=== PATIENT | female | born 1945 | race Caucasian/White ===

== ENCOUNTER 2022-09-03 14:59 | Outpatient (CLI) | payer MEDICARE, SELFPAY ==
--- OUTSIDE RECORDS SUMMARY | 2022-09-03 15:01 | XMS_ITS | Clinical Summary ---
:1945 Author Organization [facility] Address [address] [place] [address] Care Team Providers Name Role Phone Pcp, Pt Declines Primary Care Provider Source Comments You are receiving this document as you are listed as the primary care provider,follow-up provider, or the patient has been referred to you for consultation.This is in compliance with the Medicare and Medicaid EHR Incentive Program,which states Providers who transition their patient to another setting of careor provider of care or refers their patient to another provider of care shouldprovide summarycare record for each transition of care or referral. [facility] Allergies No known active allergies Medications Medication Sig Dispensed Refills Start Date End Date Status metFORMIN XR (GLUCOPHAGE 1,000 mg daily. 0 7 Active XR) 500 MG 24 hour release tablet pantoprazole (PROTONIX) Take 40 mg by 0 03/06/2017 Active 40 MG tablet mouth daily. Active Problems No known active problems Social History Tobacco Use Types Packs/Day Years Used Date Smoking Tobacco: Unknown Alcohol Use Standard Drinks/Week Comments Yes 0 (1 standard drink = 0.6 oz pure alcoho l) Sex Assigned at Date Recorded Not on file Last Filed Vital Signs Vital Sign Reading Time Taken Comments Blood Pressure - - Pulse - - Temperature - - Respiratory Rate - - Oxygen Saturation - - Inhaled Oxygen Concentration - - Weight 72.6 kg (160 lb) 06/08/2017 2:05 PM CDT Height 160 cm (5' 3) 06/08/2017 2:05 PM CDT Body Mass Index 28.34 06/08/2017 2:05 PM CDT Plan of Treatment Health Maintenance Due Date Last Done Comments Colon Cancer Screening Plan Due 1945 Hep C Screening (Preventive 1945 Services) Mammogram 1945 COVID-19 Vaccine (#1) 1945 Adult Preventive Visit 1965 DTaP/Tdap/Td (1 - Tdap) 1966 Zoster/Shingles (1 of 2) 1997 Dexa 2012 Pneumococcal 65+ Yrs (1 - PCV) 2012 Influenza (#1) 2022 HepA Aged Out No longer eligib le based on patient's age to complete this topic HepB Aged Out No longer eligib le based on patient's age to complete this topic Hib Aged Out No longer eligib le based on patient's age to complete this topic IPV (Polio) Aged Out No longer eligib le based on patient's age to complete this topic MCV4 Aged Out No longer eligib le based on patient's age to complete this topic Care Teams Manugrapher Relationship Specialty Start Date End Date Pcp, Pt MD Kassidy PCP - General 05/20/17 [place] [address]
--- OUTSIDE RECORDS SUMMARY | 2022-09-03 15:01 | XMS_ITS | Encounter Summary ---
:1945 Author Organization [facility] Address [address] [facility] [place] [address] Care Team Providers Name Role Phone Pcp, Pt Declines Primary Care Provider Reason for Referral Therapies (Routine) - Closed Specialty Diagnoses / Procedures Referred By Contact Refer red To Contact Diagnoses Primary osteoarthritis of first carpometacarpal joint of left hand José Luis Tubbs MD [address] [facility] [place] [address] Referral ID Status Reason Start Date Expiration Date Visits Requ ested Visits Authorized [id number] Closed 06/08/2017 08/07/2017 1 1 Scheduling Instructions Your provider has recommended an appoint ment with [facility]. You may call [phone] to schedule your appoi ntment. If you do not schedule an appointment within the next 1 to 3 business days, we will call you to help arrange your appointment. We suggest you call your [employer] insurance company about your coverage and benefits for this appointment. Procedure/Equipment (Routine) - Incomplete Specialty Diagnoses / Procedures Referred By Contact Refer red To Contact Diagnoses Primary osteoarthritis of first carpometacarpal joint of left hand José Luis Tubbs MD Procedures XR Finger Lt Thumb 3 Views [address] [facility] [address] [place] [address] Referral ID Status Reason Start Date Expiration Date Visits V isits Requested Authorized [id number] Incomplete 06/08/2017 09/07/2018 1 1 Reason for Visit Reason Comments PAIN, THUMB Left thumb pain deformity Encounter Details Date Type Department Care Team Description 06/08/2017 Surgical Consult [facility] Jsoé Luis Tubbs [facility] osteoarthritis CENTER MD [facility] [address] [facility] [address] [facility] D R carpometacarpal joint [address] [place], [place] of left hand ([place] [address] Dx) [address] [phone] Social History Tobacco Use Types Packs/Day Years Used Date Smoking Tobacco: Unknown Alcohol Use Standard Drinks/Week Comments Yes 0 (1 standard drink = 0.6 oz pure alcoho l) Sex Assigned at Date Recorded Not on file documented as of this encounter Last Filed Vital Signs Vital Sign Reading Time Taken Comments Blood Pressure - - Pulse - - Temperature - - Respiratory Rate - - Oxygen Saturation - - Inhaled Oxygen Concentration - - Weight 72.6 kg (160 lb) 06/08/2017 2:05 PM CDT Height 160 cm (5' 3) 06/08/2017 2:05 PM CDT Body Mass Index 28.34 06/08/2017 2:05 PM CDT documented in this encounter Patient Instructions Patient InstructionsChe Han MA - 06/08/2017 1:[address] José Luis Tubbs MD Hand & Upper Extremity Surgeon Picture Enlarger: Reema Ma Please contact Reema for all surgery scheduling and administrative questions at [phone] Hand Nurse: Joseph Roa Please contact Joseph for all medical related questions at [phone] Medication Requests: Prescriptions are not filled on Weekends or on Weekdays after 3:00PM For all medication refills: Request a refill using MyChart or contact your Pharmacy Please call [phone] to make future appointments. You are going to hand therapy today for splinting documented in this encounter Progress Notes José Luis Tubbs MD - 06/08/2017 1:20 PM CDT [facility] Consultation 06/08/2017 Chief Complaint: Left Thumb Pain History of Present Illness: Erica Tavarez is a type-2 diabetic right hand dominant 72 y.o. female who presents for evaluation of achy left thumb pain that has been going on for the past 20 years. There is no prior history of injury, trauma, or surgery to the left thumb. Her pain is localized to the CMC joint. Her pain becomes worse with doing crafts, sewing, knitting, and holding books. Over time she has noticed that her left thumb has been getting worse and gives her difficult with most activities. Of note at this point she only rates her pain at a 3-4/10 on a pain scale. She was being seen at the [facility] [place] hand clinic for a long period of time and tried hand therapy, bracing, and injection in the past which hasall only provided minor symptomatic relief. She mentions that she does not want to have surgery on the thumb at this point in time. Allergies: Sulfa antibiotics and penicillin. Current Medications: The patient has a current medication list which includes the following prescription(s): metformin xrand pantoprazole. Past Medical History: The patient has past medical history on file including type-2 diabetes, asthma, and spinal stenosis. Past Surgical History: The patient has past surgical history on file including deviated septum, bunion, shoulder repair, and cystocele. Family History: The patient's family history includes cancer (mother and father), heart disease (father), and arthritis (mother and brother). She is a non-smoker and drinks alcohol frequently. Social History: She is retired and lives with her .She The General Medical History Form dated 06/08/2017 was updated and reviewed with the patient; this is located in [email or web address] in [facility]. Review of Systems: A 15-point review was completed by the patient on the intake questionnaire. Review of systems was negative except for wearing glasses, ringing in the ears, asthma, arthritis, chronic back pain, numbness/tingling, allergies, hay fever, and diabetes. Physical Exam: Height: 1.6 m (5' 3) Weight: 72.6 kg (160 lb) General: Healthy appearing female. Affect appropriate. Normal gait. Alert and oriented x 3. Cardiovascular/Neuro: Sensation intact to light touch in all digits. Fingertips pink and well-perfused. Capillary refill less than two seconds. Left Hand/Wrist: Prominent thumb CMC joint with intercalated collapse of the thumb. Instable in pinch Tender over the thumb CMC joint. Positive thumb CMC grind. Mild tenderness over the STT joint. Non-tender over the radioscaphoid articulation, scapholunate interval, or first extensor compartment. Imaging: Radiographs of the left thumb - 3 views (06/08/17): 3 views of the left thumb show there are end stage degenerative changes at the thumb CMC joint with hyperextension deformity. There are also mild arthritic changes at the metacarpal phalangeal joint. I ordered and independently reviewed and interpreted the imaging studies above; the results were discussed with the patient. Assessment: Diagnosis and Associated Orders ICD-10-CM 1. Primary osteoarthritis of first carpometacarpal joint of left hand M18.12 XR Finger Lt Thumb 3 Views Plan: I discussed with the patient her x-rays results and then I discussed the different treatment optionsavailable to her including starting hand therapy, bracing, and corticosteroid injections. She is also a surgical candidate and I would recommend a thumb CMC suture suspension arthroplasty and simultaneously MP joint arthrodesis. The patient voiced understanding of the information discussed, and at this time, elects to proceed with getting a molded brace in hand therapy today. I instructed the patientto follow-up as needed. Scribe Disclosure: Mark Frank, am serving as a scribe to document services personally performed by José Luis Tubbs MD at this visit, based upon the provider's statements to me. All documentation has been reviewed by the aforementioned provider prior to being entered into the official medical record. Entered on 06/08/17 at 2:05 PM. José Luis Frank MD, attest that the above named individual is acting in scribe capacity, has observed my performance of the services performed at this visit and has documented them in accordance with my direction. Entered on 06/08/17 at 2:05 PM. José Luis Tubbs MD documented in this encounter Plan of Treatment Scheduled Referrals Name Type Priority Associated Diagnoses Order S chedule Hand Occupational Referral Routine Primary osteoarthritis of Ordered: Therapy first carpometacarpal 2016 joint of left hand documented as of this encounter Results XR Finger Lt Thumb 3 Views (06/08/2017 1:33 PM CDT) Anatomical Region Laterality Modality Upper Extremity, Hand Digital Radiograph y Specimen (Source) Anatomical Location Collection Method / Collectio n Time Received Time / Laterality Volume Narrative 06/09/2017 6:52 AM CDT 3 views of the left thumb show there are end stage degenerative changes at the thumb CMC joint with hyperextension deformity. There are also mild arthritic changes at the metacarpal phal angeal joint. José Luis Tubbs MD RAD GD documented in this encounter Visit Diagnoses Diagnosis Primary osteoarthritis of first carpomet acarpal joint of left hand - Primary Primary localized osteoarthrosis, hand Thumb pain, left documented in this encounter Care Teams Display Decorator Relationship Specialty Start Date End Date Pcp, Pt MD Kassidy PCP - General 05/20/17 [place] [address] documented as of this encounter
--- OUTSIDE RECORDS SUMMARY | 2022-09-03 15:01 | XMS_ITS | Encounter Summary ---
:1945 Author Organization [facility] Address [address] [place] [address] Care Team Providers Name Role Phone Pcp, Pt Kassidy MCCLURE Primary Care Provider Reason for Visit Reason Comments Hand Therapy Therapies (Routine) - Closed Specialty Diagnoses / Procedures Referred By Contact Refer red To Contact Diagnoses Primary osteoarthritis of first carpometacarpal joint of left hand José Luis Tubbs MD [address] [place] [address] [place], [place] [address] Referral ID Status Reason Start Date Expiration Date Visits Requ ested Visits Authorized [id number] Closed 06/08/2017 08/07/2017 1 1 Encounter Details Date Type Department Care Team Description 06/08/2017 Office Visit [facility] Errol Lee, [facility] [place] [address] [facility] OTR/L DJD(carpometacarpal [place], [place] [address] [facility] D R degenerative joint [address] [place], [place] disease), localized [phone] primary, left (Primary Dx) Social History Tobacco Use Types Packs/Day Years Used Date Smoking Tobacco: Unknown Alcohol Use Standard Drinks/Week Comments Yes 0 (1 standard drink = 0.6 oz pure alcoho l) Sex Assigned at Date Recorded Not on file documented as of this encounter Progress Notes Errol Lee, OTR/L - 06/08/2017 3:00 PM CDT Hand Occupational Therapy Evaluation/Plan of Care Initial Certification Period: 06/08/2017 - 09/06/17 Date of : 1945 Referring Provider: José Luis Tubbs Diagnosis: Left CMC osteoarthritis. Orders: Evaluation and treatment. Date of Onset: ~21 years Cause: Insidious Hand Dominance: Right PMH/Precautions: Refer to EMR for past medical history, medications, and drug allergies. has no pastmedical history on file. Occupation/Job Duties: Retired Leisure/Sports: Hand crafts, knitting, sewing, gardening, grand children, folk dance. Functional Limitations: gripping, pinching, carrying, lifting, crafts, holding a book, leisure activities, dancing, cooking and ADLs. Functional Goals: ?? The patient will implement techniques for self-management of pain as instructed at today's treatment session. The patient will be able to manage self cares within the restrictions of the splint with minimal to no difficulty or pain in 0-2 weeks. Functional Limitation Reporting: Based on objective findings and clinical judgment on 06/08/2017 Current Status: Carrying, moving, handling objects (G8984) - Impairment level 1- 19% impaired (CI modifier) Discharge Status: Carrying, moving, handling objects (G8986) - Impairment level 1-19% impaired (CI modifier) Goal Status: Carrying, moving, handling objects (G8985) - Impairment level 1-19% impaired (CI modifier) SUBJECTIVE: Patient arrives on acute following MD visit. She has pain in her thumb and notes collapse of her MCP. OBJECTIVE: Pain: Patient rates resting pain as achey. Patient rates pain with activity 3/10. AROM: Thumb motion observed within normal limits. Strength: Not tested secondary to pain levels. Special Tests: Left Grind Test NT Shoulder Sign + MCP joint hyperextension + Adduction contracture + Trapezium [place] NT Retropulsion NT TREATMENT INTERVENTION: OT Evaluation CPT 11533 (10 minutes untimed) A Moderate Complexity Occupational Therapy Evaluation was completed. Occupational profile/history: expanded review of records and medical history. Assessment: 3-5 performance deficits. Clinical decision making: consideration of several treatment options and patient may have co-morbidities. The patient was educated on the condition, planned therapy [id number], and expectations from treatment. Goals were a collaborative effort between the patient and therapist. Risks, benefits, and alternatives to treatment were explained. Patient or guardian in agreement with care plan. Therapeutic Exercise CPT 95957 (5 minutes) Patient was instructed in, performed, and provided with written handout for CMC osteoarthritis rangeof motion, including adductor stretches. Self-Care / Home Management Training CPT 42625 (15 minutes) Issued handout and instructed in pain management techniques including the use of heat and/or cold, joint protection strategies, and activity modification. Application of Hand Splint/Orthosis, Static CPT 90080 (15 minutes untimed) A custom thermoplastic hand based thumb spica splint/orthosis with IP free was fabricated for the patient. The patient was provided with written instructions on splint/orthosis care. Patient was instructed to wear the splint/orthosis as needed for comfort and symptom relief. Patient can don and doff splint/orthosis independently. Timed Code Treatment Minutes: 20 Total Treatment Minutes: 45 ASSESSMENT: Symptoms are consistent with referring diagnosis of CMC osteoarthritis. Functional limitations are due to: Pain. Rehab prognosis is good to achieve stated goals. Mood, orientation, and behavior were appropriate. Patient was alert and oriented. No apparent barriers to learning observed. PLAN: Today???s treatment goals were achieved and the patient is able to progress independently towards their remaining short and long-term goals. The patient will follow up with the referring provider as directed. If no new orders in the next 30 days, discharge hand therapy. The patient was provided with the clinic number and instructed to call with any questions or concerns. Therapist Signature: Errol Lee MS, OTR/L #[id number] Visit #1 Payor: [facility] / Plan: [facility] MEDICARE / Product Type: Medicare / Physician electronic signature indicates review and certification of therapy plan of care. documented in this encounter Plan of Treatment Scheduled Referrals Name Type Priority Associated Diagnoses Order S chedule Hand Occupational Referral Routine Primary osteoarthritis of Ordered: Therapy first carpometacarpal 2016 joint of left hand documented as of this encounter Visit Diagnoses Diagnosis CMC DJD(carpometacarpal degenerative vince nt disease), localized primary, left - Primary documented in this encounter Care Teams Medical Claims Manager Relationship Specialty Start Date End Date Pcp, Remi Yi MD PCP - General 05/20/17 [place] [address] documented as of this encounter
--- OUTSIDE RECORDS SUMMARY | 2022-09-03 15:01 | XMS_ITS | Encounter Summary ---
:1945 Author Organization [facility] Address [address], [place] [address] Care Team Providers Name Role Phone PcpRemi MD Primary Care Provider Encounter Details Date Type Department Care Team Description 10/28/2017 Notes/Orders [facility] [address], Rheumatology MD Erik [address] [place] [address] [place] [address] [phone] (Wo rk) Social History Tobacco Use Types Packs/Day Years Used Date Smoking Tobacco: Unknown Alcohol Use Standard Drinks/Week Comments Yes 0 (1 standard drink = 0.6 oz pure alcoho l) Sex Assigned at Date Recorded Not on file documented as of this encounter Plan of Treatment Not on filedocumented as of this encounter Visit Diagnoses Not on filedocumented in this encounter Care Teams Rn Bariatric Relationship Specialty Start Date End Date Remi Lyles MD PCP - General 05/20/17 [place] [address] documented as of this encounter
--- OUTSIDE RECORDS SUMMARY | 2022-09-03 15:01 | XMS_ITS | Encounter Summary ---
:1945 Author Organization [facility] Address [address] [place] [address] Care Team Providers Name Role Phone Pcp, Pt Declines Primary Care Provider Reason for Visit Procedure/Equipment (Routine) - Incomplete Specialty Diagnoses / Procedures Referred By Contact Refer red To Contact Diagnoses Primary osteoarthritis of first carpometacarpal joint of left hand José Luis Tubbs MD Procedures XR Finger Lt Thumb 3 Views [address] [address] [place] [address] Referral ID Status Reason Start Date Expiration Date Visits V isits Requested Authorized [id number] Incomplete 06/08/2017 09/07/2018 1 1 Encounter Details Date Type Department Care Team Description 06/08/2017 Imaging [facility] José Luis Tubbs MD Thumb pain, left [address] [facility] [address] [place] [address] [place] [address] [phone] (Wo rk) Social History Tobacco Use Types Packs/Day Years Used Date Smoking Tobacco: Unknown Alcohol Use Standard Drinks/Week Comments Yes 0 (1 standard drink = 0.6 oz pure alcoho l) Sex Assigned at Date Recorded Not on file documented as of this encounter Plan of Treatment Not on filedocumented as of this encounter Procedures Procedure Name Priority Date/Time Associated Diagnosis Comme nts XR FINGER LT THUMB Routine 06/08/2017 1:33 PM Thumb pain, left Results for this 2+ VIEWS CDT procedure are i n the results section. documented in this encounter Results XR Finger Lt Thumb [...] documented in this encounter Visit Diagnoses Diagnosis Thumb pain, left documented in this encounter Care Teams Apple Checker Relationship Specialty Start Date End Date Pcp, Remi Yi MD PCP - General 05/20/17 [place] [address] documented as of this encounter
--- OUTSIDE RECORDS SUMMARY | 2022-09-03 15:02 | XMS_ITS | Encounter Summary ---
:1945 Author Organization [facility] Address [address] [place] [address] Care Team Providers Name Role Phone Unavailable Primary Care Provider Unavailable Reason for Visit Reason Comments Derm Issue Encounter Details Date Type Department Care Team Description 12/16/2021 Clinical Communication Department of Zenaida Montgomery, Derm Issue Dermatology in [place], [place] [address] [phone] Social History Tobacco Use Types Packs/Day Years Used Date Smoking Tobacco: Never Smokeless Tobacco: Never Alcohol Habits Answer Date Recorded How often do you have a drink containing alcohol? 2-4 times a month 02/27/2021 How many drinks containing alcohol do you have on a 1 or 2 02/27/2021 typical day when you are drinking? How often do you have six or more drinks on one Never 02/27/2021 occasion? Social Isolation Answer Date Recorded In a typical week, how many times do you More than three domi es a week 02/27/2021 talk on the phone with family, friends, or neighbors? How often do you get together with friends Once a week 02/27/2021 or relatives? How often do you attend yarsani or Never 2020 jewish services? Do you belong to any clubs or Yes 02/27/2021 organizations such as yarsani groups, unions, fraternal or athletic groups, or school groups? How often do you attend meetings of the More than 4 times pe r year 02/27/2021 clubs or organizations you belong to? Are you now , , , 02/27/2021 , never or living with a partner? Physical Activity Answer Date Recorded On average, how many days per week do you engage in moderate to 2 days 02/27/2021 strenuous exercise (like walking fast, running, jogging, dancing, swimming, biking, or other activities that cause a light or heavy sweat)? On average, how many minutes do you engage in exercise at th is 30 min 02/27/2021 level? Stress Answer Date Recorded Do you feel stress - tense, restless, nervous, or To some ex tent 02/27/2021 anxious, or unable to sleep at night because your mind is troubled all the time - these days? Financial Resource Strain Answer Date Recorded How hard is it for you to pay for the very basics like Not h kwame at all 02/27/2021 food, housing, medical care, and heating? Food Insecurity Answer Date Recorded Within the past 12 months, you worried that your food would Never true 02/27/2021 run out before you got money to buy more. Within the past 12 months, the food you bought just didn't N ever true 02/27/2021 last and you didn't have money to get more. Transportation Needs Answer Date Recorded In the past 12 months, has lack of transportation kept you f rom No 02/27/2021 medical appointments or from getting medications? In the past 12 months, has lack of transportation kept you f rom No 02/27/2021 meetings, work, or getting things needed for daily living? Housing Stability Answer Date Recorded In the last 12 months, was there a time when you were not ab le No 02/27/2021 to pay the mortgage or rent on time? In the last 12 months, how many places have you lived? 1 02/27/2021 In the last 12 months, was there a time when you did not hav e a No 02/27/[address] or slept in a fpc (including now)? Education Answer Date Recorded What is the highest level of school Bachelor's degree (e.g., BA, AB, 02/26/2021 you have completed or the highest BS) degree you have received? Sex Assigned at Date Recorded Not on file documented as of this encounter Miscellaneous Notes Telephone Encounter - Margot Vergara 12/16/2021 3:07 PM CST Reason for call: Patient is wanting an appointment with Derm, but there is nothing available. Patient has a spot on her chest by her collar bone that is not getting better, the texture has change a lotand patient is concerned. It is itchy and it is raised and has a thickness to it that it did not have before. Patient would like a call back and an appointment. Please call patient back at [phone], you can leave a detailed message if she does not answer. 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
--- OUTSIDE RECORDS SUMMARY | 2022-09-03 15:02 | XMS_ITS | Encounter Summary ---
:1945 Author Organization [facility] Address [address] [place] [address] Care Team Providers Name Role Phone Unavailable Primary Care Provider Unavailable Reason for Visit Reason Comments Suspicious Skin Lesion Recheck right calf nevus Appointment Request (Routine) - Closed Specialty Diagnoses / Procedures Referred By Contact Refer red To Contact Dermatology Referral ID Status Reason Start Date Expiration Date Visits Requ ested Visits Authorized [id number] Closed 06/06/2018 06/06/2019 1 Encounter Details Date Type Department Care Team Description 09/20/2018 Office Visit Department of Zenaida Montgomery, Tumor Skin Uncertain Behavior (Primary Dx); [place] [address] [phone] Social History Tobacco Use Types Packs/Day Years Used Date Smoking Tobacco: Never Assessed Alcohol Habits Answer Date Recorded How often [...] or relatives? How often do you attend mandaen or Never 2020 voodoo services? Do you belong to any clubs or Yes 02/27/2021 organizations such as mandaen groups, unions, fraternal or athletic groups, or [...] place to sleep or slept in a care home (including now)? Sex Assigned at Date Recorded Not on file documented as of this encounter Progress Notes Zenaida Montgomery M.D. - 09/20/2018 8:30 AM CST CHIEF COMPLAINT/REASON FOR VISIT Recheck of nevus involving the right calf Lesion involving the right lower back HISTORY OF PRESENT ILLNESS Ms. Erica Tavarez is a 73 y.o. female who presents today for recheck of nevus involving the rightcalf. The patient denies a history of skin cancer. During her last visit on 06/06/18, one nevus on her right calf was noted to be slightly asymmetrical but looked benign on clinical exam and dermoscopy. The patient also has concern today for a lesion involving her right lower back that has been presentfor many years. She reports it is itchy, and the lesion bleeds when she scratches the it. Allergies Allergen Reactions ??? Sulfa (Sulfonamide Antibiotics) Anaphylaxis and Rash ??? Cats [Cat Dander] Other (see comments) Eyes swell and itch ??? Dog Dander Other (see comments) Nasal congestion ??? House Dust Other (see comments) ??? Mold Extracts Other (see comments) ??? Penicillins Rash PAST MEDICAL HISTORY No history of skin cancer Type 2 Diabetes Mellitus FAMILY HISTORY Father has a history for melanoma in situ involving the scalp as well as basal cell carcinoma. Mother has a history of basal cell carcinoma and squamous cell carcinoma. Son has a history of atypical nevi in his late 50's. PHYSICAL EXAM General: Awake, alert, in no acute distress, and with appropriate affect. Skin: I have examined the scalp, face, neck, chest, abdomen, back, bilateral upper extremities, and bilateral lower extremities. Examination of the right calf reveals a 2.5 mm x 2.5 mm brown, slightly asymmetrically pigmented nevus. Examination of the right lower back reveals one small nonspecific healing excoriation and dry skin. No lesion present on clinical examination and dermoscopy. IMPRESSION/REPORT/PLAN #1 Right calf: Rule out atypical nevus On clinical examination and dermoscopy today, the nevus involving the right calf is slightly asymmetrical but appears benign. We discussed the possibility of removal or continued observation of the nevus through regular rechecks every 4-6 months. The patient and we prefer to remove the nevus today instead of continued close observation. We recommend a 5-mm punch biopsy of the right calf. Photograph taken today with patient's verbal consent. We will correspond as to the results and if any further treatment is needed. I advised the patient to avoid any stretching, bending, twisting or heavy lifting for the next two weeks and the patient understands. We also emphasized the importance preventing infection and observing the area for infection given her history of type 2 diabetes and getting prompt evaluation if she suspects infection atthe biopsy site. PROCEDURAL PAUSE Procedural pause conducted to verify: correct patient identity, procedure to be performed, and as applicable, correct side and site, correct patient position, and availability of implants, special equipment, or special requirements. PROCEDURE DETAILS Punch biopsy. We explained the potential diagnosis and recommended that we obtain a biopsy. The risks and benefitsof the procedure were discussed, and the patient consented to these procedures. The patient denies any allergies to local anesthetics. Using 1% lidocaine with epinephrine for local anesthesia, a 5-mm punch biopsy was obtained from the right calf. Biopsy submitted to Dermatopathology. Biopsy site closed with a top layer of three 4-0 nylon skin sutures. The skin sutures need to be removed in 10-14 days. Dressing was applied, and wound care instructions were explained. Biopsy results and any further recommendations will be communicated to the patient by letter. Patient given pamphlet [id number]. Discussed the risks, benefits, alternatives, and the necessity of other members of the healthcare team participating in the procedure. All questions answered and consent given. #2 Right lower back: Healing excoriation The patient was concerned for a lesion involving the right lower back. However, there is no lesion present on clinical examination and dermoscopy today. PATIENT EDUCATION Ready to learn. No apparent learning barriers were identified. Learning preferences include listening. Explained diagnosis and treatment plan; patient/guardian of patient expressed understanding of thecontent. By signing my name below, Rebeca Frank, attest that this documentation has been prepared under the direction and in the presence of Zenaida Montgomery M.D.. Electronically Signed: catalina Riley. 09/20/2018. 7:52 AM . Zenadia Frank M.D., personally performed the services described in this documentation. All medical record entries made by the scribe were at my direction and in my presence. I have reviewed the chart and discharge instructions (if applicable) and agree that the record reflects my personal performance and is accurate and complete. Zenaida Montgomery M.D. . 09/20/2018. 9:01 AM. [employer]AT ASSEMBLY Zenaida Montgomery M.D. - 09/20/2018 8:30 AM CST b9 lesion letter. [employer] documented in this encounter Plan of Treatment Not on filedocumented as of this encounter Procedures Procedure Name Priority Date/Time Associated Comments Diagnosis DERMATOPATHOLOGY CONSULT Routine 09/20/2018 8:55 Tumor Skin Results for this AM SUPERVISOR [employer]SEMBLY Uncertain Behavior procedure are in the results section. documented in this encounter Results Dermatopathology Consult (09/20/2018 8:55 AM SUPERVISOR [employer]) Component Value Ref Test Analysis Performed At [facility] Method Time Signature Gross Received in formalin labeled with the patient's name, 09/26/2018 [facility] Description: medical record number, and right calf is a 0.5 cm in 4:26 PM [employer] LABORATORIES - diameter pale dillon-stephenson ovoid skin punch biopsy, excised to [facility] depth of 0.4 cm. ??There is a 0.2 x 0.2 cm [facility] pigmented lesion with irregular borders centrally located on the skin surface. ??The specimen is bisected and submitted entirely in cassette A1. ??Grossed by AJG. Report Urmila Silveira 09/26/2018 [facility] electronically Yifan Jamison 4:26 PM [employer] ES - signed by [facility] 09/26/2018 [facility] 4:26 PM [employer] LABORATORIES - [facility] Interpetation FINAL DIAGNOSIS 09/26/2018 [facility]. ??DermPath Consult Wet Tissue; Right calf, Skin punch 4:26 PM [employer] [facility]IES - biopsy: ??Lentiginous junctional nevus [facility] Clinical photo reviewed. Specimen Anatomical Collection Method Collection Time Receive d Time (Source) Location / / Volume Laterality Tissue 09/20/2018 8:55 AM 8 9:19 [employer] AM [employer] Narrative This result has an attachment that is no t available. Zenaida Montgomery M.D. LAB PATH DERM ORDERABLES Performing Organization Address City/State/ZIP Code Phon e Number [facility] - [address] [place], [place] [address] [facility] documented in this encounter Visit Diagnoses Diagnosis Tumor Skin Uncertain Behavior - Primary Nevus Atypical documented in this encounter Administered Medications Inactive Administered Medications - up to 3 most recent administrations Medication Order MAR Action Action Date Dose Rate Site lidocaine-EPINEPHrine 1 %-1:100,000 Given 09/20/2018 9:00 AM [employer] 1 mL injection 1 mL (XYLOCAINE W/EPI) 1 mL, infiltration, Once, On Wed09/20/18 at 0900, For 1 dose documented in this encounter
--- OUTSIDE RECORDS SUMMARY | 2022-09-03 15:02 | XMS_ITS | Encounter Summary ---
:1945 Author Organization [facility] Address [address] [place] [address] Care Team Providers Name Role Phone Unavailable Primary Care Provider Unavailable Reason for Visit Reason Comments Lesion Appointment Request (Routine) - Closed Specialty Diagnoses / Procedures Referred By Contact Refer red To Contact Dermatology Zenaida Montgomery M.D . [address] [place] [phone] Referral ID Status Reason Start Date Expiration Date Visits Requ ested Visits Authorized [id number] Closed 05/06/2021 05/06/2022 1 1 Encounter Details Date Type Department Care Team Description 12/23/2021 Office Visit Department of Zenaida Montgomery, Tumor Skin Uncertain Dermatology in [place] [facility] (Primary Dx) [place], [place] [address] [place] [phone] Social History Tobacco Use Types Packs/Day Years [...] or relatives? How often do you attend restorationist or Never 2020 jehovah's witness services? Do you belong to any clubs or Yes 02/27/2021 organizations such as restorationist groups, unions, fraternal or athletic groups, or [...] place to sleep or slept in a assisted (including now)? Education Answer Date Recorded What is the highest level of school Bachelor's degree (e.g., BA, AB, 02/26/2021 you have completed or the highest BS) degree you have received? Sex Assigned at Date Recorded Not on file documented as of this encounter Progress Notes Zenaida Montgomery M.D. - 12/23/2021 9:15 AM CST SUBJECTIVE CHIEF COMPLAINT / REASON FOR VISIT Lesion x 1 HISTORY OF PRESENT ILLNESS Erica Tavarez is a pleasant 76 y.o. female who presents for an evaluation of a lesion x 1 involving the chest. The patient was last seen by me in Dermatology clinic on 05/06/21. She denies a personalhistory of skin cancer. Her father has a history of melanoma. She uses sunscreen. Today the patient states the lesion involving the chest has been present for two years and she feels that it has increased in thickness over the last three months. She reports that the lesion has been itchy for as long as it has been present. MEDICAL HISTORY Negative for skin cancer FAMILY HISTORY Father??has a??history for melanoma??in situ involving the scalp as well as??basal cell carcinoma Son has a history of severely dysplastic nevus OBJECTIVE PHYSICAL EXAMINATION General: Awake, alert, in no acute distress, and with appropriate affect. Skin: Limited skin exam done today. Examination of the right mid central chest reveals a slightly erythematous, scaly macule, lichenoid keratosis, rule out superficial basal cell carcinoma. ASSESSMENT / PLAN #1 Right mid central chest: Lichenoid keratosis, rule out superficial basal cell carcinoma We recommend a shave biopsy of the right mid central chest. Photograph taken today with patient's verbal consent. We will correspond as to the results and if any further treatment is needed. PROCEDURAL PAUSE: Procedural pause conducted to verify: correct patient identity, procedure to be performed, and as applicable, correct side and site, correct patient position, and availability of implants, special equipment or special requirements. PROCEDURE DETAILS: Shave biopsy. We explained the potential diagnosis and recommended that we obtain a biopsy. The risks and benefitsof the procedure were discussed, and the patient consented to these procedures. The patient denies any allergies to local anesthetics. Using 1% lidocaine with epinephrine for local anesthesia, a shave biopsy was obtained from the right mid central chest. Biopsy submitted to Dermatopathology for H&E. Special stains will be performed as indicated. The bleeding was well controlled with application of aluminum chloride. Dressing was applied, and wound care instructions were explained. Biopsy resultsand any further recommendations will be communicated to the patient by letter. Patient given pamphlet [id number]. Discussed the risks, benefits, alternatives, and the necessity of other members of the healthcare team participating in the procedure. All questions answered and consent given. PATIENT EDUCATION: Ready to learn. No apparent learning barriers were identified. Learning preferences include listening. Explained diagnosis and treatment plan; patient/guardian of patient expressed understanding of thecontent. By signing my name below, I, Rossana Glez, attest that this documentation has been prepared under the direction and in the presence of Zenaida Montgomery M.D. Electronically Signed: catalina Martinez. 12/23/2021. 8:36 AM NURSE PRACTICAL. IZenaida M.D., personally performed the services described in this documentation. All medical record entries made by the scribe were at my direction and in my presence. I have reviewed the chart and discharge instructions (if applicable) and agree that the record reflects my personal performance and is accurate and complete. Zenaida Montgomery M.D. E PRACTICAL documented in this encounter Miscellaneous Notes Result Encounter Note - Zenaida Montgomery M.D. - 12/30/2021 8:58 AM CST Right mid central chest: Benign lesion letter [place] patient. Please send letter E PRACTICAL documented in this encounter Plan of Treatment Not on filedocumented as of this encounter Procedures Procedure Name Priority Date/Time Associated Comments Diagnosis DERMATOPATHOLOGY CONSULT Routine 12/23/2021 9:41 Tumor Skin Results for this AM NURSE PRACTICAL Uncertain Behavior procedure are in the results section. documented in this encounter Results Dermatopathology Consult (12/23/2021 9:41 AM NURSE PRACTICAL) Component Value Ref Test Analysis Performed At [facility] gist Range Method Time Signature 12/29/2021 PDR 1:21 PM NURSE PRACTICAL Report Clarisse Medrano 12/29/2021 [facility] electronically Yifan Bee 1:21 PM NURSE PRACTICAL signed by Gross Description: Received in formalin labeled with the patient's name, 12/29/2021 [facility] medical record number, and right mid central chest is a 1:21 PM NURSE PRACTICAL 0.8 x 0.6 x 0.1 cm pale-dillon skin shave biopsy. ??Centrally located on the skin surface is a 0.5 x 0.4 cm pale dillon-brown, slightly raised lesion with ill-defined borders. The specimen is trisected and submitted entirely in cassette A1. ??Grossed by AIDAN. Interpetation FINAL DIAGNOSIS 12/29/2021 PDR A. ??DermPath Consult Wet Tissue; Right mid central chest, 1:21 PM NURSE PRACTICAL Skin shave biopsy: ??Lichenoid keratosis Specimen Anatomical Collection Method Collection Time Receive d Time (Source) Location / / Volume Laterality Tissue 12/23/2021 9:41 AM 9:56 NURSE PRACTICAL AM NURSE PRACTICAL Narrative This result has an attachment that is no t available. Zenaida Montgomery M.D. LAB PATH DERM ORDERABLES Performing Organization Address City/State/ZIP Code Phon e Number [facility] - [address] [place], [place] [address] [place] [address] [facility] [address] documented in this encounter Visit Diagnoses Diagnosis Tumor Skin Uncertain Behavior - Primary documented in this encounter
--- OUTSIDE RECORDS SUMMARY | 2022-09-03 15:02 | XMS_ITS | Encounter Summary ---
:1945 Author Organization [facility] Address [address] [place] [address] Care Team Providers Name Role Phone Unavailable Primary Care Provider Unavailable Encounter Details Date Type Department Care Team Description 10/03/2018 Nurse Only Department of Dermatology in [place] Loraine sebastian R.N. [facility] christine [address] [place] [phone] Social History Tobacco Use Types Packs/Day Years [...] or relatives? How often do you attend bahai or Never 2020 restorationism services? Do you belong to any clubs or Yes 02/27/2021 organizations such as bahai groups, unions, fraternal or athletic groups, or [...] place to sleep or slept in a skilled nursing (including now)? Sex Assigned at Date Recorded Not on file documented as of this encounter Procedure Notes Loraine Chavira R.N. - 10/03/2018 3:00 PM CST Procedures #1 Suture removal Supervising consultant electronics was immediately available, but consultation was not required. Supervising consultant electronics: Dr. Aly Montgomery ([id number]). Ordering physician: Dr. Aly Montgomery ([phone]). Patient seen on 09/20/2018 and punch biopsy was performed. Patient returns for suture removal. Area cleansed with alcohol wipe. Wound is well approximated, without swelling, without odor, without drainage, without bruising. Three suture(s) removed from the Right calf with difficulty. Vaseline and bandage applied. Wound care reviewed with patient per [id number]. Biopsy results were discussed. Teaching provided to patient. Evaluation of learning: able to teach back. Final Pause: A final pause occurred just before the procedure start, during which the entire procedure team actively confirmed the correct patient, procedure, site, special equipment and special requirements. HER FEEDER documented in this encounter Plan of Treatment Not on filedocumented as of this encounter Visit Diagnoses Diagnosis Aftercare Suture Removal Non-Injury - Pr imary documented in this encounter
--- OUTSIDE RECORDS SUMMARY | 2022-09-03 15:02 | XMS_ITS | Encounter Summary ---
:1945 Author Organization [facility] [place] [address] Care Team Providers Name Role Phone Mahamed Kate MD Primary Care Provider [phone] Reason for Visit Auth/Cert Specialty Diagnoses / Procedures Referred By Contact Refer red To Contact Surgery Diagnoses BILATERAL UPPER LID PTOSISI, DERMATOCHALASIS, BROW PTOSIS Sh Periop Services Procedures COMBINED REPAIR PTOSIS WITH BLEPHAROPLASTY BILATERAL REPAIR PTOSIS BROW [address], [address] [place] [address] Phone: Referral ID Status Reason Start Date Expiration Date Visits Requ ested Visits Authorized [id number] 1 1 Encounter Details Date Type Department Care Team Description 08/23/2018 Surgery [facility] Sarika Mcdaniel [place] UPPER LID [place] PeriOP MD [place] PTOSIS, Services [place] OPHTHALMIC PLASTIC BLEPHAROPLASTY, RIGHT [address], SURGERY BROW PTOSIS [address] [place] [address] [address] [place] [id number] (Wo rk) Surgery Details Date/Time Status Location OR Service Patient Case Case Traum a Class Class Type Case? 08/23/18 Posted Z SH SD SD 23 Ophthalmology Same Day 11:10 AM Surgery Panel 1 Procedure LRB Anes Op Region Wound Class Commen ts BILATERAL UPPER LID Bilateral MAC Eye I-Clean BILAT ERAL UPPER LID PTOSIS, BLEPHAROPLASTY, P TOSIS, BLEPHAROPLASTY, RIGHT BROW PTOSIS RIGHT B ROW PTOSIS REPAIR, PTOSIS, BROW Right MAC Eye I-Clean Surgeon Surgeon Role Service Panel Sarika Mcdaniel MD Primary Ophthalmology 1 documented in this encounter Social History Tobacco Use Types Packs/Day Years Used Date Smoking Tobacco: Never Smokeless Tobacco: Never Alcohol Use Standard Drinks/Week Comments Yes 0 (1 standard drink = 0.6 oz pure alcoho l) Sex Assigned at Date Recorded Not on file documented as of this encounter Last Filed Vital Signs Vital Sign Reading Time Taken Comments Blood Pressure 120/72 08/23/2018 1:15 PM CDT Pulse - - Temperature 36.6 ??C (97.9 ??F) 08/23/2018 1:15 PM CDT Respiratory Rate 16 08/23/2018 1:15 PM CDT Oxygen Saturation 92% 08/23/2018 1:15 PM CDT Inhaled Oxygen Concentration - - Weight 71.4 kg (157 lb 8 oz) 08/23/2018 10:30 AM CDT Height 157.5 cm (5' 2) 08/23/2018 10:30 AM CDT Body Mass Index 28.81 08/23/2018 10:30 AM CDT documented in this encounter Discharge Instructions Discharge InstructionsNicki Flowers RN - 08/23/2018 12:35 PM CDT Same Day Surgery Discharge Instructions for Sedation and General Anesthesia ?? It's not unusual to feel dizzy, light-headed or faint for up to 24 hours after surgery or while taking pain medication. If you have these symptoms: sit for a few minutes before standing and have someone assist you when you get up to walk or use the bathroom. ?? You should rest and relax for the next 24 hours. We recommend you make arrangements to have an adult stay with you for at least 24 hours after your discharge. Avoid hazardous and strenuous activity. ?? DO NOT DRIVE any vehicle or operate mechanical equipment for 24 hours following the end of your surgery. Even though you may feel normal, your reactions may be affected by the medication you have received. ?? Do not drink alcoholic beverages for 24 hours following surgery. ?? Slowly progress to your regular diet as you feel able. It's not unusual to feel nauseated and/or vomit after receiving anesthesia. If you develop these symptoms, drink clear liquids (apple juice, chioma aranza, broth, 7-up, etc. ) until you feel better. If your nausea and vomiting persists for 24 hours, please notify your surgeon. ?? All narcotic pain medications, along with inactivity and anesthesia, can cause constipation. Drinking plenty of liquids and increasing fiber intake will help. ?? For any questions of a medical nature, call your surgeon. ?? Do not make important decisions for 24 hours. ?? If you had general anesthesia, you may have a sore throat for a couple of days related to the breathing tube used during surgery. You may use Cepacol lozenges to help with this discomfort. If it worsens or if you develop a fever, contact your surgeon. ?? If you feel your pain is not well managed with the pain medications prescribed by your surgeon, please contact your surgeon's office to let them know so they can address your concerns. [facility] Eyelid/Orbital Surgery Discharge Instructions Dr. Sarika Mcdaniel ICE COMPRESSES Immediately following surgery, you should begin to apply ice compresses. Apply a cold gel pack or wrap a clean washcloth around a cup of crushed ice in a plastic bag (a bag of frozen peas also works well) and hold the cold compresses directly against the closed eyelid (s).Apply cold pack for a minimumof six times daily for no longer than 15 minutes at a time. Continue cold compresses every day untilthe bruising and swelling begin to subside. This can vary for each patient, but three days may be common. HOT COMPRESSES After your swelling and bruising have begun to subside, hot compresses should be applied. Take a clean washcloth and wring it out in hot water (as warm as you can tolerate comfortably). Hold this warm compress against the closed eyelid(s) at least six times per day for 15 minutes. This should be continued for about two weeks. OINTMENT You may be given some ointment when you leave the hospital. Apply this ointment as directed per pharmacy label for 7 days. Expect some blurring of vision from the ointment. ACTIVITY Avoid heavy lifting or vigorous exercise for one week after surgery. You may resume regular activities as tolerated. You may shower and wash your hair on the day after surgery; be careful to avoid soaking the wounds or getting shampoo in your eyes. While your eyes are still swollen, it is recommended you sleep on your back and elevate your head with 2-3 pillows. MEDICATION If the doctor has given you some medications to take after surgery, please take these according to the instructions on the bottle. Pain medications may make you drowsy so do not drive, operate heavy machinery, or use alcohol while taking it. When you feel that you do not need the prescription pain medication, you may substitute Extra Strength Tylenol for mild pain by also following the directions on the bottle. If you were taking Aspirin prior to your surgery, you may resume this medication tomorrow. If you were on an anticoagulant, you may resume taking it with the next scheduled dose. WHAT TO EXPECT You should expect some slight oozing of blood from the incision site over the first two to three days after surgery. Swelling and bruising will occur for one to two weeks or longer. You may also experience itching and tearing during the first several weeks after surgery. This is part of the normal healing process QUESTIONS Please feel free to contact the office, should you have any questions that are not answered above. The phone number is . Please call immediately if you are unable to establish vision in the operative eye, you are experiencing heavy bleeding that will not stop with gentle pressure or you have any signs of an infection (greenish/yellow discharge or progressive redness). [facility] [address] [place], [place] [address] If you have questions or concerns about your procedure, call Dr. Mcdaniel at [phone] documented in this encounter Medications at Time of Discharge Medication Sig Dispensed Refills Start Date End Date Acetaminophen (TYLENOL Take 325-650 mg by 0 PO) mouth At Bedtime (Takes 2 x 325mg tablet = 650mg dose) albuterol (2.5 MG/3ML) Take 2.5 mg by 0 0.083% neb solution nebulization every 4 hours as needed for shortness of breath / dyspnea or wheezing albuterol (PROAIR Inhale 2 puffs into 0 HFA/PROVENTIL the lungs every 4 HFA/VENTOLIN HFA) 108 (90 hours as needed for Base) MCG/ACT inhaler shortness of breath / dyspnea or wheezing Cyanocobalamin (B-12 PO) Take 500 mcg by mouth 0 daily DiphenhydrAMINE HCl Take 25-50 mg by mouth 0 (BENADRYL PO) At Bedtime erythromycin (ROMYCIN) Apply topically 3 2 Tube 1 2017 ophthalmic times daily ointmentIndications: Ptosis of both eyelids fluticasone (FLONASE) 50 [place] 2 sprays into 0 MCG/ACT spray both nostrils daily GABAPENTIN PO Take 100-200 mg by 0 mouth daily GLIMEPIRIDE PO Take 1 mg by mouth 2 0 times daily (Takes 2 x 1mg tablet = 2mg dose) HYDROcodone-acetaminophen Take 1 tablet by mouth 10 tablet 0 08/23/2018 (NORCO) 5-325 MG per every 6 hours as tabletIndications: Ptosis needed for severe pain of both eyelids MAGNESIUM GLYCINATE PLUS Take 400 mg by mouth 0 PO daily METFORMIN HCL ER PO Take 500 mg by mouth 2 0 times daily (Takes 2 x 500mg tablet = 1000mg dose) mometasone (ASMANEX) 220 Inhale 1-2 puffs into 0 MCG/INH Inhaler the lungs daily Montelukast Sodium Take 10 mg by mouth At 0 (SINGULAIR PO) Bedtime multivitamin, therapeutic Take 1 tablet by mouth 0 (THERA-VIT) TABS tablet daily Pseudoephedrine HCl Take 30 mg by mouth At 0 (SUDAFED PO) Bedtime documented as of this encounter Nursing Notes Kerri Llamas RN - 08/23/2018 1:35 PM CDT PNDS met. Pt tolerating PO. Pt discharge to Phase II, awaiting RX medication. Pt stating her Left eye is more grainy feeling than left. documented in this encounter Miscellaneous Notes Op Note - Sarika Mcdaniel MD - 08/23/2018 1:00 PM CDT Pre-operative Diagnosis: ?? 1. 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 2.??Bilateral upper eyelid involutional ptosis causing visual signs/symptoms 3. Right upper eyelid brow ptosis Post-operative Diagnosis:??Same as above ? Procedure(s): ?? 1. Bilateral upper eyelid blepharoplasty 2. Bilateral internal ptosis repair (MMCR 8.5??OU) 3. Right brow ptosis repair via browpexy Surgeon:??Sarika Mcdaniel MD ? Anesthesia:??Monitored anesthesia care with local anesthetic ? Blood loss:??<5 cc ? Complications:??None ? Specimens: None ? Operative Procedure: The risks, benefits and alternatives to the procedure were discussed with the patient. The patient agreed to the planned procedure and the patient was brought to the operating room.?A time out wasperformed to ensure the correct surgical site was being operated on.??Topical anesthesia was placed in both eyes.?The eyelid skin was cleaned with isopropyl alcohol. The upper eyelid creases were marked.?Upper eyelid blepharoplasty incisions were marked with care taken to leave adequate anteriorlamella to avoid post operative lagophthalmos. The peak of the right brow had also been marked in pre op. Local anesthetic was injected into the operative site(s). The patient was prepped and draped inthe usual sterile fashion. ? Attention was turned to the upper eyelids.?The upper eyelid skin was incised along the eyelid crease and the superior margin as outlined with a #15 blade.?A skin-muscle flap was created with the dissection plane between the orbicularis muscle??and orbital septum.??Hemostasis was achieved with cautery. ??Hemostasis was confirmed. The same procedure was performed on the other upper eyelid. ??Medially, the orbital septum was opened, and the medial fat pad was conservatively excised. ??Hemostasis was achieved with cautery and confirmed. ?? Attention was turned to the brow repair. The monopolar cautery was used to dissect toward the superior orbital rim laterally in a preseptal plane. The Hilario Marres retractor and freer were used to continue the dissection in a preperiosteal plane. Hemostasis was achieved with cautery. A caliper was used to measure 12 mm from the superior orbital rim. The 4-0 vicryl suture was used to engage the periosteum here and then the calipers were used to again measure 12 mm from the superior incision. The subbrow fat pad was engaged at this point and the suture was tied elevating the brow into ideal position. This was performed on the right side only. ? Attention was then directed to the internal ptosis repair. ??A 4-0 silk suture was placed through the stephenson line of the right upper eyelid.?The eyelid was everted over a Hilario Petty retractor.?Two markings were placed at the medial and lateral 1/3 of the tarsal plate.?A caliper was placed (and confirmed with a ruler) to 4.25 mm and two additional saxena were placed 4.25 mm superior to the tarsalplate.?The conjunctiva was lifted with two toothed forceps, and the Putterman clamp was placed and clamped incorporating 8.5??mm of conjunctiva/Shultz's complex.?A 6-0 chromic suture was passed from lateral to medial and back lateral under the Putterman clamp.?Next, a #15 blade was used to cut the conjunctiva from the clamp in a metal on metal fashion.?The sutures were confirmed to be intact and then were tied. The same procedure, for a total resection of 8.5??mm, was performed on the other eyelid. Hemostasis was confirmed and the upper eyelid skin edges were closed with interrupted and running and interrupted 6-0 fast absorbing gut sutures.?? The traction sutures were removed. The eyelids were washed with wet 4x4 gauze. Antibiotic ointment was placed on each eyelid. The patient was transferred to recovery in stable position.?Ice packs were placed on each eyelid.?The patient will return for a post- operative follow up appointment, sooner with any decrease in vision, increase in pain, redness, or bleeding. ? Sarika Mcdaniel MD documented in this encounter Plan of Treatment Not on filedocumented as of this encounter Procedures Procedure Name Priority Date/Time Associated Comments Diagnosis REPAIR, PTOSIS, BROW 08/23/2018 11:41 BILATERAL UPPER AM CDT LID PTOSISI, DERMATOCHALASIS, BROW PTOSIS REPAIR, PTOSIS, 08/23/2018 11:41 BILATERAL UPPER BILATERAL, WITH AM CDT LID PTOSISI, BILATERAL DERMATOCHALASIS, BLEPHAROPLASTY BROW PTOSIS GLUCOSE BY METER Routine 08/23/2018 10:22 Results for this AM CDT procedure are i n the results section. LAB RESULT - HIM SCAN 06/13/2018 12:00 AM CDT documented in this encounter Results (ABNORMAL) Glucose by meter (08/23/2018 10:22 AM CDT) P athologist Signature Glucose 163 (H) 70 - 99 08/23/2018 POINT OF CARE mg/dL 10:34 AM CDT TEST, GLUCOSE Specimen Anatomical Collection Method Collection Time Receive d Time (Source) Location / / Volume Laterality 08/23/2018 10:22 08/23/2018 AM CDT 10:34 AM CDT Sarika Mcdaniel MD LAB - BEAKER POCT Performing Organization Address City/State/ZIP Code Phon e Number [facility] POINT OF CARE TEST, GLUCOSE POINT OF CARE TEST, GLUCOSE LAB RESULT - HIM SCAN (06/13/2018 12:00 AM CDT) Specimen (Source) Anatomical Location Collection Method / Collectio n Time Received Time / Laterality Volume 06/13/2018 Narrative This result has an attachment that is no t available. Provider Outside NON-BEAKER LAB TESTING documented in this encounter Visit Diagnoses Not on filedocumented in this encounter Administered Medications Inactive Administered Medications - up to 3 most recent administrations Medication Order MAR Action Action Date Dose Rate Site albuterol neb solution 2.5 mg 2.5 mg, Nebulization, EVERY 1 HOUR PRN, wheezing, shortness of breath / dyspnea, As needed in PACU, Starting on Wed08/23/18 at 1248, PACU bupivacaine 0.5% w/EPI 20mL Given 08/23/2018 12:31 PM 1 mL Operative Site/Surgical + lidocaine 2% w/EPI CDT Site 1:100,000 20mL PRN, Starting on Wed08/23/18 at 1149, Intra-procedure Given 08/23/2018 11:49 AM CDT 6 mLs Oper ative Site/Surgical Site dexamethasone (DECADRON) injection 4 mg 4 mg, Intravenous, EVERY 10 MIN PRN, tamar sea, Administer over 1 Minutes, Starting on Wed08/23/18 at 1248, For 2 doses, For IV doses 1-20 m g, give IV Push undiluted over 1 minute., PACU/Phase II dimenhyDRINATE (DRAMAMINE) injection 12. 5 mg 12.5 mg, Intravenous, ONCE PRN, other, n ausea, Starting on Wed08/23/18 at 1248, For 1 dose, Administer only if ondansetr on and prochlorperazine have not provided relief. Dilute in 10 ml 0.9% Sodium chloride., PACU/Ph ase II erythromycin (ROMYCIN) Given 08/23/2018 11:58 AM 2 g Operative Site/Surgical ophthalmic ointment CDT Site PRN, Starting on Wed08/23/18 at 1158, Intra-procedure fentaNYL (PF) (SUBLIMAZE) injection 25-5 0 mcg 25-50 mcg, Intravenous, EVERY 5 MIN PRN, other, acute pain while in PACU., Starting on Wed08/23/18 at 1248, MAX cumulative dose = 250 mcg. Use fentaNYL (SUBLIMAZE) initially, as a short acting agent for a cute pain control. If insufficient, or a longer acting agent is needed, begin morphine or HYDRO morphone (DILAUDID) if ordered. Hold for respiratory rate <8. F or ordered IV doses 1-100 mcg give IV Push undiluted over a minimum of 3-5 minutes., PACU HYDROmorphone (PF) (DILAUDID) injection 0.3-0.5 mg 0.3-0.5 mg, Intravenous, EVERY 10 MIN PRN, other, acut e pain. May administer if Respiratory Rate is greater than 10, Starting on Wed at 1248, Max cumulative dose = 3 mg If fentaNYL (SUBL IMAZE) is also ordered, use HYDROmorphone (DILAUDID) if pain control insufficient with fentaNYL (SUMBLIMAZE) or a longer acting agent is needed. For ordered IV doses 0.1-4 mg give IV Push undiluted. Administer each 2mg over 2-5 minutes., PACU/Phase II lactated ringers infusion at 100 mL/hr, Intravenous, CONTINUOUS, Continue until IV catheter is weaned, PACU/Phase II, Starting on Wed08/23/18 at 1300, Until Wed08/23/18 at 1612 LORazepam (ATIVAN) injection 0.5-1 mg 0.5-1 mg, Intravenous, ONCE PRN, anxiety , muscle spasms, Starting on Wed08/23/18 at 1248, For 1 dose, Give push at max of 2 mg/min For IV PUSH: Dilute with equal volume of NS. For ordered IV doses 0.1-4 mg give IV Push. Administer each 2mg over 1-5 minutes., PACU meperidine (DEMEROL) injection 12.5 mg 12.5 mg, Intravenous, EVERY 15 MIN PRN, post anesthesi a shivering, breakthrough pain, Starting on Wed08/23/18 at 1248, For 4 doses, Indications: May give up to 50 mg for breakthrough pain if previous analgesics ineffe ctive, Give IV Push undiluted. 10-40 mg over 2-3 minutes, up to 125 mg over 3-15 minutes, PACU/Phase II naloxone (NARCAN) injection 0.1-0.4 mg 0.1-0.4 mg, Intravenous, EVERY 2 MIN PRN , opioid reversal, Starting on Wed08/23/18 at 1248, For 24 hours, For apnea or imminent respirato ry arrest: give 0.4 mg IV undiluted Q 2 minutes PRN until desired degree of reversal is obtained, stop opioid and notify provider. Continue monitoring until dischar ge are criteria met for a minimum of 2 hours. For severe sedation, decrease in respiratory depth, quality or Respiratory Rate greater than 8: give 0. 1 mg IV Q 2 minutes x 3 doses, stop opioid and notify provider. Try to minimize reversal of analg esia especially in end-of-life patients. Continue monitorin g until discharge criteria are met for a minimum of 2 hours. For ordered IV doses 0.1-2mg give IVP. Give each 0.4mg over 15 seconds in emergency situations. For non -emergent situations further dilute in 9mL of NS to facilitate titration of response., PACU/Phase II ondansetron (ZOFRAN) injection 4 mg 4 mg, Intravenous, EVERY 30 MIN PRN, tamar sea, vomiting, Administer over 2-5 Minutes, Starting on Wed08/23/18 at 1248, For 2 doses, MAX total dose = 8 mg, including OR dosing. This is step 1 of nausea and vomiting manageme nt. If not resolved in 15 minutes, then go to step 2 [prochlorpera zine (COMPAZINE) if ordered]. Irritant. For ordered IV doses 0.1-4 mg, give IV Push undiluted over 2-5 minutes., PACU/Phase II ondansetron (ZOFRAN-ODT) ODT tab 4 mg 4 mg, Oral, EVERY 30 MIN PRN, nausea, vo miting, Starting on Wed08/23/18 at 1248, For 2 doses, MAX total dose = 8 mg, incl uding OR dosing. This is step 1 of nausea and vomiting management. If not resolved in 15 minutes , then go to step 2 [prochlorperazine (COMPAZINE) if ordered ]. With dry hands, peel back foil backing and gently remove tablet; do not push oral disintegrat ing tablet through foil backing; administer immediately on tongu e and oral disintegrating tablet dissolves in seconds; then swallow with saliva; liquid not requi red., PACU/Phase II ORAL Pain Medications - may administer a s ordered by surgeon for take home use CONTINUOUS PRN, Starting on Wed08/23/18 at 1248, Until Wed08/23/18 at 1612, May administer oral pain medications as ordered by surgeon for take home use. Discontinue IV pain medication prior to administration of oral pain medication., PACU/Phase II prochlorperazine (COMPAZINE) injection 5 mg 5 mg, Intravenous, EVERY 6 HOURS PRN, nausea, vomiting , Administer over 1-2 Minutes, Starting on Wed08/23/18 at 124 8, This is Step 2 of nausea and vomiting management. If nausea not resolved in 15 minutes, give metoclopramide (REGLAN) if ordered [step 3 of nausea and vomiting m anagement]. For ordered IV doses 0.1-10 mg, give IV Push undiluted. Each 5mg over 1 minute., PACU/ Phase II sodium chloride 0.9% Given 08/23/2018 11:45 AM 1,000 mLs Operative (bottle) irrigation CDT Site/Surgical S ite PRN, Starting on Wed08/23/18 at 1145, Intra-procedure tetracaine (PONTOCAINE) 0.5 Given 08/23/2018 11:44 AM 1 drop Other (see comments) % ophthalmic solution CDT PRN, Starting on Wed08/23/18 at 1144, Intra-procedure documented in this encounter Active and Recently Administered Medications Times are shown in CDT. Continuous Medication Order 08/21/2018 08/22/2018 08/23/2018 lactated ringers infusion 1300 ( Canceled Entry - Provider: Orders Generic Provider - Comment: Automatically canceled at discontinue of medication order) at 100 mL/hr, Intravenous, CONTINUOUS, C ontinue until IV catheter is weaned, PACU/Phase II, Starting Wed08/23/18 at 1300, Until Wed08/23/18 at 1612 PRN Medication Order 08/21/2018 08/22/2018 08/23/2018 albuterol neb solution 2.5 mg 2.5 mg, Nebulization, EVERY 1 HOUR PRN, wheezing, shortness of breath / dyspnea, As needed in PACU, Starting Wed08/23/18 at 1248, PACU bupivacaine 0.5% w/EPI 20mL + lidocaine 2% w/EPI 1:100,000 20mL (CANCELED) 1149 (Given - Provider: Sarika Mcdaniel MD)1231 (Given - Provider: Sarika Mcdaniel MD) PRN, Starting Wed08/23/18 at 1149, Intra-procedure dexamethasone (DECADRON) injection 4 mg 4 mg, Intravenous, EVERY 10 MIN PRN, tamar sea, Administer over 1 Minutes, Starting Wed08/23/18 at 1248, For 2 doses, For IV doses 1-20 mg, give IV Push undiluted over 1 minute., PACU/Phase II dimenhyDRINATE (DRAMAMINE) injection 12.5 mg 12.5 mg, Intravenous, ONCE PRN, other, n ausea, Starting Wed08/23/18 at 1248, For 1 dose, Administer only if ondansetron and prochlorperazine have not provided relief. Dilute in 10 ml 0.9% Sodium chloride., PACU/Phase II erythromycin (ROMYCIN) ophthalmic ointment (CANCELED) 1158 (Given - Provider: Sarika Mcdaniel MD - Comment: 1 gram was used topically throughout case and the other 1 gram was sent home with pt.) PRN, Starting e 08/23/18 at 1158, Intra-procedure fentaNYL (PF) (SUBLIMAZE) injection 25-50 mcg 25-50 mcg, Intravenous, EVERY 5 MIN PRN, Starting 08/23/18 at 1248, other, acute pain while in PACU., MAX cumulative dose = 250 mcg. Use fentaNYL (SUBLIMAZE) initially, as a short acting agent for a cute pain control. If insufficient, or a longer acting agent is needed, begin morphine or HYDROmorphone (DILAUDID) if ordered. Hold for respiratory rate <8. For ordered IV doses 1-100 mcg give IV Push undiluted over a minimum of 3-5 minutes., PACU HYDROmorphone (PF) (DILAUDID) injection 0.3-0.5 mg 0.3-0.5 mg, Intravenous, EVERY 10 MIN WA N, Starting e 08/23/18 at 1248, Until Tu08/23/18 at 1612, other, acute pain. May administer if Respiratory Rate is greater than 10, PACU/Phase II, Max cumulat hui dose = 3 mg If fentaNYL (SUBLIMAZE) is also ordered, use HYDROmorphone (DILAUDID) if pain control insufficient with fentaNYL (SUMBLIMAZE) or a longer acting agent is needed. For ordered IV doses 0.1 -4 mg give IV Push undiluted. Administer each 2mg over 2-5 minut es. LORazepam (ATIVAN) injection 0.5-1 mg 0.5-1 mg, Intravenous, ONCE PRN, anxiety , muscle spasms, Starting 08/23/18 at 1248, For 1 dose, Give push at max of 2 mg/min For IV PUSH: Dilute with equal volume of NS. For ordered IV doses 0.1-4 m g give IV Push. Administer each 2mg over 1-5 minutes., PACU meperidine (DEMEROL) injection 12.5 mg 12.5 mg, Intravenous, EVERY 15 MIN PRN, 4 doses, Starting 08/23/18 at 1248, Until Tu08/23/18 at 1612, post anesthesia shivering, breakthrough pain, PACU/Phase II, Give IV Push undiluted. 10-40 mg over 2-3 minutes, up to 125 mg over 3-15 minutes naloxone (NARCAN) injection 0.1-0.4 mg 0.1-0.4 mg, Intravenous, EVERY 2 MIN PRN , opioid reversal, Starting Wed08/23/18 at 1248, For 24 hours, For apnea or imminent respiratory arrest: give 0.4 mg IV undiluted Q 2 minutes PRN until desired d egree of reversal is obtained, stop opio id and notify provider. Continue monitoring until discharge are criteria met for a minimum of 2 hours. For severe sedation, decrease in respiratory depth, quality or Respiratory Rate greater than 8: giv e 0.1 mg IV Q 2 minutes x 3 doses, stop opioid and notify provider. Try to minimize reversal of analgesia especially in end-of-life patients. Continue monitoring until discharge criteria are met for a m inimum of 2 hours. For ordered IV doses 0.1-2mg give IVP. Give each 0.4mg over 15 seconds in emergency situations. For non-emergent situations further dilute in 9 mL of NS to facilitate titration of response., PACU/Phase II ondansetron (ZOFRAN) injection 4 mg(Linked Group 1) 4 mg, Intravenous, EVERY 30 MIN PRN, tamar sea, vomiting, Administer over 2-5 Minutes, Starting Wed08/23/18 at 1248, For 2 doses, MAX total dose = 8 mg, including OR dosing. This is step 1 of nausea and v omiting management. If not resolved in 1 5 minutes, then go to step 2 [prochlorperazine (COMPAZINE) if ordered]. Irritant. For ordered IV doses 0.1-4 mg, give IV Push undiluted over 2-5 minutes., PACU/Phase II ondansetron (ZOFRAN-ODT) ODT tab 4 mg(Linked Group 1) 4 mg, Oral, EVERY 30 MIN PRN, nausea, vo miting, Starting Wed08/23/18 at 1248, For 2 doses, MAX total dose = 8 mg, including OR dosing. This is step 1 of nausea and vomiting management. If not resolved in 15 minutes, then go to step 2 [prochl orperazine (COMPAZINE) if ordered]. With dry hands, peel back foil backing and gently remove tablet; do not push oral disintegrating tablet through foil backing; administer immediately on tongue and ora l disintegrating tablet dissolves in seconds; then swallow with saliva; liquid not required., PACU/Phase II ORAL Pain Medications - may administer as ordered by surgeon for take home use CONTINUOUS PRN, Starting e 08/23/18 at 1248, Until 08/23/18 at 1612, May administer oral pain medications as ordered by surgeon for take home use. Discontinue IV pain medication prior to administration of oral pain medication., PACU/Phase II prochlorperazine (COMPAZINE) injection 5 mg 5 mg, Intravenous, EVERY 6 HOURS PRN, na usea, vomiting, Administer over 1-2 Minutes, Starting e 08/23/18 at 1248, This is Step 2 of nausea and vomiting management. If nausea not resolved in 15 minutes , give metoclopramide (REGLAN) if ordere d [step 3 of nausea and vomiting management]. For ordered IV doses 0.1-10 mg, give IV Push undiluted. Each 5mg over 1 minute., PACU/Phase II sodium chloride 0.9% (bottle) irrigation (CANCELED) 1145 (Given - Provider: Sarika Mcdaniel MD) PRN, Starting e 08/23/18 at 1145, Intra-procedure tetracaine (PONTOCAINE) 0.5 % ophthalmic solution (CANCELED) 1144 (Given - Provider: Rissa Alarcon RN) PRN, Starting Wed08/23/18 at 1144, Intra-procedure Linked Groups Order Group 1: ondansetron (ZOFRAN-ODT) ODT tab 4 mgJump to med 4 mg, Oral, EVERY 30 MIN PRN, nausea, vo miting, Starting e 08/23/18 at 1248, For 2 doses
MAX total dose = 8 mg, including OR dosing. This is step 1 of nausea and vomiting management.&nbsp ; If not resolved in 15 minutes, th en go to step 2 [prochlorperazine (COMPAZINE) if ordered]. With dry hands, peel back foil backing and gently remove tablet; do not push oral disinteg rating tablet through foil backing; admi nister immediately on tongue and oral disintegrating tablet dissolves in seconds; then swallow with saliva; liquid not required.
PACU/Phase II Or ondansetron (ZOFRAN) injection 4 mgJump to med 4 mg, Intravenous, EVERY 30 MIN PRN, tamar sea, vomiting, Administer over 2-5 Minutes, Starting Wed08/23/18 at 1248, For 2 doses
MAX total dose = 8 mg, including OR dosing. This is step 1 of naus ea and vomiting management. I f not resolved in 15 minutes, then go to step 2 [prochlorperazine (COMPAZINE) if ordered]. Irritant. For ordered IV doses 0.1-4 mg, give IV Push undiluted over 2-5 minutes.
PACU/Phase II documented in this encounter Care Teams Material Chaser Relationship Specialty Start Date End Date Mahamed Kate MD PCP - General Emergency Medicine 08/16/18 [facility] [address] [place] [address] documented as of this encounter
--- OUTSIDE RECORDS SUMMARY | 2022-09-03 15:02 | XMS_ITS | Clinical Summary ---
:1945 Author Organization [facility] Address [address] [place] [id number] Care Team Providers Name Role Phone Mahamed Kate MD Primary Care Provider [phone] Allergies Active Allergy Reactions Severity Noted Date Comments Penicillins Rash Low 08/23/2018 Sulfa Drugs Swelling, Rash High 08/23/2018 Medications Medication Sig Dispensed Refills Start Date End Date Status albuterol (PROAIR Inhale 2 puffs 0 Active HFA/PROVENTIL into the lungs HFA/VENTOLIN HFA) 108 every 4 hours as (90 Base) MCG/ACT needed for inhaler shortness of breath / dyspnea or wheezing albuterol (2.5 MG/3ML) Take 2.5 mg by 0 Active 0.083% neb solution nebulization every 4 hours as needed for shortness of breath / dyspnea or wheezing mometasone (ASMANEX) Inhale 1-2 puffs 0 Active 220 MCG/INH Inhaler into the lungs daily DiphenhydrAMINE HCl Take 25-50 mg by 0 Active (BENADRYL PO) mouth At Bedtime fluticasone (FLONASE) [place] 2 sprays 0 Active 50 MCG/ACT spray into both nostrils daily GABAPENTIN PO Take 100-200 mg by 0 Active mouth daily GLIMEPIRIDE PO Take 1 mg by mouth 0 Active 2 times daily (Takes 2 x 1mg tablet = 2mg dose) METFORMIN HCL ER PO Take 500 mg by 0 Active mouth 2 times daily (Takes 2 x 500mg tablet = 1000mg dose) Montelukast Sodium Take 10 mg by 0 Active (SINGULAIR PO) mouth At Bedtime Pseudoephedrine HCl Take 30 mg by 0 Active (SUDAFED PO) mouth At Bedtime Acetaminophen (TYLENOL Take 325-650 mg by 0 Active PO) mouth At Bedtime (Takes 2 x 325mg tablet = 650mg dose) Cyanocobalamin (B-12 Take 500 mcg by 0 Active PO) mouth daily MAGNESIUM GLYCINATE Take 400 mg by 0 Active PLUS PO mouth daily multivitamin, Take 1 tablet by 0 Active therapeutic mouth daily (THERA-VIT) TABS tablet HYDROcodone-acetaminop Take 1 tablet by 10 tablet 0 08/23/2018 Active hen (NORCO) 5-325 MG mouth every 6 per tabletIndications: hours as needed Ptosis of both eyelids for severe pain erythromycin (ROMYCIN) Apply topically 3 2 Tube 1 8 Active ophthalmic times daily ointmentIndications: Ptosis of both eyelids Social History Tobacco Use Types Packs/Day Years [...] Mass Index 28.81 08/23/2018 10:30 AM CDT Plan of Treatment Health Maintenance Due Date Last Done Comments ADVANCE CARE PLANNING 1945 ANNUAL REVIEW OF HM ORDERS 1947 CT COLONOGRAPHY 1945 DEXA 1945 FIT-DNA (Cologuard) 1945 FIT 1945 FLEX SIG 1945 HEPATITIS B IMMUNIZATION (1 of 3 - 1945 3-dose series) MAMMO SCREENING 1945 COVID-19 Vaccine (#1) 1945 COLONOSCOPY 1957 COLORECTAL CANCER SCREENING 1957 HEPATITIS C SCREENING 1965 DTAP/TDAP/TD IMMUNIZATION (1 - 1972 Tdap) LIPID 1992 ZOSTER IMMUNIZATION (1 of 2) 1997 FALL RISK ASSESSMENT 2012 MEDICARE ANNUAL WELLNESS VISIT 2012 Pneumococcal Vaccine: 65+ Years (1 2012 - PCV) PHQ-2 (once per calendar year) 2021 INFLUENZA VACCINE (#1) 2022 IPV IMMUNIZATION Aged Out No longer eligi ble based on patient's age to complete this topic MENINGITIS IMMUNIZATION Aged Out No longe r eligible based on patient's age to complete this topic Care Teams Seed Laboratory Assistant Relationship Specialty Start Date End Date Mahamed Kate MD PCP - General Emergency Medicine 08/16/18 [facility] [address] [place] [address]
--- OUTSIDE RECORDS SUMMARY | 2022-09-03 15:02 | XMS_ITS | Encounter Summary ---
:1945 Author Organization [facility] Address [address] [place] [address] Care Team Providers Name Role Phone Unavailable Primary Care Provider Unavailable Reason for Referral Outpatient (Routine) - Closed Specialty Diagnoses / Procedures Referred By Contact Refer red To Contact Dermatology Zenaida Montgomery M.D . [facility] [address] [place] [phone] Referral ID Status Reason Start Date Expiration Date Visits Requ ested Visits Authorized [id number] Closed 03/03/2021 03/03/2022 1 1 Scheduling Instructions Recheck skin lesion involving chest and skin cancer screening exam in 2 months Reason for Visit Reason Comments Skin Problem chest Appointment Request (Routine) - Closed Specialty Diagnoses / Procedures Referred By Contact Refer red To Contact Dermatology Referral ID Status Reason Start Date Expiration Date Visits Requ ested Visits Authorized [id number] Closed 12/09/2020 12/09/2021 1 1 Encounter Details Date Type Department Care Team Description 03/03/2021 Comprehensive Visit Department of Zenaida Montgomery Kerato sis Lichenoid (Primary Dx); [place]atology in [place] M.D. [place], [place] [address] [phone] Social History Tobacco Use Types Packs/Day Years [...] or relatives? How often do you attend quaker or Never 2020 orthodox services? Do you belong to any clubs or Yes 02/27/2021 organizations such as quaker groups, unions, fraternal or athletic groups, or school groups? How often do you attend meetings of the More than 4 times pe r 02/27/2021 clubs or organizations you belong to? [...] place to sleep or slept in a chcf (including now)? Education Answer Date Recorded What is the highest level of school Bachelor's degree (e.g., BA, AB, 02/26/2021 you have completed or the highest BS) degree you have received? Sex Assigned at Date Recorded Not on file documented as of this encounter Progress Notes Zenaida Montgomery M.D. - 03/03/2021 9:15 AM CDT SUBJECTIVE CHIEF COMPLAINT / REASON FOR VISIT Skin lesion HISTORY OF PRESENT ILLNESS Ms. Erica Tavarez is a 75 y.o. female who presents today for evaluation of skin lesions involvingthe right mid central chest . The patient was last seen by me in Dermatology clinic on 09/20/2018. The patient denies a history of skin cancer. Right upper central chest has been present since November 2019 and was initially very itchy red spot.She treated with topical neosporin, Vaseline, and hydrocortisone without any improvement. She denies any other involvement of the skin. Additionally, she would like an evaluation of a lesion involving the right middle third finger palmar aspect which has been present for about a year. She denies any pain to the area. Allergies Allergen Reactions ??? Sulfa (Sulfonamide Antibiotics) Anaphylaxis and Rash ??? Cats [Cat Dander] Other (see comments) Eyes swell and itch ??? Dog Dander Other (see comments) Nasal congestion ??? House Dust Other (see comments) ??? Mold Extracts Other (see comments) ??? Penicillins Rash MEDICAL HISTORY No history of skin cancer Type 2 Diabetes Mellitus FAMILY HISTORY Father??has a history for melanoma in situ involving the scalp as well as basal cell carcinoma. Mother has a history of basal cell carcinoma and squamous cell carcinoma. Son has a history of atypical nevi in his late 50's. OBJECTIVE PHYSICAL EXAMINATION General: Awake, alert, in no acute distress, and with appropriate affect. Skin: Limited skin exam done today. My scribe Marylin was present for the full exam today. Examination of the right mid central chest reveals a 8 x 6 mm slightly erythematous macule with minimal scale that likely represent a LK, do not feel it represents a bcc. Examination of the right third finger near the base involving the palm reveals a nonspecific whitish to skin colored papule measuring 2 x 1 mm compatible with a small callous/corn. No thrombosed capillaries. 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 My index for suspicion for atypia is very low on clinical exam and dermoscopy today. We discussed treatment options including biopsy, observation, or cryotherapy. At this time we will continue to monitor clinically. Should this lesion change in size, color, texture, or shape or develop symptoms such as itching or bleeding, I recommend an immediate return visit for reassessment. Otherwise, return in 2 months for a recheck of the stated lesion(s) and a full skin check. #2 Right third finger, palmar aspect: Probable callous/corn We discussed different treatment options including cryotherapy, observation, or treating with a corn/callous treatment. I have recommended she apply over the counter corn/callous removal like Mediplastand only leave occluded for 12-24 hours and wait another 24 hours before applying again. PATIENT EDUCATION: Ready to learn. No apparent learning barriers were identified. Learning preferences include listening. Explained diagnosis and treatment plan; patient/guardian of patient expressed understanding of thecontent. By signing my name below, I, Leslie Calvo, attest that this documentation has been prepared underthe direction and in the presence of Zenaida Montgomery M.D. Electronically Signed: catalina Millan. Zenaida Frank M.D., personally performed the services described in this documentation. All medical record entries made by the scribe were at my direction and in my presence. I have reviewed the chart and discharge instructions (if applicable) and agree that the record reflects my personal performance and is accurate and complete. Zenaida Montgomery M.D. documented in this encounter Plan of Treatment Scheduled Referrals Name Type Priority Associated Order Schedule Diagnoses Dermatology office Outpatient Referral Routine Ex pected: visit (clinic) 04/02/2021 (Approximate), Expires: 03/03/2024 documented as of this encounter Visit Diagnoses Diagnosis Keratosis Lichenoid - Primary Callus [place] documented in this encounter
--- OUTSIDE RECORDS SUMMARY | 2022-09-03 15:02 | XMS_ITS | Encounter Summary ---
:1945 Author Organization [facility] Address [address] [place] [address] Care Team Providers Name Role Phone Unavailable Primary Care Provider Unavailable Reason for Visit Reason Comments Skin Check Appointment Request (Routine) - Closed Specialty Diagnoses / Procedures Referred By Contact Refer red To Contact Dermatology Referral ID Status Reason Start Date Expiration Date Visits Requ ested Visits Authorized [id number] Closed 04/01/2018 04/01/2019 1 Encounter Details Date Type Department Care Team Description 06/06/2018 Office Visit Department of Zenaida Montgomery Nevi Multiple (Primary Dx); [place]. [place] [address] [place] [phone] Social History Tobacco Use Types Packs/Day Years [...] or relatives? How often do you attend taoism or Never 2020 holiness services? Do you belong to any clubs or Yes 02/27/2021 organizations such as taoism groups, unions, fraternal or athletic groups, or [...] place to sleep or slept in a fci (including now)? Sex Assigned at Date Recorded Not on file documented as of this encounter Progress Notes Zenaida Montgomery M.D. - 06/06/2018 2:00 PM CDT CHIEF COMPLAINT/REASON FOR VISIT Skin cancer screening exam HISTORY OF PRESENT ILLNESS Ms. Erica Tavarez is a 73 y.o. female who presents today for a full skin cancer screening examination. The patient denies a history of skin cancer. Her father had a history of melanoma. The patient denies any lesions of concern. During her last visit, she had a mild folliculitis which has completely resolved with Cleocin T-gel. Allergies Allergen Reactions ??? Sulfa (Sulfonamide Antibiotics) Anaphylaxis and Rash ??? Cats [Cat Dander] Other (see comments) Eyes swell and itch ??? Dog Dander Other (see comments) Nasal congestion ??? House Dust Other (see comments) ??? Mold Extracts Other (see comments) ??? Penicillins Rash PAST MEDICAL HISTORY No history of skin cancer FAMILY HISTORY Father history for melanoma and basal cell carcinoma. Mother history of basal cell carcinoma and squamous cell carcinoma. Son history of atypical nevi in his late 50's. PHYSICAL EXAM General: Awake, alert, in no acute distress, and with appropriate affect. Eyes: No scleral injection or icterus. No eyelid abnormalities. Lymph: No lower extremity edema. Skin: I have examined the scalp, face, neck, chest, abdomen, back, bilateral upper extremities, and bilateral lower extremities. Examination of the right periorbital area and right upper cheek birthmark with telangectasia. Examination of the arms reveals multiple benign nevi. Examination of the right knee reveals a dermatofibroma. Examination of the area underneath left breast area reveals a pedunculated skin tag versus skin colored nevus. Exam otherwise reveals scattered benign nevi. Examination ofthe right calf reveals a 2.5 mm x 2.5 mm brown nevus with slight asymmetry. IMPRESSION/REPORT/PLAN #1 Multiple nevi The ABCDE criteria for melanoma was reviewed with the patient. None of the patient's nevi reach the clinical threshold for biopsy. One nevus on her right calf is slightly asymmetrical but looks benign on clinical exam and dermoscopy. Given her travel this coming month in my low index of suspicion for this being atypical, I recommend continued sun protection, self-skin examinations, and observation. Should any of the patient's nevi change in size, color, texture, or shape or develop symptoms such as itching or bleeding, I recommend an immediate return visit for reassessment. Otherwise return in 3 months for a recheck of right calf nevus. #2 Right knee: Dermatofibroma The benign nature of the skin lesion(s) was discussed with the patient. No treatment is required. I recommend continued observation. Should symptoms or changes develop related to this condition, I would recommend a return visit for reassessment. PATIENT EDUCATION Ready to learn. No apparent learning barriers were identified. Learning preferences include listening. Explained diagnosis and treatment plan; patient/guardian of patient expressed understanding of thecontent. By signing my name below, I, Albaro Luis, attest that this documentation has been prepared underthe direction and in the presence of Zenaida Montgomery M.D.. Electronically Signed: catalina Charles. 06/06/2018. 2:34 PM . I, Zenaida Montgomery M.D., personally performed the services described in this documentation. All medical record entries made by the scribe were at my direction and in my presence. I have reviewed the chart and discharge instructions (if applicable) and agree that the record reflects my personal performance and is accurate and complete. Zenaida Montgomery M.D. . 06/06/2018. 4:45 PM. documented in this encounter Plan of Treatment Not on filedocumented as of this encounter Visit Diagnoses Diagnosis Nevi Multiple - Primary Dermatofibroma documented in this encounter
--- OUTSIDE RECORDS SUMMARY | 2022-09-03 15:02 | XMS_ITS | Encounter Summary ---
:1945 Author Organization [facility] Address [address] [place] [address] Care Team Providers Name Role Phone Unavailable Primary Care Provider Unavailable Reason for Visit Reason Comments Follow-up chest skin lesion Skin Check Outpatient (Routine) - Closed Specialty Diagnoses / Procedures Referred By Contact Refer red To Contact Dermatology Zenaida Montgomery M.D . [facility] [address] [place] [phone] Referral ID Status Reason Start Date Expiration Date Visits Requ ested Visits Authorized [id number] Closed 03/03/2021 03/03/2022 1 1 Encounter Details Date Type Department Care Team Description 05/06/2021 Office Visit Department of Zenaida Montgomery Nevi Multi ple (Primary Dx); [place]atology [place] Keratosis Seborrheic [place], [place] [address] [place] [phone] Social History Tobacco Use Types Packs/Day [...] or relatives? How often do you attend voodoo or Never 2020 alevism services? Do you belong to any clubs or Yes 02/27/2021 organizations such as voodoo groups, unions, fraternal or athletic groups, or [...] place to sleep or slept in a fdc (including now)? Education Answer Date Recorded What is the highest level of school Bachelor's degree (e.g., BA, AB, 02/26/2021 you have completed or the highest BS) degree you have received? Sex Assigned at Date Recorded Not on file documented as of this encounter Progress Notes Zenaida Montgomery M.D. - 05/06/2021 11:15 AM CDT SUBJECTIVE CHIEF COMPLAINT / REASON FOR VISIT Skin cancer screening exam HISTORY OF PRESENT ILLNESS Ms. Erica Tavarez is a 75 y.o. female who presents today for a full skin cancer screening examination. The patient was last seen by me in Dermatology clinic on 03/03/21. The patient denies a personal history of skin cancer or melanoma. Her father has a history of melanoma.The patient denies any lesions of concern. Allergies Allergen Reactions ??? Sulfa (Sulfonamide Antibiotics) Anaphylaxis and Rash ??? Cats [Cat Dander] Other (see comments) Eyes swell and itch ??? Dog Dander Other (see comments) Nasal congestion ??? House Dust Other (see comments) ??? Mold Extracts Other (see comments) ??? Penicillins Rash MEDICAL HISTORY No history of skin cancer FAMILY HISTORY Father??has a??history for melanoma??in situ involving the scalp as well as??basal cell carcinoma. Son has a history of severely dysplastic nevus OBJECTIVE PHYSICAL EXAMINATION General: Awake, alert, in no acute distress, and with appropriate affect. Eyes: No scleral injection or icterus. No eyelid abnormalities. Lymph: No lower extremity edema. Skin: I have examined the scalp, face, neck, chest, abdomen, back, bilateral upper extremities, and bilateral lower extremities. My scribe Marylin was present for the exam today. Examination of the right mid central chest reveals no evidence of previous erythematous macule has completely resolved. Examination of the right third finger near the base involving the palm reveals a nonspecific whitish to skin colored papule compatible with a small callous/corn. No thrombosed capillaries. Examination of the right periorbital area reveals some telangiectasias that have been present since . Examination of face, trunk, and extremities reveals a few benign appearing nevi and lentigines, andmultiple SKs. Examination of the right clavicle reveals an excoriation. Examination of the legs reveals some dry skin. Examination today reveals no suspicious lesions for skin cancer. ASSESSMENT / PLAN #1 Face, trunk, and extremities: Multiple benign appearing nevi and lentigines The ABCDE criteria for melanoma was reviewed with the patient. None of the patient's nevi reach the clinical threshold for biopsy. I recommend continued sun protection, self-skin examinations, and observation. Should any of the patient's nevi change in size, color, texture, or shape or develop symptoms such as itching or bleeding, I recommend an immediate return visit for reassessment. Follow up in 6-12 months for a full skin check. #2 Face, trunk, and extremities: Seborrheic keratosis The benign nature of the skin lesion(s) was discussed with the patient. No treatment is required. I recommend continued observation. Should symptoms or changes develop related to this condition, I would recommend a return visit for reassessment. #3 Right mid central chest: History of previously erythematous macule, resolved There is no evidence for previous erythematous macule and it has completely resolved. No further treatment required at this time. Follow up with any new or changing lesions of concern. PATIENT EDUCATION: Ready to learn. No apparent [...] Visit Diagnoses Diagnosis Nevi Multiple - Primary Keratosis Seborrheic documented in this encounter
--- OUTSIDE RECORDS SUMMARY | 2022-09-03 15:02 | XMS_ITS | Clinical Summary ---
:1945 Author Organization [facility] Address [address] [place] [address] Care Team Providers Name Role Phone Unavailable Primary Care Provider Unavailable Source Comments Patient records contain information from all sites at [facility]. For routine questions regarding patient records, call [phone] during business hours, M-F 8:00 AM - 5:00 PM Central Time. Record requests for emergency care only can be directed to [phone] at any time.[facility] Allergies Active Allergy Reactions Severity Noted Date Comments Cat Dander Other (see comments) 12/13/2017 Eyes sw ell and itch Dog Dander Other (see comments) 12/13/2017 Nasal c ongestion House Dust Other (see comments) 04/14/2016 Mold Extracts Other (see comments) 04/14/2016 Penicillins Rash 03/17/2016 Sulfa (Sulfonamide Anaphylaxis, Rash High 03/17/2016 Antibiotics) Medications Medication Sig Dispensed Refills Start Date End Date Status albuterol (PROVENTIL Inhale 2 puffs. 0 Active HFA,VENTOLIN HFA) 90 mcg/actuation inhaler QVAR 80 mcg/actuation 0 05/02/2018 Active inhaler cyanocobalamin (VITAMIN Take 1 tablet by 0 Active B12) 500 mcg tablet mouth. cyanocobalamin-methylco Place 1 tablet 0 11/29/2017 Active balamin 600-600 mcg under the tongue. tablet, sublingual fluticasone (FLONASE) Administer 1-2 0 11/29/2017 Active 50 mcg/actuation nasal sprays into spray affected nostril(s). gabapentin (NEURONTIN) 0 03/31/2018 Active 100 mg capsule glimepiride (AMARYL) 1 0 05/10/2018 Active mg tablet metFORMIN XR Take 1,000 mg by 0 11/29/2017 Active (GLUCOPHAGE-XR) 500 mg mouth. 24 hr tablet montelukast (SINGULAIR) 0 05/02/2018 Active 10 mg tablet multivitamin tablet Take 1 tablet by 0 Active mouth. pseudoephedrine Take 1 tablet by 0 11/29/2017 Active (SUDAFED) 30 mg tablet mouth at bedtime. UNABLE TO FIND Take 1 each by mouth daily. Med Name: asthmanec 0 Active Take one puff daily Advair HFA 230-21 Inhale 1 puff 2 0 11/28/2021 Active mcg/actuation inhaler (two) times a day. Family History Medical History Relation Name Comments Basal cell carcinoma Father Melanoma Father Squamous cell carcinoma Father Basal cell carcinoma Mother Squamous cell carcinoma Mother Relation Name Status Comments Father Mother Social History Tobacco Use Types Packs/Day Years [...] or relatives? How often do you attend yazdanism or Never 2020 shinto services? Do you belong to any clubs or Yes 02/27/2021 organizations such as yazdanism groups, unions, fraternal or athletic groups, or [...] minutes do you engage in exercise at is 30 min 02/27/2021 level? Stress Answer [...] place to sleep or slept in a usp (including now)? Education Answer Date Recorded What is the highest level of school Bachelor's degree (e.g., BA, AB, 02/26/2021 you have completed or the highest BS) degree you have received? Sex Assigned at Date Recorded Not on file Plan of Treatment Health Maintenance Due Date Last Done Comments Bone Density Scan (Osteoporosis 1945 Screen) CT Colonography 1945 Cologuard 1945 Colonoscopy 1945 Colorectal Cancer Screening 1945 FIT 1945 Fasting Glucose for Diabetes 1945 Screening Hepatitis C Screening 1945 Mammogram 1945 Depression Screening (Annual 11/08/2021 PHQ-2) Fall Risk Screen (Annual) 11/08/2021 Influenza Vaccine (#1) 2022 08/07/2021, 08/13/2020, 08/16/2019, Additional history exists DTaP,Tdap,and Td Vaccines (3 - Td 08/07/2031 08/07/2021, or Tdap) Pneumococcal vaccine (65+ years) Completed 06/16/2018, , 12/05/2008, Additional history exists Zoster Vaccines Completed 07/25/2020, 09/20/2019, 05/25/2019, Additional history exists COVID-19 Vaccine Completed 08/05/2022, 03/30/2022, 08/21/2021, Additional history exists Insurance Payer Benefit Plan / Subscriber ID Effective Dates Phone Addre ss Type Group UCARE UCARE FOR [id number] 2019-Present [phone] [address] [place] [address] (Home) [place] [address]
--- OUTSIDE RECORDS SUMMARY | 2022-09-03 15:02 | XMS_ITS | Clinical Summary ---
:1945 Author Organization [facility] [place] [address] Care Team Providers Name Role Phone Mahamed Kate MD Primary Care Provider Allergies Active Allergy Reactions Severity Noted Date Comments Cats (Fur, Dander, Other - Describe In 12/13/2017 Ey es swell and itch Saliva) Comment Field Dog Dander Other - Describe In 12/13/2017 Nasal co ngestion Comment Field House Dust Runny Nose 04/14/2016 Mold Extracts Runny Nose 04/14/2016 Unlisted Allergen Runny Nose 04/14/2016 Seasonal a llergies (Include Detail In Comments) Penicillins Rash 03/17/2016 Sulfa (Sulfonamide Anaphylaxis, Rash High 03/17/2016 Antibiotics) Medications Medication Sig Dispensed Refills Start Date End Date Status ASCENSIA CONTOUR strip 0 04/03/2016 Active cetirizine (ZYRTEC) 10 Take 1 tablet 0 04/14/2016 Active mg tablet by mouth once daily. gabapentin (NEURONTIN) Take 2 capsules 180 capsule 1 6 Active 100 mg by mouth at capsuleIndications: Low bedtime. back pain radiating to left leg albuterol HFA 90 Inhale 2 Puffs 0 Active mcg/actuation inhaler by mouth every 4 hours if needed. beclomethasone, 80 mcg Inhale 1-2 0 06/07/2017 Active each actuation, (QVAR) Puffs by mouth 80 mcg/actuation 2 times daily. inhaler fluticasone (50 mcg per Inhale 1-2 1 Bottle 0 11/29/2017 Active actuation) nasal Sprays into solution (FLONASE) both nostrils once daily. ipratropium (ATROVENT Inhale 2 Sprays 0 01/18/2017 Active NASAL) 0.03 % nasal in the spray nostril(s) 3 times daily. montelukast (SINGULAIR) Take 1 tablet 0 11/29/2017 Active 10 mg tablet by mouth at bedtime. pseudoephedrine Take 1 tablet 0 11/29/2017 Active (SUDAFED) 30 mg tablet by mouth at bedtime. cyanocobalamin (VITAMIN Take 1 tablet 0 Active B12) 500 mcg tablet by mouth once daily. glimepiride (AMARYL) 1 Take 2 mg by 0 11/04/2017 Active mg tablet mouth once daily with a meal. metFORMIN (GLUCOPHAGE Take 1 tablet 0 11/29/2017 Active XR) 500 mg by mouth once Extended-Release tablet daily with evening meal. multivitamin (MVI) Take 1 tablet 0 Active tablet by mouth once daily. Cyanocobalamin-Methylco Place 1 tablet 0 11/29/2017 Active balamin 600-600 mcg under the subl tongue once daily. Active Problems Problem Noted Date Asthma Asthma Type 2 diabetes mellitus Type 2 diabetes mellitus Left-sided low back pain without sciatica Social History Tobacco Use Types Packs/Day Years Used Date Never Smoker Smokeless Tobacco: Never Used Tobacco Cessation: Counseling Given: Yes Alcohol Use Standard Drinks/Week Comments Yes 0 (1 standard drink = 0.6 oz pure alcoho l) occ. Alcohol Habits Answer Date Recorded How often do you have a drink containing alcohol? Not asked How many drinks containing alcohol do you have on a typical Not asked day when you are drinking? How often do you have six or more drinks on one occasion? No t asked Comment: occ. 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 Pulse 85 12/13/2017 10:16 AM SHIPPING CLERK PACKING Temperature 36.6 ??C (97.8 ??F) 12/13/2017 10:16 AM SHIPPING CLERK PACKING Respiratory Rate - - Oxygen Saturation 96% 12/13/2017 10:16 AM SHIPPING CLERK PACKING Inhaled Oxygen Concentration - - Weight 76.1 kg (167 lb 12.8 oz) 12/13/2017 10:16 AM wit h shoes SHIPPING CLERK PACKING Height 157.2 cm (5' 1.89) 11/29/2017 11:35 AM SHIPPING CLERK PACKING Body Mass Index 30.8 11/29/2017 11:35 AM SHIPPING CLERK PACKING Plan of Treatment Health Maintenance Due Date Last Done Comments COVID-19 vaccine series (#1) 1945 Pneumococcal series for age 65+ (1 - PCV) 1953 Tdap 1958 Depression screening for age 12+ 1959 Hepatitis C screening for age 18-79 1965 Tetanus booster 1967 Colonoscopy through age 75 1992 Lipids for age 45-75 1992 Mammogram for age 45-75 1992 Zoster (shingles) series for age 50+ (1 of 2) 1997 DEXA/DXA scan for age 65+ 2012 BMI (ht and wt on same day) for age 18+ 11/29/2018 11/29/19 18 Influenza for age 65+ 07/09/2022 Results Not on filefrom Last 3 Months Insurance Payer Benefit Plan / Subscriber ID Effective Dates Phone Addre ss Type Group UCARE MR ARE MEDICARE [id number] 2017-Present [address] [place] [address] Care Teams Office Assistant Receptionist Relationship Specialty Start Date End Date Mahamed Kate MD PCP - General 03/05/161999 [place] [address]
--- OUTSIDE RECORDS SUMMARY | 2022-09-03 15:02 | XMS_ITS | Encounter Summary ---
:1945 Author Organization [facility] Address [address] [place] [address] Care Team Providers Name Role Phone Unavailable Primary Care Provider Unavailable Encounter Details Date Type Department Care Team Description 03/04/2021 Orders Only [facility] PCP TH Sa mark anthony Webber M.D. [address] [place], [place] [phone] (Wo rk) Social History Tobacco Use Types [...] or relatives? How often do you attend taoist or Never 2020 christian services? Do you belong to any clubs or Yes 02/27/2021 organizations such as taoist groups, unions, fraternal or athletic groups, or [...] place to sleep or slept in a retirement (including now)? Education Answer Date Recorded What [...]
--- OUTSIDE RECORDS SUMMARY | 2022-09-03 15:02 | XMS_ITS | Encounter Summary ---
:1945 Author Organization [facility] Address [address] [place] [address] Care Team Providers Name Role Phone Mahamed Kate MD Primary Care Provider [phone] Reason for Visit Auth/Cert Specialty Diagnoses / Procedures Referred By Contact Refer red To Contact Surgery Diagnoses BILATERAL UPPER LID PTOSISI, DERMATOCHALASIS, BROW PTOSIS Sh Periop Services Procedures COMBINED REPAIR PTOSIS WITH BLEPHAROPLASTY BILATERAL REPAIR PTOSIS BROW [address] [place] [address] Phone: Referral ID Status Reason Start Date Expiration Date Visits Requ ested Visits Authorized [id number] 1 1 Encounter Details Date Type Department Care Team Description 08/23/[address] [facility] Carlos Amaya MD [facility] [address] [id number] [facility] Teresa Arango, LINUX KERNEL DEVELOPER [employer]LE [employer] BUSINESS DEVELOPER [address] [id number] [address] [place] [address] Anesthesia Record Procedure Summary Procedure Name Responsible Anesthesia Start Anesthesia Stop Time Anesthesiologist Time BILATERAL UPPER LID Nikolay Amaya MD 08/23/18 1141 1242 PTOSIS, BLEPHAROPLASTY, RIGHT BROW PTOSIS (Bilateral: Eye) Events Date Time Event Comment 08/23/2018 1023 1141 An Start 1141 An Start Data 1155 AN INCISION 1157 an ella now Induction for bl ock 1238 an stop data 1242 An Stop Electronically s igned by Teresa Flores on August 23, 2018 12:42 PM Name Total dexmedetomidine (PRECEDEX) 4 mcg/mL bolus 20 mcg dexamethasone 4mg/mL 4 mg ePHEDrine 5 mg/mL 20 mg lidocaine 2% 40 mg midazolam 1mg/mL 3 mg ondansetron 2mg/mL 4 mg phenylephrine (BRANDY-SYNEPHRINE) injection 1 mg 500 mcg propofol (DIPRIVAN) injection 10 mg/mL vial 50 mg LR PIV #1 850 mL Agents Name NO HELIOX O2 N2O Air Exp Sevoflurane Exp Isoflurane Exp Desflurane Exp N2O O2 Delivery Device Ins Sevoflurane Ins Isoflurane Ins Desflurane O2 Auxiliary Blood No blood administrations on file. Lines, Drains, and Airways Type Details Placement Removal Incision/Surgical Site 08/23/18; 1208; 08/23/18 1208 by Left; Upper Eyelid Rissa Alarcon RN Incision/Surgical Site 08/23/18; 1208; 08/23/18 1208 by Right; Upper Eyelid Rissa Alarcon RN Peripheral IV 08/23/18; 1056; 20 08/23/18 1056 by 08/23/18 132 1 by G; Left; Lower Shannon Zabala, RN [place], Fito gurrola, RN forearm documented in this encounter Social History Tobacco Use Types Packs/Day Years Used Date Smoking Tobacco: Never Smokeless Tobacco: Never Alcohol Use Standard Drinks/Week Comments Yes 0 (1 standard drink = 0.6 oz pure alcoho l) Sex Assigned at Date Recorded Not on file documented as of this encounter OR Notes Anesthesia Postprocedure Evaluation - Nikolay Amaya MD - 08/23/2018 4:11 PM CDT Patient: Erica Tavarez Procedure(s): BILATERAL UPPER LID PTOSIS, BLEPHAROPLASTY, RIGHT BROW PTOSIS - Wound Class: I-Clean - Wound Class: I-Clean Diagnosis:BILATERAL UPPER LID PTOSISI, DERMATOCHALASIS, BROW PTOSIS Diagnosis Additional Information: No value filed. Anesthesia Type: MAC Note: Anesthesia Post Evaluation Patient location during evaluation: Bedside Patient participation: Able to fully participate in evaluation Level of consciousness: awake and alert Pain management: adequate Airway patency: patent Cardiovascular status: acceptable Respiratory status: acceptable Hydration status: acceptable PONV: none Last vitals: Vitals: 08/23/18 1245 08/23/18 1300 08/23/18 1315 BP: 112/61 107/59 120/72 Resp: 10 21 16 Temp: 35.9 ??C (96.7 ??F) 36.6 ??C (97.9 ??F) SpO2: 92% 92% Electronically Signed By: Nikolay Amaya MD August 23, 2018 4:11 PM Anesthesia Preprocedure Evaluation - Nikolay Amaya MD - 08/23/2018 9:39 AM CDT Anesthesia Evaluation . Pt has had prior anesthetic. No history of anesthetic complications ROS/MED HX ENT/Pulmonary: (+)Mild Persistent asthma Treatment: Inhaler prn and Inhaled steroids, , . . (-) tobacco use Neurologic: (-) seizures, CVA and TIA Cardiovascular: (+) Dyslipidemia, ----. : . . . :. . (-) hypertension, CAD, CHF and arrhythmias METS/Exercise Tolerance: Hematologic: (-) history of blood clots Musculoskeletal: GI/Hepatic: (-) GERD and liver disease Renal/Genitourinary: (-) renal disease Endo: (+) type II DM Not using insulin . (-) Type I DM Psychiatric: Infectious Disease: Malignancy: Other: Physical Exam Normal systems: dental Airway Mallampati: II TM distance: >3 FB Neck ROM: full Comment: Small mouth opening Dental Cardiovascular Rhythm and rate: regular Pulmonary breath sounds clear to auscultation Anesthesia Plan History & Physical Review History and physical reviewed and following examination; no interval change. ASA Status: 2 . NPO Status: > 8 hours Plan for MAC Reason for MAC: Procedure to face, neck, head or breast PONV prophylaxis: Ondansetron (or other 5HT-3) Postoperative Care Postoperative pain management: Multi-modal analgesia. Consents Anesthetic plan, risks, benefits and alternatives discussed with: Patient.. . documented in this encounter Miscellaneous Notes Anesthesia Care Transfer Note - Teresa Flores - 08/23/2018 12:43 PM CDT Patient: Erica Tavarez Procedure(s): BILATERAL UPPER LID PTOSIS, BLEPHAROPLASTY, RIGHT BROW PTOSIS - Wound Class: I-Clean - Wound Class: I-Clean Diagnosis: BILATERAL UPPER LID PTOSISI, DERMATOCHALASIS, BROW PTOSIS Diagnosis Additional Information: No value filed. Anesthesia Type: MAC Note: Airway :Room Air Patient transferred to:PACU Comments: A&O x 3. Denies pain, N&V. Report to RN. Vitals: (Last set prior to Anesthesia Care Transfer) ORACLE E BUSINESS DEVELOPER VITALS 08/23/2018 1208 - 08/23/2018 1243 08/23/2018 Resp Rate (set): 10 Electronically Signed By: Teresa Flores August 23, 2018 12:43 PM documented in this encounter Plan of Treatment Not on filedocumented as of this encounter Visit Diagnoses Not on filedocumented in this encounter Administered Medications Inactive Administered Medications - up to 3 most recent administrations Medication Order MAR Action Action Date Dose Rate Site dexamethasone (DECADRON) injection Given 08/23/2018 12:00 PM CDT 4 mg PRN, Administer over 1 Minutes, Starting on Wed08/23/18 at 1200, Anesthesia Intra-op dexmedetomidine (PRECEDEX) 4 mcg/mL bolu s Bolus 08/23/2018 11:48 AM CDT 4 mcg 200 mcg, CONTINUOUS PRN, Starting on Wed08/23/18 at 1144, Anesthesia Intra-op Bolus 08/23/2018 11:46 AM CDT 8 mcg New Bag 08/23/2018 11:44 AM CDT 8 mcg ePHEDrine injection Given 08/23/2018 12:27 PM CDT 10 mg PRN, Starting on Wed08/23/18 at 1220, Anesthesia Intra-op Given 08/23/2018 12:20 PM CDT 10 mg lactated ringers infusion New Bag 08/23/2018 11:42 AM CDT CONTINUOUS PRN, Anesthesia Intra-op, Starting on Wed08/23/18 at 1142, Until Wed08/23/18 at 1242 lidocaine 2% injection (MDV) Given 08/23/2018 11:57 AM CDT 40 mg PRN, Starting on Wed08/23/18 at 1157, Anesthesia Intra-op midazolam (VERSED) injection Given 08/23/2018 12:22 PM CDT 1 mg Administer over 2 Minutes, PRN, anxiety, Starting on Wed08/23/18 at 1142, Anesthesia Intra-op Given 08/23/2018 11:42 AM CDT 2 mg ondansetron (ZOFRAN) injection Given 08/23/2018 11:50 AM CDT 4 mg PRN, nausea, vomiting, Administer over 2-5 Minutes, Starting on Wed08/23/18 at 1150, Anesthesia Intra-op phenylephrine (BRANDY-SYNEPHRINE) injection 1 Bolus 08/23 12:10 PM CDT 200 mcg mg 1 mg, CONTINUOUS PRN, Starting on Wed08/23/18 at 1200, Anesthesia Intra-op Bolus 08/23/2018 12:05 PM CDT 200 mcg New Bag 08/23/2018 12:00 PM CDT 100 mcg propofol (DIPRIVAN) injection 10 mg/mL v ial Given 08/23/2018 11:59 AM CDT 20 mg PRN, Starting on Wed08/23/18 at 1157, Anesthesia Intra-op Given 08/23/2018 11:57 AM CDT 30 mg documented in this encounter Care Teams Mobile Tester Relationship Specialty Start Date End Date Mahamed Kate MD PCP - General Emergency Medicine 08/16/18 [facility] [address] [place] [address] documented as of this encounter
--- OUTSIDE RECORDS SUMMARY | 2022-09-03 15:02 | XMS_ITS | Encounter Summary ---
:1945 Author Organization [facility] Address [address] [place] [address] Care Team Providers Name Role Phone Unavailable Primary Care Provider Unavailable Encounter Details Date Type Department Care Team Description 12/23/2021 Ancillary Procedure Department of Dermatology Social History Tobacco Use Types Packs/Day Years [...] or relatives? How often do you attend tenriism or Never 2020 christianity services? Do you belong to any clubs or Yes 02/27/2021 organizations such as tenriism groups, unions, fraternal or athletic groups, or [...] place to sleep or slept in a jail (including now)? Education Answer Date Recorded What is the highest level of school Bachelor's degree (e.g., BA, AB, 02/26/2021 you have completed or the highest BS) degree you have received? Sex Assigned at Date Recorded Not on file documented as of this encounter Plan of Treatment Not on filedocumented as of this encounter Procedures Procedure Name Priority Date/Time Associated Comments Diagnosis DERMATOLOGY IMAGE Routine 12/23/2021 9:40 AM Resu lts for this EXAM SAWDUST MACHINE OPERATOR procedure are i n the results section. documented in this encounter Results Chest, right 202 216-Dermatology Image Exam (12/23/2021 9:40 AM SAWDUST MACHINE OPERATOR) Specimen (Source) Anatomical Collection Method Collection Time Re ceived Time Location / / Volume Laterality 12/23/2021 9:38 AM SAWDUST MACHINE OPERATOR Narrative [facility] - 12/23/2021 9:42 AM SAWDUST MACHINE OPERATOR This order has been created and auto-finalized to support the import of images acquired without order. The clini linda documentation to support these images can be found on the encounter marco t produced images. Provider Not In System IMG NON RAD IMAGING PROCEDUR ES Performing Organization Address City/State/ZIP Code Phon e Number [facility] NA documented in this encounter Visit Diagnoses Not on filedocumented in this encounter
--- OUTSIDE RECORDS SUMMARY | 2022-09-03 15:02 | XMS_ITS | Encounter Summary ---
:1945 Author Organization [facility] Address [address] [place] [address] Care Team Providers Name Role Phone Mahamed Kate MD Primary Care Provider Reason for Visit Auth/Cert Specialty Diagnoses / Procedures Referred By Contact Refer red To Contact Surgery Diagnoses BILATERAL UPPER LID PTOSISI, DERMATOCHALASIS, BROW PTOSIS Sh Periop Services Procedures COMBINED REPAIR PTOSIS WITH BLEPHAROPLASTY BILATERAL REPAIR PTOSIS BROW [address] [place] [address] Phone: Referral ID Status Reason Start Date Expiration Date Visits Requ ested Visits Authorized [id number] 1 1 Encounter Details Date Type Department Care Team Description 08/23/2018 Hospital Encounter [facility] Sarika Mcdaniel of [facility] Phase II MD Benita eyelids (Primary [address] [place] OPHTHALMIC Dx) [facility] [place] [address] [phone] [address] [place] [address] Social History Tobacco Use Types Packs/Day Years [...] know so they can address your concerns. [facility] Eyelid/Orbital Surgery Discharge Instructions Dr. Sarika Mcdaniel [...] an infection (greenish/yellow discharge or progressive redness). [facility] [address] [place] [address] If you have questions or concerns about your procedure, call Dr. Mcdaniel at [phone] documented in this encounter Medications at Time [...] Ptosis of both eyelids fluticasone (FLONASE) 50 [place] 2 sprays into 0 MCG/ACT spray both [...] 3. Right brow ptosis repair via browpexy Surgeon:??Sairka Mcdaniel MD ? Anesthesia:??Monitored anesthesia care with [...] TESTING documented in this encounter Visit Diagnoses Diagnosis Ptosis of both eyelids - Primary Unspecified ptosis of eyelid documented in this encounter Administered Medications Inactive Administered Medications - up to 3 most recent administrations Medication Order MAR Action Action Date Dose Rate Site albuterol neb solution 2.5 mg 2.5 mg, Nebulization, EVERY 1 HOUR PRN, wheezing, shortness of breath / dyspnea, As needed in PACU, Starting on Wed08/23/18 at 1248, PACU dexamethasone (DECADRON) injection 4 mg 4 mg, [...] ml 0.9% Sodium chloride., PACU/Ph ase II fentaNYL (PF) (SUBLIMAZE) injection 25-5 0 mcg [...] 5mg over 1 minute., PACU/ Phase II documented in this encounter Active and Recently [...] was sent home with pt.) PRN, Starting Wed08/23/18 at 1158, Intra-procedure fentaNYL (PF) (SUBLIMAZE) injection 25-50 mcg 25-50 mcg, Intravenous, EVERY 5 MIN PRN, Starting e 08/23/18 at 1248, other, acute pain while [...] mg 0.3-0.5 mg, Intravenous, EVERY 10 MIN DC N, Starting Wed08/23/18 at 1248, Until 08/23/18 at 1612, other, acute pain. May administer [...] 4 doses, Starting 08/23/18 at 1248, Until 08/23/18 at 1612, post anesthesia shivering, breakthrough pain, PACU/Phase II, Give IV Push undiluted. 10-40 mg over 2-3 minutes, up to 125 mg over 3-15 minutes naloxone (NARCAN) injection 0.1-0.4 mg 0.1-0.4 mg, Intravenous, EVERY 2 MIN PRN , opioid reversal, Starting 08/23/18 at 1248, For 24 hours, For apnea [...] sea, vomiting, Administer over 2-5 Minutes, Starting 08/23/18 at 1248, For 2 doses, MAX total [...] 30 MIN PRN, nausea, vo miting, Starting 08/23/18 at 1248, For 2 doses, MAX total [...] for take home use CONTINUOUS PRN, Starting 08/23/18 at 1248, Until 08/23/18 at 1612, May administer oral pain medications as ordered by surgeon for take home use. Discontinue IV pain medication prior to administration of oral pain medication., PACU/Phase II prochlorperazine (COMPAZINE) injection 5 mg 5 mg, Intravenous, EVERY 6 HOURS PRN, na usea, vomiting, Administer over 1-2 Minutes, Starting 08/23/18 at 1248, This is Step 2 [...] - Provider: Rissa Alarcon RN) PRN, Starting e 08/23/18 at 1144, Intra-procedure Linked Groups Order Group 1: ondansetron (ZOFRAN-ODT) ODT tab 4 mgJump to med 4 mg, Oral, EVERY 30 MIN PRN, nausea, vo miting, Starting Wed08/23/18 at 1248, For 2 doses
[...] II documented in this encounter Care Teams Billing Administrator Relationship Specialty Start Date End Date Mahamed Kate MD PCP - General Emergency Medicine 08/16/18 [facility] [address] [place] [address] documented as of this encounter
--- OUTSIDE RECORDS SUMMARY | 2022-09-03 15:02 | XMS_ITS | Encounter Summary ---
:1945 Author Organization [facility] Address [address] [place] [address] Care Team Providers Name Role Phone Unavailable Primary Care Provider Unavailable Encounter Details Date Type Department Care Team Description 09/20/2018 Ancillary Procedure Department of Dermatology Social History [...] or relatives? How often do you attend christian or Never 2020 jainism services? Do you belong to any clubs or Yes 02/27/2021 organizations such as christian groups, unions, fraternal or athletic groups, or [...] or slept in a fpc (including now)? Sex Assigned at Date Recorded Not on file documented as of this encounter Plan of Treatment Not on filedocumented as of this encounter Procedures Procedure Name Priority Date/Time Associated Comments Diagnosis DERMATOLOGY IMAGE Routine 09/20/2018 8:54 AM Resu lts for this EXAM LONG TERM CARE PHLEBOTOMIST procedure are i n the results section. documented in this encounter Results DERMATOLOGY IMAGE EXAM (09/20/2018 8:54 AM LONG TERM CARE PHLEBOTOMIST) Specimen (Source) Anatomical Collection Method Collection Time Re ceived Time Location / / Volume Laterality 09/20/2018 8:51 AM LONG TERM CARE PHLEBOTOMIST Narrative [facility] - 09/20/2018 8:54 AM LONG TERM CARE PHLEBOTOMIST This order has been created and auto-finalized [...]
--- NOTE | 2022-09-03 15:20 | CRLHL7_ITS ---
For Patients: As a result of the Century Cures Act, medical imaging exams and procedure reports are released immediately into your electronic medical record. You may view this report before your referring provider. If you have questions, please contact your health care provider. BILATERAL SCREENING MAMMOGRAM WITH COMPUTER-AIDED DETECTION AND TOMOSYNTHESIS TECHNIQUE: CC and MLO views were obtained. These mammographic images have been obtained using full-field digital technique. These mammographic images were interpreted with the benefit of computer-aided detection. Breast Tomosynthesis was used in this interpretation. COMPARISON FILM: 08/19/21, 11/10/19, 05/10/18. FINDINGS: The breasts are heterogeneously dense, which may obscure small masses IMPRESSION: There is no radiographic evidence for malignancy. ASSESSMENT: BI-RADS Category 1: Negative RECOMMENDATION: Routine screening mammogram in 1 year. A lay language report of this examination will be provided to the patient. Basil Walker M.D. Diagnostic Radiologist [email or web address] CELSA/grace edwards/Dictated by: Basil Walker MD @ 09/04/2022 9:08:00 AM (Electronically Signed)
== END 2022-09-03 15:00 | disposition home or self-care (01) ==
LOC: MAMMO 15:00
PROVIDERS: PCP Internal Medicine; Visit Provider Internal Medicine
DX: Z12.31 Encounter for screening mammogram for malignant neoplasm of breast (principal); R92.2 Inconclusive mammogram
CPT/HCPCS: 77063; 77067

== ENCOUNTER 2022-09-22 08:49 | Outpatient (CLI) | payer MEDICARE, SELFPAY ==
--- OUTSIDE RECORDS SUMMARY | 2022-09-22 08:51 | XMS_ITS | Encounter Summary ---
:1945 Author Organization [facility] Address [address] [place] [address] Care Team Providers Name Role Phone Unavailable [...] or relatives? How often do you attend roman catholic or Never 2020 christianity services? Do you belong to any clubs or Yes 02/27/2021 organizations such as roman catholic groups, unions, fraternal or athletic groups, or [...] place to sleep or slept in a senior living (including now)? Education Answer Date Recorded What [...] 9:40 AM Resu lts for this EXAM COLLEGE HIRE procedure are i n the results section. documented in this encounter Results Chest, right 202 216-Dermatology Image Exam (12/23/2021 9:40 AM COLLEGE HIRE) Specimen (Source) Anatomical Collection Method Collection Time Re ceived Time Location / / Volume Laterality 12/23/2021 9:38 AM COLLEGE HIRE Narrative [facility] - 12/23/2021 9:42 AM COLLEGE HIRE This order has been created and auto-finalized [...]
--- OUTSIDE RECORDS SUMMARY | 2022-09-22 08:51 | XMS_ITS | Encounter Summary ---
:1945 Author Organization [facility] Address [address] [place] [address] Care Team Providers Name Role Phone Unavailable Primary Care Provider Unavailable Reason for Visit Reason Comments Follow-up chest skin lesion Skin Check Outpatient (Routine) - Closed Specialty Diagnoses / Procedures Referred By Contact Refer red To Contact Dermatology Zenaida Montgomery M.D . [facility] [address] [place] [phone] Referral ID Status Reason Start Date Expiration Date Visits Requ ested Visits Authorized [id number] Closed 03/03/2021 03/03/2022 1 1 Encounter Details Date Type Department Care Team Description 05/06/2021 Office Visit Department of Zenaida Montgomery Nevi Multi ple (Primary Dx); Dermatology in [place] Keratosis Seborrheic [place], [place] [address] [place] [phone] Social History Tobacco Use Types Packs/Day [...] or relatives? How often do you attend sikhism or Never 2020 sikh services? Do you belong to any clubs or Yes 02/27/2021 organizations such as sikhism groups, unions, fraternal or athletic groups, or [...] place to sleep or slept in a penitentiary (including now)? Education Answer Date Recorded What [...]
--- OUTSIDE RECORDS SUMMARY | 2022-09-22 08:51 | XMS_ITS | Encounter Summary ---
:1945 Author Organization [facility] Address [address] [place] [address] Care Team Providers Name Role Phone Unavailable Primary Care Provider Unavailable Encounter Details Date Type Department Care Team Description 03/04/2021 Orders Only [facility] PCP TH Sa mark anthony Webber M.D. [address] [place], [place] [phone] (Wo rk) Social History [...] or relatives? How often do you attend zoroastrianism or Never 2020 muslim services? Do you belong to any clubs or Yes 02/27/2021 organizations such as zoroastrianism groups, unions, fraternal or athletic groups, or [...] slept in a care home (including now)? Education Answer Date Recorded What [...]
--- OUTSIDE RECORDS SUMMARY | 2022-09-22 08:51 | XMS_ITS | Encounter Summary ---
:1945 Author Organization [facility] Address [address] [place] [address] Care Team Providers Name Role Phone Pcp, Pt Declines Primary Care Provider Reason for Visit Procedure/Equipment (Routine) - Incomplete Specialty Diagnoses / Procedures Referred By Contact Refer red To Contact Diagnoses Primary osteoarthritis of first carpometacarpal joint of left hand José Luis Tubbs MD Procedures XR Finger Lt Thumb 3 Views [address] [facility] ASHISH SANTANA [address] 1 Referral ID Status Reason Start Date Expiration Date Visits V isits Requested Authorized [id number] Incomplete 06/08/2017 09/07/2018 1 1 Encounter Details Date Type Department Care Team Description 06/08/2017 Imaging [facility] José Luis Tubbs MD Thumb pain, left [address] [facility] ASHISH Santana [address] [place] [address] [phone] (Wo rk) Social History Tobacco Use Types [...] left documented in this encounter Care Teams Design Printer Balloon Relationship Specialty Start Date End Date PcpRemi MD PCP - General 05/20/17 [place] [address] documented as of this encounter
--- OUTSIDE RECORDS SUMMARY | 2022-09-22 08:51 | XMS_ITS | Encounter Summary ---
:1945 Author Organization [facility] Address [address] [place] [address] Care Team Providers Name Role Phone Unavailable Primary Care Provider Unavailable Reason for Visit Reason Comments Lesion Appointment Request (Routine) - Closed Specialty Diagnoses / Procedures Referred By Contact Refer red To Contact Dermatology Zenaida Montgomery M.D . [address] [place] [phone] Referral ID Status Reason Start Date Expiration Date Visits Requ ested Visits Authorized [id number] Closed 05/06/2021 05/06/2022 1 1 Encounter Details Date Type Department Care Team Description 12/23/2021 Office Visit Department of Zenaida Montgomery, Tumor Skin Uncertain Dermatology in [place] [facility] (Primary Dx) [place], [place] [address] [place] [phone] Social History Tobacco Use Types Packs/Day Years [...] or relatives? How often do you attend uatsdin or Never 2020 baptism services? Do you belong to any clubs or Yes 02/27/2021 organizations such as uatsdin groups, unions, fraternal or athletic groups, or [...] place to sleep or slept in a mcc (including now)? Education Answer Date Recorded What [...] the patient by letter. Patient given pamphlet [id number]. Discussed the risks, benefits, alternatives, and the [...] Electronically Signed: catalina Martinez. 12/23/2021. 8:36 AM SUPERVISOR ENGRAVING. IZenaida M.D., personally performed the services described in this documentation. All medical record entries made by the scribe were at my direction and in my presence. I have reviewed the chart and discharge instructions (if applicable) and agree that the record reflects my personal performance and is accurate and complete. Zenaida Montgomery M.D. RVISOR ENGRAVING documented in this encounter Miscellaneous Notes Result Encounter Note - Zenaida Montgomery M.D. - 12/30/2021 8:58 AM CST Right mid central chest: Benign lesion letter [place] patient. Please send letter RVISOR ENGRAVING documented in this encounter Plan of Treatment Not on filedocumented as of this encounter Procedures Procedure Name Priority Date/Time Associated Comments Diagnosis DERMATOPATHOLOGY CONSULT Routine 12/23/2021 9:41 Tumor Skin Results for this AM SUPERVISOR ENGRAVING Uncertain Behavior procedure are in the results section. documented in this encounter Results Dermatopathology Consult (12/23/2021 9:41 AM SUPERVISOR ENGRAVING) Component Value Ref Test Analysis Performed At [facility] gist Range Method Time Signature 12/29/2021 PDR 1:21 PM SUPERVISOR ENGRAVING Report Clarisse Medrano 12/29/2021 [facility] electronically Yifan Bee 1:21 PM SUPERVISOR ENGRAVING signed by Gross Description: Received in formalin labeled with the patient's name, 12/29/2021 [facility] medical record number, and right mid central chest is a 1:21 PM SUPERVISOR ENGRAVING 0.8 x 0.6 x 0.1 cm pale-dillon skin shave biopsy. ??Centrally located on the skin surface is a 0.5 x 0.4 cm pale dillon-brown, slightly raised lesion with ill-defined borders. The specimen is trisected and submitted entirely in cassette A1. ??Grossed by AIDAN. Interpetation FINAL DIAGNOSIS 12/29/2021 PDR A. ??DermPath Consult Wet Tissue; Right mid central chest, 1:21 PM SUPERVISOR ENGRAVING Skin shave biopsy: ??Lichenoid keratosis Specimen Anatomical Collection Method Collection Time Receive d Time (Source) Location / / Volume Laterality Tissue 12/23/2021 9:41 AM 9:56 SUPERVISOR ENGRAVING AM SUPERVISOR ENGRAVING Narrative This result has an attachment that is no t available. Zenaida Montgomery M.D. LAB PATH DERM ORDERABLES Performing Organization Address City/State/ZIP Code Phon e Number [facility] - [address] [place], [place] [address] [place] [address] [facility] [address] documented in this encounter Visit Diagnoses Diagnosis Tumor Skin Uncertain Behavior - Primary documented in this encounter
--- OUTSIDE RECORDS SUMMARY | 2022-09-22 08:51 | XMS_ITS | Encounter Summary ---
:1945 Author Organization [facility] Address [address] [place] [address] Care Team Providers Name Role Phone Unavailable Primary Care Provider Unavailable Encounter Details Date Type Department Care Team Description 10/03/2018 Nurse Only Department of Dermatology in [place] Loraine sebastian R.N. [facility] christine [address] [place] [phone] Social History Tobacco Use Types Packs/Day Years [...] or relatives? How often do you attend sikh or Never 2020 rastafari services? Do you belong to any clubs or Yes 02/27/2021 organizations such as sikh groups, unions, fraternal or athletic groups, or [...] or slept in a retirement (including now)? Sex Assigned at Date Recorded Not on file documented as of this encounter Procedure Notes Loraine Chavira R.N. - 10/03/2018 3:00 PM CST Procedures #1 Suture removal Supervising financial planning consultant was immediately available, but consultation was not required. Supervising financial planning consultant: Dr. Aly Montgomery ([phone]). Ordering physician: Dr. Aly Montgomery ([phone]). Patient seen on 09/20/2018 and punch biopsy was performed. Patient returns for suture removal. Area cleansed with alcohol wipe. Wound is well approximated, without swelling, without odor, without drainage, without bruising. Three suture(s) removed from the Right calf with difficulty. Vaseline and bandage applied. Wound care reviewed with patient per [id number]. Biopsy results were discussed. Teaching provided to patient. Evaluation of learning: able to teach back. Final Pause: A final pause occurred just before the procedure start, during which the entire procedure team actively confirmed the correct patient, procedure, site, special equipment and special requirements. CRIMPER documented in this encounter Plan of Treatment Not on filedocumented as of this encounter Visit Diagnoses Diagnosis Aftercare Suture Removal Non-Injury - Pr imary documented in this encounter
--- OUTSIDE RECORDS SUMMARY | 2022-09-22 08:51 | XMS_ITS | Encounter Summary ---
:1945 Author Organization [facility] Address [address] [place] [address] Care Team Providers Name Role Phone Pcp, Pt Declines Primary Care Provider Reason for Referral Therapies (Routine) - Closed Specialty Diagnoses / Procedures Referred By Contact Refer red To Contact Diagnoses Primary osteoarthritis of first carpometacarpal joint of left hand José Luis Tubbs MD [address] [facility] [place] [address] [place] [address] Referral ID Status Reason Start Date Expiration Date Visits Requ ested Visits Authorized [id number] Closed 06/08/2017 08/07/2017 1 1 Scheduling Instructions Your provider has recommended an appoint ment with [facility]. You may call [phone] to schedule your appoi ntment. If you do not schedule an appointment within the next 1 to 3 business days, we will call you to help arrange your appointment. We suggest you call your [facility] insurance company about your coverage and benefits for this appointment. Procedure/Equipment (Routine) - Incomplete Specialty Diagnoses / Procedures Referred By Contact Refer red To Contact Diagnoses Primary osteoarthritis of first carpometacarpal joint of left hand José Luis Tubbs MD Procedures XR Finger Lt Thumb 3 Views [address] [facility] ASHISH SANTANA [address] 1 Referral ID Status Reason Start Date Expiration Date Visits V isits Requested Authorized [id number] Incomplete 06/08/2017 09/07/2018 1 1 Reason for Visit Reason Comments PAIN, THUMB Left thumb pain deformity Encounter Details Date Type Department Care Team Description 06/08/2017 Surgical Consult [facility] José Luis Tubbs [facility] osteoarthritis CENTER MD [facility] [address] [facility] [address] [facility] D R carpometacarpal joint [address] [place], [place] ([place] [address] Dx) [address] [phone] Social History Tobacco Use Types Packs/Day Years [...] Tubbs MD Hand & Upper Extremity Surgeon Stock Raiser: Reema Ma Please contact Reema for all surgery scheduling and administrative questions at [phone] Hand Nurse: Joseph Roa Please contact Joseph for all medical related questions at [phone] Medication Requests: Prescriptions are not filled on Weekends or on Weekdays after 3:00PM For all medication refills: Request a refill using MyChart or contact your Pharmacy Please call [phone] to make future appointments. You are going to hand therapy today for splinting documented in this encounter Progress Notes José Luis Tubbs MD - 06/08/2017 1:20 PM CDT [facility] Consultation 06/08/2017 Chief Complaint: Left Thumb Pain [...] scale. She was being seen at the [facility] for a long period of [...] with the patient; this is located in [employer] in [place]. Review of Systems: A 15-point review was [...] the patientto follow-up as needed. Scribe Disclosure: IMark, am serving as a scribe to document [...] left documented in this encounter Care Teams Assistant County Attorney Relationship Specialty Start Date End Date Pcp, Remi Yi MD PCP - General 05/20/17 [place] [address] documented as of this encounter
--- OUTSIDE RECORDS SUMMARY | 2022-09-22 08:51 | XMS_ITS | Encounter Summary ---
:1945 Author Organization [facility] Address [address] [place] [address] Care Team Providers Name Role Phone Unavailable Primary Care Provider Unavailable Reason for Visit Reason Comments Suspicious Skin Lesion Recheck right calf nevus Appointment Request (Routine) - Closed Specialty Diagnoses / Procedures Referred By Contact Refer red To Contact Dermatology Referral ID Status Reason Start Date Expiration Date Visits Requ ested Visits Authorized [id number] Closed 06/06/2018 06/06/2019 1 Encounter Details Date Type Department Care Team Description 09/20/2018 Office Visit Department of Zenaida Montgomery, Tumor Skin Uncertain Behavior (Primary Dx); [place] [address] [phone] Social History Tobacco Use Types Packs/Day Years [...] do you attend bahai or Never 2020 pentecostalism services? Do you belong to any clubs [...] place to sleep or slept in a custodial (including now)? Sex Assigned at Date Recorded [...] the patient by letter. Patient given pamphlet [id number]. Discussed the risks, benefits, alternatives, and the [...] Signed: catalina Riley. 09/20/2018. 7:52 AM . Zenaida Frank M.D., personally performed the services described in this documentation. All medical record entries made by the scribe were at my direction and in my presence. I have reviewed the chart and discharge instructions (if applicable) and agree that the record reflects my personal performance and is accurate and complete. Zenaida Montgomery M.D. . 09/20/2018. 9:01 AM. H MACHINE OPERATOR Zenaida Montgomery M.D. - 09/20/2018 8:30 AM CST b9 lesion letter. H MACHINE OPERATOR documented in this encounter Plan of Treatment Not on filedocumented as of this encounter Procedures Procedure Name Priority Date/Time Associated Comments Diagnosis DERMATOPATHOLOGY CONSULT Routine 09/20/2018 8:55 Tumor Skin Results for this AM BENCH MACHINE OPERATOR Uncertain Behavior procedure are in the results section. documented in this encounter Results Dermatopathology Consult (09/20/2018 8:55 AM BENCH MACHINE OPERATOR) Component Value Ref Test Analysis Performed At [facility] Method Time Signature Gross Received in formalin labeled with the patient's name, 09/26/2018 [facility] Description: medical record number, and right calf is a 0.5 cm in 4:26 PM BENCH MACHINE OPERATOR LABORATORIES - diameter pale dillon-stephenson ovoid skin punch biopsy, excised to [facility] depth of 0.4 cm. ??There is a 0.2 x 0.2 cm [facility] pigmented lesion with irregular borders centrally located on the skin surface. ??The specimen is bisected and submitted entirely in cassette A1. ??Grossed by AJG. Report Urmila Silveira 09/26/2018 [facility] electronically Yifan Jamison 4:26 PM BENCH MACHINE OPERATOR LABORATORI ES - signed by [facility] 09/26/2018 [facility] 4:26 PM BENCH MACHINE OPERATOR LABORATORIES - [facility] Interpetation FINAL DIAGNOSIS 09/26/2018 [facility]. ??DermPath Consult Wet Tissue; Right calf, Skin punch 4:26 PM BENCH MACHINE OPERATOR LABORATORIES - biopsy: ??Lentiginous junctional nevus [facility] Clinical photo reviewed. Specimen Anatomical Collection Method Collection Time Receive d Time (Source) Location / / Volume Laterality Tissue 09/20/2018 8:55 AM 8 9:19 BENCH MACHINE OPERATOR AM BENCH MACHINE OPERATOR Narrative This result has an attachment that is no t available. Zenaida Montgomery M.D. LAB PATH DERM ORDERABLES Performing Organization Address City/State/ZIP Code Phon e Number [facility] - [address] [place], [place] [address] [facility] documented in this encounter Visit Diagnoses Diagnosis Tumor Skin Uncertain Behavior - Primary Nevus Atypical documented in this encounter Administered Medications Inactive Administered Medications - up to 3 most recent administrations Medication Order MAR Action Action Date Dose Rate Site lidocaine-EPINEPHrine 1 %-1:100,000 Given 09/20/2018 9:00 AM BENCH MACHINE OPERATOR 1 mL injection 1 mL (XYLOCAINE W/EPI) 1 mL, infiltration, Once, On Wed09/20/18 at 0900, For 1 dose documented in this encounter
--- OUTSIDE RECORDS SUMMARY | 2022-09-22 08:51 | XMS_ITS | Clinical Summary ---
:1945 Author Organization [facility] Address [address] [place] [address] Care Team Providers Name Role Phone Pcp, [...] for each transition of care or referral. [facility] Allergies No known active allergies Medications Medication [...] age to complete this topic Care Teams Electronic Train Control Technician Relationship Specialty Start Date End Date Pcp, Pt MD Kassidy PCP - General 05/20/17 [place] [address]
--- OUTSIDE RECORDS SUMMARY | 2022-09-22 08:51 | XMS_ITS | Clinical Summary ---
:1945 Author Organization [facility] Address [address] [place] [address] Care Team Providers Name Role Phone Unavailable Primary Care Provider Unavailable Source Comments Patient records contain information from all sites at [facility]. For routine questions regarding patient records, call [phone] during business hours, M-F 8:00 AM - 5:00 PM Central Time. Record requests for emergency care only can be directed to [phone] at any time.[facility] Allergies Active Allergy Reactions Severity Noted Date [...] do you attend restorationist or Never 2020 christian services? Do you [...] Addre ss Type Group UCARE UCARE FOR [email or web address] 2019-Present [phone] [address] [place] [address] (Home) [place] [address]
--- OUTSIDE RECORDS SUMMARY | 2022-09-22 08:51 | XMS_ITS | Encounter Summary ---
:1945 Author Organization [facility] Address [address] [place] [address] Care Team Providers Name Role Phone Unavailable Primary Care Provider Unavailable Reason for Referral Outpatient (Routine) - Closed Specialty Diagnoses / Procedures Referred By Contact Refer red To Contact Dermatology Zenaida Montgomery M.D . [facility] [address] [place] [phone] Referral ID Status Reason Start Date Expiration Date Visits Requ ested Visits Authorized [id number] Closed 03/03/2021 03/03/2022 1 1 Scheduling Instructions Recheck skin lesion involving chest and skin cancer screening exam in 2 months Reason for Visit Reason Comments Skin Problem chest Appointment Request (Routine) - Closed Specialty Diagnoses / Procedures Referred By Contact Refer red To Contact Dermatology Referral ID Status Reason Start Date Expiration Date Visits Requ ested Visits Authorized [id number] Closed 12/09/2020 12/09/2021 1 1 Encounter Details Date Type Department Care Team Description 03/03/2021 Comprehensive Visit Department of Zenaida Montgomery Kerato sis Lichenoid (Primary Dx); Dermatology in [place]em[place] M.D. [place], [place] [address] [phone] Social History Tobacco Use Types Packs/Day Years [...] or relatives? How often do you attend mormonism or Never 2020 buddhism services? Do you belong to any clubs or Yes 02/27/2021 organizations such as mormonism groups, unions, fraternal or athletic groups, or [...] slept in a skilled nursing (including now)? Education Answer Date Recorded What [...] Diagnoses Diagnosis Keratosis Lichenoid - Primary Callus [employer] documented in this encounter
--- OUTSIDE RECORDS SUMMARY | 2022-09-22 08:51 | XMS_ITS | Encounter Summary ---
:1945 Author Organization [facility] Address [address] [place] [address] Care Team Providers Name Role Phone Unavailable Primary Care Provider Unavailable Reason for Visit Reason Comments Derm Issue Encounter Details Date Type Department Care Team Description 12/16/2021 Clinical Communication Department of Zenaida Montgomery, Derm Issue Dermatology in [place], [place] [address] [id number] Social History Tobacco Use Types Packs/Day [...] or relatives? How often do you attend alevism or Never 2020 jewish services? Do you belong to any clubs or Yes 02/27/2021 organizations such as alevism groups, unions, fraternal or athletic groups, or [...] an appointment. Please call patient back at [phone], you can leave a detailed message if she does not answer. FILLER documented in this encounter Plan of Treatment Not on filedocumented as of this encounter Visit Diagnoses Not on filedocumented in this encounter
--- OUTSIDE RECORDS SUMMARY | 2022-09-22 08:51 | XMS_ITS | Encounter Summary ---
:1945 Author Organization [facility] Address [address], [place] [address] Care Team Providers Name Role Phone PcpRemi MD Primary Care Provider Encounter Details Date Type Department Care Team Description 10/28/2017 Notes/Orders [facility] [address], Rheumatology MD Erik [address] [place] [address] [place], [place] [id number] (Wo rk) Social History Tobacco Use Types Packs/Day Years Used Date Smoking Tobacco: Unknown Alcohol Use Standard Drinks/Week Comments Yes 0 (1 standard drink = 0.6 oz pure alcoho l) Sex Assigned at Date Recorded Not on file documented as of this encounter Plan of Treatment Not on filedocumented as of this encounter Visit Diagnoses Not on filedocumented in this encounter Care Teams Line Erector Relationship Specialty Start Date End Date Remi Lyles MD PCP - General 05/20/17 [place], [place] [address] documented as of this encounter
--- OUTSIDE RECORDS SUMMARY | 2022-09-22 08:51 | XMS_ITS | Encounter Summary ---
:1945 Author Organization [facility] Address [address] [place] [address] Care Team Providers Name Role Phone Pcp, Pt Kassidy MCCLURE Primary Care Provider Reason for Visit Reason Comments Hand Therapy Therapies (Routine) - Closed Specialty Diagnoses / Procedures Referred By Contact Refer red To Contact Diagnoses Primary osteoarthritis of first carpometacarpal joint of left hand José Luis Tubbs MD [address] [place] [address] 1 Referral ID Status Reason Start Date Expiration Date Visits Requ ested Visits Authorized [id number] Closed 06/08/2017 08/07/2017 1 1 Encounter Details Date Type Department Care Team Description 06/08/2017 Office Visit [facility] Errol Lee, [facility] [address] [facility] OTR/L DJD(carpometacarpal [place], [place] [address]100 [facility] D R degenerative joint [address] [place], [place] disease), localized [phone] primary, left (Primary Dx) Social History Tobacco [...] joint hyperextension + Adduction contracture + Trapezium [place] NT Retropulsion NT TREATMENT INTERVENTION: OT Evaluation CPT 64169 (10 minutes untimed) A Moderate Complexity Occupational Therapy Evaluation was completed. Occupational profile/history: expanded review of records and medical history. Assessment: 3-5 performance deficits. Clinical decision making: consideration of several treatment options and patient may have co-morbidities. The patient was educated on the condition, planned therapy [id number], and expectations from treatment. Goals were a collaborative effort between the patient and therapist. Risks, benefits, and alternatives to treatment were explained. Patient or guardian in agreement with care plan. Therapeutic Exercise CPT 86552 (5 minutes) Patient was instructed in, performed, and provided with written handout for CMC osteoarthritis rangeof motion, including adductor stretches. Self-Care / Home Management Training CPT 07796 (15 minutes) Issued handout and instructed in pain management techniques including the use of heat and/or cold, joint protection strategies, and activity modification. Application of Hand Splint/Orthosis, Static CPT 23760 (15 minutes untimed) A custom thermoplastic hand [...] concerns. Therapist Signature: Errol Lee MS, OTR/L #[id number] Visit #1 Payor: [facility] / Plan: [facility] MEDICARE / Product Type: Medicare / Physician [...] Primary documented in this encounter Care Teams Gun Perforator Relationship Specialty Start Date End Date Pcp, Remi Yi MD PCP - General 05/20/17 [place] [address] documented as of this encounter
--- OUTSIDE RECORDS SUMMARY | 2022-09-22 08:51 | XMS_ITS | Encounter Summary ---
:1945 Author Organization [facility] Address [address] [place] [address] Care Team Providers Name Role Phone Unavailable [...] or relatives? How often do you attend presybeterian or Never 2020 temple services? Do you belong to any clubs or Yes 02/27/2021 organizations such as presybeterian groups, unions, fraternal or athletic groups, or [...] 8:54 AM Resu lts for this EXAM CLINICAL PRODUCT SPECIALIST procedure are i n the results section. documented in this encounter Results DERMATOLOGY IMAGE EXAM (09/20/2018 8:54 AM CLINICAL PRODUCT SPECIALIST) Specimen (Source) Anatomical Collection Method Collection Time Re ceived Time Location / / Volume Laterality 09/20/2018 8:51 AM CLINICAL PRODUCT SPECIALIST Narrative [facility] - 09/20/2018 8:54 AM CLINICAL PRODUCT SPECIALIST This order has been created and auto-finalized [...]
--- OUTSIDE RECORDS SUMMARY | 2022-09-22 08:51 | XMS_ITS | Encounter Summary ---
:1945 Author Organization [facility] Address [address] [place] [address] Care Team Providers Name Role Phone Unavailable Primary Care Provider Unavailable Reason for Visit Reason Comments Skin Check Appointment Request (Routine) - Closed Specialty Diagnoses / Procedures Referred By Contact Refer red To Contact Dermatology Referral ID Status Reason Start Date Expiration Date Visits Requ ested Visits Authorized [id number] Closed 04/01/2018 04/01/2019 1 Encounter Details Date Type Department Care Team Description 06/06/2018 Office Visit Department of Zenaida Montgomery Nevi Multiple (Primary Dx); Dermatology in [place]. [place] [address] [place] [phone] Social History Tobacco Use Types Packs/Day Years [...] or relatives? How often do you attend adventist or Never 2020 alevism services? Do you belong to any clubs or Yes 02/27/2021 organizations such as adventist groups, unions, fraternal or athletic groups, or [...]
--- OUTSIDE RECORDS SUMMARY | 2022-09-22 08:52 | XMS_ITS | Encounter Summary ---
:1945 Author Organization [place] Address [facility] [place] [address] Care Team Providers Name Role Phone Mahamed Kate MD Primary Care Provider [phone] Reason for Visit Auth/Cert Specialty Diagnoses / Procedures Referred By Contact Refer red To Contact Surgery Diagnoses BILATERAL UPPER LID PTOSISI, DERMATOCHALASIS, BROW PTOSIS Sh Periop Services Procedures COMBINED REPAIR PTOSIS WITH BLEPHAROPLASTY BILATERAL REPAIR PTOSIS BROW [address] [place] [address] Phone: Referral ID Status Reason Start Date Expiration Date Visits Requ ested Visits Authorized [id number] 1 1 Encounter Details Date Type Department Care Team Description 08/23/2018 Surgery [facility] Sarika Mcdaniel [place] UPPER LID [place] PeriOP MD Benita PTOSIS, Services [place] OPHTHALMIC PLASTIC BLEPHAROPLASTY, RIGHT [address], SURGERY BROW PTOSIS [address] [place] [address] [address] [place] [address] (Wo rk) Surgery Details Date/Time Status Location [...] know so they can address your concerns. [facility] Eyelid/Orbital Surgery Discharge Instructions Dr. Sarika [...] an infection (greenish/yellow discharge or progressive redness). [facility] [address] [place], [place] [address] If you have questions or concerns about your procedure, call Dr. Mcdaniel at [phone] documented in this encounter Medications at Time [...] Ptosis of both eyelids fluticasone (FLONASE) 50 [place] 2 sprays into 0 MCG/ACT spray both [...] ruler) to 4.25 mm and two additional sxaena were placed 4.25 mm superior to the [...] mg 0.3-0.5 mg, Intravenous, EVERY 10 MIN AK N, Starting e 08/23/18 at 1248, Until [...] II documented in this encounter Care Teams Sales Manager [place] Relationship Specialty Start Date End Date Mahamed Kate MD PCP - General Emergency Medicine 08/16/18 [facility] [address] [place] [address] documented as of this encounter
--- OUTSIDE RECORDS SUMMARY | 2022-09-22 08:52 | XMS_ITS | Encounter Summary ---
:1945 Author Organization [place] Address [address] [facility] [place] [address] Care Team Providers Name Role Phone Mahamed Kate MD Primary Care Provider [phone] Reason for Visit Auth/Cert Specialty Diagnoses / Procedures Referred By Contact Refer red To Contact Surgery Diagnoses BILATERAL UPPER LID PTOSISI, DERMATOCHALASIS, BROW PTOSIS Sh Periop Services Procedures COMBINED REPAIR PTOSIS WITH BLEPHAROPLASTY BILATERAL REPAIR PTOSIS BROW [address] [place] [address] Phone: Referral ID Status Reason Start Date Expiration Date Visits Requ ested Visits Authorized [id number] 1 1 Encounter Details Date Type Department Care Team Description 08/23/2018 Anesthesia Event [facility] Carlos Amaya MD [facility] [address] [address] [facility] Teresa Arango, HUMIDIFIER OPERATOR FACILITIES PLANNER [address] [address] [address] [place] [...] (Last set prior to Anesthesia Care Transfer) FACILITIES PLANNER VITALS 08/23/2018 1208 - 08/23/2018 1243 08/23/2018 [...] mg documented in this encounter Care Teams Otc Clerk Relationship Specialty Start Date End Date Mahamed Kate MD PCP - General Emergency Medicine 08/16/18 [facility] [address] [place] [address] documented as of this encounter
--- OUTSIDE RECORDS SUMMARY | 2022-09-22 08:52 | XMS_ITS | Encounter Summary ---
:1945 Author Organization [place] Address [address] [place] [address] Care Team Providers Name Role Phone Mahamed Kate MD Primary Care Provider [phone] Reason for Visit Auth/Cert Specialty Diagnoses / Procedures Referred By Contact Refer red To Contact Surgery Diagnoses BILATERAL UPPER LID PTOSISI, DERMATOCHALASIS, BROW PTOSIS Sh Periop Services Procedures COMBINED REPAIR PTOSIS WITH BLEPHAROPLASTY BILATERAL REPAIR PTOSIS BROW [address] [place] [address] Phone: Referral ID Status Reason Start Date Expiration Date Visits Requ ested Visits Authorized [id number] 1 1 Encounter Details Date Type Department Care Team Description 08/23/2018 Hospital Encounter [facility] Sarika Mcdaniel of both [facility] Phase II MD Benita eyelids (Primary [address] [place] OPHTHALMIC Dx) [place] [facility] [address] [phone] [place] [address] [place] [address] Social History Tobacco Use Types Packs/Day Years [...] know so they can address your concerns. [facility] Eyelid/Orbital Surgery Discharge Instructions Dr. [...] an infection (greenish/yellow discharge or progressive redness). [facility] [address] [place] [address] If you have questions or concerns about your procedure, call Dr. Mcdaniel at [phone] documented in this encounter Medications at Time [...] Ptosis of both eyelids fluticasone (FLONASE) 50 [place] 2 sprays into 0 MCG/ACT spray both [...] mg 0.3-0.5 mg, Intravenous, EVERY 10 MIN HI N, Starting Wed08/23/18 at 1248, Until 08/23/18 [...] II documented in this encounter Care Teams Document Control Associate Relationship Specialty Start Date End Date Mahamed Kate MD PCP - General Emergency Medicine 08/16/18 [facility] [address] [place] [address] documented as of this encounter
--- OUTSIDE RECORDS SUMMARY | 2022-09-22 08:52 | XMS_ITS | Clinical Summary ---
:1945 Author Organization [place] Address [address] [place] [address] Care Team Providers Name Role Phone Mahamed Kate MD Primary Care Provider [phone] Allergies Active Allergy Reactions Severity Noted Date [...] (BENADRYL PO) mouth At Bedtime fluticasone (FLONASE) [place] 2 sprays 0 Active 50 MCG/ACT spray [...] age to complete this topic Care Teams Software Engineering Supervisor Relationship Specialty Start Date End Date Mahamed Kate MD PCP - General Emergency Medicine 08/16/18 [facility] [address] [place] [address]
--- OUTSIDE RECORDS SUMMARY | 2022-09-22 08:52 | XMS_ITS | Clinical Summary ---
:1945 Author Organization [facility] [place] [address] Care Team Providers Name Role Phone Mahamed [...] Blood Pressure 128/78 12/13/2017 10:16 AM tower DIRECTOR PHARMACEUTICAL Pulse 85 12/13/2017 10:16 AM DIRECTOR PHARMACEUTICAL Temperature 36.6 ??C (97.8 ??F) 12/13/2017 10:16 AM DIRECTOR PHARMACEUTICAL Respiratory Rate - - Oxygen Saturation 96% 12/13/2017 10:16 AM DIRECTOR PHARMACEUTICAL Inhaled Oxygen Concentration - - Weight 76.1 kg (167 lb 12.8 oz) 12/13/2017 10:16 AM wit h shoes DIRECTOR PHARMACEUTICAL Height 157.2 cm (5' 1.89) 11/29/2017 11:35 AM DIRECTOR PHARMACEUTICAL Body Mass Index 30.8 11/29/2017 11:35 AM DIRECTOR PHARMACEUTICAL Plan of Treatment Health Maintenance Due Date [...] ss Type Group UCARE MR ARE MEDICARE [id number] 2017-Present [address] [place] [address] Care Teams Manager Treasury Relationship Specialty Start Date End Date Mahamed Kate MD PCP - General 03/05/161999 [place] [address]
[2022-09-22 11:30] LABS: Cholesterol* 207 mg/dL (90-199)
[2022-09-22 11:31] LABS: HDL Cholesterol* 64 mg/dL (>=50); LDL Cholesterol Calculated 114 mg/dL (<100); Triglycerides* 145 mg/dL (40-149)
== END 2022-09-22 08:50 | disposition home or self-care (01) ==
LOC: NFLDREF 08:49
PROVIDERS: PCP Internal Medicine; Visit Provider Internal Medicine
DX: Z13.6 Encounter for screening for cardiovascular disorders (principal)
CPT/HCPCS: 80061

== ENCOUNTER 2022-10-05 14:49 | Outpatient (CLI) | payer MEDICARE, SELFPAY ==
--- OUTSIDE RECORDS SUMMARY | 2022-10-05 14:52 | XMS_ITS | Encounter Summary ---
:1945 Author Organization [facility] Address [address] [place] [address] Care Team Providers Name Role Phone Pcp, Pt Declines Primary Care Provider Reason for Referral Therapies (Routine) - Closed Specialty Diagnoses / Procedures Referred By Contact Refer red To Contact Diagnoses Primary osteoarthritis of first carpometacarpal joint of left hand José Luis Tubbs MD [address] [facility] [place] [address] Referral ID Status Reason Start Date Expiration Date Visits Requ ested Visits Authorized [id number] Closed 06/08/2017 08/07/2017 1 1 Scheduling Instructions Your provider has recommended an appoint ment with [facility]. You may call [phone] to schedule your appoi ntment. If you do not schedule an appointment within the next 1 to 3 business days, we will call you to help arrange your appointment. We suggest you call your [facility] insurance company about your coverage and benefits for this appointment. Procedure/Equipment (Routine) - Incomplete Specialty Diagnoses / Procedures Referred By Contact Refer red To Contact Diagnoses Primary osteoarthritis of first carpometacarpal joint of left hand José Luis Tubbs MD Procedures XR Finger Lt Thumb 3 Views [address] [facility] ASH[address] SANTANA [address] Referral ID Status Reason Start Date Expiration Date Visits V isits Requested Authorized [id number] Incomplete 06/08/2017 09/07/2018 1 1 Reason for Visit Reason Comments PAIN, THUMB Left thumb pain deformity Encounter Details Date Type Department Care Team Description 06/08/2017 Surgical Consult [facility] José Luis Tubbs [facility] osteoarthritis CENTER MD Megan [facility] [address] [facility] [address] [facility] D R carpometacarpal joint [address] [place], [place] of left [place] ([place] [address] Dx) [address] [phone] Social History Tobacco Use Types Packs/Day Years [...] Tubbs MD Hand & Upper Extremity Surgeon Geek Squad Manager: Reema Ma Please contact Reema for all surgery scheduling and administrative questions at [phone] Hand Nurse: Joseph Roa Please contact Joseph for all medical related questions at [phone] Medication Requests: Prescriptions are not filled on Weekends or on Weekdays after 3:00PM For all medication refills: Request a refill using MyChart or contact your Pharmacy Please call [phone] to make future appointments. You are going to hand therapy today for splinting documented in this encounter Progress Notes José Luis Tubbs MD - 06/08/2017 1:20 PM CDT [facility] Consultation 06/08/2017 Chief Complaint: Left Thumb [...] scale. She was being seen at the [facility] hand clinic for a long period of [...] with the patient; this is located in [facility] in [place]. Review of Systems: A 15-point review was [...] left documented in this encounter Care Teams Cripple Chaser Relationship Specialty Start Date End Date Pcp, Remi Yi MD PCP - General 05/20/17 [place] [address] documented as of this encounter
--- OUTSIDE RECORDS SUMMARY | 2022-10-05 14:52 | XMS_ITS | Encounter Summary ---
:1945 Author Organization [facility] Address [address], [place] [address] Care Team Providers Name Role Phone PcpRemi MD Primary Care Provider Encounter Details Date Type Department Care Team Description 10/28/2017 Notes/Orders [facility] [address], Rheumatology MD Erik [address] [place] [address] [place] [address] [place], [place] [address] (Wo rk) Social History Tobacco Use Types Packs/Day Years Used Date Smoking Tobacco: Unknown Alcohol Use Standard Drinks/Week Comments Yes 0 (1 standard drink = 0.6 oz pure alcoho l) Sex Assigned at Date Recorded Not on file documented as of this encounter Plan of Treatment Not on filedocumented as of this encounter Visit Diagnoses Not on filedocumented in this encounter Care Teams Bicycle Service Technician Relationship Specialty Start Date End Date Remi Lyles MD PCP - General 05/20/17 [place], [place] [address] documented as of this encounter
--- OUTSIDE RECORDS SUMMARY | 2022-10-05 14:52 | XMS_ITS | Clinical Summary ---
:1945 Author Organization [facility] Address [address] [place] [address] Care Team Providers Name Role Phone Unavailable Primary Care Provider Unavailable Source Comments Patient records contain information from all sites at [facility]. For routine questions regarding patient records, call [phone] during business hours, M-F 8:00 AM - 5:00 PM Central Time. Record requests for emergency care only can be directed to [phone] at any time.[facility] Allergies Active Allergy Reactions Severity Noted [...] do you attend yazdanism or Never 2020 presybeterian services? Do you belong to any clubs [...] place to sleep or slept in a long-term (including now)? Education Answer Date Recorded What [...] Addre ss Type Group UCARE UCARE FOR [id number] 2019-Present [phone] [address] [place] [address] (Home) [place] [address]
--- OUTSIDE RECORDS SUMMARY | 2022-10-05 14:52 | XMS_ITS | Clinical Summary ---
:1945 Author Organization [facility] Address [address] [place] [address] Care Team Providers Name Role Phone Pcp, [...] for each transition of care or referral. [facility] Allergies No known active allergies Medications Medication [...] age to complete this topic Care Teams Mixed Crop Farmer Relationship Specialty Start Date End Date Pcp, Pt MD Kassidy PCP - General 05/20/17 [place] [address]
--- OUTSIDE RECORDS SUMMARY | 2022-10-05 14:52 | XMS_ITS | Encounter Summary ---
:1945 Author Organization [facility] Address [address] [place] [address] Care Team Providers Name Role Phone Pcp, Pt Declines Primary Care Provider Reason for Visit Procedure/Equipment (Routine) - Incomplete Specialty Diagnoses / Procedures Referred By Contact Refer red To Contact Diagnoses Primary osteoarthritis of first carpometacarpal joint of left hand José Luis Tubbs MD Procedures XR Finger Lt Thumb 3 Views [address] [facility] ASH[address]ANT[address] [address] 1 Referral ID Status Reason Start Date Expiration Date Visits V isits Requested Authorized [id number] Incomplete 06/08/2017 09/07/2018 1 1 Encounter Details Date Type Department Care Team Description 06/08/2017 Imaging [facility] José Luis Tubbs MD Thumb pain, left [address] [facility] [address] [facility] [address]SH[address] [place] [address] [phone] (Wo rk) Social History Tobacco Use Types [...] left documented in this encounter Care Teams Church History Teacher Relationship Specialty Start Date End Date PcpRemi MD PCP - General 05/20/17 [place] [address] documented as of this encounter
--- OUTSIDE RECORDS SUMMARY | 2022-10-05 14:52 | XMS_ITS | Encounter Summary ---
:1945 Author Organization [facility] Address [address] [place] [address] Care Team Providers Name Role Phone Pcp, Pt Kassidy MCCLURE Primary Care Provider Reason for Visit Reason Comments Hand Therapy Therapies (Routine) - Closed Specialty Diagnoses / Procedures Referred By Contact Refer red To Contact Diagnoses Primary osteoarthritis of first carpometacarpal joint of left hand José Luis Tubbs MD [address] [place] [address] 1 Referral ID Status Reason Start Date Expiration Date Visits Requ ested Visits Authorized [id number] Closed 06/08/2017 08/07/2017 1 1 Encounter Details Date Type Department Care Team Description 06/08/2017 Office Visit [facility] Errol Lee, [facility] [address] [facility] OTR/L DJD(carpometacarpal [place], [place] 8[address] [facility] D R degenerative joint [address] [place], [place] disease), localized [phone] primary, left (Primary Dx) Social History Tobacco [...] joint hyperextension + Adduction contracture + Trapezium [place] NT Retropulsion NT TREATMENT INTERVENTION: OT Evaluation CPT 85924 (10 minutes untimed) A Moderate Complexity Occupational Therapy Evaluation was completed. Occupational profile/history: expanded review of records and medical history. Assessment: 3-5 performance deficits. Clinical decision making: consideration of several treatment options and patient may have co-morbidities. The patient was educated on the condition, planned therapy [id number], and expectations from treatment. Goals were a collaborative effort between the patient and therapist. Risks, benefits, and alternatives to treatment were explained. Patient or guardian in agreement with care plan. Therapeutic Exercise CPT 41003 (5 minutes) Patient was instructed in, performed, and provided with written handout for CMC osteoarthritis rangeof motion, including adductor stretches. Self-Care / Home Management Training CPT 12103 (15 minutes) Issued handout and instructed in pain management techniques including the use of heat and/or cold, joint protection strategies, and activity modification. Application of Hand Splint/Orthosis, Static CPT 75749 (15 minutes untimed) A custom thermoplastic hand [...] concerns. Therapist Signature: Errol Lee MS, OTR/L #[id number] Visit #1 Payor: [facility] / Plan: [facility] MEDICARE / Product Type: Medicare / Physician [...] Primary documented in this encounter Care Teams Veneer Sheet Repairer Relationship Specialty Start Date End Date Pcp, Remi Yi MD PCP - General 05/20/17 [place] [address] documented as of this encounter
--- OUTSIDE RECORDS SUMMARY | 2022-10-05 14:52 | XMS_ITS | Encounter Summary ---
:1945 Author Organization [facility] Address [address] [place] [address] Care Team Providers Name Role Phone Unavailable [...] or relatives? How often do you attend restorationism or Never 2020 yazdanism services? Do you belong to any clubs or Yes 02/27/2021 organizations such as restorationism groups, unions, fraternal or athletic groups, or [...] 9:40 AM Resu lts for this EXAM PIE BOTTOMER procedure are i n the results section. documented in this encounter Results Chest, right 202 216-Dermatology Image Exam (12/23/2021 9:40 AM PIE BOTTOMER) Specimen (Source) Anatomical Collection Method Collection Time Re ceived Time Location / / Volume Laterality 12/23/2021 9:38 AM PIE BOTTOMER Narrative IIMS - 12/23/2021 9:42 AM PIE BOTTOMER This order has been created and auto-finalized [...]
--- OUTSIDE RECORDS SUMMARY | 2022-10-05 14:53 | XMS_ITS | Encounter Summary ---
:1945 Author Organization [facility] Address [address] [place] [address] Care Team Providers Name Role Phone Unavailable Primary Care Provider Unavailable Reason for Visit Reason Comments Lesion Appointment Request (Routine) - Closed Specialty Diagnoses / Procedures Referred By Contact Refer red To Contact Dermatology Zenaida Montgomery M.D . [address] [place] [phone] Referral ID Status Reason Start Date Expiration Date Visits Requ ested Visits Authorized [id number] Closed 05/06/2021 05/06/2022 1 1 Encounter Details Date Type Department Care Team Description 12/23/2021 Office Visit Department of Zenaida Montgomery, Tumor Skin Uncertain Dermatology in [place] Behavior (Primary Dx) [place], [place] [address] [place] [phone] Social History Tobacco Use Types Packs/Day Years [...] or relatives? How often do you attend rastafari or Never 2020 yarsani services? Do you belong to any clubs or Yes 02/27/2021 organizations such as rastafari groups, unions, fraternal or athletic groups, or [...] the patient by letter. Patient given pamphlet [id number]. Discussed the risks, benefits, alternatives, and the [...] Electronically Signed: catalina Martinez. 12/23/2021. 8:36 AM BUSINESS SOLUTIONS ARCHITECT. IZenaida M.D., personally performed the services described in this documentation. All medical record entries made by the scribe were at my direction and in my presence. I have reviewed the chart and discharge instructions (if applicable) and agree that the record reflects my personal performance and is accurate and complete. Zenaida Montgomery M.D. NESS SOLUTIONS ARCHITECT documented in this encounter Miscellaneous Notes Result Encounter Note - Zenaida Montgomery M.D. - 12/30/2021 8:58 AM CST Right mid central chest: Benign lesion letter [place] patient. Please send letter NESS SOLUTIONS ARCHITECT documented in this encounter Plan of Treatment Not on filedocumented as of this encounter Procedures Procedure Name Priority Date/Time Associated Comments Diagnosis DERMATOPATHOLOGY CONSULT Routine 12/23/2021 9:41 Tumor Skin Results for this AM BUSINESS SOLUTIONS ARCHITECT Uncertain Behavior procedure are in the results section. documented in this encounter Results Dermatopathology Consult (12/23/2021 9:41 AM BUSINESS SOLUTIONS ARCHITECT) Component Value Ref Test Analysis Performed At [facility] gist Range Method Time Signature 12/29/2021 [facility] 1:21 PM BUSINESS SOLUTIONS ARCHITECT Report Clarisse AlonsoJuan Diego 12/29/2021 [facility] electronically Yifan Bee 1:21 PM BUSINESS SOLUTIONS ARCHITECT signed by Gross Description: Received in formalin labeled with the patient's name, 12/29/2021 [facility] medical record number, and right mid central chest is a 1:21 PM BUSINESS SOLUTIONS ARCHITECT 0.8 x 0.6 x 0.1 cm pale-dillon skin shave biopsy. ??Centrally located on the skin surface is a 0.5 x 0.4 cm pale dillon-brown, slightly raised lesion with ill-defined borders. The specimen is trisected and submitted entirely in cassette A1. ??Grossed by AIDAN. Interpetation FINAL DIAGNOSIS 12/29/2021 PDR A. ??DermPath Consult Wet Tissue; Right mid central chest, 1:21 PM BUSINESS SOLUTIONS ARCHITECT Skin shave biopsy: ??Lichenoid keratosis Specimen Anatomical Collection Method Collection Time Receive d Time (Source) Location / / Volume Laterality Tissue 12/23/2021 9:41 AM 9:56 BUSINESS SOLUTIONS ARCHITECT AM BUSINESS SOLUTIONS ARCHITECT Narrative This result has an attachment that is no t available. Zenaida Montgomery M.D. LAB PATH DERM ORDERABLES Performing Organization Address City/State/ZIP Code Phon e Number [facility] - [address] [place], [place] [address] [place] [address] [facility] [address] documented in this encounter Visit Diagnoses Diagnosis Tumor Skin Uncertain Behavior - Primary documented in this encounter
--- OUTSIDE RECORDS SUMMARY | 2022-10-05 14:53 | XMS_ITS | Encounter Summary ---
:1945 Author Organization [facility] Address [address] [place] [address] Care Team Providers Name Role Phone Unavailable Primary Care Provider Unavailable Encounter Details Date Type Department Care Team Description 10/03/2018 Nurse Only Department of Dermatology in [place] Loya R.N. [facility] potato chip packaging machine operator [address] [place] [address] [phone] Social History Tobacco Use Types Packs/Day Years [...] or relatives? How often do you attend jewish or Never 2020 mandaeism services? Do you belong to any clubs or Yes 02/27/2021 organizations such as jewish groups, unions, fraternal or athletic groups, or [...] or slept in a usp (including now)? Sex Assigned at Date Recorded Not on file documented as of this encounter Procedure Notes Loraine Chavira R.N. - 10/03/2018 3:00 PM CST Procedures #1 Suture removal Supervising desktop support consultant was immediately available, but consultation was not required. Supervising desktop support consultant: Dr. Aly Montgomery ([phone]). Ordering physician: Dr. Aly Montgomery ([phone]). Patient seen on 09/20/2018 and punch biopsy was performed. Patient returns for suture removal. Area cleansed with alcohol wipe. Wound is well approximated, without swelling, without odor, without drainage, without bruising. Three suture(s) removed from the Right calf with difficulty. Vaseline and bandage applied. Wound care reviewed with patient per [id number]. Biopsy results were discussed. Teaching provided to patient. Evaluation of learning: able to teach back. Final Pause: A final pause occurred just before the procedure start, during which the entire procedure team actively confirmed the correct patient, procedure, site, special equipment and special requirements. R SANDING MACHINE OPERATOR documented in this encounter Plan of Treatment Not on filedocumented as of this encounter Visit Diagnoses Diagnosis Aftercare Suture Removal Non-Injury - Pr imary documented in this encounter
--- OUTSIDE RECORDS SUMMARY | 2022-10-05 14:53 | XMS_ITS | Encounter Summary ---
:1945 Author Organization [facility] Address [address] [place] [address] Care Team Providers Name Role Phone Unavailable Primary Care Provider Unavailable Reason for Visit Reason Comments Suspicious Skin Lesion Recheck right calf nevus Appointment Request (Routine) - Closed Specialty Diagnoses / Procedures Referred By Contact Refer red To Contact Dermatology Referral ID Status Reason Start Date Expiration Date Visits Requ ested Visits Authorized [id number] Closed 06/06/2018 06/06/2019 1 Encounter Details Date Type Department Care Team Description 09/20/2018 Office Visit Department of Zenaida Montgomery, Tumor Skin Uncertain Behavior (Primary Dx); [facility] [place] [place] [address] [phone] Social History Tobacco Use Types Packs/Day Years [...] do you attend voodoo or Never 2020 congregational services? Do you belong to any clubs [...] place to sleep or slept in a nursing home (including now)? Sex Assigned at Date [...] the patient by letter. Patient given pamphlet [id number]. Discussed the risks, benefits, alternatives, and the [...] Zenaida Montgomery M.D. . 09/20/2018. 9:01 AM. ES 1 THRU 6 HOME TEACHER Zenaida Montgomery M.D. - 09/20/2018 8:30 AM CST b9 lesion letter. ES 1 THRU 6 HOME TEACHER documented in this encounter Plan of Treatment Not on filedocumented as of this encounter Procedures Procedure Name Priority Date/Time Associated Comments Diagnosis DERMATOPATHOLOGY CONSULT Routine 09/20/2018 8:55 Tumor Skin Results for this GRADES 1 THRU 6 HOME TEACHER Uncertain Behavior procedure are in the results section. documented in this encounter Results Dermatopathology Consult (09/20/2018 8:55 AM GRADES 1 THRU 6 HOME TEACHER) Component Value Ref Test Analysis Performed At [facility] Range Method Time Signature Gross Received in formalin labeled with the patient's name, 09/26/2018 [facility] Description: medical record number, and right calf is a 0.5 cm in 4:26 PM GRADES 1 THRU 6 HOME TEACHER LABORATORIES - diameter pale dillon-stephenson ovoid skin punch biopsy, excised to [facility] depth of 0.4 cm. ??There is a 0.2 x 0.2 cm [facility] pigmented lesion with irregular borders centrally located on the skin surface. ??The specimen is bisected and submitted entirely in cassette A1. ??Grossed by AJG. Report Urmila Silveira 09/26/2018 [facility] electronically Yifan Jamison 4:26 PM GRADES 1 THRU 6 HOME TEACHER LABORATORI ES - signed by [facility] 09/26/2018 [facility] 4:26 PM GRADES 1 THRU 6 HOME TEACHER LABORATORIES - [facility] Interpetation FINAL DIAGNOSIS 09/26/2018 [facility]. ??DermPath Consult Wet Tissue; Right calf, Skin punch 4:26 PM GRADES 1 THRU 6 HOME TEACHER LABORATORIES - biopsy: ??Lentiginous junctional nevus [facility] Clinical photo reviewed. Specimen Anatomical Collection Method Collection Time Receive d Time (Source) Location / / Volume Laterality Tissue 09/20/2018 8:55 AM 8 9:19 GRADES 1 THRU 6 HOME TEACHER AM GRADES 1 THRU 6 HOME TEACHER Narrative This result has an attachment that is no t available. Zenaida Montgomery M.D. LAB PATH DERM ORDERABLES Performing Organization Address City/State/ZIP Code Phon e Number [facility] - [address] [place], [place] [address] [facility] documented in this encounter Visit Diagnoses Diagnosis Tumor Skin Uncertain Behavior - Primary Nevus Atypical documented in this encounter Administered Medications Inactive Administered Medications - up to 3 most recent administrations Medication Order MAR Action Action Date Dose Rate Site lidocaine-EPINEPHrine 1 %-1:100,000 Given 09/20/2018 9:00 AM GRADES 1 THRU 6 HOME TEACHER 1 mL injection 1 mL (XYLOCAINE W/EPI) 1 mL, infiltration, Once, On Wed09/20/18 at 0900, For 1 dose documented in this encounter
--- OUTSIDE RECORDS SUMMARY | 2022-10-05 14:53 | XMS_ITS | Clinical Summary ---
:1945 Author Organization [facility] Address [address] [place] [address] Care Team Providers Name Role Phone Mahamed Kate MD Primary Care Provider [phone] Allergies Active Allergy Reactions Severity Noted Date [...] (BENADRYL PO) mouth At Bedtime fluticasone (FLONASE) [place] 2 sprays 0 Active 50 MCG/ACT spray [...] (Cologuard) 1945 FIT 1945 FLEX SIG 1945 MAMMO SCREENING 1945 COVID-19 Vaccine (#1) 1945 [...] age to complete this topic Care Teams Buffet Waiter/Waitress Relationship Specialty Start Date End Date Mahamed Kate MD PCP - General Emergency Medicine 08/16/18 [facility] [address] [place] [address]
--- OUTSIDE RECORDS SUMMARY | 2022-10-05 14:53 | XMS_ITS | Encounter Summary ---
:[address] [facility] Address [address] [place] [address] Care Team Providers Name Role Phone Unavailable Primary Care Provider Unavailable Reason for Visit Reason Comments Skin Check Appointment Request (Routine) - Closed Specialty Diagnoses / Procedures Referred By Contact Refer red To Contact Dermatology Referral ID Status Reason Start Date Expiration Date Visits Requ ested Visits Authorized [id number] Closed 04/01/2018 04/01/2019 1 Encounter Details Date Type Department Care Team Description 06/06/2018 Office Visit Department of Zenaida Montgomery (Primary Dx); Dermatology in [place] M.D. [place], [place] [address] [phone] Social History Tobacco Use Types Packs/Day Years [...] or relatives? How often do you attend episcopalian or Never 2020 anglican services? Do you belong to any clubs or Yes 02/27/2021 organizations such as episcopalian groups, unions, fraternal or athletic groups, or [...] place to sleep or slept in a alf (including now)? Sex Assigned at Date Recorded [...]
--- OUTSIDE RECORDS SUMMARY | 2022-10-05 14:53 | XMS_ITS | Encounter Summary ---
:1945 Author Organization [facility] Address [address] [place] [address] Care Team Providers Name Role Phone Unavailable Primary Care Provider Unavailable Reason for Referral Outpatient (Routine) - Closed Specialty Diagnoses / Procedures Referred By Contact Refer red To Contact Dermatology Zenaida Montgomery M.D . [facility] [address] [place] [phone] Referral ID Status Reason Start Date Expiration Date Visits Requ ested Visits Authorized [id number] Closed 03/03/2021 03/03/2022 1 1 Scheduling Instructions Recheck skin lesion involving chest and skin cancer screening exam in 2 months Reason for Visit Reason Comments Skin Problem chest Appointment Request (Routine) - Closed Specialty Diagnoses / Procedures Referred By Contact Refer red To Contact Dermatology Referral ID Status Reason Start Date Expiration Date Visits Requ ested Visits Authorized [id number] Closed 12/09/2020 12/09/2021 1 1 Encounter Details Date Type Department Care Team Description 03/03/2021 Comprehensive Visit Department of Zenaida Montgomery Kerato sis Lichenoid (Primary Dx); Dermatology in [place] M.D. [place], [place] [address] [place] [phone] Social History Tobacco Use Types Packs/Day Years [...] or relatives? How often do you attend mosque or Never 2020 jehovah's witness services? Do you belong to any clubs or Yes 02/27/2021 organizations such as mosque groups, unions, fraternal or athletic groups, or [...] of Zenaida Montgomery M.D. Electronically Signed: catalina iMllan. Zenaida Frank M.D., personally performed the services [...] Diagnoses Diagnosis Keratosis Lichenoid - Primary Callus [place] documented in this encounter
--- OUTSIDE RECORDS SUMMARY | 2022-10-05 14:53 | XMS_ITS | Encounter Summary ---
:1945 Author Organization [facility] Address [address] [place] [address] Care Team Providers Name Role Phone Unavailable [...] or relatives? How often do you attend lutheran or Never 2020 amish services? Do you belong to any clubs or Yes 02/27/2021 organizations such as lutheran groups, unions, fraternal or athletic groups, or [...] or slept in a assisted (including now)? Sex Assigned at Date Recorded Not on file documented as of this encounter Plan of Treatment Not on filedocumented as of this encounter Procedures Procedure Name Priority Date/Time Associated Comments Diagnosis DERMATOLOGY IMAGE Routine 09/20/2018 8:54 AM Resu lts for this EXAM GENOMICS SCIENTIST procedure are i n the results section. documented in this encounter Results DERMATOLOGY IMAGE EXAM (09/20/2018 8:54 AM GENOMICS SCIENTIST) Specimen (Source) Anatomical Collection Method Collection Time Re ceived Time Location / / Volume Laterality 09/20/2018 8:51 AM GENOMICS SCIENTIST Narrative IIMS - 09/20/2018 8:54 AM GENOMICS SCIENTIST This order has been created and auto-finalized [...]
--- OUTSIDE RECORDS SUMMARY | 2022-10-05 14:53 | XMS_ITS | Encounter Summary ---
:1945 Author Organization [facility] Address [address] [place] [address] Care Team Providers Name Role Phone Unavailable Primary Care Provider Unavailable Reason for Visit Reason Comments Derm Issue Encounter Details Date Type Department Care Team Description 12/16/2021 Clinical Communication Department of Zenaida Montgomery, Derm Issue Dermatology in [place], [place] [address] [phone] Social History Tobacco Use Types Packs/Day Years [...] or relatives? How often do you attend gnosticism or Never 2020 mormon services? Do you belong to any clubs or Yes 02/27/2021 organizations such as gnosticism groups, unions, fraternal or athletic groups, or [...] this encounter Miscellaneous Notes Telephone Encounter - Una Vergaray J - 12/16/2021 3:07 PM CST Reason for call: [...] an appointment. Please call patient back at [phone], you can leave a detailed message if she does not answer. E MAKER documented in this encounter Plan of Treatment Not on filedocumented as of this encounter Visit Diagnoses Not on filedocumented in this encounter
--- OUTSIDE RECORDS SUMMARY | 2022-10-05 14:53 | XMS_ITS | Clinical Summary ---
:1945 Author Organization [facility] [place] [address] Care Team Providers Name Role Phone Mahamed [...] Blood Pressure 128/78 12/13/2017 10:16 AM tower DRIER FEEDER Pulse 85 12/13/2017 10:16 AM DRIER FEEDER Temperature 36.6 ??C (97.8 ??F) 12/13/2017 10:16 AM DRIER FEEDER Respiratory Rate - - Oxygen Saturation 96% 12/13/2017 10:16 AM DRIER FEEDER Inhaled Oxygen Concentration - - Weight 76.1 kg (167 lb 12.8 oz) 12/13/2017 10:16 AM wit h shoes DRIER FEEDER Height 157.2 cm (5' 1.89) 11/29/2017 11:35 AM DRIER FEEDER Body Mass Index 30.8 11/29/2017 11:35 AM DRIER FEEDER Plan of Treatment Health Maintenance Due Date [...] ss Type Group UCARE MR ARE MEDICARE [id number] 2017-Present [address] [place] [address] Care Teams Blow Moulding Machine Operator Relationship Specialty Start Date End Date Mahamed Kate MD PCP - General 03/05/16[address] [place] [address]
--- OUTSIDE RECORDS SUMMARY | 2022-10-05 14:53 | XMS_ITS | Encounter Summary ---
:1945 Author Organization [place] Address [address] [place] [address] Care Team Providers Name Role Phone Mahamed Kate MD Primary Care Provider [phone] Reason for Visit Auth/Cert Specialty Diagnoses / Procedures Referred By Contact Refer red To Contact Surgery Diagnoses BILATERAL UPPER LID PTOSISI, DERMATOCHALASIS, BROW PTOSIS Sh Periop Services Procedures COMBINED REPAIR PTOSIS WITH BLEPHAROPLASTY BILATERAL REPAIR PTOSIS BROW [address] [place] [address] Phone: Referral ID Status Reason Start Date Expiration Date Visits Requ ested Visits Authorized [id number] 1 1 Encounter Details Date Type Department Care Team Description 08/23/[address] [facility] Sarika Mcdaniel of both [facility] Phase II MD Benita eyelids (Primary [address] [place] OPHTHALMIC Dx) [place] [facility] [phone] [phone] [address] [place] [id number] Social History Tobacco Use Types Packs/Day Years [...] know so they can address your concerns. [facility] Eyelid/Orbital Surgery Discharge Instructions Dr. Sarika [...] an infection (greenish/yellow discharge or progressive redness). [facility] [address] [place] [address] If you have questions or concerns about your procedure, call Dr. Mcdaniel at [phone] documented in this encounter Medications at Time [...] Ptosis of both eyelids fluticasone (FLONASE) 50 [place] 2 sprays into 0 MCG/ACT spray both [...] Intravenous, EVERY 10 MIN WA N, Starting Wed08/23/18 at 1248, Until 08/23/18 [...] II documented in this encounter Care Teams Card Runner Relationship Specialty Start Date End Date Mahamed Kate MD PCP - General Emergency Medicine 08/16/18 [facility] [address] [place] [address] documented as of this encounter
--- OUTSIDE RECORDS SUMMARY | 2022-10-05 14:53 | XMS_ITS | Encounter Summary ---
:1945 Author Organization [place] Address [facility] [place] [place] [address] Care Team Providers Name Role Phone Mahamed Kate MD Primary Care Provider [phone] Reason for Visit Auth/Cert Specialty Diagnoses / Procedures Referred By Contact Refer red To Contact Surgery Diagnoses BILATERAL UPPER LID PTOSISI, DERMATOCHALASIS, BROW PTOSIS Sh Periop Services Procedures COMBINED REPAIR PTOSIS WITH BLEPHAROPLASTY BILATERAL REPAIR PTOSIS BROW [address] [place] [address] Phone: Referral ID Status Reason Start Date Expiration Date Visits Requ ested Visits Authorized [id number] 1 1 Encounter Details Date Type Department Care Team Description 08/23/2018 Surgery [facility] Sarika Mcdaniel [place] UPPER LID [place] [facility] MD Ben[place] PTOSIS, Services [place] OPHTHALMIC PLASTIC BLEPHAROPLASTY, RIGHT [address], SURGERY BROW PTOSIS [address] [place] [address] [address] [place] [id number] (Wo rk) Surgery Details Date/Time Status Location [...] know so they can address your concerns. [facility] Eyelid/Orbital Surgery Discharge Instructions Dr. Sairka Mcdaniel ICE COMPRESSES Immediately following surgery, you [...] an infection (greenish/yellow discharge or progressive redness). [facility] [address] [place], [place] [address] If you have questions or concerns about your procedure, call Dr. Mcdaniel at [phone] documented in this encounter Medications at Time [...] Ptosis of both eyelids fluticasone (FLONASE) 50 [place] 2 sprays into 0 MCG/ACT spray both [...] mg 0.3-0.5 mg, Intravenous, EVERY 10 MIN [place] N, Starting e 08/23/18 at 1248, Until [...] II documented in this encounter Care Teams Stationary Engineer Supervisor Relationship Specialty Start Date End Date Mahamed Kate MD PCP - General Emergency Medicine 08/16/18 [facility] [address] [place] [address] documented as of this encounter
--- OUTSIDE RECORDS SUMMARY | 2022-10-05 14:53 | XMS_ITS | Encounter Summary ---
:1945 Author Organization [place] Address [address] [facility] [place] [address] Care Team Providers Name Role Phone Mahamed Kate MD Primary Care Provider [phone] Reason for Visit Auth/Cert Specialty Diagnoses / Procedures Referred By Contact Refer red To Contact Surgery Diagnoses BILATERAL UPPER LID PTOSISI, DERMATOCHALASIS, BROW PTOSIS Sh Periop Services Procedures COMBINED REPAIR PTOSIS WITH BLEPHAROPLASTY BILATERAL REPAIR PTOSIS BROW [address] [place] [address] Phone: Referral ID Status Reason Start Date Expiration Date Visits Requ ested Visits Authorized [id number] 1 1 Encounter Details Date Type Department Care Team Description 08/23/2018 Anesthesia Event [facility] Carlos Amaya MD [facility] [address] [id number] [facility] Teresa Arango, CURED MEATS SUPERVISOR RECYCLE DRIVER [address] [id number] [address] [place] [...] (Last set prior to Anesthesia Care Transfer) RECYCLE DRIVER VITALS 08/23/2018 1208 - 08/23/2018 1243 08/23/2018 [...] mg documented in this encounter Care Teams Petroleum [employer] District Supervisor Relationship Specialty Start Date End Date Mahamed Kate MD PCP - General Emergency Medicine 08/16/18 [facility] [address] [place] [address] documented as of this encounter
--- OUTSIDE RECORDS SUMMARY | 2022-10-05 14:53 | XMS_ITS | Encounter Summary ---
:1945 Author Organization [facility] Address [address] [place] [address] Care Team Providers Name Role Phone Unavailable Primary Care Provider Unavailable Reason for Visit Reason Comments Follow-up chest skin lesion Skin Check Outpatient (Routine) - Closed Specialty Diagnoses / Procedures Referred By Contact Refer red To Contact Dermatology Zenaida Montgomery M.D . [facility] [address] [place] [address] [phone] Referral ID Status Reason Start Date Expiration Date Visits Requ ested Visits Authorized [id number] Closed 03/03/2021 03/03/2022 1 1 Encounter Details Date Type Department Care Team Description 05/06/2021 Office Visit Department of Zenaida Montgomery Nevi Multi ple (Primary Dx); Dermatology in [place] [facility] [place], [place] [address] [phone] Social History Tobacco Use Types Packs/Day [...] or relatives? How often do you attend yazidi or Never 2020 holiness services? Do you belong to any clubs or Yes 02/27/2021 organizations such as yazidi groups, unions, fraternal or athletic groups, or [...]
--- OUTSIDE RECORDS SUMMARY | 2022-10-05 14:53 | XMS_ITS | Encounter Summary ---
:1945 Author Organization [facility] Address [address] [place] [id number] Care Team Providers Name Role Phone Unavailable Primary Care Provider Unavailable Encounter Details Date Type Department Care Team Description 03/04/2021 Orders Only [facility] PCP TH Sa mark anthony Webber M.D. [address] [place], [place] [phone] (Wo rk) Social History [...] or relatives? How often do you attend hoahaoism or Never 2020 muslim services? Do you belong to any clubs or Yes 02/27/2021 organizations such as hoahaoism groups, unions, fraternal or athletic groups, or [...] place to sleep or slept in a [facility] (including now)? Education Answer Date Recorded What [...]
--- NOTE | 2022-10-05 15:00 | CRLHL7_ITS ---
For Patients: As a result of the Century Cures Act, medical imaging exams and procedure reports are released immediately into your electronic medical record. You may view this report before your referring provider. If you have questions, please contact your health care provider. INDICATION: Follow-up nodules COMPARISON: 09/18/2019 TECHNIQUE: Givens scale and color Doppler images were acquired of the thyroid gland. FINDINGS: The thyroid gland demonstrates heterogeneous echogenicity and has a smooth outer contour. The right lobe measures 4.6 x 1.8 x 2.1 cm and the left lobe measures 4.3 x 1.5 x 1.6 cm in size. The isthmus measures 3 millimeters. Stable hypoechoic nodule midportion right thyroid lobe measuring 1.9 x 1.3 x 1.3 cm, previously measuring 1.9 x 1.2 x 1.2 cm. Also similar slightly hypoechoic nodule inferior pole right thyroid lobe measuring 9 x 6 x 9 millimeters, previously measuring 8 x 5 x 8 millimeters. Additional near isoechoic nodule right thyroid lobe also unchanged measuring 7 x 4 x 7 millimeters, previously measuring 10 x 5 x 8 millimeters. Slightly hypoechoic nodule inferior pole left thyroid lobe is stable measuring 1.6 x 0.8 x 1.0 cm, previously measuring 1.7 x 0.6 x 0.9 cm. No new nodules. The color Doppler images demonstrate normal vascularity. There is no evidence of cervical lymphadenopathy or parathyroid mass. IMPRESSION: Stable bilateral thyroid nodules. Dictated by Basil Walker MD @ 10/06/2022 8:38:28 AM (Electronically Signed)
== END 2022-10-05 14:50 | disposition home or self-care (01) ==
LOC: US 14:50
PROVIDERS: PCP Internal Medicine; Visit Provider Internal Medicine
DX: E04.1 Nontoxic single thyroid nodule (principal)
CPT/HCPCS: 76536

== ENCOUNTER 2023-03-09 13:51 | Outpatient (CLI) | payer MEDICARE, SELFPAY | END 2023-03-09 13:52 | disposition home or self-care (01) | PROVIDERS: PCP Internal Medicine; Visit Provider Internal Medicine | DX: E11.9 Type 2 diabetes mellitus without complications (principal); E04.1 Nontoxic single thyroid nodule; L65.9 Nonscarring hair loss, unspecified | CPT/HCPCS: 84443; 84481; 86376 ==

== ENCOUNTER 2023-09-06 08:41 | Outpatient (CLI) | payer MEDICARE, SELFPAY ==
--- NOTE | 2023-09-06 | CRLHL7_ITS ---
For Patients: As a result of the Cures Act, medical imaging exams and procedure reports are released immediately into your electronic medical record. You may view this report before your referring provider. If you have questions, please contact your health care provider. PLEASE SEE DIGITAL DIAGNOSTIC BILATERAL MAMMOGRAM PERFORMED SAME DAY CRL:grace edwards/Dictated by: Basil Walker MD @ 09/06/2023 10:17:00 AM (Electronically Signed)
--- NOTE | 2023-09-06 08:45 | CRLHL7_ITS ---
For Patients: As a result of the Cures Act, medical imaging exams and procedure reports are released immediately into your electronic medical record. You may view this report before your referring provider. If you have questions, please contact your health care provider. DIGITAL DIAGNOSTIC BILATERAL MAMMOGRAM USING TOMOSYNTHESIS AND COMPUTER-AIDED DETECTION LEFT BREAST ULTRASOUND CLINICAL HISTORY: LEFT breast pain. COMPARISON: 09/03/2022, 08/19/2021, 11/10/2019, 05/10/2018. TECHNIQUE: Digital BILATERAL mammogram in four projections. Tomosynthesis and CAD utilized. Real-time ultrasound imaging of LEFT breast with imaging documentation. BREAST COMPOSITION: There are areas of scattered fibroglandular density. FINDINGS: 3D CC/MLO BILATERAL mammogram images submitted. New nodular density is present within the upper outer quadrant LEFT breast 7 cm from the nipple. No architectural distortion. Normal RIGHT breast mammogram images. No suspicious calcifications. No adenopathy. Targeted LEFT breast ultrasound performed. At 1 o`clock 7 cm from the nipple, there is a hypoechoic solid mass measuring 6 x 5 x 7 millimeters. IMPRESSION: Indeterminate new solid nodule LEFT breast 1 o`clock 7 cm from the nipple measuring 6 x 5 x 7 millimeters. RECOMMENDATIONS: Ultrasound-guided core needle biopsy. Results and recommendations discussed with the patient. BI-RADS Category 4: Suspicious A lay language report of this examination will be provided to the patient. Dictated by Basil Walker MD @ 09/06/2023 10:17:49 AM j/Dictated by: Basil Walker MD @ 09/06/2023 10:32:00 AM (Electronically Signed)
== END 2023-09-06 08:42 | disposition home or self-care (01) ==
LOC: MAMMO 08:41
PROVIDERS: PCP Internal Medicine; Visit Provider Internal Medicine
DX: N64.4 Mastodynia (principal); N63.20 Unspecified lump in the left breast, unspecified quadrant
CPT/HCPCS: 76642; 77066; G0279

== ENCOUNTER 2023-09-09 10:05 | Outpatient (CLI) | payer MEDICARE, SELFPAY ==
--- NOTE | 2023-09-09 10:15 | CRLHL7_ITS ---
For Patients: As a result of the Century Cures Act, medical imaging exams and procedure reports are released immediately into your electronic medical record. You may view this report before your referring provider. If you have questions, please contact your health care provider. ULTRASOUND-GUIDED BREAST BIOPSY AND POST-BIOPSY DIGITAL MAMMOGRAM FOR BIOPSY MARKER PLACEMENT, 09/09/2023 CLINICAL HISTORY: Indeterminate lesion. COMPARISON STUDIES: 09/06/2023. TECHNIQUE: Real-time ultrasound with image documentation was used for targeting the breast lesion. Core biopsy specimens were obtained using an automated gun with a 18-gauge biopsy needle. Post-biopsy CC and ML digital mammograms were obtained to document position of the biopsy marker. CONSENT and TIME OUT: The procedure, risks, and alternatives were explained to the patient and a consent was signed. [place] Protocol was followed including pre-procedure verification that relevant information/documentation was available, reviewed and properly matched to the patient; consent accurate and complete; and equipment and supplies available. Time Out was conducted just prior to starting procedure to verify the four required elements: patient identity, correct side/site marked (if applicable), procedure, relevant images/results properly labeled and displayed (if applicable). PROCEDURE: The patient was positioned supine on the ultrasound table. The breast was prepped with ChloraPrep. 8 cc of 1 percent lidocaine used for local anesthesia. Core samples were obtained. A sterile metal biopsy clip was placed percutaneously to ella the lesion position within the breast. The specimens were placed in 10% formalin and sent to the pathology department. Pressure was held on the biopsy site until all bleeding subsided. The skin incision was closed with Steri-Strips. An ice pack was positioned over the biopsy site. Post-biopsy instructions were reviewed with the patient, and a written copy was given to her. LATERALITY: LEFT breast. LESION: Hypoechoic lobular lesion measuring 7 x 4 x 4 millimeters at 1 o`clock 7 cm from the nipple. SUSPICION FOR MALIGNANCY: High. NUMBER OF SAMPLES: 5. BIOPSY CLIP SHAPE: Oval. PROXIMITY OF CLIP TO TARGET: Immediately adjacent to the lesion. IMPRESSION: Ultrasound-guided breast biopsy. When the pathology report is available, an addendum to this report will be made. 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 This is concordant. Appropriate action recommended. Dictated by: Basil Walker MD @09/15/2023 9:04:04 AM/kirit (Electronically Signed)
--- NOTE | 2023-09-09 11:00 | CRLHL7_ITS ---
For Patients: As a result of the Century Cures Act, medical imaging exams and procedure reports are released immediately into your electronic medical record. You may view this report before your referring provider. If you have questions, please contact your health care provider. PLEASE SEE ULTRASOUND-GUIDED LEFT BREAST BIOPSY PERFORMED SAME DAY CRL:grace edwards/Dictated by: Basil Walker MD @ 09/09/2023 11:38:00 AM (Electronically Signed)
== END 2023-09-09 10:06 | disposition home or self-care (01) ==
LOC: US 10:06
PROVIDERS: PCP Internal Medicine; Visit Provider Internal Medicine
DX: R92.8 Other abnormal and inconclusive findings on diagnostic imaging of breast (principal); N63.20 Unspecified lump in the left breast, unspecified quadrant
CPT/HCPCS: 19083; 77065; 88305; 88341; 88342; 88360; 88361; 88377; A4648; A4649

== ENCOUNTER 2023-09-20 08:50 | Outpatient (CLI) | payer MEDICARE, SELFPAY | END 2023-09-20 08:51 | disposition home or self-care (01) | LOC: NFLDREF 09-21 21:54 | PROVIDERS: PCP Internal Medicine; Referring Provider Internal Medicine; Visit Provider Internal Medicine | DX: E11.9 Type 2 diabetes mellitus without complications (principal); E04.1 Nontoxic single thyroid nodule; L65.9 Nonscarring hair loss, unspecified; C50.919 Malignant neoplasm of unspecified site of unspecified female breast | CPT/HCPCS: 80053; 80061; 82043; 82570 ==

== ENCOUNTER 2023-11-02 06:43 | Day surgery (SDC) | payer MEDICARE, SELFPAY ==
[2023-11-02 07:04] VITALS: BMI 27.3
[2023-11-02 07:25] VITALS: BP 158/83; PULSE 82; RESP 16; TEMP 36.7; O2SAT 93
[2023-11-02] MEDS: LACTATED RINGERS 1000 ML 1,000 ML 100 ML IV (07:27)
--- NOTE | 2023-11-02 08:00 | CRLHL7_ITS ---
For Patients: As a result of the Century Cures Act, medical imaging exams and procedure reports are released immediately into your electronic medical record. You may view this report before your referring provider. If you have questions, please contact your health care provider. SENTINEL LYMPH NODE LOCALIZATION INJECTION CLINICAL HISTORY: Left breast cancer LATERALITY: Left TECHNIQUE: With the patient supine, the periareolar left breast was cleansed with alcohol. 1 cc of 1% buffered lidocaine was injected intradermal in the upper outer periareolar region of the left breast with a 25-gauge needle. Next, 0.53 millicuries of technetium Tc 99m filtered sulfur colloid in a volume of 1 cc was injected intradermal in the upper outer periareolar breast with a 25-gauge needle. The patient tolerated the procedure well and there were no immediate complications. IMPRESSION: Injection for sentinel lymph node of the left breast. Dictated by Basil Walker MD @ 11/02/2023 1:26:23 PM (Electronically Signed)
--- NOTE | 2023-11-02 08:15 | CRLHL7_ITS ---
For Patients: As a result of the Cures Act, medical imaging exams and procedure reports are released immediately into your electronic medical record. You may view this report before your referring provider. If you have questions, please contact your health care provider. BREAST WIRE LOCALIZATION USING ULTRASOUND GUIDANCE CLINICAL HISTORY: LEFT breast cancer. LATERALITY: LEFT. LESION: Hypoechoic solid mass 1 o`clock 7 cm from the nipple. LOCALIZATION WIRE: [place] hookwire. TECHNIQUE: The localization wire was placed using real-time ultrasound guidance with image documentation. Cranial-caudal and medial-lateral digital mammograms were obtained after localization wire placement. CONSENT and TIME OUT: The procedure, risks, and alternatives were explained to the patient and a consent was signed. [place] Protocol was followed including pre-procedure verification that relevant information/documentation was available, reviewed and properly matched to the patient; consent accurate and complete; and equipment and supplies available. Time Out was conducted just prior to starting procedure to verify the four required elements: patient identity, correct side/site marked (if applicable), procedure, relevant images/results properly labeled and displayed (if applicable). PROCEDURE: The skin was prepped with ChloraPrep and 6 cc of 1% lidocaine was injected for local anesthesia. The localization wire was placed within or near the targeted breast lesion using ultrasound guidance. The patient tolerated the procedure well. PROXIMITY OF WIRE TO LESION: Wire is located within the lesion adjacent to the clip. IMPRESSION: Successful breast wire localization. ACR not applicable Dictated by Basil Walker MD @ 11/02/2023 9:20:54 AM/kirit GRAHAM/Dictated by: Basil Walker MD @ 11/02/2023 9:20:00 AM (Electronically Signed)
--- NOTE | 2023-11-02 08:24 | W.PM.H&PU ---
History & Physical Update History & Physical Update H&P Reviewed and patient assessed: No changes noted H&P Updates: Erica is a 78 year old female who was found on screening mammogram to have a left breast mass. This was biopsied and found to be invasive ductal carcinoma, ERPR positive, HER2 negative. She saw my partner Dr. Eldridge and they discussed surgical options and the patient elected to proceed with lumpectomy with sentinel lymph node biopsy. Unfortunately, just before the scheduled date of surgery, Erica developed COVID. Therefore surgery had to be postponed. However, because of medical leave on the part of Dr. Eldridge, Erica was offered and subsequently agreed to undergo surgery with me. Today she is feeling well and has recovered from her illness.
--- NOTE | 2023-11-02 09:00 | CRLHL7_ITS ---
For Patients: As a result of the Century Cures Act, medical imaging exams and procedure reports are released immediately into your electronic medical record. You may view this report before your referring provider. If you have questions, please contact your health care provider. PLEASE SEE LEFT BREAST WIRE LOCALIZATION OF SAME DAY. CRL:kirit GRAHAM/Dictated by: Basil Walker MD @ 11/02/2023 9:20:00 AM (Electronically Signed)
[2023-11-02] MEDS: CLINDAMYCIN 900 MG/50 ML-D5W IVPB (09:35)
[2023-11-02] MEDS: ISOSULFAN BLUE 5 ML VIAL INJECTION (09:55)
[2023-11-02] MEDS: LIDOCAINE 1% MDV 20 ML INJECTION (10:01)
[2023-11-02] MEDS: BUPIVACAINE 0.25% 30 ML INJECTION (10:01)
--- NOTE | 2023-11-02 10:01 | CRLHL7_ITS ---
For Patients: As a result of the Cures Act, medical imaging exams and procedure reports are released immediately into your electronic medical record. You may view this report before your referring provider. If you have questions, please contact your health care provider. LEFT BREAST SPECIMEN RADIOGRAPH, 11/02/2023 CLINICAL HISTORY: LEFT breast cancer. COMPARISON: 09/06/2023. FINDINGS: Two views of the LEFT breast specimen submitted. The specimen contains the localization wire, biopsy clip and the biopsied mass. IMPRESSION: The specimen contains the biopsy clip, localization wire and biopsied mass. ACR not applicable. Dictated by Basil Walker MD @ 11/02/2023 10:56:09 AM/CRL:don PT/Dictated by: Basil Walker MD @ 11/02/2023 10:56:00 AM (Electronically Signed)
--- NOTE | 2023-11-02 10:58 | P.GSOP_ITS ---
Operative Note Date of procedure: 11/02/23 Pre-op diagnosis: Left breast invasive ductal carcinoma, ERPR positive, HER2 negative Post-op diagnosis: Same Type of Procedure: 1. Left breast lumpectomy with preoperative wire localization 2. Left axillary sentinel node biopsy Indications: The patient is a 78-year-old female who was noted on screening mammogram to have a concerning lesion in her left breast at the 1 o'clock position, 7 cm from the nipple. 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 After discussion of options, she elected to proceed with lumpectomy and sentinel node biopsy. Unfortunately her surgery was delayed because of COVID illness. She has now fully recovered and is cleared for surgery per our Anesthesia protocol. Procedure Description: After discussion of risks and benefits, the patient was brought to the operating room and placed supine on the operating table. Sedation was administered. 1 hr to incision, I injected radiotracer into the dermis the left breast just above the areola. 10 min prior to the incision I injected 2.5 ml isosulfan blue dye into the dermis above the areola. This was massaged for 3 min. Once this was completed, the area was prepped and draped sterilely. A time-out was then completed. I began by making an incision in the upper outer quadrant of the left breast. This was done after injection of local anesthetic in the area dissection was taken down into the subcutaneous fat using cautery. The nearby wire was then grasped and pulled through the incision. Dissection was around the wire using cautery the wire and mass were completely dissected free circumferentially down to the chest wall. Hemostasis was achieved with cautery. This was then sent to x-ray. X-ray confirmed the presence of the clip. This was then sent to pathology for margins. The margins appeared to be grossly negative. Hemostasis was excellent. The cavity was then clipped with marking clip for Radiation Oncology. The wound was then closed with 3-0 Vicryl dermal and 4-0 Monocryl running subcuticular suture. Attention was then turned to the sentinel lymph node biopsy. The probe was brought into the field. A strong signal was noted in the axilla. Local anesthetic was injected into the skin subcutaneous tissue below the planned incision. An incision was made just below the axillary hairline and dissection was taken down through the clavipectoral fascia into the axillary fat. The probe was used to identify a blue node and this was carefully dissected free of the surrounding fat using cautery. The lymphatic channel and blood supply to the note were clipped. This also had a strong signal ex vivo 980. The probe was placed back into the axilla. There was no further radioactive signal. There were no further blue lymphatic channels noted. There were no other blue nodes or suspicious nodes. The node was then sent to pathology for permanent section. Hemostasis again appeared excellent. The wound was then closed with 3-0 Vicryl dermal and 4-0 Monocryl running subcuticular suture. Sterile dressings and a pressure dressing were then applied. ? The patient was then woken and transported to the recovery area in stable condition. ? The patient tolerated the procedure well. Findings: Negative gross margins on the left lumpectomy specimen and clip present on sp ecimen x-ray. Anesthesia: MAC Surgeon: Tania Bagley MD Estimated blood loss (mL): 5 Additional Specimen Information: 1. Left lumpectomy specimen 2. Left axillary sentinel lymph node Disposition: PACU [place] Node Biopsy for Breast Cancer Operation Performed with Curative Intent: Yes Tracers used to Identify sentinel nodes in the upfront surgery (non-neoadjuvant) setting: Dye and Radioactive Tracer Tracers used to identify sentinel nodes in the neoadjuvant setting: N/A All nodes (colored or non-colored) present at the end of a dye filled lymphatic channel were removed: Yes All significantly radioactive nodes were removed: Yes All palpably suspicious nodes were removed: Yes Biopsy proven positive nodes marked with clips prior to chemotherapy were identified and removed: Not Applicable
[2023-11-02 11:04] VITALS: BP 143/80; PULSE 82; RESP 16; TEMP 36.9; O2SAT 94
--- NOTE | 2023-11-02 11:04 | W.ANESCHARGE ---
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
[2023-11-02 11:19] VITALS: BP 135/76; PULSE 71; RESP 16; O2SAT 95
[2023-11-02 11:41] VITALS: BP 139/76; PULSE 70; RESP 16; O2SAT 95
== END 2023-11-02 12:05 | disposition home or self-care (01) ==
PROVIDERS: PCP Internal Medicine; Visit Provider Surgery
PROC: (CPT 19301; principal; 2023-11-02 09:30)
PROC: (CPT 19301; 2023-11-02 09:30)
DX: C50.412 Malignant neoplasm of upper-outer quadrant of left female breast (principal); Z17.0 Estrogen receptor positive status [ER+]; E11.9 Type 2 diabetes mellitus without complications
CPT/HCPCS: 19301; 38500; 00400; 19285; 38792; 77065; 82962; 88307; 99100; A9541; C1769; J0330; J0665; J2704; J7120; S0077

== ENCOUNTER 2023-11-29 10:17 | Outpatient (CLI) | payer MEDICARE, SELFPAY ==
--- NOTE | 2023-11-29 10:15 | CRLHL7_ITS ---
For Patients: As a result of the Century Cures Act, medical imaging exams and procedure reports are released immediately into your electronic medical record. You may view this report before your referring provider. If you have questions, please contact your health care provider. CLINICAL HISTORY: : rt axilla lump. recent vaccinations. hx. left breast cancer. COMPARISON: 09/06/2023 TECHNIQUE: Real-time ultrasound imaging of right axilla with imaging documentation. FINDINGS: Normal right axillary lymph node is present measuring 13 x 4 x 10 millimeters. Cortex measures 1.2 millimeters. Normal fatty hilum and normal vascularity. IMPRESSION: Normal right axillary lymph node. No suspicious findings. RECOMMENDATIONS: Clinical follow-up. Results and recommendations were discussed with the patient at the time of the exam. BI-RADS: 2. Benign. Dictated by Basil Walker MD @ 11/29/2023 11:09:45 AM (Electronically Signed)
--- OUTSIDE RECORDS SUMMARY | 2023-11-29 10:20 | XMS_ITS | Clinical Summary ---
Author Name Unknown Organization [facility] Address [place], [place] [address] Care Team Providers Care Sound Designer Name Role Phone Mahamed Kate MD Primary Care Provider [phone] Allergies Active Allergy Reactions Criticality Noted Date Comments Cats (Fur, Dander, Saliva) Other - Describe In Comment Field 12/13/2017 Eyes swell and itch Dog Dander Other - Describe In Comment Field 12/13/2017 Nasal congestion House Dust Runny Nose 04/14/2016 Mold Extracts Runny Nose 04/14/2016 Unlisted Allergen (Include Detail In Comments) Runny Nose 04/14/2016 Seasonal allergies Penicillins Rash 03/17/2016 Sulfa (Sulfonamide Antibiotics) Anaphylaxis,Rash High 03/17/2016 Medications Medication Sig Dispensed Refills Start Date End Date Status ASCENSIA CONTOUR strip 0 04/03/2016 Active cetirizine (ZYRTEC) 10 mg tablet Take 1 tablet by mouth once daily. 0 04/14/2016 Active gabapentin (NEURONTIN) 100 mg capsuleIndications: Low back pain radiating to left leg Take 2 capsules by mouth at bedtime. 180 capsule 1 04/14/2016 Active albuterol HFA 90 mcg/actuation inhaler Inhale 2 Puffs by mouth every 4 hours if needed. 0 Active beclomethasone, 80 mcg each actuation, (QVAR) 80 mcg/actuation inhaler Inhale 1-2 Puffs by mouth 2 times daily. 0 06/07/2017 Active fluticasone (50 mcg per actuation) nasal solution (FLONASE) Inhale 1-2 Sprays into both nostrils once daily. 1 Bottle 0 11/29/2017 Active ipratropium (ATROVENT NASAL) 0.03 % nasal spray Inhale 2 Sprays in the nostril(s) 3 times daily. 0 01/18/2017 Active montelukast (SINGULAIR) 10 mg tablet Take 1 tablet by mouth at bedtime. 0 11/29/2017 Active pseudoephedrine (SUDAFED) 30 mg tablet Take 1 tablet by mouth at bedtime. 0 11/29/2017 Active cyanocobalamin (VITAMIN B12) 500 mcg tablet Take 1 tablet by mouth once daily. 0 Active glimepiride (AMARYL) 1 mg tablet Take 2 mg by mouth once daily with a meal. 0 11/04/2017 Active metFORMIN (GLUCOPHAGE XR) 500 mg Extended-Release tablet Take 1 tablet by mouth once daily with evening meal. 0 11/29/2017 Active multivitamin (MVI) tablet Take 1 tablet by mouth once daily. 0 Active Cyanocobalamin-Meth ylcobalamin 600-[address] 1 tablet under the tongue once daily. 0 11/29/2017 Active Active Problems Problem Noted Date Diagnosed Date Asthma Asthma Type 2 diabetes mellitus Type 2 diabetes mellitus Left-sided low back pain without sciatica Encounters Date Type Department Care Team Description 11/05/2023 Telephone [facility] [address] [place] [address] Paramjit Barboza MS, CGC Results (Cancer genetic testing) 11/02/2023 Lab Requisition [facility] [phone] Tania Bagley MD 10/21/2023 1:00 PM ARCHITECTURAL MANAGER Orders Only [facility] [address] [place] [address] Lab, [place] [facility] 10/21/2023 Travel 10/18/2023 1:00 PM ARCHITECTURAL MANAGER Telemedicine [facility] [address] [place] [address] Paramjit Barboza, MS, CGC Counseling (Cancer counseling) 10/18/2023 Orders Only [facility] [address] [place] [address] Paramjit Barboza, MS, CGC <No scans attached> 10/18/2023 Travel 09/21/2023 Transcribe Orders [facility] [address] [place] [address] Adelia Eldridge MD 09/09/2023 Lab Requisition [facility] [phone] Mahamed Kate MD from Last 3 Months Social History Tobacco Use Types Packs/Day Years Used Date Smoking Tobacco: Never Smokeless Tobacco: Never Tobacco Cessation:Counseling Given: Yes Alcohol Use Standard Drinks/Week Comments Yes 0 (1 standard drink = 0.6 oz pur e alcohol) occ. Social Connections Answer Date Recorded Frequency of Communication with Friends and Fami ly Not on file 11/10/2023 Sex and Gender Information Value Date Recorded Sex Assigned at Not on file Gender Identity Not on file Sexual Orientation Not on file Obstetrics History Last Filed Vital Signs Vital Sign Reading Time Taken Comments Blood Pressure 128/78 12/13/2017 10:16 AM ARCHITECTURAL MANAGER tower Pulse 85 12/13/2017 10:16 AM ARCHITECTURAL MANAGER Temperature 36.6 ??C (97.8 ??F) 12/13/2017 1 0:16 AM ARCHITECTURAL MANAGER Respiratory Rate - - Oxygen Saturation 96% 12/13/2017 10: 16 AM ARCHITECTURAL MANAGER Inhaled Oxygen Concentration - - Weight 76.1 kg (167 lb 12.8 oz) 018 10:16 AM ARCHITECTURAL MANAGER with shoes Height 157.2 cm (5' 1.89) 11/29/2017 1 1:35 AM ARCHITECTURAL MANAGER Body Mass Index 30.8 11/29/2017 11:35 AM ARCHITECTURAL MANAGER Plan of Treatment Health Maintenance Due Date Last Done Comments Pneumococcal series for age 65+ (1 of 2 - PCV) 1953 Tdap 1958 Depression screening for age 12+ 1959 Hepatitis C screening for ag e 18-79 1965 Zoster (shingles) series for age 50+ (1 of 2) 1966 Tetanus booster 1967 DEXA/DXA scan for age 65+ 2012 Medicare Wellness for age 65+ 2012 BMI (ht and wt on same day) for age 18+ 11/29/2018 11/29/2017 Influenza for age 65+ 07/09/2023 COVID-19 vaccine series (2022- season) 2023 08/20/2023, 03/30/2023, 08/05/2022, Additional history exists Procedures Procedure Name Priority Date/Time Associated Diagnosis Comments LAB TRACKING EVENT Routine 11/02/2023 10 :16 AM ARCHITECTURAL MANAGER LAB TRACKING EVENT Routine 09/09/2023 10 :43 AM CDT PATH BREAST CORE BIOPSY Routine 09/09/2023 10:43 AM CDT CG HER2 BREAST Routine 09/09/2023 10:43 AM CDT CYTOGENETICS MALIGNANT TISSUE Routine 09/09/2023 10:43 AM CDT from Last 3 Months Results * LAB TRACKING EVENT (11/02/2023 10:16 AM ARCHITECTURAL MANAGER) Only the most recent of2 resultswithin the time period is included. Other (Other) Client Collect / Unknown 11/02/2023 10:16 AM ARCHITECTURAL MANAGER 11/02/2023 8:48 PM ARCHITECTURAL MANAGER Tania Bagley MD LAB BILL ONLY [facility] [address] [place] [address], * PATH BREAST CORE BIOPSY (09/09/2023 10:43 AM CDT) Case Report Pathology Report ?Case: [id number] ? Authorizing Provider: ??Mahamed Kate MD ?Collected: ? 09/09/2023 1043 ? Ordering Location: ? [facility] ?Received: ?09/10/2023 0737 ? Pathologist: ? Kalani Obregon, ? MD ? Specimen: ?Left Breast Core Ultrasound Biopsy ? 3 11:39 AM [facility] Amendment 09/14/2023 - Amendmen t issued to incorporate Ki-67 ancillary result. ?? cdsmd 09/16/2023 - Amendment issued to incorporate ancillary HER2 FISH studies. 3 11:39 AM [facility] Final Diagnosis A) LEFT BREAST, 1:00, 7 CM FROM NIPPLE, ULTRASOUND-GUIDED CORE BIOPSY: 1. Invasive ductal carcinoma ?? a. [place] grade: II of III; Javi score: 6 of 9 ?? b. Angio-lymphatic invasion: Absent ?? c. Associated DCIS: Suspicious for possible encapsulated papillary carcinoma 2. Breast Ancillary Testing: ?a. Hormone Receptors: ?Estrogen receptor: Positive (91-100%, strong staining by manual morphometry) ?Progesterone receptor: Positive (21-30%, moderate staining by manual morphometry) ?b. HER2 by IHC: Equivocal (2+ by manual morphometry) ? HER2 by FISH: Negative ?HER2/CEP17 ratio: 1.05 ?HER2 signals/cell: 1.94 ?CEP17 signals/cell: 1.84 ?c. Ki-67: 8% 11:39 AM [facility] Amendment electronically signed by Abner Rodrigues MD on 09/16/2023 at 11:39 AM Amendment electronically signed by Abner Rodrigues MD on 09/14/2023 at 10:17 AM Comment A) This is an image-guided breast biopsy. The pathologic findings should be correlated with radiologic and clinical findings prior to treatment decisions. Case seen in consultation with Dr. Guadalupe. 11:39 AM [facility] Clinical Information 6 x 5 x 7 mm, lobulated, circumscribed, solid and hypoechoic left breast mass at 1:00, 7 cm from the nipple. 11:39 AM [facility] Gross Description A) Label: Patient's name and left breast Description: Fibrofatty core biopsies Size: 0.6 x 0.4 x 0.1 cm (aggregate) Ink color: Green The specimen is submitted in toto in 1 cassette(s). Cold ischemic time: Less than 60 minutes, meets current ASCO/CAP guidelines. ?? The specimen was fixed in formalin for a minimum of 6 hours and not longer than 72 hours. CHRISTINA 09/10/2023 11:39 AM [facility] Microscopic Description The final diagnosis is based on microscopic examination of appropriate sections of all specimens. A) The presence of green ink is confirmed on tissue sections. Immunohistochemical stains were performed on block A1 with appropriate controls and show the following results, supporting the diagnosis: ?Smooth muscle myosin and p63: Negative ?E-cadherin: Positive, supporting a ductal phenotype 11:39 AM [facility] Cytogenetics Summary Cytogenetic testing has been ordered and will be reported separately. 11:39 AM [facility] SYNOPTIC REPORTING Breast Biomarker Reporting Template BREAST: BIOMARKER REPORTING TEMPLATE - A Protocol posted: 01/27/2023 ?? Test(s) Performed: ? Estrogen Receptor (ER) Status: ?Positive (greater than 10% of cells demonstrate nuclear positivity) ? Percentage of Cells with Nuclear Positivity: ?91-100% ? Average Intensity of Staining: ?Strong ? Test Type: ?Laboratory-develope d test ? Primary Antibody: ?SP1 ? Scoring System: ?Shelby ? Proportion Score: ?5 ? Intensity Score: ?3 ? Total Shelby Score: ?8 ?? Test(s) Performed: ? Progesterone Receptor (PgR) Status: ?Positive ? Percentage of Cells with Nuclear Positivity: ?21-30% ? Average Intensity of Staining: ?Moderate ? Test Type: ?Laboratory-develope d test ? Primary Antibody: ?636 ? Scoring System: ?Shelby ? Proportion Score: ?3 ? Intensity Score: ?2 ? Total Shelby Score: ?5 ?? Test(s) Performed: ? HER2 by Immunohistochemistry: ?Equivocal (Score 2+) ? Percentage of Cells with Uniform Intense Complete Membrane Staining: ?0 % ? Test Type: ?Laboratory-develope d test ? Primary Antibody: ?4B5 ?? Test(s) Performed: ? HER2 by in situ Hybridization: ?Negative (not amplified) ? Number of Observers: ?2 ? Number of Invasive Tumor Cells Counted: ?25 cells ? Method: ?Dual probe assay ? Average Number of HER2 Signals per Cell: ?1.94 ? Average Number of CEP17 Signals per Cell: ?1.84 ? HER2 / CEP17 Ratio: ?1.05 ? Aneusomy: ?Not identified ? Heterogeneous Signals: ?Not identified ? Test Type: ?Food and Drug Administration (FDA) cleared (test / vendor): V[employer] PathVysion HER2/Amy ?? Test(s) Performed: ?Ki-67 ? Ki-67 Percentage of Positive Nuclei: ?8 % ? Primary Antibody: ?MIB1 ?? Cold Ischemia and Fixation Times: ?Meet requirements specified in latest version of the ASCO / CAP Guidelines ?? Testing Performed on Block Number(s): ?A1 METHODS ?? Fixative: ?Formalin ?? Image Analysis: ?Performed ? Biomarkers Scored by Image Analysis: ?Ki-67 ?? Comment(s): ?ER and GA analysis was performed by manual morphometry for the Shelby Scoring System. 8,339 NUCLEI ANALYZED FOR KI67. The FDA approved Vysis PathVysion DNA Probe Kit was developed and its performance characteristics determined by [employer]. ??This test incorporates minor modifications to protocol and validated by the [facility] to yield equivocal or superior performance. This FISH test uses a multiplex probe stain procedure. 3 11:39 AM [facility] Additional Information Patients with breast cancers that are HER2 IHC 3+ or IHC 2+/JADE amplified may be eligible for several therapies that disrupt HER2 signaling pathways. Invasive breast cancers that test 'HER2-negative' (IHC 0, 1+ or 2+/JADE not-amplified) are more specifically considered 'HER2-negative for protein overexpression/gene amplification' since non-overexpressed levels of the HER2 protein may be present in these cases. Patients with breast cancers that are HER2 IHC 1+ or IHC 2+/JADE not amplified may be eligible for a treatment that targets non-amplified/non-ove rexpressed levels of HER2 expression for cytotoxic drug delivery (IHC 0 results do not result in eligibility currently). Interpreted at [facility] - [address], [place] [address] 11:39 AM ARCHITECTURAL MANAGER [employer] [facility] Other (Left Breast Core Ultrasound Biopsy) 09/09/2023 10:43 AM CDT 09/10/2023 7:37 AM CDT Mahamed Kate MD PATHOLOGY/CYTOLOGY Performing Organization Address [facility] Co de Phone Number [facility] [address] [place] [phone], [place] * CG HER2 BREAST (09/09/2023 10:43 AM CDT) Other (Left Breast Core Ultrasound Biopsy) 09/09/2023 10:43 AM CDT 09/13/2023 10:51 AM ARCHITECTURAL MANAGER Mahamed Kate MD LABORATORY Performing Organization Address [facility] de Phone Number [facility] [address] [place] [id number], [place] * CYTOGENETICS MALIGNANT TISSUE STUDIES (09/09/2023 10:43 AM CDT) RFR Left Breast Core Ultrasound Biopsy 09/16/2023 10:16 AM ARCHITECTURAL MANAGER [facility] TEST & RESULT SUMMARY HER2 FISH Breast: See pathology report [id number]. See comments. 09/16/2023 10:16 AM ARCHITECTURAL MANAGER [facility] _ 09/16/2023 10:16 AM ARCHITECTURAL MANAGER [facility] COMMENTS This record is used as an internal laboratory test designed for workflow purposes only. 09/16/2023 10:16 AM ARCHITECTURAL MANAGER [employer]- NTRAL LABORATORY SOURCE Left Breast Core Ultrasound Biopsy (Paraffin Slides 2 uns 1 H&E) [id number] 09/16/2023 10:16 AM ARCHITECTURAL MANAGER [facility] Other (Left Breast Core Ultrasound Biopsy) 09/09/2023 10:43 AM CDT 09/13/2023 10:51 AM ARCHITECTURAL MANAGER Mahamed Kate MD LABORATORY [facility] [address] [place] [address], from Last 3 Months Care Teams Sound Designer Relationship Specialty Start Date End Date Mahamed Kate MD [address] [place], [place] [id number] PCP - General 03/05/16
--- OUTSIDE RECORDS SUMMARY | 2023-11-29 10:20 | XMS_ITS | Encounter Summary ---
Author Name Unknown Organization [facility] Address [address] [place] [address] Care Team Providers Care Retail Selling Floor Leader Name Role Phone Unavailable Primary Care Provider Unavailabl e Encounter Details Date Type Department Care Team (Late st Contact Info) Description 02/09/2023 4:35 PM CDT Ancillary Procedure Department of Dermatology Social History Tobacco Use Types Packs/Day Years Used Date Smoking Tobacco: Never Smokeless Tobacco: Never Alcohol Use Standard Drinks/Week Comments Yes 0 (1 standard drink = 0.6 oz pur e alcohol) Humiliation, Afraid, Rape, and Kick questionnair e Answer Date Recorded Within the last year, have y ou been afraid of your partner or ex-partner? No 02/02/2023 Within the last year, have y ou been humiliated or emotionally abused in other ways by your partner or ex-partner? No Within the last year, have y ou been kicked, hit, slapped, or otherwise physically hurt by your partner or ex-partner? No 02/02/2023 Within the last year, have y ou been raped or forced to have any kind of sexual activity by your partner or ex-partner? No 02/02/2023 Social Connection and Isolat ion Panel [NHANES] Answer Date Recorded In a typical week, how many times do you talk on the phone with family, friends, or neighbors? More than three times a week 02/02/2023 How often do you get togethe r with friends or relatives? More than three times a week 02/02/2023 How often do you attend [employer] [facility] or congregation services? Never 02/02/2023 Do you belong to any clubs o r organizations such as anabaptist groups, unions, fraternal or athletic groups, or school groups? Yes 02/02/2023 How often do you attend meet ings of the clubs or organizations you belong to? 1 to 4 times per year 02/02/2023 Are you , , di vorced, , never , or living with a partner? 02/02/2023 AUDIT-C Answer Date Recorded Q1: How often do you have a drink containing alc ohol? 2-4 times a month 02/02/2023 Q2: How many drinks containi ng alcohol do you have on a typical day when you are drinking? 1 or 2 02/02/2023 Q3: How often do you have si x or more drinks on one occasion? Never 02/02/2023 Overall Financial Resource Strain (CARDIA) Answe r Date Recorded How hard is it for you to pa y for the very basics like food, housing, medical care, and heating? Not hard at all 02/02/2023 [facility] - Occupational Stress Questionnaire Answer Date Recorded Do you feel stress - tense, restless, nervous, or anxious, or unable to sleep at night because your mind is troubled all the time - these days? Only a little 02/02/2023 Exercise Vital Sign Answer Date Recorde d On average, how many days pe r week do you engage in moderate to strenuous exercise (like a brisk walk)? 2 days 02/02/2023 On average, how many minutes do you engage in exercise at this level? 20 min 02/02/2023 Hunger Vital Sign Answer Date Recorded Within the past 12 months, y ou worried that your food would run out before you got the money to buy more. Never true 02/03/20 23 Within the past 12 months, t he food you bought just didn't last and you didn't have money to get more. Never true 02/02/2023 PRAPARE - Transportation Answer Date Re corded In the past 12 months, has l ack of transportation kept you from medical appointments or from getting medications? No 01/07 In the past 12 months, has l ack of transportation kept you from meetings, work, or from getting things needed for daily living? No 02/02/2023 Housing Stability Vital Sign Answer Brandon e Recorded In the last 12 months, was t here a time when you were not able to pay the mortgage or rent on time? No 02/02/2023 In the last 12 months, how many places have you lived? 1 02/02/2023 In the last 12 months, was t here a time when you did not have a steady place to sleep or slept in a assisted (including now)? No 02/02/2023 Nutrition Answer Date Recorded Nutrition: EVOO Fat Source Yes 02/02 On average, how many serving s of fruits and vegetables do you eat per day (serving size is equal to 1 cup or approximately the size of a tennis ball)? 4-5 02/02/2023 Dental Answer Date Recorded Dental: Regular Dentist Yes 11/13/19 Employment Answer Date Recorded Employment status Retired 02/02/2023 Education Answer Date Recorded What is the highest level of school you have completed or the highest degree you have received? Bachelor's degree (e.g., BA, AB, BS) 02/26/2021 Sex and Gender Information Value Date Recorded Sex Assigned at Female 02/02/2023 10:16 AM CDT Gender Identity Female 02/02/2023 10:16 AM CDT Sexual Orientation Straight 02/02/2023 10 :16 AM CDT documented as of this encounter Plan of Treatment Upcoming Encounters Date Type Department Care Team (Late st Contact Info) Description 12/07/2023 10:30 AM LIFE EDUCATOR Appointment Department of Radiation Oncology in [place], [place] [address] [place] [address] Bjorn Mendoza M.D. [address] [place] [address] documented as of this encounter Procedures Procedure Name Priority Date/Time Associated Diagnosis Comments DERMATOLOGY IMAGE EXAM Routine 02/09/2023 4:34 PM CDT documented in this encounter Results * Back, right 50 224 226 228-Dermatology Image Exam (02/09/2023 4:34 PM CDT) 02/09/2023 4:32 PM CDT Narrative IIMS - 02/09/2023 4:34 PM CDT This order has been created and auto-finalized to support the import of images acquired without order. The clinical documentation to support these images can be found on the encounter that produced images. Provider Not In System IMG NON RAD IMAGI NG PROCEDURES IIMS NA documented in this encounter Visit Diagnoses Not on filedocumented in this encounter
--- OUTSIDE RECORDS SUMMARY | 2023-11-29 10:20 | XMS_ITS | Encounter Summary ---
Author Name Unknown Organization [facility] Address [address] [place] [address] Care Team Providers Care Piling Setter Name Role Phone Unavailable Primary Care Provider Unavailabl e Reason for Visit * Reason Comments Skin Check * Appointment Request (Routine) - Closed Specialty Diagnoses / Procedures Referred By Nevin nina Referred To Contact Dermatology Referral ID Status Reason Start Date Expiration Date Visits Re quested Visits Authorized [id number] Closed 11/13/2022 11/13/2023 1 1 Encounter Details Date Type Department Care Team (Late st Contact Info) Description 02/09/2023 3:30 PM CDT Office Visit Department of Dermatology in [address] [phone] Zenaida Montgomery M.D. [address] [place] [phone] Nevi Multiple (Primary Dx); Tumor Skin Uncertain Behavior; Keratosis Seborrheic Discharge Disposition: Home or Self Care Social History Tobacco Use Types Packs/Day Years Used Date Smoking Tobacco: Never Smokeless Tobacco: Never Tobacco Cessation:Counseling Given: Not Answered Alcohol Use Standard Drinks/Week Comments Yes 0 [...] week 02/02/2023 How often do you attend chur ch or sikhism services? Never 02/02/2023 Do you belong to any clubs o r organizations such as yazidism groups, unions, fraternal or athletic groups, or [...] and heating? Not hard at all 02/02/2023 [facility] [place] of Occupat ional Health - Occupational Stress [...] money to buy more. Never true 02/03/20 Within the past 12 months, t he [...] or slept in a fpc (including now)? No 02/02/2023 Nutrition Answer Date [...] AM CDT documented as of this encounter Progress Notes * Zenaida Montgomery M.D. - 02/09/2023 3:30 PM CDT SUBJECTIVE CHIEF COMPLAINT / REASON FOR VISIT Full skin cancer screening HISTORY OF PRESENT ILLNESS Erica Tavarez is a pleasant 77 y.o. female who presents for a full skin cancer screening. The patient was last seen by me in Dermatology clinic on 12/23/21. She denies a personal history of skin cancer. Her father has a history of melanoma. She uses sunscreen. She would particularly like us to evaluate lesions x 2 involving the right mid back and the left ear today. She states that the lesion involving the right mid back is itchy and does bleed. She reports that the lesion resolves and recurs. She also mentions hair loss for a few years and I told her that she would need a separate much longer consultation visit so she could try to schedule a visit with us here although we are booked out or in [facility] with another provider if she wishes she might be able to get in there sooner. MEDICAL HISTORY Negative for skin cancer FAMILY HISTORY Father has a history for melanoma in situ involving the scalp as well as basal cell carcinoma Son has a history of severely dysplastic nevus OBJECTIVE PHYSICAL EXAMINATION General: Awake, alert, in no acute distress, and with appropriate affect. Eyes: No scleral injection or icterus. No eyelid abnormalities. Lymph: No lower extremity edema. Skin: I have examined the scalp, face, neck, chest, abdomen, back, bilateral upper extremities, andbilateral lower extremities. My scribe (Rossana) served as a computer systems analyst for the entirety of the exam. Examination of the face, trunk and extremities reveals multiple benign-appearing nevi, lentigines and seborrheic keratoses. Examination of the right mid paraspinal back reveals a small 2 x 1.5 mm telangiectatic papule, probable dermal nevus, rule out basal cell carcinoma. Examination of the right periorbital area reveals some telangiectasia that is part of a birthmark, and she has previously had laser treatment of this site. Examination of the left cheek reveals a 5 x 3 mm skin-colored to slightly pink papule without pearliness, compatible with a benign dermal nevus. Examination just inside of the left ear helix reveals some xerosis, but no associated lesion or precancerous lesion. Examination of the abdomen and chest reveals some scattered lynne angiomas. ASSESSMENT / PLAN #1 Right mid paraspinal back: Probable dermal nevus, rule out basal cell carcinoma We recommend a shave biopsy of the right mid paraspinal back. Photograph taken today with patient'sverbal consent. We will correspond as to the [...] we obtain a biopsy. The risks and benefits of the procedure were discussed, and the patient consented to these procedures. The patient deniesany allergies to local anesthetics. Using 1% lidocaine with epinephrine for local anesthesia, a shave biopsy was obtained from the right mid paraspinal back. Biopsy submitted to Dermatopathology for H&E. Special stains will be performed as indicated. The bleeding was well controlled with application of aluminum chloride. Dressing was applied, and wound care instructions were explained. Biopsyresults and any further recommendations will be communicated to the patient by letter. Patient given pamphlet [id number]. Discussed the risks, benefits, alternatives, and the necessity of other members of the healthcare team participating in the procedure. All questions answered and consent given. #2 Face, trunk and extremities: Multiple nevi and lentigines The ABCDE criteria for melanoma was reviewed with the patient. None of the patient's other nevi reach the clinical threshold for biopsy. I recommend continued sun protection, self-skin examinations, and observation. Should any of the patient's nevi change in size, color, texture, or shape or develop symptoms such as itching or bleeding, I recommend an immediate return visit for reassessment. #3 Face, trunk and extremities: Seborrheic keratosis The benign nature of the skin lesion(s) was discussed with the patient. No treatment is required. Irecommend continued observation. Should this lesion change in size, color, texture, or shape or develop symptoms such as itching or bleeding, I recommend an immediate return visit for reassessment. PATIENT EDUCATION: Ready to learn. No apparent learning barriers were identified. Learning preferences include listening. Explained diagnosis and treatment plan; patient/guardian of patient expressed understanding of the content. By signing my name below, I, Rossana Glez, attest that this documentation has been prepared underthe direction and in the presence of Zenaida Montgomery M.D. Electronically Signed: catalina Martinez. 02/08/2023. 12:30 PM CDT. I, Zenaida Montgomery M.D., personally performed the services described in this documentation. All medical record entries made by the scribe were at my direction and in my presence. I have reviewed the chart and discharge instructions (if applicable) and agree that the record reflects my personal performance and is accurate and complete. Zenaida Montgomery M.D. Scribed for Zenaida Montgomery M.D. by Rossana Glez, on 02/09/2023, 4:30 PM CDT. documented in this encounter Miscellaneous Notes * Result Encounter Note - Zenaida Montgomery M.D. - 02/12/2023 3:56 PM CDT Right mid paraspinal back: Benign lesion letter [place] patient. Please send letter documented in this encounter Plan of Treatment Upcoming Encounters Date Type Department Care Team (Late st Contact Info) Description 12/07/2023 10:30 AM MUSIC EDUCATOR Appointment Department of Radiation Oncology in [place], [place] [address] [place] [address] Bjorn Mendoza M.D. [address] [place] [address] documented as of this encounter Procedures Procedure Name Priority Date/Time Associated Diagnosis Comments DERMATOPATHOLOGY Routine 02/09/2023 4:27 PM CDT Tumor Skin Uncertain Behavior documented in this encounter Results * Dermatopathology (02/09/2023 4:27 PM CDT) 02/11/2023 1:41 PM CDT ECLR Report Electronically Signed By Paramjit Manoj, M.D. I verify that I have examined all relevant slides/material s for the specimen(s) and rendered or confirmed the diagnosis. 02/11/2023 1:41 PM CDT ECLR Gross Description Received labeled right mid paraspinal back is a 1.0 cm in diameter and less than 0.1 cm in thickness disc-shaped portion of skin. The specimen is trisected. All submitted in cassette A1. [id number] 02/11/2023 1:41 PM CDT ECLR Specimen Source Right mid paraspinal back shave biopsy 02/11/2023 1:41 PM CDT ECLR Clinical Information Probable dermal nevus r/o BCC 02/11/2023 1:41 PM CDT ECLR Interpretation FINAL DIAGNOSIS Skin, right mid paraspinal back, shave biopsy: ??Mild dermal chronic inflammation and telangiectasias . ??No malignancy is identified. Comment: ??Multiple levels are examined. Diagnosis was made via digital imaging. 02/11/2023 1:41 PM CDT ECLR Skin (Right mid paraspinal back) 02/09/2023 4:27 PM CDT Zenaida Montgomery M.D. LAB PATH DERM ORDERA BLES [facility] [address] [place] [id number], [place] ECLR [facility] in [address] [address] documented in this encounter Visit Diagnoses Diagnosis Nevi Multiple- Primary Tumor Skin Uncertain Behavior Keratosis Seborrheic documented in this encounter
--- OUTSIDE RECORDS SUMMARY | 2023-11-29 10:20 | XMS_ITS | Clinical Summary ---
Author Name Unknown Organization [facility] Address [address] [place] [address] Care Team Providers Care Automatic Quilling Machine Operator Name Role Phone Pcp, Pt Declines Primary Care Provider [phone] Source Comments You are receiving this document as you are listed as the primary care provider,follow-up provider, or the patient has been referred to you for consultation.This is in compliance with the Medicare and[facility] Hospital[facility] EHR Incentive Program,which states Providers who transition their patient to another setting of careor provider of care or refers their patient to another provider of care shouldprovide summary care record for each transition of care or referral. [facility] Allergies No known active allergies Medications Medication Sig Dispensed Refills Start Date End Date Status metFORMIN XR (GLUCOPHAGE XR) 500 MG 24 hour release tablet 1,000 mg daily. 0 03/05/2017 Active pantoprazole (PROTONIX) 40 MG tablet Take 40 mg by mouth daily. 0 03/06/2017 Active Active Problems No known active problems Social History Tobacco Use Types Packs/Day Years Used Date Smoking Tobacco: Unknown Alcohol Use Standard Drinks/Week Comments Yes 0 (1 standard drink = 0.6 oz pur e alcohol) Sex and Gender Information Value Date Recorded Sex Assigned at Not on file Gender Identity Not on file Sexual Orientation Not on file Last Filed Vital Signs [...] Health Maintenance Due Date Last Done Comments Hep C Screening (Preventive Services) 1945 COVID-19 Vaccine (#1) 1945 Adult Preventive Visit 1965 DTaP/Tdap/Td (1 - Tdap) 1966 Zoster/Shingles (1 of 2) 1997 Dexa 2012 Pneumococcal 65+ Yrs (1 - PCV) 2012 Influenza (#1) 2023 HepA Aged Out No longer eligi ble based on patient's age to complete this topic HepB Aged Out No longer eligi ble based on patient's age to complete this topic Hib Aged Out No longer eligi ble based on patient's age to complete this topic IPV (Polio) Aged Out No longer eligi ble based on patient's age to complete this topic MCV4 Aged Out No longer eligi ble based on patient's age to complete this topic Care Teams Automatic Quilling Machine Operator Relationship Specialty Start Date End Date Pcp, [place] [address] PCP - General 05/20/17
--- OUTSIDE RECORDS SUMMARY | 2023-11-29 10:20 | XMS_ITS ---
Author Name Unknown Organization [facility] Address [address] [place] [address] Care Team Providers Care Superior Court Clerk Name Role Phone Unavailable Unavailable Unavailable Surgery Details Not on file Complications Check Surgery Details section. Procedure Estimated Blood Loss Check Surgery Details section. Procedure Findings Check Surgery Details section. Procedure Specimens Taken Check Surgery Details section.
--- OUTSIDE RECORDS SUMMARY | 2023-11-29 10:20 | XMS_ITS | Referral Summary ---
Author Name Unknown Organization [facility] Address [address] [place] [address] Care Team Providers Care Quality Improvement Manager Name Role Phone Unavailable Primary Care Provider Unavailabl e Source Comments Patient records contain information from all sites at [facility]. For routine questions regarding patient records, call [phone] during business hours, M-F 8:00 AM - 5:00 PM Central Time. Record requests for emergency care only can be directed to [phone] at any time.[facility] Allergies Active Allergy Reactions Criticality Noted Date Comments Cat Dander Other (see comments) 12/13/2017 Eyes swell and itch Dog Dander Other (see comments) 12/13/2017 Nasal congestion House Dust Other (see comments) 04/14/2016 Mold Extracts Other (see comments) 04/14/2016 Penicillins Rash 03/17/2016 Sulfa (Sulfonamide Antibiotics) Anaphylaxis,Rash High 03/17/2016 Medications Medication Sig Dispensed Refills Start Date End Date Status albuterol (PROVENTIL HFA,VENTOLIN HFA) 90 mcg/actuation inhaler Inhale 2 puffs. 0 Active cyanocobalamin (VITAMIN B12) 500 mcg tablet Take 1 tablet by mouth. 0 Active fluticasone (FLONASE) 50 mcg/actuation nasal spray Administer 1-2 sprays into affected nostril(s). 0 11/29/2017 Active gabapentin (NEURONTIN) 100 mg capsule 0 03/31/2018 Active glimepiride (AMARYL) 1 mg tablet 0 05/10/2018 Active metFORMIN XR (GLUCOPHAGE-XR) 500 mg 24 hr tablet Take 1,000 mg by mouth. 0 11/29/2017 Active montelukast (SINGULAIR) 10 mg tablet 0 05/02/2018 Active multivitamin tablet Take 1 tablet by mouth. 0 Active pseudoephedrine (SUDAFED) 30 mg tablet Take 1 tablet by mouth at bedtime. 0 11/29/2017 Active Advair HFA 230-21 mcg/actuation inhaler Inhale 1 puff 2 (two) times a day. 0 11/28/2021 Active levocetirizine (Xyzal) 5 mg tablet Take 5 mg by mouth every evening. 0 Active Social History Tobacco Use Types Packs/Day Years [...] 02/02/2023 How often do you attend chur or lutheran services? Never 02/02/2023 Do you belong to any clubs o r organizations such as voodoo groups, unions, fraternal [...] and heating? Not hard at all 02/02/2023 [facility] [place] of Occupat ional Health - Occupational Stress [...] or slept in a mcc (including now)? No 02/02/2023 Nutrition Answer Date [...] Orientation Straight 02/02/2023 10 :16 AM CDT Plan of Treatment Upcoming Encounters Date Type Department Care Team (Late st Contact Info) Description 12/07/2023 10:30 AM ADVANCED PRACTICE PROVIDER Appointment Department of Radiation Oncology in [place], [place] [address] [place] [address] Bjorn Mendoza M.D. [address] [place] [address] Medical Devices Implanted Type Area Director Clinical Research Device Identifier Shelf Expiration Date Model / Serial / Lot Hardware E.G. Pins/Screws/Ro ds Hardware e.g. pins/screws/ rods Left: Toes Ocular Lens Ocular Lens Bilatera l: Eye Procedures Procedure Name Priority Date/Time Associated Diagnosis Comments OUTSIDE MG MAMMOGRAM Routine 11/02/2023 10:35 AM ADVANCED PRACTICE PROVIDER OUTSIDE MG MAMMOGRAM Routine 11/02/2023 9:00 AM ADVANCED PRACTICE PROVIDER OUTSIDE US BREAST Routine 11/02/2023 8:2 0 AM ADVANCED PRACTICE PROVIDER OUTSIDE MG MAMMOGRAM Routine 09/09/2023 10:55 AM CDT OUTSIDE US BREAST Routine 09/09/2023 10: 15 AM CDT OUTSIDE US BREAST Routine 09/06/2023 9:4 0 AM CDT OUTSIDE MG MAMMOGRAM Routine 09/06/2023 9:10 AM CDT from Last 3 Months Results * MM surgical specimen LT-Outside Mammogram (11/02/2023 10:35 AM ADVANCED PRACTICE PROVIDER) Only the most recent of4 resultswithin the time period is included. Narrative IIMN - 11/29/2023 8:40 AM ADVANCED PRACTICE PROVIDER This order has been created and auto-finalized to support the import of outside images. If available, original interpretation can be found on the Media Tab in Chart Review, in Document Viewer, or as an image in QREADS. If a re-interpretation or overread is required please follow defined workflow. ?? Provider Not In System IMG BI PROCEDURES Performing Organization Address [facility] de Phone Number IIMS NA * US BREAST NEEDLE LOC LT-Outside US Breast (11/02/2023 8:20 AM ADVANCED PRACTICE PROVIDER) Only the most recent of3 resultswithin the time period is included. Narrative IIMN - 11/29/2023 8:40 AM ADVANCED PRACTICE PROVIDER This order has been created and auto-finalized to support the import of outside images. If available, original interpretation can be found on the Media Tab in Chart Review, in Document Viewer, or as an image in QREADS. If a re-interpretation or overread is required please follow defined workflow. ?? Provider Not In System IMG BI PROCEDURES Performing Organization Address [facility] de Phone Number IIMS NA from Last 3 Months ([address] [address]
--- OUTSIDE RECORDS SUMMARY | 2023-11-29 10:20 | XMS_ITS | Clinical Summary ---
Author Name Unknown Organization [facility] Address [address] [place] [address] Care Team Providers Care Solar Sales Representative Name Role Phone Unavailable Primary Care Provider Unavailabl e Source Comments Patient records contain information from all sites at [facility]. For routine questions regarding patient records, call [phone] during business hours, M-F 8:00 AM - 5:00 PM Central Time. Record requests for emergency care only can be directed to [phone] at any time.[facility] Allergies Active Allergy Reactions Criticality Noted Date [...] mg by mouth every evening. 0 Active Family History Medical History Relation Name Comments Basal cell carcinoma Father Basil Kidney disease Father Basil Melanoma Father Basil In situ Skin cancer Father Basil basal Squamous cell carcinoma Father Basil Stroke Father's Sister Mile Transient ischemic attack Father's Sister [place] Lung cancer Maternal Grandfather Og ag e 58 Arthritis Mother Shannon Basal cell carcinoma Mother Shannon Breast cancer Mother Shannon 61, 81 Dementia Mother Shannon Hypertension Mother Shannon Kidney disease Mother Shannon Skin cancer Mother Shannon basal, squamous Squamous cell carcinoma Mother Shannon Melanoma Son Papo pre-melanoma Relation Name Status Comments Father Basil Father's Sister Mile Maternal Grandfather Og Mother Shannon Son Papo Social History Tobacco Use Types Packs/Day Years [...] often do you attend chur ch or episcopalian services? Never 02/02/2023 Do you belong to any clubs o r organizations such as sabianist groups, unions, fraternal or athletic groups, or [...] and heating? Not hard at all 02/02/2023 [facility] [place] of Occupat ional Health - Occupational Stress [...] slept in a nursing home (including now)? No 02/02/2023 Nutrition Answer Date [...] st Contact Info) Description 12/07/2023 10:30 AM DIRECTOR OF MOBILE MARKETING Appointment Department of Radiation Oncology in [place], [place] [address] [place] [phone] Bjorn Mendoza M.D. [address] [place] [address] Health Maintenance Due Date Last Done Comments Hepatitis C Screening 1945 Depression Screening (Annual PHQ-2) 11/08/2023 Fall Risk Screen (Annual) 11/08/2023 DTaP,Tdap,and Td Vaccines (3 - Td or Tdap) 08/07/2031 08/07/2021, 06/07/2007 Pneumococcal vaccine (65+ years) Completed 06/16/2018, 06/07/2014, 12/05/2008, Additional history exists Zoster Vaccines Completed 07/25/2020, 09/08, 05/25/2019, Additional history exists COVID-19 Vaccine Completed 08/20/2023, , 08/05/2022, Additional history exists Influenza Vaccine Completed 09/10/2023, , 08/07/2021, Additional history exists Mammogram Discontinued 11/02/2023, 10/09, 09/09/2023, Additional history exists Medical Devices Implanted Type Area Twitchell Operator Device Identifier Shelf Expiration Date Model / Serial / Lot Hardware E.G. Pins/Screws/Ro ds Hardware e.g. pins/screws/ rods Left: Toes Ocular Lens Ocular Lens Bilatera l: Eye Procedures Procedure Name Priority Date/Time Associated Diagnosis Comments OUTSIDE MG MAMMOGRAM Routine 11/02/2023 10:35 AM DIRECTOR OF MOBILE MARKETING OUTSIDE MG MAMMOGRAM Routine 11/02/2023 9:00 AM DIRECTOR OF MOBILE MARKETING OUTSIDE US BREAST Routine 11/02/2023 8:2 0 AM DIRECTOR OF MOBILE MARKETING OUTSIDE MG MAMMOGRAM Routine 09/09/2023 10:55 AM CDT OUTSIDE US BREAST Routine 09/09/2023 10: 15 AM CDT OUTSIDE US BREAST Routine 09/06/2023 9:4 0 AM CDT OUTSIDE MG MAMMOGRAM Routine 09/06/2023 9:10 AM CDT from Last 3 Months Results * MM surgical specimen LT-Outside Mammogram (11/02/2023 10:35 AM DIRECTOR OF MOBILE MARKETING) Only the most recent of4 resultswithin the time period is included. Narrative IINC - 11/29/2023 8:40 AM DIRECTOR OF MOBILE MARKETING This order has been created and auto-finalized to support the import of outside images. If available, original interpretation can be found on the Media Tab in Chart Review, in Document Viewer, or as an image in QREADS. If a re-interpretation or overread is required please follow defined workflow. ?? Provider Not In System IMG BI PROCEDURES Performing Organization Address City/[facility] [address]/[facility] Co de Phone Number IIMS NA * US BREAST NEEDLE LOC LT-Outside US Breast (11/02/2023 8:20 AM DIRECTOR OF MOBILE MARKETING) Only the most recent of3 resultswithin the time period is included. Narrative IIMS - 11/29/2023 8:40 AM DIRECTOR OF MOBILE MARKETING This order has been created and auto-finalized to support the import of outside images. If available, original interpretation can be found on the Media Tab in Chart Review, in Document Viewer, or as an image in QREADS. If a re-interpretation or overread is required please follow defined workflow. ?? Provider Not In System IMG BI PROCEDURES Performing Organization Address [facility] [address]/[facility] de Phone Number IIMS NA from Last 3 Months
--- OUTSIDE RECORDS SUMMARY | 2023-11-29 10:20 | XMS_ITS | Clinical Summary ---
Author Name Unknown Organization [facility] Address [address] [place] [id number] Care Team Providers Care Cto Name Role Phone Mahaemd Kate MD Primary Care Provider Allergies Active Allergy Reactions Criticality Noted Date Comments Penicillins Rash Low 08/23/2018 Sulfa Antibiotics Swelling,Rash High 08/23/2018 Medications Medication Sig Dispensed Refills Start Date End Date Status albuterol (PROAIR HFA/PROVENTIL HFA/VENTOLIN HFA) 108 (90 Base) MCG/ACT inhaler Inhale 2 puffs into the lungs every 4 hours as needed for shortness of breath / dyspnea or wheezing 0 Active albuterol (2.5 MG/3ML) 0.083% neb solution Take 2.5 mg by nebulization every 4 hours as needed for shortness of breath / dyspnea or wheezing 0 Active mometasone (ASMANEX) 220 MCG/INH Inhaler Inhale 1-2 puffs into the lungs daily 0 Active DiphenhydrAMINE HCl (BENADRYL PO) Take 25-50 mg by mouth At Bedtime 0 Active fluticasone (FLONASE) 50 MCG/ACT spray [place] 2 sprays into both nostrils daily 0 Active GABAPENTIN PO Take 100-200 mg by mouth daily 0 Active GLIMEPIRIDE PO Take 1 mg by mouth 2 times daily (Takes 2 x 1mg tablet = 2mg dose) 0 Active METFORMIN HCL ER PO Take 500 mg by mouth 2 times daily (Takes 2 x 500mg tablet = 1000mg dose) 0 Active Montelukast Sodium (SINGULAIR PO) Take 10 mg by mouth At Bedtime 0 Active Pseudoephedrine HCl (SUDAFED PO) Take 30 mg by mouth At Bedtime 0 Active Acetaminophen (TYLENOL PO) Take 325-650 mg by mouth At Bedtime (Takes 2 x 325mg tablet = 650mg dose) 0 Active Cyanocobalamin (B-12 PO) Take 500 mcg by mouth daily 0 Active MAGNESIUM GLYCINATE PLUS PO Take 400 mg by mouth daily 0 Active multivitamin, therapeutic (THERA-VIT) TABS tablet Take 1 tablet by mouth daily 0 Active HYDROcodone-acetami nophen (NORCO) 5-325 MG per tabletIndications:P tosis of both eyelids Take 1 tablet by mouth every 6 hours as needed for severe pain 10 tablet 0 08/23/2018 Active erythromycin (ROMYCIN) ophthalmic ointmentIndications :Ptosis of both eyelids Apply topically 3 times daily 2 Tube 1 08/23/2018 Active Social History Tobacco Use Types Packs/Day Years Used Date Smoking Tobacco: Never Smokeless Tobacco: Never Alcohol Use Standard Drinks/Week Comments Yes 0 (1 standard drink = 0.6 oz pur e alcohol) Adolescent Education Answer Date Record ed Getting School Help Needed Not on file 07/30 Sex and Gender Information Value Date Recorded Sex Assigned at Not on file Gender Identity Not on file Sexual Orientation Not on file Last Filed Vital Signs Vital Sign Reading Time Taken Comments Blood Pressure 120/72 08/23/2018 1:15 PM CDT Pulse - - Temperature 36.6 ??C (97.9 ??F) 08/23/2018 1:15 PM CD T Respiratory Rate 16 08/23/2018 1:15 PM CDT [...] 1945 ANNUAL REVIEW OF HM ORDERS 1945 DEXA 1945 COVID-19 Vaccine (#1) 1945 HEPATITIS C SCREENING 1965 DTAP/TDAP/TD IMMUNIZATION (1 - Tdap) 1972 LIPID 1992 ZOSTER IMMUNIZATION (1 of 2) 1997 RSV VACCINE ( & 60+ ) (1 - 1-dose 60+ series) 2007 FALL RISK ASSESSMENT 2012 MEDICARE ANNUAL WELLNESS VISIT 2012 Pneumococcal Vaccine: 65+ Ye ars (1 of 1 - PCV) 2012 INFLUENZA VACCINE (#1) 2023 PHQ-2 (once per calendar year) 2023 HPV IMMUNIZATION Aged Out No longer e ligible based on patient's age to complete this topic IPV IMMUNIZATION Aged Out No longer e ligible based on patient's age to complete this topic MENINGITIS IMMUNIZATION Aged Out No l onger eligible based on patient's age to complete this topic RSV MONOCLONAL ANTIBODY Aged Out No l onger eligible based on patient's age to complete this topic Care Teams Cto Relationship Specialty Start Date End Date Mahamed Kate MD [facility] [address] [place] [address] PCP - General Emergency Medicine 08/16/18
--- OUTSIDE RECORDS SUMMARY | 2023-11-29 10:21 | XMS_ITS | Referral Summary ---
Author Name Unknown Organization [facility] Address [address] [place] [id number] Care Team Providers Care Child And Family Services Worker Name Role Phone Mahamed Kate MD Primary [...] 0 Active fluticasone (FLONASE) 50 MCG/ACT spray [place] 2 sprays into both nostrils daily 0 [...] 08/23/2018 10:30 AM CDT Plan of Treatment Not on file Care Teams Child And Family Services Worker Relationship Specialty Start Date End Date Mahamed Kate MD [facility] [address] [place] [address] PCP - General Emergency Medicine 10/9/18
== END 2023-11-29 10:18 | disposition home or self-care (01) ==
PROVIDERS: PCP Internal Medicine; Visit Provider Internal Medicine Hematology & Oncology
DX: R22.31 Localized swelling, mass and lump, right upper limb (principal); C50.919 Malignant neoplasm of unspecified site of unspecified female breast; R59.0 Localized enlarged lymph nodes
CPT/HCPCS: 76882

== ENCOUNTER 2023-12-16 12:39 | Outpatient (CLI) | payer MEDICARE, SELFPAY ==
--- OUTSIDE RECORDS SUMMARY | 2023-12-16 12:41 | XMS_ITS | Encounter Summary ---
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 [address] [place] [address] Referral ID Status Reason Start Date Expiration Date Visits Re quested Visits Authorized [id number] Closed 11/16/2023 11/15/2024 1 1 Encounter Details Date Type Department Care Team (Latest Contact Info) Description 12/07/2023 10:17 AM [facility] - 12/07/2023 11:29 AM [facility] Hospital Encounter Department of Radiation Oncology in [place], [place] [address] [place] [id number] Bjorn Mendoza M.D. [address] [place] [address] Malignant Neoplasm Of Breast Upper Outer Quadrant Female Left (HCC) (Primary Dx) Social History Tobacco Use Types [...] How often do you attend chur or jew services? Never 02/02/2023 Do you belong to any clubs o r organizations such as buddhist groups, unions, fraternal or athletic groups, or [...] and heating? Not hard at all 02/02/2023 [facility] [place] [facility] Occupat ional Health - Occupational Stress [...] to sleep or slept in a senior care (including now)? No 02/02/2023 Nutrition Answer Date [...] AM CDT documented as of this encounter Last Filed Vital Signs Vital Sign Reading Time Taken Comments Blood Pressure 152/67 12/07/2023 10:21 AM [facility] Pulse 82 12/07/2023 10:21 AM [facility] Temperature 36.1 ??C (97 ??F) 12/07/2023 10:21 AM [facility] Respiratory Rate - - Oxygen Saturation - - Inhaled Oxygen Concentration - - Weight 64.2 kg (141 lb 8.6 oz) 12/07/2023 10:21 AM [facility] Height - - Body Mass Index - - documented in this encounter Medications at Time of Discharge Medication Sig Dispensed Refills Start Date End Date Advair HFA 230-21 mcg/actuation inhaler Inhale 1 puff 2 (two) times a day. 0 11/28/2021 albuterol (PROVENTIL HFA,VENTOLIN HFA) 90 mcg/actuation inhaler Inhale 2 puffs. 0 cyanocobalamin (VITAMIN B12) 500 mcg tablet Take 1 tablet by mouth. 0 fluticasone (FLONASE) 50 mcg/actuation nasal spray Administer 1-2 sprays into affected nostril(s). 0 11/29/2017 gabapentin (NEURONTIN) 100 mg capsule 0 03/31/2018 glimepiride (AMARYL) 1 mg tablet 0 05/10/2018 levocetirizine (Xyzal) 5 mg tablet Take 5 mg by mouth every evening. 0 metFORMIN XR (GLUCOPHAGE-XR) 500 mg 24 hr tablet Take 1,000 mg by mouth. 0 11/29/2017 mometasone (ELOCON) 0.1 % cream Apply 1 Application topically 2 (two) times a day. Apply to left breast twice daily starting on first day of radiation treatment. Continue for 10 days following radiation treatment. 100 g 0 12/07/2023 montelukast (SINGULAIR) 10 mg tablet 0 05/02/2018 multivitamin tablet Take 1 tablet by mouth. 0 Ozempic 0.25 mg or 0.5 mg (2 mg/3 mL) injection INJECT 0.5 MG (0.736 ML) SUBCUTANEOUSLY EVERY WEEK FOR DIABETES; FOR 4 WEEKS 0 pseudoephedrine (SUDAFED) 30 mg tablet Take 1 tablet by mouth at bedtime. 0 11/29/2017 documented as of this encounter Consult Notes * Darya Benedict APRN, C.N.P., D.N.P. - 12/07/2023 10:30 AM CST SUBJECTIVE REQUESTING PROVIDER Adelia Eldridge M.D. REASON FOR CONSULT 1. Malignant Neoplasm Of Breast Upper Outer Quadrant Female Left (HCC) SUPERVISED BY: Bjorn Mendoza M.D. ([phone]) HISTORY OF PRESENT ILLNESS Mrs. Erica Tavarez is a 78 y.o. female with invasive ductal carcinoma of the left breast. She presents today for an opinion regarding the role of radiation therapy in the management of her disease. Her oncologic history is as follows: Oncology History Malignant Neoplasm Of Breast Upper Outer Quadrant Female Left (HCC) 09/06/2023 Critical Imaging Screening mammogram demonstrated concerning findings in the left breast. No concerning findings in the right breast. Bilateral diagnostic mammogram demonstrated new nodular density in the upper outer quadrant LEFT breast 7 cm from the nipple. No architectural distortion. Normal RIGHT breast. Targeted LEFT breast ultrasound demonstrated at 1 o`clock 7 cm from the nipple a hypoechoic solid mass measuring 6 x 5 x 7 mm. 09/09/2023 Biopsy/Pathology Final Diagnosis A) LEFT BREAST, 1:00, 7 CM FROM NIPPLE, ULTRASOUND-GUIDED CORE BIOPSY: 1. Invasive ductal carcinoma a. Pierpont grade: II of III; Javi score: 6 of 9 b. Angio-lymphatic invasion: Absent c. Associated DCIS: Suspicious for possible encapsulated papillary carcinoma 2. Breast Ancillary Testing: a. Hormone Receptors: Estrogen receptor: Positive (91-100%, strong staining by manual morphometry) Progesterone receptor: Positive (21-30%, moderate staining by manual morphometry) b. HER2 by IHC: Equivocal (2+ by manual morphometry) HER2 by FISH: Negative HER2/CEP17 ratio: 1.05 HER2 signals/cell: 1.94 CEP17 signals/cell: 1.84 c. Ki-67: 8% 11/02/2023 Surgery and Procedures Left breast lumpectomy with sentinel lymph node biopsy performed by Dr. Tania Bagley Final Diagnosis A) LEFT BREAST, ORIENTED PARTIAL MASTECTOMY WITH MARGIN ASSESSMENT: 1. Invasive ductal carcinoma, Javi grade II of III with invasive micropapillary features a. Size: 7 mm b. Core biopsy site associated with carcinoma 2. Ductal carcinoma in situ (DCIS), nuclear grade 2, cribriform and solid types 3. Margins: a. All margins negative for invasive carcinoma, > 10 mm to all margins b. All margins negative for DCIS, > 10 mm to all margins 4. Breast Ancillary Testing: Performed on prior case ([id number]) a. Hormone Receptors: Estrogen receptor: Positive (91-100%, strong intensity) Progesterone receptor: Positive (21-30%, moderate intensity) b. HER2 by IHC: Negative FISH c. Ki67: 8% 5. Background breast tissue with a. Proliferative fibrocystic changes b. Atypical lobular hyperplasia (ALH) c. Focal lobular carcinoma in situ (LCIS), classic type B) LEFT AXILLARY SENTINEL LYMPH NODE, EXCISION: 1. One lymph node, negative for metastatic carcinoma (0/1) SYNOPTIC REPORTING SPECIMEN Procedure: Excision (less than total mastectomy) Specimen Laterality: Left TUMOR Tumor Site: Clock position : 1 o'clock Tumor Site: Distance from nipple (Centimeters): 7 cm Histologic Type: Invasive carcinoma of no special type (ductal) Histologic Grade (Pierpont Histologic Score): Glandular (Acinar) / Tubular Differentiation: Score 3 Nuclear Pleomorphism: Score 2 Mitotic Rate: Score 1 Overall Grade: Grade 2 (scores of 6 or 7) Tumor Size: Greatest dimension of largest invasive focus (Millimeters): 7 mm Ductal Carcinoma In Situ (DCIS): Present : Negative for extensive intraductal component (EIC) Architectural Patterns: Cribriform Architectural Patterns: Solid Nuclear Grade: Grade II (intermediate) Necrosis: Present, focal (small foci or single cell necrosis) Lobular Carcinoma In Situ (LCIS): Present Lymphatic and / or Vascular Invasion: Not identified Dermal Lymphatic and / or Vascular Invasion: No skin present Microcalcifications: Present in DCIS Treatment Effect in the Breast: No known presurgical therapy MARGINS Margin Status for Invasive Carcinoma: All margins negative for invasive carcinoma Distance from Invasive Carcinoma to Closest Margin: Greater than: 10 mm Closest Margin(s) to Invasive Carcinoma: All margins negative by >10 mm Margin Status for DCIS: All margins negative for DCIS Distance from DCIS to Closest Margin: Greater than: 10 mm Closest Margin(s) to DCIS: All margins negative by >10 mm REGIONAL LYMPH NODES Regional Lymph Node Status: : All regional lymph nodes negative for tumor Total Number of Lymph Nodes Examined (sentinel and non-sentinel): 1 Number of [place] Nodes Examined: 1 pTNM CLASSIFICATION (AJCC 8th Edition) pT Category: pT1b pN Category: pN0 N Suffix: (sn) 11/05/2023 Genetic Testing and Tumor Genotyping Genetic testing for 9 gene panel with reflex to multi cancer panel for 70 gene via Ivitae is negative. 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 11/15/[address] Yanira Diaz, Medical Oncology. Oncotype DX score 22. She did not recommended chemotherapy, but did recommend 5-7 years of endocrine therapy following radiation treatment. 12/13/2023 - Radiation Therapy Radiation Therapy Treatment Details (Noted on 11/29/2023) Site: Left Breast Technique: No technique specified Goal: Curative Planned Treatment Start Date: 12/13/2023 INTERVAL HISTORY The patient was seen and examined today with Dr. Mendoza. The patient reports feeling well overall. She reports good energy. She feels she is healing well from surgery. She denies any pain throughout her left breast. She reports her incisions are healing well without any redness or drainage. She denies any fevers. She reports good active range of motion with no limitations. She denies any swelling in her left arm. The patient denies a history of prior radiation therapy, connective tissue disorders, or inflammatory bowel disease. The patient denies anyimplanted devices. Her ECOG performance status is 0. REVIEW OF SYSTEMS Review of systems was negative except as documented above. PATIENT REPORTED SYMPTOM SCREEN FATIGUE (Scale: 0 = no fatigue; 10 = worst fatigue you can imagine): 1 PAIN (Scale: 0 = no pain; 10 = worst pain you can imagine): 1 OVERALL QUALITY OF LIFE (Scale: 0 = as bad as can be; 10 = as good as can be): 9 PAST MEDICAL HISTORY Past Medical History: Diagnosis Date Asthma NOS 30 years ago Cataract Surgery in 2015 Diabetes Mellitus NOS Type 2, 20 years ago Gastroesophageal Reflux Disease NOS 15+ years ago - LPR Injury Rotator Cuff Initial Right Nodule Thyroid 16 months ago Other Injury Of Unspecified Body Region 1959, 2019 finger Pneumonia several times, childhood to a decade ago Polyp Colon 18 months ago PAST SURGICAL HISTORY Past Surgical History: Procedure Laterality Date BUNIONECTOMY Left LUMPECTOMY BREAST WITH SENTINEL NODE BIOPSY Left 11/02/2023 SINUS SURGERY 2009? TONSILLECTOMY 1951 FAMILY HISTORY Family History Problem Relation Age of Onset Breast cancer Mother 61, 81 Skin cancer Mother basal, squamous Hypertension Mother Arthritis Mother Kidney disease Mother Dementia Mother Melanoma Father In situ Basal cell carcinoma Father Squamous cell carcinoma Father Kidney disease Father Lung cancer Maternal Grandfather smoker; age 58 Melanoma Son pre-melanoma Stroke Father's Sister Transient ischemic attack Father's Sister SOCIAL HISTORY Social History Socioeconomic History Marital status: Highest education level: Bachelor's degree (e.g., BA, AB, BS) Tobacco Use Smoking status: Never Smokeless tobacco: Never Vaping Use Vaping Use: never used Substance and Sexual Activity Alcohol use: Yes Alcohol/week: 0.0 - 2.0 standard drinks of alcohol Drug use: Never Sexual activity: Not Currently Partners: Male control/protection: Post-menopausal Social Determinants of Health Food Insecurity: No Food Insecurity (02/02/2023) Hunger Vital Sign Worried About Running Out of Food in the Last Year: Never true Ran Out of Food in the Last Year: Never true Transportation Needs: No Transportation Needs (02/02/2023) PRAPARE - Transportation Lack of Transportation (Medical): No Lack of Transportation (Non-Medical): No Physical Activity: Insufficiently Active (02/02/2023) Exercise Vital Sign Days of Exercise per Week: 2 days Minutes of Exercise per Session: 20 min Intimate Partner Violence: Not At Risk (02/02/2023) Humiliation, Afraid, Rape, and Kick questionnaire Fear of Current or Ex-Partner: No Emotionally Abused: No Physically Abused: No Sexually Abused: No Housing Stability: Low Risk (02/02/2023) Housing Stability Vital Sign Unable to Pay for Housing in the Last Year: No Number of Places Lived in the Last Year: 1 Unstable Housing in the Last Year: No OBJECTIVE BP 152/67 (BP Location: Right arm, Patient Position: Sitting, Cuff Size: Regular) Pulse 82 Temp36.1 ??C (Temporal) Wt 64.2 kg PHYSICAL EXAM General: Patient is alert and oriented in no apparent distress. Neck: Supple. Lymph: No palpable cervical, supraclavicular, infraclavicular, or axillary adenopathy. Lungs: Clear to auscultation bilaterally. Heart: Regular rate and rhythm. Normal S1 and S2. ASSESSMENT / PLAN #1 Stage IA (pT1b, pN0(sn), cM0, G2, ER/WY+, HER2-) invasive ductal carcinoma of the left breast s/p left breast lumpectomy with negative sentinel lymph node biopsy on November 02, 2023 It was a pleasure to meet with Erica today. I had a discussion with her regarding her breast cancerdiagnosis, including information regarding her staging, grade, and hormone receptors. We had a detailed discussion regarding the risks, benefits, and alternatives of radiotherapy in this setting. We d iscussed the recommendation for radiation treatment to the left lumpectomy cavity only in 5 fractions or left whole breast in 5 or 15 fractions. I discussed the logistics, as well as, the acute and chronic side effects of radiotherapy. The acute side effects may include, but are not limited to, fatigue, radiation dermatitis, and breast swelling and discomfort. Long-term side effects can be rare and may include, but are not limited to, skin changes and texture changes of the breast, possible breast asymmetry, pulmonary scarring (typically of no clinical significance), radiation pneumonitis, increased risk of rib fracture with significanttrauma, lymphedema, small increased risk of coronary artery disease (if left breast/chest wall is irradiated), and a very small risk of secondary malignancy. The patient was provided with a written morrow mmary of recommendations. Her questions were answered to her verbalized satisfaction. She has met with Dr. Yanira Diaz, Medical Oncology at [facility]. She does not recommend chemotherapy based off her Oncotype DX score of 22. She recommends 5-7 years of endocrine therapy following radiation treatment. After discussion, the patient verbally stated that she would like to proceed with treatment to the whole breast. She will undergo CT simulation today. We anticipate starting radiation therapy on in the next 1-2 weeks. I provided a prescription for mometasone and discussed its application process. She should apply this twice daily while undergoing radiation treatment and continue for 2 weeks following radiation treatment in addition to a non-scented lotion applied 2-3 times daily to the treatment field. Patient seen in collaboration with Dr. Mendoza, please review his attestation for additional information. The patient was provided with our contact information. She was asked to contact us with questions or concerns. She verbally expressed her understanding of the plan. EDUCATION Ready to learn, no apparent learning barriers were identified; learning preferences include listening. Explained diagnosis and treatment plan; patient expressed understanding of the content. CONSENT Discussed the risks, benefits, alternatives, and the necessity of other members of the healthcare team participating in the procedure. All questions answered and consent given. PRIMARY PROVIDER Mahamed Kate MD I personally spent 55 minutes in care of the patient today. Time includes both non face to face andface to face patient care. Signed by: Darya Benedict APRN, C.N.P., Larissa 12/07/2023 11:29 AM [facility] [address] [place] [address] [facility] Associated attestation - Bjorn Mendoza M.D. - 12/07/2023 12:26 PM [facility] I saw and evaluated the patient and participated in the gilman portions of the service. I reviewed thedocumentation of Darya Benedict C.N.P. and agree with the findings and plan. Mrs. Erica Tavarez is a 78 y.o. female with a mammographically detected stage IA (pT1b, pN0, cM0, G2, ER+, WY+, HER2-, Oncotype DX score: 22) invasive ductal carcinoma of the upper-outer quadrant of the left breast, status post margin negative lumpectomy and sentinel lymph node biopsy on November 02, 2023. We are asked by Dr. Eldridge to evaluate the patient for radiotherapy. Her oncologic history is well detailed in Marichuy's note. She saw Dr. Diaz in consultation postoperatively and chemotherapy was not recommended. She has recovered well from surgery. Her mother had breast cancer on separate occasions in both breast. Her ECOG performance status is 0. OBJECTIVE BP 152/67 (BP Location: Right arm, Patient Position: Sitting, Cuff Size: Regular) Pulse 82 Temp36.1 ??C (Temporal) Wt 64.2 kg PHYSICAL EXAM General: Patient is awake, alert, and oriented to person, place, and time. No apparent distress. She is here today by herself. Exam was chaperoned by Darya Benedict C.N.P.. Lymph: No palpable cervical, supraclavicular, infraclavicular, or axillary adenopathy. Extremities: No edema. Breasts: Examined in the sitting and supine positions. The right breast has an everted nipple with scattered fibroglandular changes no palpable masses, no overlying skin changes, and no expressible nipple discharge. The left breast has an everted nipple with scattered fibroglandular changes, a well-healed incisional scar in the upper outer quadrant with some scarring deep to this and a well-healed left axillary scar, but no palpable masses, no overlying skin changes, and no expressible nipple discharge. DIAGNOSTICS I reviewed the patient's imaging and pathology reports. ASSESSMENT / PLAN #1 Stage IA (pT1b, pN0, cM0, G2, ER+, WY+, HER2-, Oncotype DX score: 22) invasive ductal carcinoma of the upper-outer quadrant of the left breast, status post margin negative lumpectomy and sentinel lymph node biopsy on November 02, 2023 I had a detailed discussion with the patient and her spouse regarding the risks, benefits, and alternatives of radiotherapy in this setting. I reviewed the NCCN guidelines in formulating my recommendations. I went over these with the patient. I discussed the CALGB 9343 trial (Lala, et al., JCO 2012) in which women with early stage breast cancer who were 70 years of age or older were all treatedwith lumpectomy and 5 years of tamoxifen and were randomly assigned to receive either whole breast radiotherapy or observation. Adjuvant radiotherapy showed a local control benefit but no survival benefit. Patients who received adjuvant radiotherapy had a 2% local recurrence risk at 10 years versusa 10% recurrence risk in the patients who did not receive adjuvant radiotherapy. We also reviewed the results of the similar PRIME II trial (Delmis et al., [facility] 2022) in which women with early stage breast cancer who were 65 years of age and older were treated with lumpectomy and 5 years of tamoxifen and were randomly assigned to either whole breast radiotherapy or observation. Again adjuvant ra diotherapy showed a local control benefit but no survival benefit. Patients who received adjuvant radiotherapy had a 0.9% local recurrence risk at 10 years versus 9.5% recurrence risk in the patientswho did not receive adjuvant radiotherapy. Hence, adjuvant radiotherapy is optional if the patient is willing to commit to 5 years of anti-estrogen therapy. We also discussed the possibility of treating the whole breast to a dose of 2600 cGy in 5 fractions(as per the FAST-Forward trial, Alannat et al., Lancet 2020) or to a dose of 4005 cGy in 15 fractionswithout a boost to the lumpectomy cavity. We also discussed accelerated partial breast irradiation to the lumpectomy cavity alone to a dose of 3000 cGy in 5 fractions. If she would like to further minimize her risk of local recurrence, I recommend treatment to the whole left breast without a boost.I recommend a breath hold technique if the patient is able to minimize cardiac dose. She stated that she would like to proceed with treatment, but she is uncertain if she would like to utilize the one week with three-week approach. She is going to discuss this with her and get back to us tomorrow with her decision. I discussed the logistics as well as the acute and chronic side effects of treatment in detail. Fora complete listing of these, please see Marichuy's note. After this discussion, I provided the patient with a written summary of my recommendations. Her questions were answered to her verbalized satisfaction. The patient signed the consent form. She will undergo CT simulation today. We will endeavor to begin treatment on Friday, December 15, 2023. My thanks to DrsEmily Solomon, Kevyn, and Gaurav for the opportunity to participate in this patient's care. I have spent 40 minutes caring for this patient including both kufh-op-fnvs and njq-zbth-[id number]-face time. Signed by: Bjorn Mendoza M.D. 12/07/23 12:26 PM [facility] [place] documented in this encounter Miscellaneous Notes * Addendum Note - Di Feng, C.N.A. - 12/07/2023 10:30 AM CSTEncounter addended by: Di Feng C.NBruno on: 12/07/2023 12:34 PM Actions taken: Letter saved [facility] documented in this encounter Plan of Treatment Upcoming Encounters Date Type Department Care Team (Late st Contact Info) Description 12/17/2023 1:15 PM [facility] Appointment Department of Radiation Oncology in [place] [id number] [place] [phone] Bjorn Mendoza M.D. [address] [place] [address] 12/20/2023 2:15 PM [facility] Appointment Department of Radiation Oncology in [address] [phone] Bjorn Mendoza M.D. [address] [place] [address] 12/21/2023 12:30 PM [facility] Appointment Department of Radiation Oncology in [place], [place] [address] [place] [phone] Bjorn Mendoza M.D. [address] [place] [address] 12/21/2023 1:00 PM [facility] Appointment Department of Radiation Oncology in [place], [place] [address] [place] [address] Bjorn Mendoza M.D. [address] [place] [phone] documented as of this encounter Visit Diagnoses Diagnosis Malignant Neoplasm Of Breast Upper Outer Quadrant Female Left (HCC)- Primary documented in this encounter
--- OUTSIDE RECORDS SUMMARY | 2023-12-16 12:41 | XMS_ITS | Clinical Summary ---
Author Name Unknown Organization [facility] Address [address] [place] [address] Care Team Providers Care Geological Specialist Name Role Phone Pcp, Pt Declines Primary Care Provider [phone] Source Comments You are receiving this document as you are listed as the primary care provider,follow-up provider, or the patient has been referred to you for consultation.This is in compliance with the Medicare and[facility] Campuscaid EHR Incentive Program,which states Providers who transition their patient to another setting of careor provider of care or refers their patient to another provider of care shouldprovide summary care record for each transition of care or referral. [facility] Allergies No known active allergies Medications Medication [...] age to complete this topic Care Teams Geological Specialist Relationship Specialty Start Date End Date Pcp, [place] [address] PCP - General 05/20/17
--- OUTSIDE RECORDS SUMMARY | 2023-12-16 12:41 | XMS_ITS | Encounter Summary ---
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 [address] [place] [address] 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 [address] [place] [address] [facility] Region Referral ID Status Reason Start Date Expiration Date Visits Re quested Visits Authorized [id number] Closed 11/29/2023 11/28/2024 1 1 Encounter Details Date Type Department Care Team (Latest Contact Info) Description 12/07/2023 11:30 AM POOL TABLE OPERATOR - 12/07/2023 2:19 PM POOL TABLE OPERATOR Hospital Encounter Department of Radiation Oncology in [place], [place] [address] [place] [address] Bjorn Mendoza M.D. 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 Not hard at all 02/02/2023 [facility] - Occupational Stress Questionnaire Answer Date Recorded [...] slept in a skilled nursing (including now)? 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 Authorized by: Bjorn Mendoza M.D. Simulation was performed under physician supervision based on physician order in preparation for radiation therapy. Physician was immediately available to provide assistance and direction throughout the procedure. Written consent for treatment was completed or confirmed. The patient was appropriately identified and placed in the treatment position using the necessary immobilization to ensure a reproducible treatment position. Reference saxena were placed to facilitate marking of isocenter. Area scanned:Chest Contrast used for the simulation procedure: None Patient position:head first supine and arms up Custom immobilization: Vac-juvencio Motion management: Breath hold scan Bolus: No CT guidance: Following positioning of the patient, a series of slices was obtained to be utilized in treatment planning. CT images were transferred to the [employer] treatment planning system, after a reference isocenter was determined and marked. Segmentation and treatment planning will take place prior to treatment delivery. Patient set up and imaging was appropriate and completed without incident. Bid Writer use:No TABLE OPERATOR Associated attestation - Bjorn Mendoza M.D. - 12/07/2023 2:18 PM POOL TABLE OPERATOR I was available for the entirety of the procedure but only present for wire and immobilization review. Signed by: Bjorn Mendoza M.D. 12/07/23 2:18 PM POOL TABLE OPERATOR [facility] [place] documented in this encounter Plan of Treatment Upcoming Encounters Date Type Department Care Team (Late st Contact Info) Description 12/17/2023 1:15 PM POOL TABLE OPERATOR Appointment Department of Radiation Oncology in [place], [place] [address] [place] [phone] Bjorn Mendoza M.D. [address] [place] [phone] 12/20/2023 2:15 PM POOL TABLE OPERATOR Appointment Department of Radiation Oncology in [address] [address] Bjorn Mendoza M.D. [address] [place] [phone] 12/21/2023 12:30 PM POOL TABLE OPERATOR Appointment Department of Radiation Oncology in [address] [address] Bjorn Mendoza M.D. [address] [place] [phone] 12/21/2023 1:00 PM POOL TABLE OPERATOR Appointment Department of Radiation Oncology in [address] [address] Bjorn Mendoza M.D. 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 12/07/2023 12:28 PM Initial Rad Onc Treatment Planning CT Simulation Performed by: Bjorn Mendoza M.D. Authorized by: Bjorn Mendoza M.D. ?? Bjorn Mendoza M.D. 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
--- OUTSIDE RECORDS SUMMARY | 2023-12-16 12:41 | XMS_ITS ---
Author Name Unknown Organization [facility] Address [address] [place] [address] Care Team Providers Care Nuclear Operator Name Role Phone Unavailable Unavailable Unavailable Surgery Details Not on file Complications Check Surgery Details section. Procedure Estimated Blood Loss Check Surgery Details section. Procedure Findings Check Surgery Details section. Procedure Specimens Taken Check Surgery Details section.
--- OUTSIDE RECORDS SUMMARY | 2023-12-16 12:41 | XMS_ITS | Encounter Summary ---
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 [address] [place] [phone] [facility] Referral ID Status Reason Start Date Expiration Date V isits Requested Visits Authorized [id number] Authorized 12/13/2023 11/28/2024 19 19 Encounter Details Date Type Department Care Team (Late st Contact Info) Description 12/16/2023 11:57 AM [facility] Hospital Encounter Department of Radiation Oncology in [place], [place] [address] [place] [phone] Bjorn Mendoza M.D. [address] [place] [phone] Social History Tobacco Use Types Packs/Day Years [...] How often do you attend chur or presybeterian services? Never 02/02/2023 Do you belong to any clubs o r organizations such as amish groups, unions, fraternal or athletic groups, or [...] and heating? Not hard at all 02/02/2023 [facility] [place] of Occupat ional Health - Occupational Stress [...] st Contact Info) Description 12/17/2023 1:15 PM PHYSICALLY IMPAIRED TEACHER Appointment Department of Radiation Oncology in [address] [address] Bjorn Mendoza M.D. [address] [place] [phone] 12/20/2023 2:15 PM PHYSICALLY IMPAIRED TEACHER Appointment Department of Radiation Oncology in [address] [address] Bjorn Mendoza M.D. [address] [place] [phone] 12/21/2023 12:30 PM PHYSICALLY IMPAIRED TEACHER Appointment Department of Radiation Oncology in [address] [address] Bjorn Mendoza M.D. [address] [place] [address] 12/21/2023 1:00 PM PHYSICALLY IMPAIRED TEACHER Appointment Department of Radiation Oncology in [address] [address] Bjorn Mendoza M.D. [address] [place] [phone] documented as of this encounter Visit Diagnoses Not on filedocumented in this encounter
--- OUTSIDE RECORDS SUMMARY | 2023-12-16 12:41 | XMS_ITS ---
Author Name Unknown Organization [facility] Address [address] [place] [address] Care Team Providers Care Core Checker Name Role Phone Unavailable Primary Care Provider Unavailabl e Active Problems Problem Noted Date Diagnosed Date Malignant Neoplasm Of Breast Upper Outer Quadrant Female Left 11/29/2023 Cancer Staging:Pathologic stage from 11/02/2023:Stage IA(pT1b, pN0, cM0, G2, ER+, [place]+, HER2-, Oncotype DX score: 22) - Unsigned Current Oncology Plans No current plan information found. Past Plans No past plan information found. Radiation Treatments * Plan Last Treated On Elapsed Days Fractions Treated Prescribed Fraction Dose Prescribed Total Dose [id number] 12/16/2023 1 2 of 5 520 cGy 2,600 cGy Reference Point Last Treated On Elapsed Days Session Dose Total Dose [id number] 12/16/2023 1 520 cGy 1,040 cGy
--- OUTSIDE RECORDS SUMMARY | 2023-12-16 12:41 | XMS_ITS | Encounter Summary ---
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 [address] [place] [phone] [facility] Referral ID Status Reason Start Date Expiration Date V isits Requested Visits Authorized [id number] Authorized 12/13/2023 11/28/2024 19 19 Encounter Details Date Type Department Care Team (Late st Contact Info) Description 12/15/2023 11:58 AM [facility] Hospital Encounter Department of Radiation Oncology in [place], [place] [address] [place] [phone] Bjorn Mendoza M.D. [address] [place] [phone] Social History Tobacco Use Types Packs/Day Years [...] How often do you attend chur or nondenominational services? Never 02/02/2023 Do you belong to any clubs o r organizations such as lutheran groups, unions, fraternal [...] and heating? Not hard at all 02/02/2023 [facility] of Occupat ional Health - Occupational Stress [...] place to sleep or slept in a long term (including now)? No 02/02/2023 Nutrition Answer Date [...] st Contact Info) Description 12/17/2023 1:15 PM STONEWORK TRACER Appointment Department of Radiation Oncology in [address] [phone] Bjorn Mendoza M.D. [address] [place] [phone] 12/20/2023 2:15 PM STONEWORK TRACER Appointment Department of Radiation Oncology in [address] [address] Bjorn Mendoza M.D. [address] [place] [phone] 12/21/2023 12:30 PM STONEWORK TRACER Appointment Department of Radiation Oncology in [address] [phone] Bjorn Mendoza M.D. [address] [place] [address] 12/21/2023 1:00 PM STONEWORK TRACER Appointment Department of Radiation Oncology in [address] [address] Bjorn Mendoza M.D. [address] [place] [phone] documented as of this encounter Visit Diagnoses Not on filedocumented in this encounter
--- OUTSIDE RECORDS SUMMARY | 2023-12-16 12:41 | XMS_ITS | Clinical Summary ---
Author Name Unknown Organization [facility] Address [address] [place] [address] Care Team Providers Care Advertising Sales Associate Name Role Phone Unavailable Primary Care Provider Unavailabl e Source Comments Patient records contain information from all sites at [facility]. For routine questions regarding patient records, call [phone] during business hours, M-F 8:00 AM - 5:00 PM Central Time. Record requests for emergency care only can be directed to [phone] at any time.[facility] Allergies Active Allergy Reactions Criticality Noted [...] mg by mouth every evening. 0 Active Ozempic 0.25 mg or 0.5 mg (2 mg/3 mL) injection INJECT 0.5 MG (0.736 ML) SUBCUTANEOUSLY EVERY WEEK FOR DIABETES; FOR 4 WEEKS 0 Active mometasone (ELOCON) 0.1 % cream Apply 1 Application topically 2 (two) times a day. Apply to left breast twice daily starting on first day of radiation treatment. Continue for 10 days following radiation treatment. 100 g 0 12/07/2023 Active Active Problems Problem Noted Date Diagnosed Date Malignant Neoplasm Of Breast Upper Outer Quadrant Female Left 11/29/2023 Cancer Staging:Pathologic stage from 11/02/2023:Stage IA(pT1b, pN0, cM0, G2, ER+, [place]+, HER2-, Oncotype DX score: 22) - Unsigned Encounters Date Type Department Care Team Description 12/16/2023 11:57 AM [facility] Hospital Encounter Department of Radiation Oncology in [address] [phone] Bjorn Mendoza M.D. 12/15/2023 11:58 AM [facility] Hospital Encounter Department of Radiation Oncology in [address] [phone] Bjorn Mendoza M.D. 12/07/2023 11:30 AM [facility] - 12/07/2023 2:19 PM [facility] Hospital Encounter Department of Radiation Oncology in [address] [phone] Bjorn Mendoza M.D. Malignant Neoplasm Of Breast Upper Outer Quadrant Female Left (HCC) 12/07/2023 10:17 AM [facility] - 12/07/2023 11:29 AM [facility] Hospital Encounter Department of Radiation Oncology in [place], [place] [address] [place] [address] Bjorn Mendoza M.D. Malignant Neoplasm Of Breast Upper Outer Quadrant Female Left (HCC) (Primary Dx) 11/29/2023 Orders Only Department of Radiation Oncology in [place], [place] [address] [place] [address] Darya Benedict APRN, C.N.P., D.N.P. Malignant Neoplasm Of Breast Upper Outer Quadrant Female Left (HCC) (Primary Dx) from Last 3 Months Family History Medical History Relation Name Comments Basal cell carcinoma Father Basil Kidney disease Father Basil Melanoma Father Basil In situ Squamous cell carcinoma Father Basil Stroke Father's Sister Mile Transient ischemic attack Father's Sister [place] Lung cancer Maternal Grandfather Og smoker; age 58 Arthritis Mother Shannon Breast cancer Mother Shannon 61, 81 Dementia Mother Shannon Hypertension Mother Shannon Kidney disease Mother Shannon Skin cancer Mother Shannon basal, squamous Melanoma Son Papo pre-melanoma Relation Name Status [...] often do you attend chur ch or oriental orthodox services? Never 02/02/2023 Do you belong to any clubs o r organizations such as taoism groups, unions, fraternal [...] and heating? Not hard at all 02/02/2023 [facility] of Occupat ional Health - Occupational Stress [...] or slept in a fci (including now)? No 02/02/2023 Nutrition Answer Date [...] Orientation Straight 02/02/2023 10 :16 AM CDT Last Filed Vital Signs Vital Sign Reading Time Taken Comments Blood Pressure 152/67 12/07/2023 10:21 AM PRODUCTION TEAM MEMBER Pulse 82 12/07/2023 10:21 AM PRODUCTION TEAM MEMBER Temperature 36.1 ??C (97 ??F) 12/07/2023 10:21 AM PRODUCTION TEAM MEMBER Respiratory Rate - - Oxygen Saturation - - Inhaled Oxygen Concentration - - Weight 64.2 kg (141 lb 8.6 oz) 12/07/2023 10:21 AM PRODUCTION TEAM MEMBER Height - - Body Mass Index - - Plan of Treatment Upcoming Encounters Date Type Department Care Team (Late st Contact Info) Description 12/17/2023 1:15 PM PRODUCTION TEAM MEMBER Appointment Department of Radiation Oncology in [place] [id number] [place] [phone] Bjorn Mendoza M.D. [address] [place] [phone] 12/20/2023 2:15 PM PRODUCTION TEAM MEMBER Appointment Department of Radiation Oncology in [address] [phone] Bjorn Mendoza M.D. [address] [place] [address] 12/21/2023 12:30 PM PRODUCTION TEAM MEMBER Appointment Department of Radiation Oncology in [address] [address] Bjorn Mendoza M.D. [address] [place] [phone] 12/21/2023 1:00 PM PRODUCTION TEAM MEMBER Appointment Department of Radiation Oncology in [address] [address] Bjorn Mendoza M.D. [address] [place] [phone] Health Maintenance Due Date Last Done Comments [...] Discontinued 11/02/2023, 10/09, 09/09/2023, Additional history exists HPV Vaccines Aged Out No longer eligi ble based on patient's age to complete this topic Medical Devices Implanted Type Area Chemistry Quality Control Analyst Device Identifier Shelf Expiration Date Model / Serial / Lot Hardware E.G. Pins/Screws/Ro ds Hardware e.g. pins/screws/ rods Left: Toes Ocular Lens Ocular Lens Bilatera l: Eye Procedures Procedure Name Priority Date/Time Associated Diagnosis Comments [facility] DAILY TREATMENT INFORMATION Routine 12/16/2023 12:20 PM PRODUCTION TEAM MEMBER [facility] DAILY TREATMENT INFORMATION Routine 12/15/2023 1:01 PM PRODUCTION TEAM MEMBER [facility] COURSE COMPLETE TREATMENT INFORMATION Routine 12/14/2023 1:49 PM PRODUCTION TEAM MEMBER INITIAL RAD ONC TREATMENT PLANNING CT SIMULATION Routine 12/07/2023 11:30 AM PRODUCTION TEAM MEMBER Malignant Neoplasm Of 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 Course ID [id number] [facility] Course Start Date 4 09:38 PRODUCTION TEAM MEMBER [facility] First Treatment Date 4 12:56 PRODUCTION TEAM MEMBER [facility] Last Treatment Date 4 12:20 PRODUCTION TEAM MEMBER [facility] Treatment Elapsed Days 1 [facility] Reference Point [id number] [facility] Dosage Given to Date cGy 1040 [facility] Session Dosage Given 520 [facility] Plan ID [id number] [facility] Fractions Treated to Date 2 VEGA ARIA Planned Total Fractions 5 [facility] ARIA Prescribed Dose Per Fraction 520 [facility] ARIA Prescription Dose in cGy 2600 VEGA ARIA Plan Primary Reference Point [id number] [facility]GA ARIA 12/16/2023 12:2 0 PM PRODUCTION TEAM MEMBER Provider Not In System RADIATION ONCOLOG Y ORDERABLES GARY HUTTON na * [facility] Course Complete Treatment Information (12/14/2023 1:49 PM PRODUCTION TEAM MEMBER) Course ID Planning1 x [facility]GA ARIA Course Start Date 4 10:37 PRODUCTION TEAM MEMBER [facility] Course End Date 4 13:46 PRODUCTION TEAM MEMBER [facility] Reference Point [id number] [facility] Dosage Given to Date cGy 0 [facility] Plan ID [id number] [facility] Fractions Treated to Date 0 [facility]GA ARIA Planned Total Fractions 5 [facility]GA ARIA Prescribed Dose Per Fraction 520 VEGA ARIA Prescription Dose in cGy 2600 VEGA ARIA Plan Primary Reference Point [id number] [facility] ARIA 12/14/2023 1:49 PM PRODUCTION TEAM MEMBER Provider Not In System RADIATION ONCOLOG Y ORDERABLES Performing Organization Address City/[facility] Co de Phone Number GARY HUTTON na * Initial Rad Onc Treatment Planning CT Simulation (12/07/2023 11:30 AM PRODUCTION TEAM MEMBER) Narrative [facility] - 12/07/2023 11:30 AM PRODUCTION TEAM MEMBER Tania Leon, RTT ? 12/07/2023 12:28 PM Initial Rad Onc Treatment Planning CT Simulation Performed by: Bjorn Mendoza M.D. Authorized by: Bjorn Mendoza M.D. ?? Bjorn Mendoza M.D. RADIATION ONCOLOGY ORDERABLES Performing Organization Address City/[facility] Co de Phone Number GARY HUTTON na * MM surgical specimen LT-Outside Mammogram (11/02/2023 10:35 AM PRODUCTION TEAM MEMBER) Only the most recent of2 resultswithin the time period is included. Narrative [facility] - 11/29/2023 8:40 AM PRODUCTION TEAM MEMBER This order has been created and auto-finalized to support the import of outside images. If available, original interpretation can be found on the Media Tab in Chart Review, in Document Viewer, or as an image in QREADS. If a re-interpretation or overread is required please follow defined workflow. ?? Provider Not In System IMG BI PROCEDURES Performing Organization Address City/[facility] Co de Phone Number [facility] NA * US BREAST NEEDLE LOC LT-Outside US Breast (11/02/2023 8:20 AM PRODUCTION TEAM MEMBER) Narrative [facility] - 11/29/2023 8:40 AM PRODUCTION TEAM MEMBER This order has been created and auto-finalized to support the import of outside images. If available, original interpretation can be found on the Media Tab in Chart Review, in Document Viewer, or as an image in QREADS. If a re-interpretation or overread is required please follow defined workflow. ?? Provider Not In System IMG BI PROCEDURES Performing Organization Address [facility] de Phone Number [facility] NA from Last 3 Months
--- OUTSIDE RECORDS SUMMARY | 2023-12-16 12:41 | XMS_ITS | Referral Summary ---
Author Name Unknown Organization [facility] Address [address] [place] [address] Care Team Providers Care Sample Grader Name Role Phone Unavailable Primary Care Provider Unavailabl e Source Comments Patient records contain information from all sites at [facility]. For routine questions regarding patient records, call [phone] during business hours, M-F 8:00 AM - 5:00 PM Central Time. Record requests for emergency care only can be directed to [phone] at any time.[facility] Encounters Date Type Department Care Team Description 12/16/2023 11:57 AM INDUSTRIAL ELECTRICIAN Hospital Encounter Department of Radiation Oncology in [address] [address] Bjorn Mendoza M.D. 12/15/2023 11:58 AM INDUSTRIAL ELECTRICIAN Hospital Encounter Department of Radiation Oncology in [address] [address] Bjorn Mendoza M.D. 12/07/2023 11:30 AM INDUSTRIAL ELECTRICIAN - 12/07/2023 2:19 PM INDUSTRIAL ELECTRICIAN Hospital Encounter Department of Radiation Oncology in [address] [address] Bjorn Mendoza M.D. 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 Never 02/02/2023 Do you belong to any clubs o r organizations such as temple groups, unions, fraternal or athletic groups, or [...] and heating? Not hard at all 02/02/2023 [facility] - [...] place to sleep or slept in a longterm (including now)? No 02/02/2023 Nutrition Answer Date [...] Comments Blood Pressure 152/67 12/07/2023 10:21 AM INDUSTRIAL ELECTRICIAN Pulse 82 12/07/2023 10:21 AM INDUSTRIAL ELECTRICIAN Temperature 36.1 ??C (97 ??F) 12/07/2023 10:21 AM INDUSTRIAL ELECTRICIAN Respiratory Rate - - Oxygen Saturation - - Inhaled Oxygen Concentration - - Weight 64.2 kg (141 lb 8.6 oz) 12/07/2023 10:21 AM INDUSTRIAL ELECTRICIAN Height - - Body Mass Index - - Plan of Treatment Upcoming Encounters Date Type Department Care Team (Late st Contact Info) Description 12/17/2023 1:15 PM INDUSTRIAL ELECTRICIAN Appointment Department of Radiation Oncology in [place], [place] [address] [place] [phone] Bjorn Mendoza M.D. [address] [place] [address] 12/20/2023 2:15 PM INDUSTRIAL ELECTRICIAN Appointment Department of Radiation Oncology in [place], [place] [address] [place] [address] Bjorn Mendoza M.D. [address] [place] [address] 12/21/2023 12:30 PM INDUSTRIAL ELECTRICIAN Appointment Department of Radiation Oncology in [place], [place] [address] [place] [address] Bjorn Mendoza M.D. [address] [place] [address] 12/21/2023 1:00 PM INDUSTRIAL ELECTRICIAN Appointment Department of Radiation Oncology in [place], [place] [address] [place] [address] Bjorn Mendoza M.D. [address] [place] [address] Medical Devices Implanted Type Area Fast Food Shift Lead Device Identifier Shelf Expiration Date Model / Serial / Lot Hardware E.G. Pins/Screws/Ro ds Hardware e.g. pins/screws/ rods Left: Toes Ocular Lens Ocular Lens Bilatera l: Eye Procedures Procedure Name Priority Date/Time Associated Diagnosis Comments [facility] DAILY TREATMENT INFORMATION Routine 12/16/2023 12:20 PM INDUSTRIAL ELECTRICIAN [facility] Routine 12/15/2023 1:01 PM INDUSTRIAL ELECTRICIAN [facility] COURSE COMPLETE TREATMENT INFORMATION Routine 12/14/2023 1:49 PM INDUSTRIAL ELECTRICIAN INITIAL RAD ONC TREATMENT PLANNING CT SIMULATION Routine 12/07/2023 11:30 AM INDUSTRIAL ELECTRICIAN Malignant Neoplasm Of 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 Course ID [id number] VEGA ARIA Course Start Date 4 09:38 INDUSTRIAL ELECTRICIAN VEGA ARIA First Treatment Date 4 12:56 INDUSTRIAL ELECTRICIAN VEGA ARIA Last Treatment Date 4 12:20 INDUSTRIAL ELECTRICIAN VEGA ARIA Treatment Elapsed Days 1 VEGA ARIA Reference Point [id number] VEGA ARIA Dosage Given to Date cGy 1040 VEGA ARIA Session Dosage Given 520 VEGA ARIA Plan ID [id number] VEGA ARIA Fractions Treated to Date 2 VEGA ARIA Planned Total Fractions 5 VEGA ARIA Prescribed Dose Per Fraction 520 VEGA ARIA Prescription Dose in cGy 2600 VEGA ARIA Plan Primary Reference Point [id number] VEGA ARIA 12/16/2023 12:2 0 PM INDUSTRIAL ELECTRICIAN Provider Not In System RADIATION ONCOLOG Y ORDERABLES GARY HUTTON na * Aria Course Complete Treatment Information (12/14/2023 1:49 PM INDUSTRIAL ELECTRICIAN) Course ID Planning1 x VEGA ARIA Course Start Date 4 10:37 INDUSTRIAL ELECTRICIAN VEGA ARIA Course End Date 4 13:46 INDUSTRIAL ELECTRICIAN VEGA ARIA Reference Point [id number] VEGA ARIA Dosage Given to Date cGy 0 VEGA ARIA Plan ID [id number] VEGA ARIA Fractions Treated to Date 0 VEGA ARIA Planned Total Fractions 5 VEGA ARIA Prescribed Dose Per Fraction 520 VEGA ARIA Prescription Dose in cGy 2600 VEGA ARIA Plan Primary Reference Point [id number] VEGA ARIA 12/14/2023 1:49 PM INDUSTRIAL ELECTRICIAN Provider Not In System RADIATION ONCOLOG Y ORDERABLES GARY HUTTON na * Initial Rad Onc Treatment Planning CT Simulation (12/07/2023 11:30 AM INDUSTRIAL ELECTRICIAN) Narrative VEGA ARIA - 12/07/2023 11:30 AM INDUSTRIAL ELECTRICIAN Tania Leon, RTT ? 12/07/2023 12:28 PM Initial Rad Onc Treatment Planning CT Simulation Performed by: Bjorn Mendoza M.D. Authorized by: Bjorn Mendoza M.D. ?? Bjorn Mendoza M.D. RADIATION ONCOLOGY ORDERABLES Performing Organization Address City/[facility] Co de Phone Number GARY HUTTON na * MM surgical specimen LT-Outside Mammogram (11/02/2023 10:35 AM INDUSTRIAL ELECTRICIAN) Only the most recent of2 resultswithin the time period is included. Narrative IIMS - 11/29/2023 8:40 AM INDUSTRIAL ELECTRICIAN This order has been created and auto-finalized to support the import of outside images. If available, original interpretation can be found on the Media Tab in Chart Review, in Document Viewer, or as an image in QREADS. If a re-interpretation or overread is required please follow defined workflow. ?? Provider Not In System IMG BI PROCEDURES Performing Organization Address [facility] Co de Phone Number IIMS NA * US BREAST NEEDLE LOC LT-Outside US Breast (11/02/2023 8:20 AM INDUSTRIAL ELECTRICIAN) Narrative IIMS - 11/29/2023 8:40 AM INDUSTRIAL ELECTRICIAN This order has been created and auto-finalized to support the import of outside images. If available, original interpretation can be found on the Media Tab in Chart Review, in Document Viewer, or as an image in QREADS. If a re-interpretation or overread is required please follow defined workflow. ?? Provider Not In System IMG BI PROCEDURES Performing Organization Address City/[facility] Co de Phone Number IIMS NA from Last 3 Months
--- OUTSIDE RECORDS SUMMARY | 2023-12-16 12:42 | XMS_ITS | Encounter Summary ---
Author Name Unknown Organization [facility] Address [address] [place] [address] Care Team Providers Care Inspector And Clipper Name Role Phone Unavailable Primary Care Provider [...] week 02/02/2023 How often do you attend [facility] or rastafari services? Never 02/02/2023 Do you belong to any clubs o r organizations such as bahai groups, unions, fraternal [...] and heating? Not hard at all 02/02/2023 [facility]at [facility] - Occupational [...] or slept in a alf (including now)? No 02/02/2023 Nutrition Answer Date [...] st Contact Info) Description 12/17/2023 1:15 PM CASTING MACHINE SERVICE OPERATOR Appointment Department of Radiation Oncology in [place], [place] [address] [place] [address] Bjorn Mendoza M.D. [address] [place] [address] 12/20/2023 2:15 PM CASTING MACHINE SERVICE OPERATOR Appointment Department of Radiation Oncology in [place], [place] [address] [place] [address] Bjorn Mendoza M.D. [address] [place] [address] 12/21/2023 12:30 PM CASTING MACHINE SERVICE OPERATOR Appointment Department of Radiation Oncology in [place], [place] [address] [place] [address] Bjorn Mendoza M.D. [address] [place] [address] 12/21/2023 1:00 PM CASTING MACHINE SERVICE OPERATOR Appointment Department of Radiation Oncology in [place], [place] [address] [place] [address] Bjorn Mendoza M.D. [address] [place] [address] documented as of this encounter Procedures Procedure [...]
--- OUTSIDE RECORDS SUMMARY | 2023-12-16 12:42 | XMS_ITS | Clinical Summary ---
Author Name Unknown Organization [facility] Address [place], [place] [address] Care Team Providers Care Small Business Sales Representative Name Role Phone Mahamed Kate MD Primary [...] Type Department Care Team Description 11/05/2023 Telephone [facility] [address] [place] [address] Paramjit Barboza MS, CGC Results (Cancer genetic testing) 11/02/2023 Lab Requisition [facility] [phone] Tania Bagley MD 10/21/2023 1:00 PM SHUTTLE FINAL INSPECTOR Orders Only [facility] [address] [place] [address] Lab, [place] [facility] 10/21/2023 Travel 10/18/2023 1:00 PM SHUTTLE FINAL INSPECTOR Telemedicine [facility] [address] [place] [address] Paramjit Barboza, MS, CGC Counseling (Cancer counseling) 10/18/2023 Orders Only [facility] [address] [place] [address] Paramjit Barboza, MS, CGC <No scans attached> 10/18/2023 Travel 09/21/2023 Transcribe Orders [facility] [address] [place] [address] Adelia Eldridge MD from Last 3 Months Social History [...] Comments Blood Pressure 128/78 12/13/2017 10:16 AM SHUTTLE FINAL INSPECTOR tower Pulse 85 12/13/2017 10:16 AM SHUTTLE FINAL INSPECTOR Temperature 36.6 ??C (97.8 ??F) 12/13/2017 1 0:16 AM SHUTTLE FINAL INSPECTOR Respiratory Rate - - Oxygen Saturation 96% 12/13/2017 10: 16 AM SHUTTLE FINAL INSPECTOR Inhaled Oxygen Concentration - - Weight 76.1 kg (167 lb 12.8 oz) 018 10:16 AM SHUTTLE FINAL INSPECTOR with shoes Height 157.2 cm (5' 1.89) 11/29/2017 1 1:35 AM SHUTTLE FINAL INSPECTOR Body Mass Index 30.8 11/29/2017 11:35 AM SHUTTLE FINAL INSPECTOR Plan of Treatment Health Maintenance Due Date [...] for age 65+ 07/09/2023 COVID-19 vaccine series ( season) 2023 08/20/2023, 03/30/2023, 08/05/2022, Additional history exists Procedures Procedure Name Priority Date/Time Associated Diagnosis Comments LAB TRACKING EVENT Routine 11/02/2023 10 :16 AM SHUTTLE FINAL INSPECTOR PATH BREAST CORE BIOPSY Routine 11/02/2023 10:16 AM SHUTTLE FINAL INSPECTOR from Last 3 Months Results * LAB TRACKING EVENT (11/02/2023 10:16 AM SHUTTLE FINAL INSPECTOR) Other (Other) Client Collect / Unknown 11/02/2023 10:16 AM SHUTTLE FINAL INSPECTOR 11/02/2023 8:48 PM SHUTTLE FINAL INSPECTOR Tania Bagley MD LAB BILL ONLY [facility] [address] [place] [id number], * PATH BREAST CORE BIOPSY (11/02/2023 10:16 AM SHUTTLE FINAL INSPECTOR) Case Report Pathology Report ?Case: [id number] ? Authorizing Provider: ??Tania Bagley MD ??Collected: ? 11/02/2023 1016 ? Ordering Location: ? [facility] ?Received: ?11/03/2023 0808 ? Pathologist: ? Nydia Romero MD ? Specimens: ?? A) - Left Breast Lump ? B) - Left Axillary Lymph Node ? 11/29/2023 4:49 PM SHUTTLE FINAL INSPECTOR [facility] LABORATORY-C ENTRAL LABORATORY Amendment 11/29/2023-The tissue was submitted to [facility] for Oncotype DX for Breast Cancer testing. ??Please see attached scanned report. 11/29/2023 4:49 PM SHUTTLE FINAL INSPECTOR [facility] LABORATORY-C ENTRAL LABORATORY Final Diagnosis A) LEFT BREAST, ORIENTED PARTIAL MASTECTOMY WITH MARGIN ASSESSMENT: 1. 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 Size: 7 mm ?b. Core biopsy site associated with carcinoma 2. Ductal carcinoma in situ (DCIS), nuclear grade 2, cribriform and solid types 3. Margins: ?a. All margins negative for invasive carcinoma, > 10 mm to all margins ?b. All margins negative for DCIS, > 10 mm to all margins 4. Breast Ancillary Testing: Performed on prior case ([id number]) ?a. Hormone Receptors: ?Estrogen receptor: Positive (91-100%, strong intensity) ?Progesterone receptor: Positive (21-30%, moderate intensity) ?b. HER2 by IHC: Negative FISH ?c. Ki67: 8% 5. Background breast tissue with ?a. Proliferative fibrocystic changes ?b. Atypical lobular hyperplasia (ALH) ?c. Focal lobular carcinoma in situ (LCIS), classic type B) LEFT AXILLARY SENTINEL LYMPH NODE, EXCISION: 1. One lymph node, negative for metastatic carcinoma (0/1) 11/29/2023 4:49 PM SHUTTLE FINAL INSPECTOR [facility] LABORATORY-C ENTRAL LABORATORY Amendment electronically signed by Nydia Romero MD on 11/29/2023 at 4:49 PM Comment Please synoptic report for additional details. 11/29/2023 4:49 PM SHUTTLE FINAL INSPECTOR [facility] LABORATORY-C ENTRAL LABORATORY Clinical Information Recent left breast core biopsy confirming invasive ductal carcinoma (see [id number]). 11/29/2023 4:49 PM SHUTTLE FINAL INSPECTOR [facility]-C ENTRAL LABORATORY Gross Description A) Received fresh, labeled with the patient's name and left lumpectomy, is a 26.9 gram,??6 (ML) x 5.3 (SI) x 2 (AP)??cm wirelocalized breast lumpectomy specimen.??The clip is identified within the specimen.?The specimen is inked by the surgical staff in the OR as follows: Anterior--[place] Posterior--Black Superior--Blue Inferior--Red Medial--Green Lateral--Yellow The specimen is serially sectioned from lateral to medial into 10 slices revealing a??0.7 (AP) x 0.6 (SI) x 0.6 (ML)??cm nodule within slice(s) 6-7 with the following characteristics: Biopsy site change: Present in slices 6-8 Biopsy clip: Is grossly identified Closest margin: Anterior Distance to margins: Anterior: 1 cm Posterior: 1.3 cm Inferior: 1.8 cm Superior: 1.1 cm Medial: 1.3 cm Lateral: 4 cm The remaining cut surfaces consist of approximately 60% adipose tissue and 40% fibrous tissue. No other lesions are identified. Cell Room Supervisor sections: 1. ??Slice 1 lateral margin 2. ??Slice 2 inferior half 3. ??Slice 3 superior half 4. ??Slice 4 central third Composite slice 5 5-7. ??Superior to inferior thirds Composite slice 6 8. ??Superior/anter ior with nodule 9. ??Anterior/infer ior 10. ??Inferior/poste rior 11. ??Posterior/supe rior Composite slice 7 12. ??Superior/anter ior with nodule 13. ??Anterior/infer ior 14. ??Inferior/poste rior 15. ??Posterior/supe rior Composite slice 8 16. ??Anterior 17. ??Inferior/poste rior 18. ??Posterior/supe rior 19. ??Slice 9 inferior half 20. ??Slice 10 medial margin An annotated photograph including sections taken is uploaded to the case. Time removed from patient: 1030 Time placed in formalin: 1045 Date removed and placed in formalin: 11/02/2023 Cold ischemic time < 60 minutes. The specimen was fixed in formalin for a minimum of 6 hours and not longer than 72 hours. B) Received fresh labeled with the patient's name and left axillary sentinel lymph node, is a 1.2 x 0.9 x 0.8 cm rubbery lymph node sectioned into 4 slices to reveal yellow fatty cut surfaces and previously injected blue dye. ??No lesion is seen. ??Entirely submitted in 1 cassette. Time removed from patient: 1031 Time placed in formalin: 103 Date removed and placed in formalin: 11/02/2023 Cold ischemic time < 60 minutes. The specimen was fixed in formalin for a minimum of 6 hours and not longer than 72 hours. DPL 11/03/2023 11/29/2023 4:49 PM [facility] LABORATORY-C ENTRAL LABORATORY Intraoperative Consultation A) LEFT BREAST, LUMPECTOMY, INTRAOPERATIVE CONSULTATION (Gross Evaluation Only): 1. Tumor grossly identified 2. Biopsy site change is identified grossly 3. Margins are grossly negative Brandon Thacker MD, 11/02/2023 10:45 AM ??Intraoperative consultation, which may have included frozen section preparation, gross specimen examination, and/or cytology touch imprints/smears, was performed by a pathologist during the surgical procedure. ??This testing was performed at: [address] [address] 11/29/2023 4:49 PM [facility] [employer] [facility] ENTRAL LABORATORY Microscopic Description The final diagnosis is based on microscopic examination of appropriate sections of all specimens. 11/29/2023 4:49 PM [facility] [employer] [facility] ENTRAL LABORATORY SYNOPTIC REPORTING INVASIVE CARCINOMA OF THE BREAST: Resection INVASIVE CARCINOMA OF THE BREAST: RESECTION - All Specimens 8th Edition - Protocol posted: 04/28/2023 SPECIMEN ?? Procedure: ?Excision (less than total mastectomy) ?? Specimen Laterality: ?Left TUMOR ?? Tumor Site: ?Clock position ?? : ?1 o'clock Tumor Site: ?Distance from nipple (Centimeters): 7 cm Histologic Type: ?Invasive carcinoma of no special type (ductal) Histologic Grade (Kilkenny Histologic Score): ? Glandular (Acinar) / Tubular Differentiation: ?Score 3 ?? Nuclear Pleomorphism: ?Score 2 ?? Mitotic Rate: ?Score 1 ?? Overall Grade: ?Grade 2 (scores of 6 or 7) Tumor Size: ?Greatest dimension of largest invasive focus (Millimeters): 7 mm Ductal Carcinoma In Situ (DCIS): ?Present ?? : ?Negative for extensive intraductal component (EIC) ?? Architectural Patterns: ?Cribriform ?? Architectural Patterns: ?Solid ?? Nuclear Grade: ?Grade II (intermediate) ?? Necrosis: ?Present, focal (small foci or single cell necrosis) Lobular Carcinoma In Situ (LCIS): ?Present Lymphatic and / or Vascular Invasion: ?Not identified Dermal Lymphatic and / or Vascular Invasion: ?No skin present Microcalcificati ons: ?Present in DCIS Treatment Effect in the Breast: ?No known presurgical therapy MARGINS Margin Status for Invasive Carcinoma: ?All margins negative for invasive carcinoma ?? Distance from Invasive Carcinoma to Closest Margin: ?Greater than: 10 mm ?? Closest Margin(s) to Invasive Carcinoma: ?All margins negative by >10 mm Margin Status for DCIS: ?All margins negative for DCIS ?? Distance from DCIS to Closest Margin: ?Greater than: 10 mm ?? Closest Margin(s) to DCIS: ?All margins negative by >10 mm REGIONAL LYMPH NODES Regional Lymph Node Status: ? : ?All regional lymph nodes negative for tumor ?? Total Number of Lymph Nodes Examined (sentinel and non-sentinel): ?1 ?? Number of [place] Nodes Examined: ?1 pTNM CLASSIFICATION (AJCC 8th Edition) ?? Reporting of pT, pN, and (when applicable) pM categories is based on information available to the pathologist at the time the report is issued. As per the AJCC (Chapter 1, 8th Ed.) it is the managing physician? s responsibility to establish the final pathologic stage based upon all pertinent information, including but potentially not limited to this pathology report. pT Category: ?pT1b pN Category: ?pN0 N Suffix: ?(sn) Comment(s): ?Block for potential future ancillary testing: A12 11/29/2023 4:49 PM SHUTTLE FINAL INSPECTOR [facility] Additional Information Interpreted at [facility] [employer] [facility] Laboratory - [address], [place] [address] 11/29/2023 4:49 PM SHUTTLE FINAL INSPECTOR [facility] LABORAT[facility]-C ENTRAL LABORATORY Other (Left Breast Lump) 11/02/2023 10:16 AM SHUTTLE FINAL INSPECTOR 11/03/2023 8:08 AM SHUTTLE FINAL INSPECTOR Specimen (specimen) (Left Axillary Lymph Node) 11/02/2023 10:31 AM SHUTTLE FINAL INSPECTOR 11/03/2023 8:09 AM SHUTTLE FINAL INSPECTOR Tania Bagley MD PATHOLOGY/[facility]-CENTRAL LABORATORY [address] [place] [address], [place] from Last 3 Months Care Teams Small Business Sales Representative Relationship Specialty Start Date End Date Mahamed Kate MD [address] [place] [address] PCP - General 03/05/16
--- OUTSIDE RECORDS SUMMARY | 2023-12-16 12:42 | XMS_ITS | Referral Summary ---
Author Name Unknown Organization [facility] Address [address] [place] [id number] Care Team Providers Care Nuclear Engineering Technician Name Role Phone Mahamed Kate MD Primary [...] 0 Active fluticasone (FLONASE) 50 MCG/ACT spray Dickinson 2 sprays into both nostrils daily 0 [...] of Treatment Not on file Care Teams Nuclear Engineering Technician Relationship Specialty Start Date End Date Mahamed Kate MD [facility] [address] [place] [address] PCP - General Emergency Medicine 10/9/18
--- OUTSIDE RECORDS SUMMARY | 2023-12-16 12:42 | XMS_ITS | Encounter Summary ---
Author Name Unknown Organization [facility] Address [address] [place] [address] Care Team Providers Care Literacy Teacher Name Role Phone Unavailable Primary Care Provider Unavailabl e Reason for Referral * Specialty Diagnoses / Procedures Referred By Contac t Referred To Contact Darya Benedict APRN, C.N.P., D.N.P. 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 200 [place] [address] [facility] Region Referral ID Status Reason Start Date Expiration Date Visits Re quested Visits Authorized [id number] Closed 11/29/2023 11/28/2024 1 1 ENT GRINDER * Specialty Diagnoses / Procedures Referred By Nevin nina Referred To Contact Darya Benedict APRN, C.N.PJuan Diego, D.N.P. [address] [place] [phone] [facility] Region Referral ID Status Reason Start Date Expiration Date Visits Re quested Visits Authorized Scheduling Instructions Not needed if patient has 10 or fewer treatments ENT GRINDER Encounter Details Date Type Department Care Team (Late st Contact Info) Description 11/29/2023 Orders Only Department of Radiation Oncology in [place], [place] [address] [place] [phone] Darya Benedict APRN, C.N.P., D.N.P. [address] [place] [phone] Malignant Neoplasm Of Breast Upper Outer Quadrant [...] How often do you attend chur or yazidi services? Never 02/02/2023 Do you belong to any clubs o r organizations such as baptism groups, unions, fraternal or athletic groups, or [...] and heating? Not hard at all 02/02/2023 [facility] [place] of Occupat ional Health - Occupational Stress [...] st Contact Info) Description 12/17/2023 1:15 PM PIGMENT GRINDER Appointment Department of Radiation Oncology in [address] [phone] Bjorn Mendoza M.D. [address] [place] [phone] 12/20/2023 2:15 PM PIGMENT GRINDER Appointment Department of Radiation Oncology in [address] [phone] Bjorn Mendoza M.D. [address] [place] [phone] 12/21/2023 12:30 PM PIGMENT GRINDER Appointment Department of Radiation Oncology in [address] [phone] Bjorn Mendoza M.D. [address] [place] [phone] 12/21/2023 1:00 PM PIGMENT GRINDER Appointment Department of Radiation Oncology in [address] [phone] Bjorn Mendoza M.D. 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 12/07/2023 12:28 PM Initial Rad Onc Treatment Planning CT Simulation Performed by: Bjorn Mendoza M.D. Authorized by: Bjorn Mendoza M.D. ?? Bjorn Mendoza M.D. 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
--- OUTSIDE RECORDS SUMMARY | 2023-12-16 12:42 | XMS_ITS | Encounter Summary ---
Author Name Unknown Organization [facility] Address [address] [place] [address] Care Team Providers Care Senior Executive Compensation Analyst Name Role Phone Unavailable Primary Care Provider Unavailabl e Reason for Visit * Reason Comments Skin Check * Appointment Request (Routine) - Closed Specialty Diagnoses / Procedures Referred By Nevin nina Referred To Contact Dermatology Referral ID Status Reason Start Date Expiration Date Visits Re quested Visits Authorized [id number] Closed 11/13/2022 11/13/2023 1 1 Encounter Details Date Type Department Care Team (Late st Contact Info) Description 02/09/2023 3:30 PM CDT Office Visit Department of Dermatology in [address] [phone] Zenaida Montgomery M.D. [address] [place] [phone] Nevi Multiple (Primary Dx); Tumor Skin Uncertain [...] often do you attend chur ch or adventism services? Never 02/02/2023 Do you belong to any clubs o r organizations such as worship groups, unions, fraternal or athletic groups, or [...] and heating? Not hard at all 02/02/2023 [facility] [place] of Occupat ional Health - Occupational Stress [...] although we are booked out or in [facility] with another provider if she wishes she [...] extremities. My scribe (Rossana) served as a cuff turner machine operator for the entirety of the exam. Examination [...] the patient by letter. Patient given pamphlet [id number]. Discussed the risks, benefits, alternatives, and the [...] Right mid paraspinal back: Benign lesion letter [place] patient. Please send letter documented in this encounter Plan of Treatment Upcoming Encounters Date Type Department Care Team (Late st Contact Info) Description 12/17/2023 1:15 PM AERIAL CROP DUSTER Appointment Department of Radiation Oncology in [address] [phone] Bjorn Mendoza M.D. 200 [place] [phone] 12/20/2023 2:15 PM AERIAL CROP DUSTER Appointment Department of Radiation Oncology in [place] [address] [place] [phone] Bjorn Mendoza M.D. 200 [place] [phone] 12/21/2023 12:30 PM AERIAL CROP DUSTER Appointment Department of Radiation Oncology in [address] [phone] Bjorn Mendoza M.D. [address] [place] [phone] 12/21/2023 1:00 PM AERIAL CROP DUSTER Appointment Department of Radiation Oncology in [place], [place] [address] [place] [phone] Bjorn Mendoza M.D. [address] [place] [address] documented as of this encounter Procedures Procedure Name Priority Date/Time Associated Diagnosis Comments DERMATOPATHOLOGY Routine 02/09/2023 4:27 PM CDT Tumor Skin Uncertain Behavior documented in this encounter Results * Dermatopathology (02/09/2023 4:27 PM CDT) 02/11/2023 1:41 PM CDT ECLR Report Electronically Signed By Paramjit Aranda M.D. I verify that I have examined [...] Zenaida Montgomery M.D. LAB PATH DERM ORDERA [facility] [address] [place] [id number], [facility] ECLR [facility] [place] [address] documented in this encounter Visit Diagnoses Diagnosis Nevi Multiple- Primary Tumor Skin Uncertain Behavior Keratosis Seborrheic documented in this encounter
--- OUTSIDE RECORDS SUMMARY | 2023-12-16 12:42 | XMS_ITS | Clinical Summary ---
Author Name Unknown Organization [facility] Address [address] [place] [address] Care Team Providers Care Deaf And Hard Of Hearing Teacher Name Role Phone Mahamed Kate MD Primary [...] 0 Active fluticasone (FLONASE) 50 MCG/ACT spray [place] 2 sprays into both nostrils daily 0 [...] age to complete this topic Care Teams Deaf And Hard Of Hearing Teacher Relationship Specialty Start Date End Date Mahamed Kate MD [facility] [address] [place] [address] PCP - General Emergency Medicine 08/16/18
--- NOTE | 2023-12-16 13:00 | CRLHL7_ITS ---
For Patients: As a result of the Century Cures Act, medical imaging exams and procedure reports are released immediately into your electronic medical record. You may view this report before your referring provider. If you have questions, please contact your health care provider. DXA BONE MINERAL DENSITY STUDY Current height (in): 61.0. Weight (lb): 139.0. Menopause age: 57. Ethnicity: White. Reason for exam: Menopausal and female climacteric states. Breast cancer. 1. Have you had a previous hip or vertebral fracture? No. 2. Have you had any fractures during your adult life which did not result from significant trauma (e.g., auto accident)? No. 3. Did either of your parents have a hip fracture? No. 4. Do you smoke? No. 5. Have you ever taken Glucocorticoids? No. 6. Do you have rheumatoid arthritis? No. 7. Do you have secondary osteoporosis? No. 8. Do you drink 3 or more alcoholic drinks per day? No. 9. Are you being treated for osteoporosis? No. 10. Have you ever taken any of the following medications: Actonel, Evista, Fosamax, Miacalcin, Reclast, Boniva, Forteo, HRT (i.e. estrogen/hormone therapy), Protelos, Prolia, Vitamin D, Calcium, other ??? please specify. ANSWER: Yes, vitamin D, HRT. 11. Do you have any of the following medical conditions: Anorexia or bulimia, asthma or emphysema, end stage renal disease, hyperparathyroidism, any seizure disorders, cancer, inflammatory bowel diseases, hysterectomy, other ??? please specify. ANSWER: Yes, asthma or emphysema, cancer. 12. What was your maximum height (inches)? 64. 13. Do you perform weight bearing exercise regularly? No. 14. Do you regularly consume dairy products? Yes. 15. Do you drink caffeinated beverages? Yes. 16. At what age did your period start? 13. 17. Are you premenopausal? No. 18. How many full-term pregnancies have you had? 1. 19. Have you ever missed your period for more than 6 months in a row (not including or menopause)? No. TECHNIQUE: Bone mineral density study was performed using the [employer]. FINDINGS: The results of the study expressed as bone mineral density (BMD) are as follows: Lumbar spine L1 to L2: BMD: 0.916 g/cm2. T-score: -0.6. Z-score: 1.8 Neck Left: BMD: 0.689 g/cm2. T-score: -1.4. Z-score: 0.7 Right: BMD: 0.680 g/cm2. T-score: -1.5. Z-score: 0.6 Total Left: BMD: 0.940 g/cm2. T-score: -0.0. Z-score: 1.9 Right: BMD: 0.938 g/cm2. T-score: -0.0. Z-score: 1.8 IMPRESSION: Osteopenia. *Comparison exams done prior to 04/2020 were performed on different unit, [facility]. COMPARISON: Compared with scan of 08/14/2021, the bone mineral density has decreased by 5.5 percent at the spine and decreased by 4.1 percent at the hip. FRAX 10-year Fracture Risk Major Osteoporotic Fracture: 12 percent Hip Fracture: 2.6 percent Reported Risk Factors: [place] () Neck BMD = 0.680, BMI = 26.3 Basil Walker M.D. Diagnostic Radiologist [email or web address] Transcribed: 3:29 pm DW/Dictated by: Basil Walker MD @ 12/16/2023 1:31:00 PM (Electronically Signed)
== END 2023-12-16 12:40 | disposition home or self-care (01) ==
LOC: RAD 12:40
PROVIDERS: PCP Internal Medicine; Visit Provider Internal Medicine Hematology & Oncology
DX: N95.1 Menopausal and female climacteric states (principal); M85.89 Other specified disorders of bone density and structure, multiple sites
CPT/HCPCS: 77080

== ENCOUNTER 2024-04-06 12:50 | Outpatient (RCR) | payer MEDICARE, SELFPAY ==
--- NOTE | 2023-11-29 14:14 | ONC.NURNOTE ---
Oncotype results reviewed with Dr. Diaz. Patient informed of results. We will plan to keep her follow up with Dr. Diaz on 12/06 to review the report in detail. Copy of the report was faxed to [facility].
--- NOTE | 2024-02-07 11:30 | ONC.NURNOTE ---
Call to patient to see how she is tolerating her anastrozole. Patient denies side effects, questions or concerns.
== END 2024-05-13 23:59 | disposition home or self-care (01) ==
LOC: CCIC 12:50
PROVIDERS: PCP Internal Medicine; Visit Provider Physician Assistant
DX: C50.911 Malignant neoplasm of unspecified site of right female breast (principal); Z17.0 Estrogen receptor positive status [ER+]; Z79.811 Long term (current) use of aromatase inhibitors; M85.80 Other specified disorders of bone density and structure, unspecified site; K59.00 Constipation, unspecified
CPT/HCPCS: 99202; 99205; 99214; G0463

== ENCOUNTER 2024-04-13 10:53 | Outpatient (CLI) | payer MEDICARE, SELFPAY ==
--- OUTSIDE RECORDS SUMMARY | 2024-04-17 18:26 | XMS_ITS ---
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 Past Plans No past plan information found. Radiation Treatments * Plan Last Treated On Elapsed Days Fractions Treated Prescribed Fraction Dose Prescribed Total Dose [id number] 12/21/2023 6 5 of 5 520 cGy 2,600 cGy Reference Point Last Treated On Elapsed Days Session Dose Total Dose [id number] 12/21/2023 6 520 cGy 2,600 cGy
--- OUTSIDE RECORDS SUMMARY | 2024-04-17 18:26 | XMS_ITS | Referral Summary ---
Author Organization [facility] Address [address] [place] [address] Care Team Providers Care Algologist Name Role Phone Unavailable Primary Care Provider Unavailabl e Source Comments Patient records contain information from all sites at [facility]. For routine questions regarding patient records, call [phone] during business hours, M-F 8:00 AM - 5:00 PM Central Time. Record requests for emergency care only can be directed to [phone] at any time.[facility] Allergies Active Allergy Reactions Criticality Noted Date [...] HFA) 90 mcg/actuation inhaler Inhale 2 puffs. Active cyanocobalamin (VITAMIN B12) 500 mcg tablet Take 1 tablet by mouth. Active fluticasone (FLONASE) 50 mcg/actuation nasal spray Administer 1-2 sprays into affected nostril(s). 11/29/2017 Active gabapentin (NEURONTIN) 100 mg capsule 03/31/2018 Active glimepiride (AMARYL) 1 mg tablet 05/10/2018 Active metFORMIN XR (GLUCOPHAGE-XR) 500 mg 24 hr tablet Take 1,000 mg by mouth. 11/29/2017 Active montelukast (SINGULAIR) 10 mg tablet 05/02/2018 Active multivitamin tablet Take 1 tablet by mouth. Active pseudoephedrine (SUDAFED) 30 mg tablet Take 1 tablet by mouth at bedtime. 11/29/2017 Active Advair HFA 230-21 mcg/actuation inhaler Inhale 1 puff 2 (two) times a day. 11/28/2021 Active levocetirizine (Xyzal) 5 mg tablet Take 5 mg by mouth every evening. Active Ozempic 0.25 mg or 0.5 mg (2 mg/3 mL) injection INJECT 0.5 MG (0.736 ML) SUBCUTANEOUSLY EVERY WEEK FOR DIABETES; FOR 4 WEEKS Active mometasone (ELOCON) 0.1 % cream Apply 1 Application topically 2 (two) times a day. Apply to left breast twice daily starting on first day of radiation treatment. Continue for 10 days following radiation treatment. 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 Never 02/02/2023 Do you belong to any clubs o r organizations such as mormon groups, unions, fraternal or athletic groups, or [...] and heating? Not hard at all 02/02/2023 [facility] of Occupat ional Health - Occupational Stress [...] slept in a care home (including now)? No 02/02/2023 Nutrition Answer [...] Comments Blood Pressure 152/67 12/07/2023 10:21 AM TOEING STOCKINGS Pulse 82 12/07/2023 10:21 AM TOEING STOCKINGS Temperature 36.1 ??C (97 ??F) 12/21/2023 12:53 PM TOEING STOCKINGS Respiratory Rate - - Oxygen Saturation - - Inhaled Oxygen Concentration - - Weight 64.5 kg (142 lb 3.2 oz) 12/21/2023 12:53 PM TOEING STOCKINGS Height - - Body Mass Index - - Plan of Treatment Not on file Medical Devices Implanted Type Area Fall Intern Device Identifier Shelf Expiration Date Model / Serial / Lot Hardware E.G. Pins/Screws/Ro ds Hardware e.g. pins/screws/ rods Left: Toes Ocular Lens Ocular Lens Bilatera l: Eye Procedures Procedure Name Priority Date/Time Associated Diagnosis Comments OUTSIDE MG MAMMOGRAM Routine 11/02/2023 10:35 AM TOEING STOCKINGS from Last 3 Months or Most Recently Relevant to Health Maintenance Results * MM surgical specimen LT-Outside Mammogram (11/02/2023 10:35 AM TOEING STOCKINGS) Narrative [facility]IM[facility] - 11/29/2023 8:40 AM TOEING STOCKINGS This order has been created and auto-finalized to support the import of outside images. If available, original interpretation can be found on the Media Tab in Chart Review, in Document Viewer, or as an image in QREADS. If a re-interpretation or overread is required please follow defined workflow. ?? Provider Not In System IMG BI PROCEDURES [facility] NA from Last 3 Months or Most Recently Relevant to Health Maintenance
--- OUTSIDE RECORDS SUMMARY | 2024-04-17 18:26 | XMS_ITS | Clinical Summary ---
Author Organization [employer] Address [place], [place] [address] Care Team Providers Care Director Of Campus Recreation Name Role Phone Mahamed Kate MD Primary [...] Date End Date Status ASCENSIA CONTOUR strip 04/03/2016 Active cetirizine (ZYRTEC) 10 mg tablet Take 1 tablet by mouth once daily. 0 04/14/2016 Active gabapentin (NEURONTIN) 100 mg capsuleIndications: Low back pain radiating to left leg Take 2 capsules by mouth at bedtime. 180 capsule 1 04/14/2016 Active albuterol HFA 90 mcg/actuation inhaler Inhale 2 Puffs by mouth every 4 hours if needed. Active beclomethasone, 80 mcg each actuation, (QVAR) 80 mcg/actuation inhaler Inhale 1-2 Puffs by mouth 2 times daily. 06/07/2017 Active fluticasone (50 mcg per actuation) nasal solution (FLONASE) Inhale 1-2 Sprays into both nostrils once daily. 1 Bottle 11/29/2017 Active ipratropium (ATROVENT NASAL) 0.03 % nasal spray Inhale 2 Sprays in the nostril(s) 3 times daily. 01/18/2017 Active montelukast (SINGULAIR) 10 mg tablet Take 1 tablet by mouth at bedtime. 0 11/29/2017 Active pseudoephedrine (SUDAFED) 30 mg tablet Take 1 tablet by mouth at bedtime. 0 11/29/2017 Active cyanocobalamin (VITAMIN B12) 500 mcg tablet Take 1 tablet by mouth once daily. Active glimepiride (AMARYL) 1 mg tablet Take 2 mg by mouth once daily with a meal. 11/04/2017 Active metFORMIN (GLUCOPHAGE XR) 500 mg Extended-Release tablet Take 1 tablet by mouth once daily with evening meal. 0 11/29/2017 Active multivitamin (MVI) tablet Take 1 tablet by mouth once daily. Active Cyanocobalamin-Meth ylcobalamin 600-[address] [...] Comments Blood Pressure 128/78 12/13/2017 10:16 AM MASH FILTER CLOTH CHANGER tower Pulse 85 12/13/2017 10:16 AM MASH FILTER CLOTH CHANGER Temperature 36.6 ??C (97.8 ??F) 12/13/2017 1 0:16 AM MASH FILTER CLOTH CHANGER Respiratory Rate - - Oxygen Saturation 96% 12/13/2017 10: 16 AM MASH FILTER CLOTH CHANGER Inhaled Oxygen Concentration - - Weight 76.1 kg (167 lb 12.8 oz) 018 10:16 AM MASH FILTER CLOTH CHANGER with shoes Height 157.2 cm (5' 1.89) 11/29/2017 1 1:35 AM MASH FILTER CLOTH CHANGER Body Mass Index 30.8 11/29/2017 11:35 AM MASH FILTER CLOTH CHANGER Plan of Treatment Health Maintenance Due Date Last Done Comments Tdap 1958 Depression screening for age 12+ 1959 Hepatitis C screening for ag e 18-79 1965 Tetanus booster 1967 Zoster (shingles) series for age 50+ (1 of 2) 1997 DEXA/DXA scan for age 65+ 2012 Medicare Wellness for age 65+ 2012 Pneumococcal series for age 65+ (1 of 1 - PCV) 2012 BMI (ht and wt on same day) for age 18+ 11/29/2018 11/29/2017 COVID-19 vaccine series (2022-24 season) 2023 08/20/2023, 03/30/2023, 08/05/2022, Additional history exists Influenza for age 65+ 07/09/2024 Care Teams Director Of Campus Recreation Relationship Specialty Start Date End Date Mahamed Kate MD [address] [place] [address] PCP - General 03/05/16
--- OUTSIDE RECORDS SUMMARY | 2024-04-17 18:26 | XMS_ITS | Referral Summary ---
Author Organization [facility] Address [address] [place] [address] Care Team Providers Care Market Developer Name Role Phone Mahamed Kate MD Primary [...] shortness of breath / dyspnea or wheezing Active albuterol (2.5 MG/3ML) 0.083% neb solution Take 2.5 mg by nebulization every 4 hours as needed for shortness of breath / dyspnea or wheezing Active mometasone (ASMANEX) 220 MCG/INH Inhaler Inhale 1-2 puffs into the lungs daily Active DiphenhydrAMINE HCl (BENADRYL PO) Take 25-50 mg by mouth At Bedtime Active fluticasone (FLONASE) 50 MCG/ACT spray [place] 2 sprays into both nostrils daily Active GABAPENTIN PO Take 100-200 mg by mouth daily Active GLIMEPIRIDE PO Take 1 mg by mouth 2 times daily (Takes 2 x 1mg tablet = 2mg dose) Active METFORMIN HCL ER PO Take 500 mg by mouth 2 times daily (Takes 2 x 500mg tablet = 1000mg dose) Active Montelukast Sodium (SINGULAIR PO) Take 10 mg by mouth At Bedtime Active Pseudoephedrine HCl (SUDAFED PO) Take 30 mg by mouth At Bedtime Active Acetaminophen (TYLENOL PO) Take 325-650 mg by mouth At Bedtime (Takes 2 x 325mg tablet = 650mg dose) Active Cyanocobalamin (B-12 PO) Take 500 mcg by mouth daily Active MAGNESIUM GLYCINATE PLUS PO Take 400 mg by mouth daily Active multivitamin, therapeutic (THERA-VIT) TABS tablet Take 1 tablet by mouth daily Active HYDROcodone-acetami nophen (NORCO) 5-325 MG per tabletIndications:P tosis of both eyelids Take 1 tablet by mouth every 6 hours as needed for severe pain 10 tablet 08/23/2018 Active erythromycin (ROMYCIN) ophthalmic ointmentIndications :Ptosis [...] of Treatment Not on file Care Teams Market Developer Relationship Specialty Start Date End Date Mahamed Kate MD [facility] [address] [place] [address] PCP - General Emergency Medicine 08/16/18
--- OUTSIDE RECORDS SUMMARY | 2024-04-17 18:26 | XMS_ITS | Clinical Summary ---
Author Organization [facility] Address [address] [place] [address] Care Team Providers Care Rn Perinatal Name Role Phone Mahamed Kate MD Primary [...] Bedtime Active fluticasone (FLONASE) 50 MCG/ACT spray [place] 2 sprays into both nostrils daily Active [...] of Treatment Not on file Care Teams Rn Perinatal Relationship Specialty Start Date End Date Mahamed Kate MD [facility] [address] [place] [address] PCP - General Emergency Medicine 08/16/18
--- OUTSIDE RECORDS SUMMARY | 2024-04-17 18:26 | XMS_ITS | Clinical Summary ---
Author Organization [facility] Address [address] [place] [address] Care Team Providers Care Client Relation Specialist Name Role Phone Unavailable Primary Care Provider Unavailabl e Source Comments Patient records contain information from all sites at [facility]. For routine questions regarding patient records, call [phone] during business hours, M-F 8:00 AM - 5:00 PM Central Time. Record requests for emergency care only can be directed to [phone] at any time.[facility] Allergies Active Allergy Reactions Criticality Noted [...] from 11/02/2023:Stage IA(pT1b, pN0, cM0, G2, ER+, PA+, HER2-, Oncotype DX score: 22) - Unsigned Family History Medical History Relation Name Comments [...] Sister Mile Maternal Grandfather Og Mother Shannon Barros Social History Tobacco Use Types Packs/Day Years [...] How often do you attend chur or congregation services? Never 02/02/2023 Do you belong to any clubs o r organizations such as rastafari groups, unions, fraternal [...] and heating? Not hard at all 02/02/2023 [facility] [place] of Occupat ional Health - Occupational Stress [...] or slept in a jail (including now)? No 02/02/2023 Nutrition Answer Date [...] Comments Blood Pressure 152/67 12/07/2023 10:21 AM LAYOUT ARTIST Pulse 82 12/07/2023 10:21 AM LAYOUT ARTIST Temperature 36.1 ??C (97 ??F) 12/21/2023 12:53 PM LAYOUT ARTIST Respiratory Rate - - Oxygen Saturation - - Inhaled Oxygen Concentration - - Weight 64.5 kg (142 lb 3.2 oz) 12/21/2023 12:53 PM LAYOUT ARTIST Height - - Body Mass Index - - Plan of Treatment Health Maintenance Due Date Last Done Comments Hepatitis C Screening 1945 COVID-19 Vaccine (2022- season) 2023 08/20/2023, 03/30/2023, 08/05/2022, Additional history exists Depression Screening (Annual PHQ-2) 11/08/2023 Fall Risk Screen (Annual) 11/08/2023 DTaP,Tdap,and Td Vaccines (3 - Td or Tdap) 08/07/2031 08/07/2021, 06/07/2007 Pneumococcal vaccine (65+ years) Completed 06/16/2018, 06/07/2014, 12/05/2008, Additional history exists Zoster Vaccines Completed 07/25/2020, 09/08, 05/25/2019, Additional history exists Influenza Vaccine Completed 09/10/2023, , 08/07/2021, Additional history exists Mammogram Discontinued 11/02/2023, 10/09, 09/09/2023, Additional history exists HPV Vaccines Aged Out No longer eligi ble based on patient's age to complete this topic Medical Devices Implanted Type Area Spring Fitter Helper Device Identifier Shelf Expiration Date Model / Serial / Lot Hardware E.G. Pins/Screws/Ro ds Hardware e.g. pins/screws/ rods Left: Toes Ocular Lens Ocular Lens Bilatera l: Eye Procedures Procedure Name Priority Date/Time Associated Diagnosis Comments OUTSIDE MG MAMMOGRAM Routine 11/02/2023 10:35 AM LAYOUT ARTIST from Last 3 Months or Most Recently Relevant to Health Maintenance Results * MM surgical specimen LT-Outside Mammogram (11/02/2023 10:35 AM LAYOUT ARTIST) Narrative IIMS - 11/29/2023 8:40 AM LAYOUT ARTIST This order has been created and auto-finalized [...]
--- OUTSIDE RECORDS SUMMARY | 2024-04-17 18:26 | XMS_ITS | Clinical Summary ---
Author Organization [facility] Address [address], [place] [address] Care Team Providers Care Window/Distribution Clerk Name Role Phone Pcp, Pt Declines Primary Care Provider [phone] Source Comments You are receiving this document as you are listed as the primary care provider,follow-up provider, or the patient has been referred to you for consultation.This is in compliance with the Medicare and[facility] E[facility] Incentive [facility],which states Providers who transition their patient to another setting of careor provider of care or refers their patient to another provider of care shouldprovide summary care record for each transition of care or referral. [email or web address] Allergies No known active allergies Medications Medication [...] Comments Hep C Screening (Preventive Services) 1945 Adult Preventive Visit 1965 DTaP/Tdap/Td (1 - Tdap) 1966 Zoster/Shingles (1 of 2) 1997 Dexa 2012 Pneumococcal 65+ Yrs (1 - PCV) 2012 COVID-19 Vaccine ( - 2022-2 4 season) 2023 Influenza (Season Ended) 2024 HepA Aged Out No longer eligi ble [...] age to complete this topic Care Teams Window/Distribution Clerk Relationship Specialty Start Date End Date Pcp, [place] [address] PCP - General 05/20/17
--- OUTSIDE RECORDS SUMMARY | 2024-04-17 18:26 | XMS_ITS ---
Author Organization [facility] Address [address] [place] [address] Care Team Providers Care Lifestyle Director Name Role Phone Unavailable Unavailable Unavailable Surgery Details Not on file Complications Check Surgery Details section. Procedure Estimated Blood Loss Check Surgery Details section. Procedure Findings Check Surgery Details section. Procedure Specimens Taken Check Surgery Details section.
== END 2024-04-13 10:54 | disposition home or self-care (01) ==
LOC: NFLDREF 04-17 18:24
PROVIDERS: PCP Internal Medicine; Referring Provider Internal Medicine; Visit Provider Internal Medicine
DX: E11.9 Type 2 diabetes mellitus without complications (principal)
CPT/HCPCS: 82043; 82570

== ENCOUNTER 2024-05-04 14:57 | Outpatient (CLI) | payer MEDICARE, SELFPAY ==
--- NOTE | 2024-05-04 15:00 | CRLHL7_ITS ---
For Patients: As a result of the Cures Act, medical imaging exams and procedure reports are released immediately into your electronic medical record. You may view this report before your referring provider. If you have questions, please contact your health care provider. INDICATION: Multinodular thyroid COMPARISON: 10/05/2022 TECHNIQUE: Givens scale and color Doppler images were acquired of the thyroid gland. FINDINGS: Isthmus measures 2.3 millimeters. Mostly solid nodule left thyroid lobe measures 6 x 6 x 8 millimeters, TR 4. Solid and cystic nodule left thyroid lobe measures 6 x 4 x 8 millimeters, TR 3. Mostly solid nodule right thyroid lobe measures 1.4 x 0.6 x 1.1 cm, TR 4. Solid and cystic nodule right thyroid lobe measures 8 x 4 x 8 millimeters, TR 3. Solid nodule with calcification right thyroid lobe measures 14 x 12 x 12 millimeters, TR 4/5. The right lobe measures 3.9 x 1.8 x 1.8 cm and the left lobe measures 4.5 x 1.6 x 1.6 cm in size. The color Doppler images demonstrate normal vascularity. There is no evidence of cervical lymphadenopathy or parathyroid mass. IMPRESSION: Bilateral thyroid nodules are similar to the prior study. Findings compatible with multinodular goiter. Follow-up in 1 year recommended. Dictated by Basil Walker MD @ 05/07/2024 6:38:50 AM (Electronically Signed)
--- OUTSIDE RECORDS SUMMARY | 2024-05-04 15:00 | XMS_ITS | Referral Summary ---
Author Organization [facility] Address [address] [place] [address] Care Team Providers Care Cloth Washer Back Tender Name Role Phone Unavailable Primary Care Provider Unavailabl e Source Comments Patient records contain information from all sites at [facility]. For routine questions regarding patient records, call [phone] during business hours, M-F 8:00 AM - 5:00 PM Central Time. Record requests for emergency care only can be directed to [phone] at any time.[facility] Allergies Active Allergy Reactions Criticality Noted Date [...] from 11/02/2023:Stage IA(pT1b, pN0, cM0, G2, ER+, DE+, HER2-, Oncotype DX score: 22) - Unsigned [...] often do you attend chur ch or hoahaoism services? Never 02/02/2023 Do you belong to any clubs o r organizations such as yarsani groups, unions, fraternal [...] Comments Blood Pressure 152/67 12/07/2023 10:21 AM COMPUTER SYSTEMS TECHNOLOGY INSTRUCTOR Pulse 82 12/07/2023 10:21 AM COMPUTER SYSTEMS TECHNOLOGY INSTRUCTOR Temperature 36.1 ??C (97 ??F) 12/21/2023 12:53 PM COMPUTER SYSTEMS TECHNOLOGY INSTRUCTOR Respiratory Rate - - Oxygen Saturation - - Inhaled Oxygen Concentration - - Weight 64.5 kg (142 lb 3.2 oz) 12/21/2023 12:53 PM COMPUTER SYSTEMS TECHNOLOGY INSTRUCTOR Height - - Body Mass Index - - Plan of Treatment Not on file Medical Devices Implanted Type Area Lead Etl Developer Device Identifier Shelf Expiration Date Model / Serial / Lot Hardware E.G. Pins/Screws/Ro ds Hardware e.g. pins/screws/ rods Left: Toes Ocular Lens Ocular Lens Bilatera l: Eye Procedures Procedure Name Priority Date/Time Associated Diagnosis Comments OUTSIDE MG MAMMOGRAM Routine 11/02/2023 10:35 AM COMPUTER SYSTEMS TECHNOLOGY INSTRUCTOR from Last 3 Months or Most Recently Relevant to Health Maintenance Results * MM surgical specimen LT-Outside Mammogram (11/02/2023 10:35 AM COMPUTER SYSTEMS TECHNOLOGY INSTRUCTOR) Narrative IIMS - 11/29/2023 8:40 AM COMPUTER SYSTEMS TECHNOLOGY INSTRUCTOR This order has been created and auto-finalized [...]
--- OUTSIDE RECORDS SUMMARY | 2024-05-04 15:00 | XMS_ITS | Referral Summary ---
Author Organization [facility] Address [address] [place] [address] Care Team Providers Care Dough Raiser Name Role Phone Mahamed Kate MD Primary [...] Bedtime Active fluticasone (FLONASE) 50 MCG/ACT spray [place] 2 sprays into both nostrils daily Active [...] of Treatment Not on file Care Teams Dough Raiser Relationship Specialty Start Date End Date Mahamed Kate MD [facility] [address] [place] [address] PCP - General Emergency Medicine 08/16/18
--- OUTSIDE RECORDS SUMMARY | 2024-05-04 15:00 | XMS_ITS ---
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 Past Plans No past plan information found. Radiation Treatments * Plan Last Treated On Elapsed Days Fractions Treated Prescribed Fraction Dose Prescribed Total Dose [id number] 12/21/2023 6 5 of 5 520 cGy 2,600 cGy Reference Point Last Treated On Elapsed Days Session Dose Total Dose [id number] 12/21/2023 6 520 cGy 2,600 cGy
--- OUTSIDE RECORDS SUMMARY | 2024-05-04 15:00 | XMS_ITS | Clinical Summary ---
Author Organization [facility] Address [place], [place] [address] Care Team Providers Care Electrolysist Name Role Phone Mahamed Kate MD Primary Care Provider [phone] Allergies Active Allergy Reactions Criticality Noted Date [...] Comments Blood Pressure 128/78 12/13/2017 10:16 AM POLICE SERVICE TECHNICIAN tower Pulse 85 12/13/2017 10:16 AM POLICE SERVICE TECHNICIAN Temperature 36.6 ??C (97.8 ??F) 12/13/2017 1 0:16 AM POLICE SERVICE TECHNICIAN Respiratory Rate - - Oxygen Saturation 96% 12/13/2017 10: 16 AM POLICE SERVICE TECHNICIAN Inhaled Oxygen Concentration - - Weight 76.1 kg (167 lb 12.8 oz) 018 10:16 AM POLICE SERVICE TECHNICIAN with shoes Height 157.2 cm (5' 1.89) 11/29/2017 1 1:35 AM POLICE SERVICE TECHNICIAN Body Mass Index 30.8 11/29/2017 11:35 AM POLICE SERVICE TECHNICIAN Plan of Treatment Health Maintenance Due Date [...] Influenza for age 65+ 07/09/2024 Care Teams Electrolysist Relationship Specialty Start Date End Date Mahamed Kate MD [address] [place] [address] PCP - General 03/05/16
--- OUTSIDE RECORDS SUMMARY | 2024-05-04 15:00 | XMS_ITS | Clinical Summary ---
Author Organization [facility] Address [address] [place] [address] Care Team Providers Care Sanding Machine Operator Or Tender Name Role Phone Mahamed Kate MD Primary [...] Bedtime Active fluticasone (FLONASE) 50 MCG/ACT spray [place] 2 sprays into both nostrils daily Active [...] of Treatment Not on file Care Teams Sanding Machine Operator Or Tender Relationship Specialty Start Date End Date Mahamed Kate MD [facility] [address] [place] [address] PCP - General Emergency Medicine 08/16/18
--- OUTSIDE RECORDS SUMMARY | 2024-05-04 15:00 | XMS_ITS ---
Author Organization [facility] Address [address] [place] [address] Care Team Providers Care Prototype Fabricator Name Role Phone Unavailable Unavailable Unavailable Surgery Details Not on file Complications Check Surgery Details section. Procedure Estimated Blood Loss Check Surgery Details section. Procedure Findings Check Surgery Details section. Procedure Specimens Taken Check Surgery Details section.
--- OUTSIDE RECORDS SUMMARY | 2024-05-04 15:00 | XMS_ITS | Clinical Summary ---
Author Organization [facility] Address [address], [place] [address] Care Team Providers Care Capsule Filling Machine Operator Name Role Phone Pcp, Pt Declines Primary Care Provider [phone] Source Comments You are receiving this document as you are listed as the primary care provider,follow-up provider, or the patient has been referred to you for consultation.This is in compliance with the Medicare and[facility] E[facility] Incentive Program,which states Providers who transition their patient to another setting of careor provider of care or refers their patient to another provider of care shouldprovide summary care record for each transition of care or referral. [facility] Allergies No known active allergies Medications Medication [...] age to complete this topic Care Teams Capsule Filling Machine Operator Relationship Specialty Start Date End Date Pcp, [place] [address] PCP - General 05/20/17
--- OUTSIDE RECORDS SUMMARY | 2024-05-04 15:00 | XMS_ITS | Clinical Summary ---
Author Organization [facility] Address [address] [place] [address] Care Team Providers Care Furnace Charging Machine Operator Name Role Phone Unavailable Primary Care Provider Unavailabl e Source Comments Patient records contain information from all sites at [facility]. For routine questions regarding patient records, call [phone] during business hours, M-F 8:00 AM - 5:00 PM Central Time. Record requests for emergency care only can be directed to [phone] at any time.[facility] Allergies Active Allergy Reactions Criticality Noted [...] How often do you attend chur or mandaeism services? Never 02/02/2023 Do you belong to any clubs o r organizations such as zoroastrianism groups, unions, fraternal [...] and heating? Not hard at all 02/02/2023 [facility] [place] of Occupat ional Health - Occupational Stress [...] place to sleep or slept in a intermediate (including now)? No 02/02/2023 Nutrition Answer Date [...] Comments Blood Pressure 152/67 12/07/2023 10:21 AM CARBIDER Pulse 82 12/07/2023 10:21 AM CARBIDER Temperature 36.1 ??C (97 ??F) 12/21/2023 12:53 PM CARBIDER Respiratory Rate - - Oxygen Saturation - - Inhaled Oxygen Concentration - - Weight 64.5 kg (142 lb 3.2 oz) 12/21/2023 12:53 PM CARBIDER Height - - Body Mass Index - [...] this topic Medical Devices Implanted Type Area Surgical Technology Instructor Device Identifier Shelf Expiration Date Model / Serial / Lot Hardware E.G. Pins/Screws/Ro ds Hardware e.g. pins/screws/ rods Left: Toes Ocular Lens Ocular Lens Bilatera l: Eye Procedures Procedure Name Priority Date/Time Associated Diagnosis Comments OUTSIDE MG MAMMOGRAM Routine 11/02/2023 10:35 AM CARBIDER from Last 3 Months or Most Recently Relevant to Health Maintenance Results * MM surgical specimen LT-Outside Mammogram (11/02/2023 10:35 AM CARBIDER) Narrative [facility]IMS - 11/29/2023 8:40 AM CARBIDER This order has been created and auto-finalized [...]
== END 2024-05-04 14:58 | disposition home or self-care (01) ==
LOC: US 14:58
PROVIDERS: PCP Internal Medicine; Visit Provider Internal Medicine
DX: E04.1 Nontoxic single thyroid nodule (principal)
CPT/HCPCS: 76536

== ENCOUNTER 2024-05-16 19:16 | Emergency (ER) | payer MEDICARE, SELFPAY ==
[2024-05-16] VITALS (18 sets, daily range): BP systolic 140–155; BP diastolic 72–80; PULSE 83–94; RESP 16–18; TEMP 37; O2SAT 90–96; BMI 26.5
--- NOTE | 2024-05-16 20:55 | ED.GENADULT ---
HPI - General Adult General Chief complaint: Unspecified Complaint, Adult <Mile Cordova MD - Last Filed: 05/16/24 22:56> Stated complaint: jaw pain, ear pain, reflux <Mile Cordova MD - Last Filed: 05/16/24 22:56> Time Seen by Provider: 05/16/24 20:38 <Mile Cordova MD - Last Filed: 05/16/24 22:56> Source: patient <Mile Cordova MD - Last Filed: 05/16/24 22:56> Mode of arrival: ambulatory <Mile Cordova MD - Last Filed: 05/16/24 22:56> Limitations: no limitations <Mile Cordova MD - Last Filed: 05/16/24 22:56> History of Present Illness HPI narrative: 79-year-old female coming in today complaining of an episode of ear, jaw and chest pain. The episode happened approximately 2 hours ago when she was sitting at home at her computer. She had an intense moment where both of her ears hurt quite a bit radiated into her jaw bilaterally, and she felt a burning discomfort in the center of her chest all at the same time. She believes the episode lasted 5-10 minutes. She felt very clammy and diaphoretic when it happened. She denies feeling dizzy or lightheaded. She was not short of breath. She denies any recent illness or recent travel. Patient does have a history of diabetes , asthma and a history of breast cancer. She does take Ozempic. She has had no episodes since. Patient states that she does not really do any physical activity during the day but she does have stairs in her home. She denies feeling short of breath or having chest pain when she gets to the top of her stairs. <Mile Cordova MD - Last Filed: 05/16/24 22:56> Related Data Home medications: Home Medications ?Medication ?Instructions ?Recorded ?Confirmed albuterol sulfate 2.5 mg/3 mL 2.5 mg inhalation Q4H PRN 07/30/22 05/13/24 (0.083 %) solution for nebulization albuterol sulfate 90 mcg/actuation 2 puff inhalation Q4-6H PRN 07/30/22 05/13/24 aerosol inhaler (Proventil HFA) cyanocobalamin (vitamin B-12) 500 500 mcg PO DAILY 08/25/22 05/13/24 mcg tablet fluticasone propionate 50 1 spray intranasal QDAY 08/25/22 05/13/24 mcg/actuation nasal spray,suspension (Allergy Relief (fluticasone)) levocetirizine 5 mg tablet 5 mg PO QDAY 08/25/22 05/13/24 magnesium glycinate 2 tab PO DAILY 08/25/22 05/13/24 multivitamin 1 tab PO QAM 08/25/22 05/13/24 pseudoephedrine HCl 30 mg tablet 30 mg PO .bedtime PRN 08/25/22 05/13/24 omeprazole magnesium 20 mg 20 mg PO QDAY 05/25/23 05/13/24 tablet,delayed release (Prilosec OTC) Previous Rx's ?Medication ?Instructions ?Recorded fluticasone propionate 230 2 puff inhalation BID Asthma #12 07/28/23 mcg-salmeterol 21 mcg/actuation grams HFA inhaler (Advair HFA) ipratropium bromide 21 mcg (0.03 2 spray intranasal TID PRN allergy 11/18/23 %) nasal spray symptoms #30 mL anastrozole 1 mg tablet (Arimidex) 1 mg PO QDAY #90 tabs 01/04/24 calcium carb-vit D3-minerals 600 1 tab PO BID #180 tabs 01/04/24 mg calcium-400 unit tablet blood sugar diagnostic #100 ea 01/12/24 montelukast 10 mg tablet 10 mg PO QHS #90 tabs 01/24/24 gabapentin 100 mg capsule 200 mg (2 x 100 mg) PO QDAY 03/13/24 Neuropathy #180 caps semaglutide 0.25 mg or 0.5 mg (2 0.5 mg (0.736 mL) subcut QWEEK 04/17/24 mg/3 mL) subcutaneous pen injector Diabetes #3 mL (Ozempic) metformin 750 mg tablet,extended 750 mg PO BID #180 tabs 04/20/24 release 24 hr azithromycin 250 mg tablet See Rx Instructions PO .COMPLEX #6 05/13/24 tabs <Mile Cordova MD - Last Filed: 05/16/24 22:56> Allergies/adverse reactions: Allergies Allergy/AdvReac Type Severity Reaction Status Date / Time Sulfa (Sulfonamide Allergy Severe Anaphylaxis Verified 05/16/24 19:30 Antibiotics) Penicillins Allergy Mild Rash Verified 05/16/24 19:30 weed pollen Allergy Unknown unknown Verified 05/16/24 19:30 envirnomental AdvReac Intermediate cough/post Uncoded 05/13/24 09:33 nasal drip/headache/asthma symptoms <Mile Cordova MD - Last Filed: 05/16/24 22:56> Review of Systems Status of ROS: Reports: 10 or more systems reviewed and unremarkable except as noted in History and below <Mile Cordova MD - Last Filed: 05/16/24 22:56> [facility] Medical History: Medical History Sinusitis ?J32.9 - Chronic sinusitis, unspecified (ICD-10) Shoulder pain ?M25.519 - Pain in unspecified shoulder (ICD-10) Otitis media ?H66.90 - Otitis media, unspecified, unspecified ear (ICD-10) COVID-19 ?U07.1 - COVID-19 (ICD-10) Breast cancer ?C50.919 - Malignant neoplasm of unspecified site of unspecified female breast (ICD-10) Bronchitis ?J40 - Bronchitis, not specified as acute or chronic (ICD-10) Seasonal allergies ?J30.2 - Other seasonal allergic rhinitis (ICD-10) Rash ?R21 - Rash and other nonspecific skin eruption (ICD-10) Hair loss ?L65.9 - Nonscarring hair loss, unspecified (ICD-10) Breast lump ?N63.0 - Unspecified lump in unspecified breast (ICD-10) Asthma ?J45.909 - Unspecified asthma, uncomplicated (ICD-10) Xiphoid pain ?R07.89 - Other chest pain (ICD-10) Thyroid nodule ?E04.1 - Nontoxic single thyroid nodule (ICD-10) Thyroid nodule ?E04.1 - Nontoxic single thyroid nodule (ICD-10) Xiphoid pain ?R07.89 - Other chest pain (ICD-10) <Mile Cordova MD - Last Filed: 05/16/24 22:56> Surgical History: Surgical History History of arthroscopy of right shoulder (10/2013) ?Z98.890 - Other specified postprocedural states (ICD-10) Status post YAG capsulotomy of left eye ?Z98.890 - Other specified postprocedural states (ICD-10) <Mile Cordova MD - Last Filed: 05/16/24 22:56> Family History: Family History Other Thyroid nodule <Mile Cordova MD - Last Filed: 05/16/24 22:56> Social History: Social History What is your current living situation?: I presently have a place to live Problems where you live: no known problems In the past 12 months, utilities in danger of being shut off: no In past 12 months, lack of transportation kept you from medical appts, meetings, work, or getting things needed for daily living: no In the past 12 mos, have been you worried that your food would run out before you had money to buy more?: never true In the past 12 mos, the food you bought just didn't last and you didn't have money to buy more?: never true Smoking Status: Never smoker Do you use any of these nicotine containing products: None Non-prescribed substance use: denies use How often does anyone, including family, friends and others, physically hurt you: never How often does anyone, including family, friends and others, insult or talk down to you: never How often does anyone, including family, friends and others, threaten you with harm: never How often does anyone, including family, friends and others, scream or curse at you: never Little interest or pleasure in doing things: several days Feeling down, depressed, or hopeless: several days <Mile Cordova MD - Last Filed: 05/16/24 22:56> Exam Narrative: Exam Narrative: Well-nourished well-developed patient in no acute distress. Alert and oriented. Answers questions appropriately. Mood and affect are appropriate. Thoughts are goal oriented and rational. No tangential or magical thinking noted. Patient speaks in full sentences without needing to catch her breath. HEENT: Normocephalic atraumatic. Pupils are equally round reactive to light. Extraocular muscles are intact. Conjunctivae are moist without any icterus noted. Moist mucous membranes. Posterior pharynx is normal. Neck is soft without any lymphadenopathy or thyromegaly. No masses are appreciated. TMs clear bilaterally. Cardiovascular: Heart is regular rate and rhythm S1 and S2 are present without any murmurs. Lungs: Clear to auscultation bilaterally no wheezes rhonchi or rales are appreciated. Patient takes deep breaths without any discomfort. Abdomen: Soft and nontender nondistended with normal bowel sounds. Extremities: Bilateral lower extremities are without edema. Normal DP and PT pulses. Skin: Well perfused without any obvious rashes. <Mile Cordova MD - Last Filed: 05/16/24 22:56> Const: Vital Signs, click to edit/add: Vital Signs - 24 hr 05/16/24 19:24 05/16/24 21:00 05/16/24 21:21 Temperature 98.6 F Pulse Rate [Pulse Oximeter] 87 85 Respiratory Rate 18 18 Respiratory Rate [ Head] Blood Pressure [Ri ght Upper Arm] 155/77 H 151/80 H Pulse Oximetry 95 92 92 Oxygen Delivery Me thod Room Air Room Air 05/16/24 21:22 05/16/24 22:00 Temperature Pulse Rate [Pulse Oximeter] 90 Respiratory Rate 16 Respiratory Rate [ Head] 18 Blood Pressure [Ri ght Upper Arm] 140/72 H Pulse Oximetry 92 Oxygen Delivery Me thod Room Air <Mile Cordova MD - Last Filed: 05/16/24 22:56> Vital Signs, click to edit/add: Vital Signs - 24 hr 05/16/24 19:24 05/16/24 21:00 05/16/24 21:21 Temperature 98.6 F Pulse Rate [Pulse Oximeter] 87 85 Respiratory Rate 18 18 Respiratory Rate [ Head] Blood Pressure [Ri ght Upper Arm] 155/77 H 151/80 H Pulse Oximetry 95 92 92 Oxygen Delivery Me thod Room Air Room Air 05/16/24 21:22 05/16/24 22:00 Temperature Pulse Rate [Pulse Oximeter] 90 Respiratory Rate 16 Respiratory Rate [ Head] 18 Blood Pressure [Ri ght Upper Arm] 140/72 H Pulse Oximetry 92 Oxygen Delivery Me thod Room Air <Shima Toth MD - Last Filed: 05/17/24 00:52> Course Course ED Course: EKG, read by me, shows normal sinus rhythm with a premature ventricular complex. Pulse is 91. CBC is unremarkable. Chemistries unremarkable. LFTs unremarkable. Initial troponin less than 0.01, POC troponin was 0. Normal CRP. Repeat EKG was unchanged. Repeat POC troponin was 0.03. Will repeat another troponin in 90 minutes. Care will be transferred to oncoming physician to follow-up on these results. <Mile Cordova MD - Last Filed: 05/16/24 22:56> Reevaluation(s) Time of Reevaluation #1: 00:51 <Shima Toth MD - Last Filed: 05/17/24 00:52> Reevaluation #1: dr. Toth- accepted sign-out from departing evening physician. Patient remains asymptomatic per nursing team. Repeat troponin 0.01. EKGs reviewed, unchanged. Will discharge home with previous physicians discharge instructions with no additional changes to plan of care. <Shima Toth MD - Last Filed: 05/17/24 00:52> Vital Signs Vital signs: Initial Vital Signs Temperature 98.6 F 05/16/24 19:24 Temperature Source Temporal Artery Scan 05/16/24 19:24 Pulse Rate 87 05/16/24 19:24 Pulse Rhythm Regular 05/16/24 19:24 Pulse Strength 3+ Normal 05/16/24 19:24 Respiratory Rate 18 05/16/24 19:24 Blood Pressure 155/77 H 05/16/24 19:24 Blood Pressure Mean 103 05/16/24 19:24 Blood Pressure Position Sitting 05/16/24 19:24 Pulse Oximetry 95 05/16/24 19:24 Oxygen Delivery Method Room Air 05/16/24 19:24 Vital Signs Temperature 98.6 F 05/16/24 19:24 Pulse Rate 87 05/16/24 19:24 Respiratory Rate 18 05/16/24 19:24 Blood Pressure 155/77 H 05/16/24 19:24 Pulse Oximetry 95 05/16/24 19:24 Oxygen Delivery Method Room Air 05/16/24 19:24 Temperature 98.6 F 05/16/24 19:24 Pulse Rate 90 05/16/24 22:00 Respiratory Rate 16 05/16/24 22:00 Blood Pressure 140/72 H 05/16/24 22:00 Pulse Oximetry 92 05/16/24 22:00 Oxygen Delivery Method Room Air 05/16/24 22:00 <Mile Cordova MD - Last Filed: 05/16/24 22:56> Initial Vital Signs Temperature 98.6 F 05/16/24 19:24 Temperature Source Temporal Artery Scan 05/16/24 19:24 Pulse Rate 87 05/16/24 19:24 Pulse Rhythm Regular 05/16/24 19:24 Pulse Strength 3+ Normal 05/16/24 19:24 Respiratory Rate 18 05/16/24 19:24 Blood Pressure 155/77 H 05/16/24 19:24 Blood Pressure Mean 103 05/16/24 19:24 Blood Pressure Position Sitting 05/16/24 19:24 Pulse Oximetry 95 05/16/24 19:24 Oxygen Delivery Method Room Air 05/16/24 19:24 Vital Signs Temperature 98.6 F 05/16/24 19:24 Pulse Rate 87 05/16/24 19:24 Respiratory Rate 18 05/16/24 19:24 Blood Pressure 155/77 H 05/16/24 19:24 Pulse Oximetry 95 05/16/24 19:24 Oxygen Delivery Method Room Air 05/16/24 19:24 Temperature 98.6 F 05/16/24 19:24 Pulse Rate 90 05/16/24 22:00 Respiratory Rate 16 05/16/24 22:00 Blood Pressure 140/72 H 05/16/24 22:00 Pulse Oximetry 92 05/16/24 22:00 Oxygen Delivery Method Room Air 05/16/24 22:00 <Shima Toth MD - Last Filed: 05/17/24 00:52> Medical Decision Making Lab Data Labs: Lab Results 05/16/24 05/16/24 05/17/24 Range/Units 21:10 22:40 00:05 WBC 7.12 (4.50-11.00) K/uL RBC 4.54 (4.00-5.20) m/uL Hgb 13.9 (12.0-16.0) gm/dL Hct 41.6 (33.0-51.0) % MCV 92 (80-100) fL MCH 31 (26-34) pg MCHC 33 (32-36) gm/dL RDW Coeff of Jazzmine 12.1 (11.5-15.5) % Plt Count 259 (140-440) K/uL Neut % (Auto) 59.1 (42.0-72.0) % Lymph % (Auto) 31.6 (20-44) % Brooke % (Auto) 7.2 (0.0-11.0) % Eos % (Auto) 2.0 (0.0-7.0) % Baso % (Auto) 0.1 (0.0-3.0) % Neut # (Auto) 4.21 (1.7-7.0) K/uL Lymph # (Auto) 2.25 (0.90-2.90) K/uL Brooke # (Auto) 0.50 (0.00-0.90) K/UL Eos # (Auto) 0.14 (0.00-0.50) K/uL Baso # (Auto) 0.01 (0.00-0.30) K/uL Abs Immat Gran (auto) 0.00 (0.00-0.30) K/uL Imm/Tot Granulo (auto) 0.0 % Sodium 137 (135-149) mmol/L Potassium 3.9 (3.6-5.1) mmol/L Chloride 102 (96-114) mmol/L Carbon Dioxide 29 (20-32) mmol/L Anion Gap 6 L (7-15) mEq/L BUN 19 (7-30) mg/dL Creatinine 0.7 (0.5-1.5) mg/dL Estimated Creat Clear 35.55 Estimated GFR 89 ml/min Glucose 123 H (60-115) mg/dL Calcium 9.8 (8.4-10.6) mg/dL Total Bilirubin 0.4 (0.1-1.5) mg/dL Direct Bilirubin 0.1 (0.0-0.5) mg/dL AST 21 (12-35) U/L ALT 18 (4-35) U/L Alkaline Phosphatase 75 (40-150) U/L Troponin I < 0.01 L < 0.01 L (0.01-0.04) ng/mL C-Reactive Protein < 0.5 L (0.5-1.0) mg/dL Total Protein 6.7 (6.0-8.3) g/dL Albumin 4.2 (3.3-5.0) g/dL POC Troponin I 0.00 L 0.03 (0.01-0.04) ng/ml <Mile Cordova MD - Last Filed: 05/16/24 22:56> Lab Results 05/16/24 05/16/24 05/17/24 Range/Units 21:10 22:40 00:05 WBC 7.12 (4.50-11.00) K/uL RBC 4.54 (4.00-5.20) m/uL Hgb 13.9 (12.0-16.0) gm/dL Hct 41.6 (33.0-51.0) % MCV 92 (80-100) fL MCH 31 (26-34) pg MCHC 33 (32-36) gm/dL RDW Coeff of Jazzmine 12.1 (11.5-15.5) % Plt Count 259 (140-440) K/uL Neut % (Auto) 59.1 (42.0-72.0) % Lymph % (Auto) 31.6 (20-44) % Brooke % (Auto) 7.2 (0.0-11.0) % Eos % (Auto) 2.0 (0.0-7.0) % Baso % (Auto) 0.1 (0.0-3.0) % Neut # (Auto) 4.21 (1.7-7.0) K/uL Lymph # (Auto) 2.25 (0.90-2.90) K/uL Brooke # (Auto) 0.50 (0.00-0.90) K/UL Eos # (Auto) 0.14 (0.00-0.50) K/uL Baso # (Auto) 0.01 (0.00-0.30) K/uL Abs Immat Gran (auto) 0.00 (0.00-0.30) K/uL Imm/Tot Granulo (auto) 0.0 % Sodium 137 (135-149) mmol/L Potassium 3.9 (3.6-5.1) mmol/L Chloride 102 (96-114) mmol/L Carbon Dioxide 29 (20-32) mmol/L Anion Gap 6 L (7-15) mEq/L BUN 19 (7-30) mg/dL Creatinine 0.7 (0.5-1.5) mg/dL Estimated Creat Clear 35.55 Estimated GFR 89 ml/min Glucose 123 H (60-115) mg/dL Calcium 9.8 (8.4-10.6) mg/dL Total Bilirubin 0.4 (0.1-1.5) mg/dL Direct Bilirubin 0.1 (0.0-0.5) mg/dL AST 21 (12-35) U/L ALT 18 (4-35) U/L Alkaline Phosphatase 75 (40-150) U/L Troponin I < 0.01 L < 0.01 L (0.01-0.04) ng/mL C-Reactive Protein < 0.5 L (0.5-1.0) mg/dL Total Protein 6.7 (6.0-8.3) g/dL Albumin 4.2 (3.3-5.0) g/dL POC Troponin I 0.00 L 0.03 (0.01-0.04) ng/ml <Shima Toth MD - Last Filed: 05/17/24 00:52> Discharge Plan Discharge Clinical Impression: Jaw pain <Mile Cordova MD - Last Filed: 05/16/24 22:56> Patient Disposition: Home, Self-Care <Mile Cordova MD - Last Filed: 05/16/24 22:56> Condition: Stable <Mile Cordova MD - Last Filed: 05/16/24 22:56> Additional Instructions: Unclear for the reason of the episode of jaw and ear pain today. At this point would monitor symptoms to see if they return, would follow-up with your primary care physician this week to discuss symptoms and follow any of their recommendations. <Mile Cordova MD - Last Filed: 05/16/24 22:56> Prescriptions: No Action omeprazole magnesium [Prilosec OTC] 20 mg tablet,delayed release (DR/EC) 20 mg PO QDAY anastrozole [Arimidex] 1 mg tablet 1 mg PO QDAY Qty: 90 1RF calcium carbonate-vit D3-min 600 mg calcium- 400 unit tablet 1 tab PO BID Qty: 180 0RF levocetirizine 5 mg tablet 5 mg PO QDAY cyanocobalamin (vitamin B-12) 500 mcg tablet 500 mcg PO DAILY fluticasone propionate [Allergy Relief (fluticasone)] 50 mcg/actuation spray,suspension 1 spray intranasal QDAY Rx Instructions: administer into each nostril pseudoephedrine HCl 30 mg tablet 30 mg PO .bedtime PRN Rx Instructions: DNExceed 4 doses/24h multivitamin Tablet 1 tab PO QAM magnesium glycinate 2 tab PO DAILY Ozempic 0.25 mg or 0.5 mg (2 mg/3 mL) pen injector 0.5 mg subcut QWEEK Qty: 3 3RF Rx Instructions: for 4 weeks azithromycin 250 mg tablet See Rx Instructions PO .COMPLEX Qty: 6 0RF Rx Instructions: For 250 mg dose pack: take 500 mg today (day 1), then 250 mg for 4 days (days 2-5) PO albuterol sulfate [Proventil HFA] 90 mcg/actuation HFA aerosol inhaler 2 puff inhalation Q4-6H PRN albuterol sulfate 2.5 mg /3 mL (0.083 %) solution for nebulization 2.5 mg inhalation Q4H PRN Advair HFA 230-21 mcg/actuation HFA aerosol inhaler 2 puff inhalation BID Qty: 12 5RF ipratropium bromide 21 mcg (0.03 %) spray,non-aerosol 2 spray intranasal TID PRN (Reason: allergy symptoms) Qty: 30 0RF Rx Instructions: administer into each nostril (DME) blood sugar diagnostic Strip See Rx Instructions .Route Qty: 100 1RF Rx Instructions: As directed montelukast 10 mg tablet 10 mg PO QHS Qty: 90 2RF gabapentin 100 mg capsule 200 mg PO QDAY Qty: 180 0RF metformin 750 mg tablet extended release 24 hr 750 mg PO BID Qty: 180 1RF <Mile Cordova MD - Last Filed: 05/16/24 22:56> Follow Up/Referrals: Mahamed Kate MD [Primary Care Provider] - <Mile Cordova MD - Last Filed: 05/16/24 22:56> Stand Alone Forms: [facility] Info Instructions <Mile Cordova MD - Last Filed: 05/16/24 22:56>
[2024-05-16 21:15] LABS: Basophils Absolute Auto 0.01 K/uL (0.00-0.30); Basophils Percent Auto 0.1 % (0.0-3.0); Eosinophils Absolute Auto 0.14 K/uL (0.00-0.50); Hematocrit 41.6 % (33.0-51.0); Hemoglobin* 13.9 gm/dL (12.0-16.0); Lymphocytes Absolute Auto 2.25 K/uL (0.90-2.90); Lymphocytes Percent Auto 31.6 % (20-44); Mean Corpuscular HGB Conc 33 gm/dL (32-36); Mean Corpuscular Hemoglobin 31 pg (26-34); Mean Corpuscular Volume 92 fL (80-100); Monocytes Percent Auto 7.2 % (0.0-11.0); Neutrophils Absolute Auto 4.21 K/uL (1.7-7.0); Neutrophils Percent Auto 59.1 % (42.0-72.0); Platelet Count* 259 K/uL (140-440); RDW Coefficient of Variation % 12.1 % (11.5-15.5); Red Blood Count 4.54 m/uL (4.00-5.20); Slide Review Reflex No; White Blood Count* 7.12 K/uL (4.50-11.00)
[2024-05-16 21:31] LABS: Chloride* 102 mmol/L (96-114)
[2024-05-16 21:32] LABS: Albumin* 4.2 g/dL (3.3-5.0); Sodium* 137 mmol/L (135-149)
--- OUTSIDE RECORDS SUMMARY | 2024-05-16 21:32 | XMS_ITS | Clinical Summary ---
Author Organization [facility] Address [address] [place] [address] Care Team Providers Care Community Midwife Name Role Phone Unavailable Primary Care Provider Unavailabl e Source Comments Patient records contain information from all sites at [facility]. For routine questions regarding patient records, call [phone] during business hours, M-F 8:00 AM - 5:00 PM Central Time. Record requests for emergency care only can be directed to [phone] at any time.[facility] Allergies Active Allergy Reactions Criticality Noted Date [...] from 11/02/2023:Stage IA(pT1b, pN0, cM0, G2, ER+, AL+, HER2-, Oncotype DX score: 22) - Unsigned [...] any clubs o r organizations such as gnosticism groups, unions, fraternal [...] [facility] [place] of Occupat ional Health - Occupational Stress [...] Comments Blood Pressure 152/67 12/07/2023 10:21 AM ARCHITECTURAL INSPECTOR Pulse 82 12/07/2023 10:21 AM ARCHITECTURAL INSPECTOR Temperature 36.1 ??C (97 ??F) 12/21/2023 12:53 PM ARCHITECTURAL INSPECTOR Respiratory Rate - - Oxygen Saturation - - Inhaled Oxygen Concentration - - Weight 64.5 kg (142 lb 3.2 oz) 12/21/2023 12:53 PM ARCHITECTURAL INSPECTOR Height - - Body Mass Index - - Plan of Treatment Health Maintenance Due Date Last Done Comments Hepatitis C Screening 1945 COVID-19 Vaccine (2022- season) 2023 08/20/2023, 03/30/2023, 08/05/2022, Additional history exists Depression Screening (Annual PHQ-2) 11/08/2023 Fall Risk Screen (Annual) 11/08/2023 Influenza Vaccine (#1) 2024 , 09/03/2022, 08/07/2021, Additional history exists DTaP,Tdap,and Td Vaccines (3 - Td or Tdap) 08/07/2031 08/07/2021, 06/07/2007 Pneumococcal vaccine (65+ years) Completed 06/16/2018, 06/07/2014, 12/05/2008, Additional history exists Zoster Vaccines Completed 07/25/2020, 09/08, 05/25/2019, Additional history exists Mammogram Discontinued 11/02/2023, 10/09, 09/09/2023, Additional history exists HPV Vaccines Aged Out No longer eligi ble based on patient's age to complete this topic Medical Devices Implanted Type Area Media Buyer Device Identifier Shelf Expiration Date Model / Serial / Lot Hardware E.G. Pins/Screws/Ro ds Hardware e.g. pins/screws/ rods Left: Toes Ocular Lens Ocular Lens Bilatera l: Eye Procedures Procedure Name Priority Date/Time Associated Diagnosis Comments OUTSIDE MG MAMMOGRAM Routine 11/02/2023 10:35 AM ARCHITECTURAL INSPECTOR from Last 3 Months or Most Recently Relevant to Health Maintenance Results * MM surgical specimen LT-Outside Mammogram (11/02/2023 10:35 AM ARCHITECTURAL INSPECTOR) Narrative [facility] - 11/29/2023 8:40 AM ARCHITECTURAL INSPECTOR This order has been created and auto-finalized [...]
--- OUTSIDE RECORDS SUMMARY | 2024-05-16 21:32 | XMS_ITS ---
Author Organization [facility] Address [address] [place] [address] Care Team Providers Care Ems Instructor Name Role Phone Unavailable Unavailable Unavailable Surgery Details Not on file Complications Check Surgery Details section. Procedure Estimated Blood Loss Check Surgery Details section. Procedure Findings Check Surgery Details section. Procedure Specimens Taken Check Surgery Details section.
--- OUTSIDE RECORDS SUMMARY | 2024-05-16 21:32 | XMS_ITS | Referral Summary ---
Author Organization [facility] Address [address] [place] [address] Care Team Providers Care Nail Professional Name Role Phone Unavailable Primary Care Provider Unavailabl e Source Comments Patient records contain information from all sites at [facility]. For routine questions regarding patient records, call [phone] during business hours, M-F 8:00 AM - 5:00 PM Central Time. Record requests for emergency care only can be directed to [phone] at any time.[facility] Allergies Active Allergy Reactions Criticality Noted [...] often do you attend chur ch or spiritism services? Never 02/02/2023 Do you belong to any clubs o r organizations such as latter-day groups, unions, fraternal or athletic groups, or [...] and heating? Not hard at all 02/02/2023 [facility] Occupat ional Health - Occupational [...] Comments Blood Pressure 152/67 12/07/2023 10:21 AM SALES AND SERVICE ADVISOR Pulse 82 12/07/2023 10:21 AM SALES AND SERVICE ADVISOR Temperature 36.1 ??C (97 ??F) 12/21/2023 12:53 PM SALES AND SERVICE ADVISOR Respiratory Rate - - Oxygen Saturation - - Inhaled Oxygen Concentration - - Weight 64.5 kg (142 lb 3.2 oz) 12/21/2023 12:53 PM SALES AND SERVICE ADVISOR Height - - Body Mass Index - - Plan of Treatment Not on file Medical Devices Implanted Type Area Machining Associate Device Identifier Shelf Expiration Date Model / Serial / Lot Hardware E.G. Pins/Screws/Ro ds Hardware e.g. pins/screws/ rods Left: Toes Ocular Lens Ocular Lens Bilatera l: Eye Procedures Procedure Name Priority Date/Time Associated Diagnosis Comments OUTSIDE MG MAMMOGRAM Routine 11/02/2023 10:35 AM SALES AND SERVICE ADVISOR from Last 3 Months or Most Recently Relevant to Health Maintenance Results * MM surgical specimen LT-Outside Mammogram (11/02/2023 10:35 AM SALES AND SERVICE ADVISOR) Narrative [facility] - 11/29/2023 8:40 AM SALES AND SERVICE ADVISOR This order has been created and auto-finalized [...]
--- OUTSIDE RECORDS SUMMARY | 2024-05-16 21:32 | XMS_ITS | Clinical Summary ---
Author Organization [facility] Address [address] [address] Care Team Providers Care Licensed Investment Sales Assistant Name Role Phone Pcp, Pt Declines Primary Care Provider [phone] Source Comments You are receiving this document as you are listed as the primary care provider,follow-up provider, or the patient has been referred to you for consultation.This is in compliance with the Medicare and[facility] EHR Incentive Program,which states Providers who transition their patient to another setting of careor provider of care or refers their patient to another provider of care shouldprovide summary care record for each transition of care or referral. [employer] Allergies No known active allergies Medications Medication [...] ( - 2022-2 4 season) 2023 Influenza (#1) 2024 HepA Aged Out No longer eligi [...] age to complete this topic Care Teams Licensed Investment Sales Assistant Relationship Specialty Start Date End Date Pcp, [place] [address] PCP - General 05/20/17
--- OUTSIDE RECORDS SUMMARY | 2024-05-16 21:32 | XMS_ITS ---
Author Organization [facility] Address [address] [place] [address] Care Team Providers Care Belt And Link Shop Supervisor Name Role Phone Unavailable Primary Care Provider [...] Treated Prescribed Fraction Dose Prescribed Total Dose [id number] 12/21/2023 6 5 of 5 520 cGy 2,600 cGy Reference Point Last Treated On Elapsed Days Session Dose Total Dose [id number] 12/21/2023 6 520 cGy 2,600 cGy
[2024-05-16 21:33] LABS: Potassium* 3.9 mmol/L (3.6-5.1)
--- OUTSIDE RECORDS SUMMARY | 2024-05-16 21:33 | XMS_ITS | Referral Summary ---
Author Organization [facility] Address [address] [place] [address] Care Team Providers Care Division Roadmaster Name Role Phone Mahamed Kate MD Primary [...] Bedtime Active fluticasone (FLONASE) 50 MCG/ACT spray [place] 2 sprays into both nostrils daily Active [...] of Treatment Not on file Care Teams Division Roadmaster Relationship Specialty Start Date End Date Mahamed Kate MD [facility] [address] [place] [address] PCP - General Emergency Medicine 08/16/18
--- OUTSIDE RECORDS SUMMARY | 2024-05-16 21:33 | XMS_ITS | Clinical Summary ---
Author Organization [facility] Address [place], [place] [address] Care Team Providers Care Tank Farm Gauger Name Role Phone Mahamed Kate MD Primary [...] Comments Blood Pressure 128/78 12/13/2017 10:16 AM THERAPEUTIC STRATEGY LEAD tower Pulse 85 12/13/2017 10:16 AM THERAPEUTIC STRATEGY LEAD Temperature 36.6 ??C (97.8 ??F) 12/13/2017 1 0:16 AM THERAPEUTIC STRATEGY LEAD Respiratory Rate - - Oxygen Saturation 96% 12/13/2017 10: 16 AM THERAPEUTIC STRATEGY LEAD Inhaled Oxygen Concentration - - Weight 76.1 kg (167 lb 12.8 oz) 018 10:16 AM THERAPEUTIC STRATEGY LEAD with shoes Height 157.2 cm (5' 1.89) 11/29/2017 1 1:35 AM THERAPEUTIC STRATEGY LEAD Body Mass Index 30.8 11/29/2017 11:35 AM THERAPEUTIC STRATEGY LEAD Plan of Treatment Health Maintenance Due Date [...] Influenza for age 65+ 07/09/2024 Care Teams Tank Farm Gauger Relationship Specialty Start Date End Date Mahamed Kate MD [address] [place] [address] PCP - General 03/05/16
--- OUTSIDE RECORDS SUMMARY | 2024-05-16 21:33 | XMS_ITS | Clinical Summary ---
Author Organization [facility] Address [address] [place] [address] Care Team Providers Care Drafter Civil Engineering Name Role Phone Mahamed Kate MD Primary [...] Bedtime Active fluticasone (FLONASE) 50 MCG/ACT spray [address] 2 sprays into both nostrils daily Active [...] of Treatment Not on file Care Teams Drafter Civil Engineering Relationship Specialty Start Date End Date Mahamed Kate MD [facility] [address] [place] [address] PCP - General Emergency Medicine 08/16/18
[2024-05-16 21:35] LABS: Alkaline Phosphatase* 75 U/L (40-150); Anion Gap 6 mEq/L (7-15); Aspartate Amino Transferase* 21 U/L (12-35); Bilirubin Direct* 0.1 mg/dL (0.0-0.5); Bilirubin Total* 0.4 mg/dL (0.1-1.5); Carbon Dioxide* 29 mmol/L (20-32); Creatinine* 0.7 mg/dL (0.5-1.5); Est. Creatinine Clearance* 35.55; Estimated Glomerular Filt Rate 89 ml/min; Total Protein* 6.7 g/dL (6.0-8.3)
[2024-05-16 21:36] LABS: Alanine Aminotransferase* 18 U/L (4-35); Blood Urea Nitrogen* 19 mg/dL (7-30); Calcium* 9.8 mg/dL (8.4-10.6); Glucose* 123 mg/dL (60-115)
[2024-05-16 21:43] LABS: C Reactive Protein* < 0.5 mg/dL (0.5-1.0)
[2024-05-16 21:54] LABS: Troponin I* < 0.01 ng/mL (0.01-0.04)
--- NOTE | 2024-05-16 22:48 | CRLHL7_ITS ---
For Patients: As a result of the Century Cures Act, medical imaging exams and procedure reports are released immediately into your electronic medical record. You may view this report before your referring provider. If you have questions, please contact your health care provider. INDICATION: SHORTNESS OF BREATH, CHEST PAIN CHEST, PA AND LATERAL Upright PA and lateral radiographs of the chest were performed. Comparison: No previous studies are currently available for comparison. The lungs appear clear and there are no pleural effusions. Heart size and pulmonary vasculature appear normal. Right paratracheal lymph node calcification is incidentally noted. Visualized bones show no significant findings. Left breast surgical clips are seen. IMPRESSION: No acute intrathoracic abnormality identified. LORI FELIPE MD [facility] Dictated by: Filemon Felipe MD @ 05/16/2024 23:37:44 (Electronically Signed)
[2024-05-16 22:57] LABS: Troponin, Point-of-Care* 0.03 ng/ml (0.01-0.04)
[2024-05-17] VITALS: PULSE 84; O2SAT 91
[2024-05-17 00:02] VITALS: BP 138/69; PULSE 81; O2SAT 95
[2024-05-17 00:15] VITALS: PULSE 84; O2SAT 93
[2024-05-17 00:30] VITALS: PULSE 83; O2SAT 91
[2024-05-17 00:45] VITALS: PULSE 85; O2SAT 90
[2024-05-17 00:50] LABS: Troponin I* < 0.01 ng/mL (0.01-0.04)
== END 2024-05-17 01:00 | disposition home or self-care (01) ==
PROVIDERS: Emergency Provider Family Medicine; PCP Internal Medicine
DX: R68.84 Jaw pain (principal)
CPT/HCPCS: 36415; 71046; 80048; 80076; 84484; 85025; 86140; 93005; 94761; 99284; 99285

== ENCOUNTER 2024-07-14 12:51 | Outpatient (CLI) | payer MEDICARE, SELFPAY ==
--- OUTSIDE RECORDS SUMMARY | 2024-07-14 12:53 | XMS_ITS | Clinical Summary ---
Author Organization [facility] Address [address], [place] [address] Care Team Providers Care Drill Press Operator Name Role Phone Pcp, Pt Declines Primary Care Provider [phone] Source Comments You are receiving this document as you are listed as the primary care provider,follow-up provider, or the patient has been referred to you for consultation.This is in compliance with the Medicare and[facility] EHR Incentive Program,which states Providers who transition their patient to another setting of careor provider of care or refers their patient to another provider of care shouldprovide summary care record for each transition of care or referral. [facility] Allergies No known active allergies Medications Medication [...] Yrs (1 - PCV) 2012 COVID-19 Vaccine (1 - 2022-2 4 season) 2024 Influenza (#1) 2024 HepA Aged Out No [...] age to complete this topic Care Teams Drill Press Operator Relationship Specialty Start Date End Date [place]cp, [place] [address] PCP - General 05/20/17
--- OUTSIDE RECORDS SUMMARY | 2024-07-14 12:53 | XMS_ITS | Referral Summary ---
Author Organization [facility] Address [address] [place] [address] Care Team Providers Care Pbx Supervisor Name Role Phone Mahamed Kate MD Primary [...] Bedtime Active fluticasone (FLONASE) 50 MCG/ACT spray [place] 2 sprays into both nostrils daily Active [...] of Treatment Not on file Care Teams Pbx Supervisor Relationship Specialty Start Date End Date Mahamed Kate MD [facility] [address] [place] [address] PCP - General Emergency Medicine 08/16/18
--- OUTSIDE RECORDS SUMMARY | 2024-07-14 12:53 | XMS_ITS | Clinical Summary ---
Author Organization [facility] Address [address] [place] [address] Care Team Providers Care Vat Packer Name Role Phone Mahamed Kate MD Primary [...] Bedtime Active fluticasone (FLONASE) 50 MCG/ACT spray [place] 2 sprays into both nostrils daily Active [...] of Treatment Not on file Care Teams Vat Packer Relationship Specialty Start Date End Date Mahamed Kate MD [facility] [address] [place] [address] PCP - General Emergency Medicine 08/16/18
--- OUTSIDE RECORDS SUMMARY | 2024-07-14 12:53 | XMS_ITS ---
Author Organization [facility] Address [address] [place] [address] Care Team Providers Care Television Repairer Name Role Phone Unavailable Unavailable Unavailable Surgery Details Not on file Complications Check Surgery Details section. Procedure Estimated Blood Loss Check Surgery Details section. Procedure Findings Check Surgery Details section. Procedure Specimens Taken Check Surgery Details section.
--- OUTSIDE RECORDS SUMMARY | 2024-07-14 12:53 | XMS_ITS ---
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 Past Plans No past plan information found. Radiation Treatments * Plan Last Treated On Elapsed Days Fractions Treated Prescribed Fraction Dose Prescribed Total Dose [id number] 12/21/2023 6 5 of 5 520 cGy 2,600 cGy Reference Point Last Treated On Elapsed Days Session Dose Total Dose [id number] 12/21/2023 6 520 cGy 2,600 cGy
--- OUTSIDE RECORDS SUMMARY | 2024-07-14 12:53 | XMS_ITS | Clinical Summary ---
Author Organization [facility] Address [address] [place] [address] Care Team Providers Care Compliance Representative Dealer Name Role Phone Unavailable Primary Care Provider Unavailabl e Source Comments Patient records contain information from all sites at [facility]. For routine questions regarding patient records, call [phone] during business hours, M-F 8:00 AM - 5:00 PM Central Time. Record requests for emergency care only can be directed to [phone] at any time.[facility] Allergies Active Allergy Reactions Criticality Noted Date [...] from 11/02/2023:Stage IA(pT1b, pN0, cM0, G2, ER+, LA+, HER2-, Oncotype DX score: 22) - Unsigned Family History Medical History Relation Name Comments Basal cell carcinoma Father Basil Kidney disease Father Basil Melanoma Father Basil In situ Squamous cell carcinoma Father Basil Stroke Father's Sister [place] Transient ischemic attack Father's Sister [place] Lung cancer Maternal Grandfather gO smoker; age 58 Arthritis Mother Shannon Breast [...] How often do you attend chur or yarsanism services? Never 02/02/2023 Do you belong to any clubs o r organizations such as pentecostalism groups, unions, fraternal or athletic groups, or [...] and heating? Not hard at all 02/02/2023 [facility] Occup[facility] ional [facility] - Occupational [...] place to sleep or slept in a residential (including now)? No 02/02/2023 Nutrition Answer Date [...] Comments Blood Pressure 152/67 12/07/2023 10:21 AM EVP Pulse 82 12/07/2023 10:21 AM EVP Temperature 36.1 ??C (97 ??F) 12/21/2023 12:53 PM EVP Respiratory Rate - - Oxygen Saturation - - Inhaled Oxygen Concentration - - Weight 64.5 kg (142 lb 3.2 oz) 12/21/2023 12:53 PM EVP Height - - Body Mass Index - - Plan of Treatment Health Maintenance Due Date Last Done Comments Hepatitis C Screening 1945 Depression Screening (Annual PHQ-2) 11/08/2023 Fall Risk Screen (Annual) 11/08/2023 COVID-19 Vaccine ( season) 2024 08/20/2023, 03/30/2023, 08/05/2022, Additional history exists Influenza Vaccine (#1) 2024 , 09/03/2022, 08/07/2021, [...] this topic Medical Devices Implanted Type Area Painter Hand Device Identifier Shelf Expiration Date Model / Serial / Lot Hardware E.G. Pins/Screws/Ro ds Hardware e.g. pins/screws/ rods Left: Toes Ocular Lens Ocular Lens Bilatera l: Eye Procedures Procedure Name Priority Date/Time Associated Diagnosis Comments OUTSIDE MG MAMMOGRAM Routine 11/02/2023 10:35 AM EVP from Last 3 Months or Most Recently Relevant to Health Maintenance Results * MM surgical specimen LT-Outside Mammogram (11/02/2023 10:35 AM EVP) Narrative [facility] - 11/29/2023 8:40 AM EVP This order has been created and auto-finalized [...]
--- OUTSIDE RECORDS SUMMARY | 2024-07-14 12:53 | XMS_ITS | Referral Summary ---
Author Organization [facility] Address [address] [place] [address] Care Team Providers Care Neuro Intensivist Physician Name Role Phone Unavailable Primary Care Provider Unavailabl e Source Comments Patient records contain information from all sites at [facility]. For routine questions regarding patient records, call [phone] during business hours, M-F 8:00 AM - 5:00 PM Central Time. Record requests for emergency care only can be directed to [phone] at any time.[facility] Allergies Active Allergy Reactions Criticality Noted [...] from 11/02/2023:Stage IA(pT1b, pN0, cM0, G2, ER+, IA+, HER2-, Oncotype DX score: 22) - Unsigned [...] often do you attend chur ch or moravian services? Never 02/02/2023 Do you belong to any clubs o r organizations such as gnosticist groups, unions, fraternal or athletic groups, or [...] and heating? Not hard at all 02/02/2023 [facility] Occupat ional Health - [...] Comments Blood Pressure 152/67 12/07/2023 10:21 AM FIRST CRUSHER Pulse 82 12/07/2023 10:21 AM FIRST CRUSHER Temperature 36.1 ??C (97 ??F) 12/21/2023 12:53 PM FIRST CRUSHER Respiratory Rate - - Oxygen Saturation - - Inhaled Oxygen Concentration - - Weight 64.5 kg (142 lb 3.2 oz) 12/21/2023 12:53 PM FIRST CRUSHER Height - - Body Mass Index - - Plan of Treatment Not on file Medical Devices Implanted Type Area Internship Device Identifier Shelf Expiration Date Model / Serial / Lot Hardware E.G. Pins/Screws/Ro ds Hardware e.g. pins/screws/ rods Left: Toes Ocular Lens Ocular Lens Bilatera l: Eye Procedures Procedure Name Priority Date/Time Associated Diagnosis Comments OUTSIDE MG MAMMOGRAM Routine 11/02/2023 10:35 AM FIRST CRUSHER from Last 3 Months or Most Recently Relevant to Health Maintenance Results * MM surgical specimen LT-Outside Mammogram (11/02/2023 10:35 AM FIRST CRUSHER) Narrative [facility] - 11/29/2023 8:40 AM FIRST CRUSHER This order has been created and auto-finalized [...]
--- OUTSIDE RECORDS SUMMARY | 2024-07-14 12:53 | XMS_ITS | Clinical Summary ---
Author Organization [facility] Address [place], [place] [address] Care Team Providers Care Entry Level Buyer Name Role Phone Mahamed Kate MD Primary [...] Comments Blood Pressure 128/78 12/13/2017 10:16 AM CIVIL DRAFTSMAN tower Pulse 85 12/13/2017 10:16 AM CIVIL DRAFTSMAN Temperature 36.6 ??C (97.8 ??F) 12/13/2017 1 0:16 AM CIVIL DRAFTSMAN Respiratory Rate - - Oxygen Saturation 96% 12/13/2017 10: 16 AM CIVIL DRAFTSMAN Inhaled Oxygen Concentration - - Weight 76.1 kg (167 lb 12.8 oz) 018 10:16 AM CIVIL DRAFTSMAN with shoes Height 157.2 cm (5' 1.89) 11/29/2017 1 1:35 AM CIVIL DRAFTSMAN Body Mass Index 30.8 11/29/2017 11:35 AM CIVIL DRAFTSMAN Plan of Treatment Health Maintenance Due Date [...] Influenza for age 65+ 07/09/2024 Care Teams Entry Level Buyer Relationship Specialty Start Date End Date Mahamed Kate MD [address] [place] [address] PCP - General 03/05/16
--- NOTE | 2024-07-14 13:00 | MR_ITS ---
[address] [address] Phone:?[phone] Fax:?[phone] Referring Physician Information: Kemar Gale M.D. [id number] [facility] [address] Phone:?[phone] Fax:?[phone] Patient:Shane Tavarez D.O.B:?1945 Sex:?Female Phone:?[phone] [facility] MRN:?[id number] Exam Date:?07/14/2024 EXAM: MRI of the LEFT SHOULDER, without contrast CLINICAL INFORMATION: Female, 79 years old, with left shoulder pain. INDICATION: Evaluate rotator cuff PRIOR SURGERY: None reported. PLAIN FILMS: None available. COMPARISONS: No prior MRIs available. TECHNICAL INFORMATION: Using a 1.5T MR scanner and a localizing surface coil: Coronals: PD, T2FS Sagittals: PDFS, T2 Axials: PD, PDFS SEDATION: None CONTRAST: None FINDINGS: Bones: Proximal humerus: No fracture or marrow edema/pathology. Cortical irregularity is present involving the greater tuberosity underlying the attachment. No humeral Hill-Sachs or reverse Hill-Sachs lesion/impaction or contusion. Glenoid: No fracture or marrow edema/pathology. No osseous Bankart lesion. Rotator cuff and muscles/tendons: Supraspinatus: Mild supraspinatus tendinosis with obliquely oriented full- thickness or near full-thickness articular and interstitial tearing of the posterior distal tendon at the insertional footprint. Bursal sided fibers may remain intact. No muscle belly atrophy. Infraspinatus: No tendinopathy, tear or atrophy. Teres minor: No tendinopathy, tear or atrophy. Subscapularis: Region of interstitial tearing involving the subscapularis distal tendon measuring approximately 0.7 x 0.5 cm (axial series 3 image 44). Deltoid: No strain or atrophy. Coracoacromial arch: Acromion morphology: The acromion has type II morphology. Note is made of meso- type os acromiale with minimal degenerative change across the synchondrosis. Acromiohumeral space: The acromiohumeral space measures 5 mm.. Coracohumeral space: The coracohumeral space is within normal limits. Acromioclavicular joint: Joint: No acute injury, arthropathy, or inferior hypertrophy. Ligaments: Coracoclavicular ligaments are intact. Bursae: Subacromial-subdeltoid: Mild to moderate subacromial bursitis. Subcoracoid: No convincing subcoracoid bursal thickening/bursitis. Biceps tendon: The long head of the biceps tendon is present within the bicipital groove. The intra-articular and extra-articular segments are intact without tendinosis, tenosynovitis, or displacement. Glenohumeral joint: Effusion/cyst: Small sized glenohumeral joint effusion with synovitis. Articular cartilage: Humeral head: Grade III/IV chondromalacia is seen to involve the superior aspect of the femoral head (coronal series 5 image 13). Glenoid: Grade III/IV chondromalacia along the superior and posterior aspect of the glenoid with mild underlying cystic change. Loose bodies: No discrete intra-articular body within the joint. Labrum:?Degenerative appearing blunting and fraying involving the superior and posterosuperior labrum. No other definite evidence for labral tear. No paralabral ganglion cyst is identified. Inferior glenohumeral ligament/axillary pouch:?Intact. The axillary pouch is normal in thickness and signal. No evidence of adhesive capsulitis or capsular injury. IMPRESSION: 1. Mild supraspinatus tendinosis with obliquely oriented full-thickness or near full-thickness articular and interstitial tearing of the posterior distal insertional footprint, without significant tendon retraction or muscle belly atrophy. 2. Small region of interstitial splitting of the superior subscapularis distal tendon, without high-grade tendon tearing or retraction. 3. 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 Small joint effusion with synovitis. 4. Degenerative blunting and fraying of the superior and posterosuperior labrum. 5. Mild narrowing of the acromiohumeral space may predispose to clinical symptoms of subacromial impingement. Mild to moderate subacromial bursitis. 6. No tendinopathy, tear, or displacement of the long head of the biceps tendon. KME Electronically signed on 07/17/2024 2:31:00 PM by Maya Hunter M.D.
== END 2024-07-14 12:52 | disposition home or self-care (01) ==
LOC: MRI 12:52
PROVIDERS: PCP Internal Medicine; Visit Provider Orthopaedic Surgery Sports Medicine
DX: M25.512 Pain in left shoulder (principal); M75.102 Unspecified rotator cuff tear or rupture of left shoulder, not specified as traumatic; M19.012 Primary osteoarthritis, left shoulder; M75.52 Bursitis of left shoulder
CPT/HCPCS: 73221

== ENCOUNTER 2024-09-11 12:45 | Outpatient (CLI) | payer MEDICARE, SELFPAY ==
--- OUTSIDE RECORDS SUMMARY | 2024-09-11 12:48 | XMS_ITS | Referral Summary ---
Author Organization [facility] Address [address] [place] [address] Care Team Providers Care Five Piece Expansion Maker Hand Name Role Phone Mahamed Kate MD Primary Care Provider Allergies Active Allergy Reactions Criticality Noted Date Comments Penicillins Rash Low 08/23/2018 Sulfa Antibiotics Swelling,Rash High 08/23/2018 Medications albuterol (PROAIR HFA/PROVENTIL HFA/VENTOLIN HFA) 108 (90 [...] Bedtime Active fluticasone (FLONASE) 50 MCG/ACT spray [place] 2 sprays into both nostrils daily Active [...] Take 1 tablet by mouth daily Active HYDROcodone-ovidio taminophen (NORCO) 5-325 MG per tabletIndicatio ns:Ptosis of both eyelids Take 1 tablet by mouth every 6 hours as needed for severe pain 10 tablet 8 Active erythromycin (ROMYCIN) ophthalmic ointmentIndicat ions:Ptosis of both eyelids Apply topically 3 times daily 2 Tube 1 8 Active Social History Tobacco Use Types Packs/Day Years Used Date Smoking Tobacco: Never Smokeless Tobacco: Never Alcohol Use Standard Drinks/Week Comments Yes 0 (1 standard drink = 0.6 oz pur e alcohol) Adolescent Education Answer Date Record ed Getting School Help Needed Not on file 07/30 Comments No Sex and Gender Information Value Date Recorded Sex Assigned at Not on file Legal Sex Female 9:29 AM CDT Gender Identity Not on file Sexual Orientation [...] of Treatment Not on file Care Teams Five Piece Expansion Maker Hand Relationship Specialty Start Date End Date Mahamed Kate MD [facility] [address] [place] [address] PCP - General Emergency Medicine 08/16/18
--- OUTSIDE RECORDS SUMMARY | 2024-09-11 12:48 | XMS_ITS | Clinical Summary ---
Author Organization [facility] Address [address], [place] [address] Care Team Providers Care Electronic Publisher Name Role Phone Pcp, Pt Declines Primary Care Provider [phone] Source Comments You are receiving this document as you are listed as the primary care provider,follow-up provider, or the patient has been referred to you for consultation.This is in compliance with the Medicare and[facility] EHR Incentive Program,which states Providers who transition their patient to another setting of careor provider of care or refers their patient to another provider of care shouldprovide summary care record for each transition of care or referral. [facility] Allergies No known active allergies Medications Medication [...] Pneumococcal 65+ Yrs (1 - PCV) 2012 RSV (1 - 1-dose 75+ series) 2022 COVID-19 Vaccine (1 - 2023-2 5 season) 2024 Influenza (#1) 2024 HepA Aged [...] patient's age to complete this topic RSV Aged Out No longer eligi ble based on patient's age to complete this topic MCV4 Aged Out No longer eligi ble based on patient's age to complete this topic Care Teams Electronic Publisher Relationship Specialty Start Date End Date Pcp, [place] [address] PCP - General 05/20/17
--- OUTSIDE RECORDS SUMMARY | 2024-09-11 12:48 | XMS_ITS | Referral Summary ---
Author Organization [facility] Address [address] [place] [address] Care Team Providers Care Race Board Attendant Name Role Phone Unavailable Primary Care Provider Unavailabl e Source Comments Patient records contain information from all sites at [facility]. For routine questions regarding patient records, call [phone] during business hours, M-F 8:00 AM - 5:00 PM Central Time. Record requests for emergency care only can be directed to [phone] at any time.[facility] Allergies Active Allergy Reactions Criticality Noted Date Comments Cat Dander Other (see comments) 12/13/2017 Eyes swell and itch Dog Dander Other (see comments) 12/13/2017 Nasal congestion House Dust Other (see comments) 04/14/2016 Mold Extracts Other (see comments) 04/14/2016 Penicillins Rash 03/17/2016 Sulfa (Sulfonamide Antibiotics) Anaphylaxis,Rash High 03/17/2016 Medications albuterol (PROVENTIL HFA,VENTOLIN HFA) 90 mcg/actuation inhaler Inhale 2 puffs. Acti ve cyanocobalamin (VITAMIN B12) 500 mcg tablet Take 1 tablet by mouth. Active fluticasone (FLONASE) 50 mcg/actuation nasal spray Administer 1-2 sprays into affected nostril(s). 8 Active gabapentin (NEURONTIN) 100 mg capsule 8 Active glimepiride (AMARYL) 1 mg tablet 8 Active metFORMIN XR (GLUCOPHAGE-XR ) 500 mg 24 hr tablet Take 1,000 mg by mouth. 8 Active montelukast (SINGULAIR) 10 mg tablet 8 Active multivitamin tablet Take 1 tablet by mouth. Active pseudoephedrin e (SUDAFED) 30 mg tablet Take 1 tablet by mouth at bedtime. 8 Active Advair HFA 230-21 mcg/actuation inhaler Inhale 1 puff 2 (two) times a day. 2 Active levocetirizine (Xyzal) 5 mg tablet Take [...] 10 days following radiation treatment. 100 g 4 Active Active Problems Problem Noted Date Diagnosed Date Malignant Neoplasm Of Breast Upper Outer Quadrant Female Left 11/29/2023 Cancer Staging:Pathologic stage from 11/02/2023:Stage IA(pT1b, pN0, cM0, G2, ER+, [place]+, HER2-, Oncotype DX score: 22) - Unsigned [...] often do you attend chur ch or yazdanism services? Never 02/02/2023 Do you belong to any clubs o r organizations such as mormonism groups, unions, fraternal [...] and heating? Not hard at all 02/02/2023 [facility] - [...] or slept in a chcf (including now)? No 02/02/2023 Nutrition Answer Date Recorded On average, how many serving s of [...] Bachelor's degree (e.g., BA, AB, BS) 02/26/2021 Comments Unknown Sex and Gender Information Value Date Recorded Sex Assigned at Female 02/02/2023 10:16 AM CDT Legal Sex Female 11:20 PM FOREST FIRE EQUIPMENT OPERATOR Gender Identity Female 02/02/2023 10:16 AM CDT Sexual Orientation Straight 02/02/2023 10 :16 AM CDT Last Filed Vital Signs Vital Sign Reading Time Taken Comments Blood Pressure 152/67 12/07/2023 10:21 AM FOREST FIRE EQUIPMENT OPERATOR Pulse 82 12/07/2023 10:21 AM FOREST FIRE EQUIPMENT OPERATOR Temperature 36.1 ??C (97 ??F) 12/21/2023 12:53 PM FOREST FIRE EQUIPMENT OPERATOR Respiratory Rate - - Oxygen Saturation - - Inhaled Oxygen Concentration - - Weight 64.5 kg (142 lb 3.2 oz) 12/21/2023 12:53 PM FOREST FIRE EQUIPMENT OPERATOR Height - - Body Mass Index - - Plan of Treatment Not on file Medical Devices Implanted Type Area Mutuel Teller Device Identifier Shelf Expiration Date Model / Serial / Lot Hardware E.G. Pins/Screws/Ro ds Hardware e.g. pins/screws/ rods Left: Toes Ocular Lens Ocular Lens Bilatera l: Eye Procedures Procedure Name Priority Date/Time Associated Diagnosis Comments OUTSIDE MG MAMMOGRAM Routine 11/02/2023 10:35 AM FOREST FIRE EQUIPMENT OPERATOR from Last 3 Months or Most Recently Relevant to Health Maintenance Results * MM surgical specimen LT-Outside Mammogram (11/02/2023 10:35 AM FOREST FIRE EQUIPMENT OPERATOR) Narrative IIMS - 11/29/2023 8:40 AM FOREST FIRE EQUIPMENT OPERATOR This order has been created and auto-finalized to support the import of outside images. If available, original interpretation can be found on the Media Tab in Chart Review, in Document Viewer, or as an image in QREADS. If a re-interpretation or overread is required please follow defined workflow. ?? us Provider Not In System IMG BI PROCEDURES Final R esult IIID NA from Last 3 Months or Most Recently Relevant to Health Maintenance Insurance [facility]
--- OUTSIDE RECORDS SUMMARY | 2024-09-11 12:48 | XMS_ITS | Clinical Summary ---
Author Organization [facility] Address [place], [place] [address] Care Team Providers Care Marklogic Developer Name Role Phone Mahamed Kate MD [...] Comments Blood Pressure 128/78 12/13/2017 10:16 AM EXPLOSIVE ORDNANCE HANDLER tower Pulse 85 12/13/2017 10:16 AM EXPLOSIVE ORDNANCE HANDLER Temperature 36.6 ??C (97.8 ??F) 12/13/2017 1 0:16 AM EXPLOSIVE ORDNANCE HANDLER Respiratory Rate - - Oxygen Saturation 96% 12/13/2017 10: 16 AM EXPLOSIVE ORDNANCE HANDLER Inhaled Oxygen Concentration - - Weight 76.1 kg (167 lb 12.8 oz) 018 10:16 AM EXPLOSIVE ORDNANCE HANDLER with shoes Height 157.2 cm (5' 1.89) 11/29/2017 1 1:35 AM EXPLOSIVE ORDNANCE HANDLER Body Mass Index 30.8 11/29/2017 11:35 AM EXPLOSIVE ORDNANCE HANDLER Plan of Treatment Health Maintenance Due Date [...] same day) for age 18+ 11/29/2018 11/29/2017 RSV vaccine for adults or (1 - 1-dose 75+ series) 2022 COVID-19 vaccine series (2023- season) 2024 08/20/2023, 03/30/2023, 08/05/2022, Additional history exists Influenza for age 65+ 07/09/2024 Care Teams Marklogic Developer Relationship Specialty Start Date End Date Mahamed Kate MD [address] [place] [address] PCP - General 03/05/16
--- OUTSIDE RECORDS SUMMARY | 2024-09-11 12:48 | XMS_ITS | Clinical Summary ---
Author Organization [facility] Address [address] [place] [address] Care Team Providers Care Land Acquisition Specialist Name Role Phone Unavailable Primary Care Provider Unavailabl e Source Comments Patient records contain information from all sites at [facility]. For routine questions regarding patient records, call [phone] during business hours, M-F 8:00 AM - 5:00 PM Central Time. Record requests for emergency care only can be directed to [phone] at any time.[facility] Allergies Active Allergy Reactions Criticality Noted [...] from 11/02/2023:Stage IA(pT1b, pN0, cM0, G2, ER+, DC+, HER2-, Oncotype DX score: 22) - Unsigned Family History Medical History Relation Name Comments Basal cell carcinoma Father Basil Kidney disease Father Basil Melanoma Father Basil In situ Squamous cell carcinoma Father Basli Stroke Father's Sister [place] Transient ischemic attack [...] How often do you attend chur or shinto services? Never 02/02/2023 Do you belong to any clubs o r organizations such as buddhism groups, unions, fraternal or athletic groups, or [...] and heating? Not hard at all 02/02/2023 [facility] Occupat ional Health - Occupational Stress [...] place to sleep or slept in a halfway (including now)? No 02/02/2023 Nutrition Answer Date [...] AM CDT Legal Sex Female 11:20 PM SIDING STAPLER Gender Identity Female 02/02/2023 10:16 AM CDT Sexual Orientation Straight 02/02/2023 10 :16 AM CDT Last Filed Vital Signs Vital Sign Reading Time Taken Comments Blood Pressure 152/67 12/07/2023 10:21 AM SIDING STAPLER Pulse 82 12/07/2023 10:21 AM SIDING STAPLER Temperature 36.1 ??C (97 ??F) 12/21/2023 12:53 PM SIDING STAPLER Respiratory Rate - - Oxygen Saturation - - Inhaled Oxygen Concentration - - Weight 64.5 kg (142 lb 3.2 oz) 12/21/2023 12:53 PM SIDING STAPLER Height - - Body Mass Index - [...] Completed 07/25/2020, 09/08, 05/25/2019, Additional history exists RSV vaccine - (32-36 weeks) or 60+ years Completed 07/27/2023 Mammogram Discontinued 11/02/2023, 10/09, 09/09/2023, Additional history exists HPV Vaccines Aged Out No longer eligi ble based on patient's age to complete this topic IPV Vaccines Aged Out No longer eligi ble based on patient's age to complete this topic Medical Devices Implanted Type Area General Production Manager Device Identifier Shelf Expiration Date Model / Serial / Lot Hardware E.G. Pins/Screws/Ro ds Hardware e.g. pins/screws/ rods Left: Toes Ocular Lens Ocular Lens Bilatera l: Eye Procedures Procedure Name Priority Date/Time Associated Diagnosis Comments OUTSIDE MG MAMMOGRAM Routine 11/02/2023 10:35 AM SIDING STAPLER from Last 3 Months or Most Recently Relevant to Health Maintenance Results * MM surgical specimen LT-Outside Mammogram (11/02/2023 10:35 AM SIDING STAPLER) Narrative IIMS - 11/29/2023 8:40 AM SIDING STAPLER This order has been created and auto-finalized to support the import of outside images. If available, original interpretation can be found on the Media Tab in Chart Review, in Document Viewer, or as an image in QREADS. If a re-interpretation or overread is required please follow defined workflow. ?? us Provider Not In System IMG BI PROCEDURES Final R esult IIMS NA from Last 3 Months or Most Recently Relevant to Health Maintenance Insurance [facility]
--- OUTSIDE RECORDS SUMMARY | 2024-09-11 12:48 | XMS_ITS | Clinical Summary ---
Author Organization [facility] Address [address] [place] [address] Care Team Providers Care Forestry Workers Name Role Phone Mahamed Kate MD Primary [...] of Treatment Not on file Care Teams Forestry Workers Relationship Specialty Start Date End Date Mahamed Kate MD [facility] [address] [place] [address] PCP - General Emergency Medicine 08/16/18
--- OUTSIDE RECORDS SUMMARY | 2024-09-11 12:48 | XMS_ITS ---
Author Organization [facility] Address [address] [place] [address] Care Team Providers Care Warehouse Worker 2Nd Shift Name Role Phone Unavailable Primary Care Provider Unavailabl e Active Problems Problem Noted Date Diagnosed Date Malignant Neoplasm Of Breast Upper Outer Quadrant Female Left 11/29/2023 Cancer Staging:Pathologic stage from 11/02/2023:Stage IA(pT1b, pN0, cM0, G2, ER+, [place]+, HER2-, Oncotype DX score: 22) - Unsigned Current Oncology Plans No current plan information found. Past Plans No past plan information found. Radiation Treatments * Plan Last Treated On Elapsed Days Fractions Treated Prescribed Fraction Dose Prescribed Total Dose [id number] 12/21/2023 6 5 of 5 520 cGy 2,600 cGy Reference Point Last Treated On Elapsed Days Session Dose Total Dose [id number] 12/21/2023 6 520 cGy 2,600 cGy
--- OUTSIDE RECORDS SUMMARY | 2024-09-11 12:48 | XMS_ITS ---
Author Organization [facility] Address [address] [place] [address] Care Team Providers Care Technical Manager Name Role Phone Unavailable Unavailable Unavailable Surgery Details Not on file Complications Check Surgery Details section. Procedure Estimated Blood Loss Check Surgery Details section. Procedure Findings Check Surgery Details section. Procedure Specimens Taken Check Surgery Details section.
--- NOTE | 2024-09-11 13:00 | CRLHL7_ITS ---
For Patients: As a result of the Century Cures Act, medical imaging exams and procedure reports are released immediately into your electronic medical record. You may view this report before your referring provider. If you have questions, please contact your health care provider. BILATERAL SCREENING MAMMOGRAM WITH COMPUTER-AIDED DETECTION AND TOMOSYNTHESIS TECHNIQUE: CC and MLO views were obtained. These mammographic images have been obtained using full-field digital technique. These mammographic images were interpreted with the benefit of computer-aided detection. Breast Tomosynthesis was used in this interpretation. COMPARISON FILM: 09/06/23, 09/03/22, 08/19/21. FINDINGS: There are scattered areas of fibroglandular density. IMPRESSION: There is no radiographic evidence for malignancy. ASSESSMENT: BI-RADS Category 2: Benign RECOMMENDATION: Routine screening mammogram in 1 year. A lay language report of this examination will be provided to the patient. Peter Gill M.D. Diagnostic/Nuclear Medicine Radiologist [email or web address] UGO/agusto SP/Dictated by: Peter Gill MD @ 09/13/2024 11:58:00 AM (Electronically Signed)
== END 2024-09-11 12:46 | disposition home or self-care (01) ==
LOC: MAMMO 12:46
PROVIDERS: PCP Internal Medicine; Visit Provider Internal Medicine
DX: Z12.31 Encounter for screening mammogram for malignant neoplasm of breast (principal)
CPT/HCPCS: 77063; 77067

== ENCOUNTER 2024-09-14 14:50 | Outpatient (RCR) | payer MEDICARE, SELFPAY ==
--- NOTE | 2024-10-04 14:46 | ONC.NURNOTE ---
Phone message left for patient in follow up to a question from her visit. Patient informed that there is no contraindication to taking minoxidil with her hormone positive breast cancer and endocrine therapy. Patient encouraged to call back with questions.
== END 2024-11-14 23:59 | disposition home or self-care (01) ==
LOC: CCIC 14:50
PROVIDERS: PCP Internal Medicine; Visit Provider Physician Assistant
DX: C50.912 Malignant neoplasm of unspecified site of left female breast (principal); Z17.0 Estrogen receptor positive status [ER+]; Z79.811 Long term (current) use of aromatase inhibitors; M85.80 Other specified disorders of bone density and structure, unspecified site; K59.00 Constipation, unspecified; L65.9 Nonscarring hair loss, unspecified
CPT/HCPCS: 99214; G0463

== ENCOUNTER 2024-10-20 08:56 | Outpatient (CLI) | payer MEDICARE, SELFPAY | END 2024-10-20 08:57 | disposition home or self-care (01) | LOC: NFLDREF 11:32 | PROVIDERS: PCP Internal Medicine; Referring Provider Internal Medicine; Visit Provider Internal Medicine | DX: L65.9 Nonscarring hair loss, unspecified; Z13.220 Encounter for screening for lipoid disorders; E11.65 Type 2 diabetes mellitus with hyperglycemia; Z79.85 Long-term (current) use of injectable non-insulin antidiabetic drugs | CPT/HCPCS: 80053; 80061; 82043; 82570 ==

== ENCOUNTER 2024-11-15 12:30 | Outpatient (RCR) | payer MEDICARE, SELFPAY ==
--- NOTE | 2023-09-24 18:35 | PT.OPE ---
PT [place] Outpatient Eval PT [facility] Outpatient Eval Start: 09/24/23 08:53 Freq: Status: Active Protocol: Document 09/24/23 12:51 BMS (Rec: 09/24/23 13:38 BMS [id number]) E-signed By Machelle Vincent PT Physical Therapy Outpatient Evaluation Insurance Information Recert Due Date 12/22/23 Insurance Name [facility] Insurance Information/Comments taniya, [facility] Provider Fax Number internal Medical Diagnosis Left breast lumpectomy w SLND Treating Diagnosis Breast cancer C50.911 Referring MD Sabra Eldridge MD Subjective Subjective lumpectomy w sentinel lymph node biopsy scheduled for next 09/28/23. Has happened so fast. Had 3D mammogram 09/06 then biopsy then surgeon, 7mm, mom had breast cancer x 2 with mastectomy each time. , is 97 w dementia now, has had pneumonia x 2 lately (and hospice involved?) Ozempic for type II diabetes, lost weight since mid May, A1C dropped from 9 to 7, Hx of wrist fx LEFT wrist ~ 1 year ago had OT, tried hooking bras behind back not long ago and really hurt. also have a lot of trouble with my left thumb (both CMC and MCP w significant hyperext of MCP) so cant guide cruise as well. Fx my middle finger on L in teens and has never been the same. RIGHT rotator cuff full thickness tear, bicep tendon was shredded. they cleaned it out and released the tendon and felt much better but still feels vulnerable. RIGHT hand dominant, cancer on LEFT breast. Have good support system - 4 of women in my group have had breast cancer, 1 of them dx right before me, 1 is finishing 5 year and had a fairly easy time. willing to help but not medically inclined. not sure how I can do the Fco wrap. Activity - love to [employer] dance but not anywhere left really to do this, so I do walk, have access to [employer] for walking but I don't love it. Past med hx + for diabetes type II and above injuries. 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 shoulder flex B 155, abduct 150, ER B 75, IR behind back R = T10, L=T12. elbow WNL wrist WFL, mild loss of ulnar deviation Strength MMT seated R UE 5/5, L grossly 4/5 except L thumb 3/5 due to arthritic deformity demo ability to retract, appropriate rotation noted for elevation and abduction. Swelling none appreciated this date Balance & Gait NA Posture mild to mod head forward, B mild scap protrusion, aware of shoulder elevation and actively corrects. Assessment Assessment/Impression Patient is pleasant 78 yo referred for pre and post op eval and treat LEFT breast cancer, stage IA, T1b/N0/M0 hormone receptor positive, HER2 negative breast cancer per EMR. She is seen today in [facility] in order to be seen before surgery, will followup at our [place] location with Sara HERNANDEZ. She is scheduled for lumpectomy and sentinal lymph node biopsy next Tu09/28/23, after routine 3D mammogram detected lesion, had biopsy and testing . She presents today for pre- op instruction and her questions were asked and answered as able. Handout for initial postop HEP, restrictions/precautions, adaptations and recommendations regarding ADL changes, things to look for regarding poss infection, seroma, axillary webbing, lymphedema, edema expectations , compression, and sleeping alternatives were discussed. Handouts issued for ACSM recommendations for exercise and HEP. Patient currently has limitations related to torn right (dominant) rotator cuff ('was full thickness so they cleaned it up and cut off the one part of the biceps, still feels vulnerable but no pain') , hx left wrist fx ~ 1 year ago, deformities of left thumb MCP and CMC and arthritic changes of other joints in b hands, and limited cervical rotation as noted above that patient states does not affect her UE function. Patient verbalizes appreciation for opportunity to prepare with this preop appt. She is scheduled post-op, currently plan 1-4 sessions but will be determined at re-eval by therapist according to presentation at that time. She will be appropriate for skilled physical therapy to rehab s/p lumpectomy/SLND. Primary Functional Limitations currently none, postop expect limited use of L UE Plan of Care Rehabilitation Potential Good Physical Therapy Goals 1) Complete pre-op instruction session, instruct in self management and home program for immediate postop period as well as post surgical ROM and lifitng limitations and signs of infection, seroma, axillary webbing and edema mgmt. 2) Post op goals to be established by that evaluating therapist. Coordination/Communication With Referral Source Treatment Plan/Direct Interventions Manual Therapy,Neuromuscular Re-ed,Self-Care/Home Management,Therapeutic Activities,Therapeutic Exercises Patient Will Be Discharged From Therapy Completion of LTG(s),Skills Plateau,Independent w/HEP, Independently Progressing Evaluation Billing Untimed Code Treatment Minutes 25 Complexity Moderate Certification Information Initial Certification Date 09/24/23 Ending Certification Date 12/22/23 Provider Signature Shows Agreement With POC & Medical Necessity Physician Signature & Date Requested Please Sign/Date Here Physician Comment/Change : Physician NPI Number #
--- NOTE | 2023-12-01 12:31 | OT.OPLE2 ---
OT Outpatient Lymphedema Eval* OT Outpatient Lymphedema Eval* Start: 11/30/23 07:23 Freq: Status: Active Protocol: Document 11/30/23 08:36 AMB (Rec: 11/30/23 16:43 AMB [id number]) E-signed By Hina hTompson, OTR/L, CLT, OIL TREATER OT Outpatient Evaluation Details Type Type Eval Complexity Low Insurance Information Insurance Information Insurance Information [employer] OT OP Lymphedema Evaluation Current Condition/Medical Diagnosis Referring Provider Dr Eldridge Treatment Diagnosis Risk for lymphedema due to left breast CA with lumpectomy and SLNBx1 Date Of Onset 11/02/23 Medical Contraindications DM Medical History Medical History Cancer Treatment/Surgery,DM, Allergies (Latex or Other), Radiation,Asthma/Respiratory Disorder,Arthritis Medical History Comments Oncology Hx / Time line: 09/06/2023 bilateral mammogram , diagnostic left-sided mammogram. Indeterminate new solid nodule in the left breast 7 cm from nipple measuring 6 into 5 in to 7 mm. BI-RADS category 4. 09/09/2023 ultrasound-guided biopsy of the left hypoechoic lobular lesion, number of samples taken 5; clip placement Left breast ultrasound-guided core biopsy consistent with invasive ductal carcinoma, grade 2, ER positive 91-100%, AZ positive 21-30%, HER2 equivocal 2+, reflex to fish. FISH negative; Ki-67 8%. 11/02/23: surgery 11/02/2023 Left breast partial mastectomy with margins less min consistent with invasive ductal carcinoma, grade 2 invasive micro papillary features, size 7 mm, all margins negative for invasive carcinoma, more than 10 mm to all margins. All margins negative for DCIS. ER positive 91-100%. AZ positive 21-30%. HER2 negative by fish. Ki-67 8%. + atypical lobular hyperplasia . Left axillary sentinel lymph node, 1 lymph node negative for metastatic carcinoma. Pathologic T1b N0 11/05/2023 Genetic testing for 9 gene panel with reflex to multi cancer panel for 70 gene via [place] is negative. 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 Medical History (Updated 10/11 @ 14:05 by Mahamed Kate MD) Otitis media H66.90 - Otitis media, unspecified, unspecified ear ( ICD-10) COVID-19 U07.1 - COVID-19 (ICD-10) Breast cancer C50.919 - Malignant neoplasm of unspecified site of unspecified female breast (ICD -10) Bronchitis J40 - Bronchitis, not specified as acute or chronic (ICD-10) Seasonal allergies J30.2 - Other seasonal allergic rhinitis (ICD-10) Rash R21 - Rash and other nonspecific skin eruption (ICD -10) Hair loss L65.9 - Nonscarring hair loss, unspecified (ICD-10) Breast lump N63.0 - Unspecified lump in unspecified breast (ICD-10) Asthma J45.909 - Unspecified asthma, uncomplicated (ICD-10) Xiphoid pain R07.89 - Other chest pain (ICD -10) Thyroid nodule E04.1 - Nontoxic single thyroid nodule (ICD-10) Thyroid nodule E04.1 - Nontoxic single thyroid nodule (ICD-10) Xiphoid pain R07.89 - Other chest pain (ICD -10) Other PMH includes wrist fx and 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 Medications Medications Copied from medical chart: Last Reconciled 11/15/23 by Katiana Fernandez RN albuterol sulfate 2.5 mg inhalation Q4H PRN albuterol sulfate 90 mcg/ actuation (Proventil HFA) 2 puffs inhalation Q4-6H PRN cholecalciferol (vitamin D3) 25 mcg PO QDAY cyanocobalamin (vitamin B-12) 500 mcg PO DAILY fluticasone propion-salmeterol 230-21 mcg/actuation (Advair HFA) 2 puffs inhalation BID fluticasone propionate 50 mcg/ actuation (Allergy Relief ( fluticasone)) 1 spray intranasal QDAY gabapentin 200 mg (2 x 100 mg) PO QDAY ipratropium bromide 2 sprays intranasal TID PRN levocetirizine 5 mg PO QDAY magnesium glycinate 2 tabs PO DAILY metformin ER 1,000 mg (2 x 500 mg) PO BID montelukast 10 mg PO QHS multivitamin 1 tab PO QAM omeprazole magnesium (Prilosec OTC) 20 mg PO QDAY pseudoephedrine HCl 30 mg PO . bedtime PRN semaglutide (Ozempic) 0.5 mg ( 0.736 mL) subcut QWEEK Family History Family History of Lymphedema No Current Work Status Current Work Status Retired Subjective Subjective Pt is a very pleasant 78yo female referred to OT for lymphedema surveillance following her 11/02/23 left breast lumpectomy with SLNB x 1. Pt states she is doing well, she has a radiation consultation next week, likely will need short course of radiation. Pt has not noticed any abnormal swelling. Pt states she is hoping to learn more about lymphedema as she has heard of it, but really does not know what it is. Pt states her mother had breast cancer, she is not surprised that she got it too. Pt states she really enjoys folk dancing but has not been doing it much in recent years as she cannot find a place to do it. Living Situation Current Living Situation Home With Spouse Or SO Problem List Problem List Limited Knowledge of Lymphedema Treatment/Condition /Precautions,Limited Knowledge of Skin Care & Infection Precautions,Significant Risk For Infection For Lymphedema Related Complications,Does Not Have a HEP Exercise History Does Patient Exercise Regularly No Pain Pain No ROM/Strength ROM/Strength Comments Pt demonstrates full AROM in BUE, feels limited in strength and endurance, she will be addressing this with PT. Compression History Does Patient Currently Wear Compression No During Daytime Does Patient Currently Wear Compression No At Night Current Swelling (Location/Pitting/Texture) Pitting Scale: 0 = No pitting 1+ Tissue returns to normal almost immediately 2+ Tissue returns after 15-30 seconds 3+ Tissue returns after 1-1/2 minutes 4+ Tissue returns after 2-3 minutes N/A Tissue no longer pits due to induration Tissue texture: Soft or indurated Positive Stemmer's Sign No Capillary Refill Brisk Circumferential Measurements Upper Extremity Left Upper Extremity MCP (in cm) 17.5 Palm (in cm) 18.0 Smallest Wrist Measurement (in cm) 14.5 10 cm Above Smallest Wrist Measurement 17.3 20 cm Above Smallest Wrist Measurement 23.0 30 cm Above Smallest Wrist Measurement 27.2 40 cm Above Smallest Wrist Measurement 32.2 Total Girth in cm 149.7 UE Volume C 201.69 UE Volume D 325.25 UE Volume E 502.51 UE Volume F 703.60 Right Upper Extremity MCP (in cm) 17.5 Palm (in cm) 18.0 Smallest Wrist Measurement (in cm) 14.4 10 cm Above Smallest Wrist Measurement 16.5 20 cm Above Smallest Wrist Measurement 22.5 30 cm Above Smallest Wrist Measurement 26.8 40 cm Above Smallest Wrist Measurement 31.0 Total Girth in cm 146.7 UE Volume C 190.24 UE Volume D 304.98 UE Volume E 484.75 UE Volume F 665.80 Assessment Assessment Pt presents post-operatively for initiation of lymphedema surveillance program. Following her 11/02/23 bilateral mastectomy with SLN biopsy x1 (-), pt is at risk for lymphedema in her LUE / upper quadrant due to LN removal. Pt may need radiation which would add to her risk. Pt will benefit from skilled OT intervention for pt education, monitoring / surveillance in order to provide early detection / intervention to assure best positive outcomes with fewer lymphedema related complications if the need arises. Pt demonstrates good interest and motivation to be an active participant in her care. Pt asked multiple pertinent questions and received satisfactory answers. Pt was given contact info and encouraged to reach out if more questions arise. Pt does have a 3 cm difference in gross circumferential measurements of the LUE vs RUE with the left being larger. However, this is likely due to her chronic shoulder injury on the right side which limits her ability to use her RUE, this likely has contributed to atrophy, will continue to monitor. Patient Goals Patient Goals 1. Pt will demonstrate a general understanding of the lymphatic system, s/s of lymphedema, treatment of lymphedema, implications of untreated lymphedema, s/s of infection and the correlation of infection related to lymphedema. 3 months 2. Pt will be compliant with quarterly assessments for lymphedema surveillance in order to obtain early intervention with best outcomes if needed. 12 months Treatment Plan Treatment Plan Evaluation,Edema Control, Manual Therapy,Wound Care/Scar Management,Therapeutic Exercise,Therapeutic Activities,Self-Care/Home Management,Education Expected Frequency 1-2x Week Certification Certification Statement I Certify That: Therapy Services Provided Certification Information Clinic ID # [id number] Initial Certification Date 11/30/23 Recertification Due Date 02/28/24 Provider Signature Shows Agreement With POC & Medical Necessity Physician Comment/Change Comment or Changes Physician NPI Number #
--- NOTE | 2023-12-01 16:01 | PT.OPDNX ---
PT [facility] Outpatient Daily Note PT [facility] Outpatient Daily Note Start: 12/01/23 12:35 Freq: Status: Active Protocol: Document 12/01/23 12:36 ENM (Rec: 12/01/23 14:55 ENM [email or web address]) E-signed By Sara Ordaz DPT PT OP Daily Progress Note Visit Information Note Type Re-Evaluation Visit Number 2 Insurance Information Recert Due Date 12/22/23 Insurance Name [facility] Insurance Information/Comments advantage, [employer] Medical Diagnosis Left breast lumpectomy w SLND Treating Diagnosis decreased shoulder strength Referring MD Chente MCCLURE Subjective Subjective Patient presents to PT 4 weeks s/p L breast lumpectomy with SLND on 11/02/23 for invasive ductal carcinoma ERPR+, HER2-. Her initial surgery was pushed back due to having COVID. One lymph node was taken out which was negative. She did well after surgery and didn't have to take pain medication. She is meeting with the radiologist next week . Will likely have a hormone michelle but no chemo. She has been feeling fine through her arm and shoulder. 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 PMHx: previous fx of left hand Pain Comments none at moment Precautions Treatment Precautions/Contraindications diabetes type II on ozempic, off for this week before surgery Home Exercise Home Exercise Comments Access Code: [email or web address] URL: [email or web address] Date: 12/01/2023 Prepared by: Sara Ordaz Exercises - Supine Shoulder Flexion AAROM - 3 x daily - 7 x weekly - 10 reps - 5 seconds hold - Supine Chest Stretch with Elbows Bent - 3 x daily - 7 x weekly - 10 reps - 5 seconds hold - Standing Shoulder Flexion Full Range - 3 x daily - 7 x weekly - 10 reps - 5 seconds hold - Chicken Wing - 3 x daily - 7 x weekly - 10 reps - 5 seconds hold - Shoulder blade squeeze - 3 x daily - 7 x weekly - 10 reps - 5 seconds hold Objective Other/Pertinent Objective AROM in standing Flexion L 159 (passive 167) Abduction L 169 Joint mobility: normal inferior and posterior glide on L side Palpation: no significant tenderness along incisions, breast and axilla tissue restriction mild in the two incision (axilla and superior breast) Observation/swelling: no significant swelling or bruising Cording: - Patient Instructed in Risks/Benefits Yes Therapeutic Exercise Therapeutic Exercise Minutes (minutes) 11 Therapeutic Exercise: To Restore - Supine Shoulder Flexion Functional Status AAROM 1x10 - Supine Chest Stretch with Elbows Bent 1x10 with 5s holds - Standing Shoulder Flexion Full Range 1x10 - Shoulder blade squeeze 1x10 Reviewed positioning for radiation and potential side effects of treatment including tightness and fatigue Manual Therapy Techniques Manual Therapy Minutes (minutes) 9 Manual Therapy Techniques -gentle scar mobilization and fascial mobility with arm in ABD/ER positioning for radiation. Educated patient on how she can perform this at home Treatment Minutes Untimed Code Treatment Minutes 24 Timed Code Treatment Minutes 20 Total Treatment Time 44 Billing Units Therapeutic Exercise Units 1 Re-Evaluation Units 1 Assessment/Impression Assessment/Impression Patient returns to PT for her 4 week post-operative evaluation to compare baseline pre-operative measurements to her current condition, in addition to assessing for post -operative impairments that will benefit from continuation of skilled care. She currently presents with mild incisional tightness and shoulder weakness that will benefit from skilled care, including therapeutic exercise , manual therapy, neuromuscular education, self- care training and HEP training , in order to return her to her prior level of function and comfort. Overall patient doing very well after surgery. Plan of Care Physical Therapy Goals In 4-6 visits: 1. Restore shoulder AROM, as measured at pre-operative evaluation, after initial recovery period to improve 1 and 2-handed functional activity ability. (This will reduce during radiation therapy inflammatory phase, if needed.) 2. Patient will report feeling back to baseline with all functional mobility and household duties 3. Restore full upright posture per patient perception or compared to pre-operative findings. Daily Plan of Care Continue per POC Recertification Information Initial Certification Date 09/24/23 Recertification Start Date 12/01/23 Recertification Due Date 02/23/24 Provider Signature Shows Agreement With POC & Medical Necessity Physician Comment/Change Comment or Changes Physician NPI Number #
--- NOTE | 2024-05-16 14:18 | OT.OPLDN2 ---
OT Outpatient Lymphedema Daily Note OT Outpatient Lymphedema Daily Note* Start: 11/30/23 07:23 Freq: Status: Active Protocol: Document 05/16/24 13:26 AMB (Rec: 05/16/24 14:17 AMB [id number]) E-signed By Hina Thompson, OTR/L, CLT, LATHE TENDER Type of Note Type of Note Type of Note Daily Note,Recert/Progress Note Visit Number 3 Comments MC cert due 05/28/24 Insurance Information Insurance Information Insurance Information [employer] OT OP Lymphedema Daily/Progress Note Current Condition/Medical Diagnosis Referring Provider Dr Eldridge Date Of Onset 11/02/23 Medical Contraindications DM Medical History Medical History Cancer Treatment/Surgery,DM, Allergies (Latex or Other), Radiation,Asthma/Respiratory Disorder,Arthritis Medical History Comments Oncology Hx / Time line: 09/06/2023 bilateral mammogram , diagnostic left-sided mammogram. Indeterminate new solid nodule in the left breast 7 cm from nipple measuring 6 into 5 in to 7 mm. BI-RADS category 4. 09/09/2023 ultrasound-guided biopsy of the left hypoechoic lobular lesion, number of samples taken 5; clip placement Left breast ultrasound-guided core biopsy consistent with invasive ductal carcinoma, grade 2, ER positive 91-100%, NC positive 21-30%, HER2 equivocal 2+, reflex to fish. FISH negative; Ki-67 8%. 11/02/23: surgery 11/02/2023 Left breast partial mastectomy with margins less min consistent with invasive ductal carcinoma, grade 2 invasive micro papillary features, size 7 mm, all margins negative for invasive carcinoma, more than 10 mm to all margins. All margins negative for DCIS. ER positive 91-100%. NC positive 21-30%. HER2 negative by fish. Ki-67 8%. + atypical lobular hyperplasia . Left axillary sentinel lymph node, 1 lymph node negative for metastatic carcinoma. Pathologic T1b N0 11/05/2023 Genetic testing for 9 gene panel with reflex to multi cancer panel for 70 gene via [facility] is negative. 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 Medical History (Updated 10/11 @ 14:05 by Mahamed Kate MD) Otitis media H66.90 - Otitis media, unspecified, unspecified ear ( ICD-10) COVID-19 U07.1 - COVID-19 (ICD-10) Breast cancer C50.919 - Malignant neoplasm of unspecified site of unspecified female breast (ICD -10) Bronchitis J40 - Bronchitis, not specified as acute or chronic (ICD-10) Seasonal allergies J30.2 - Other seasonal allergic rhinitis (ICD-10) Rash R21 - Rash and other nonspecific skin eruption (ICD -10) Hair loss L65.9 - Nonscarring hair loss, unspecified (ICD-10) Breast lump N63.0 - Unspecified lump in unspecified breast (ICD-10) Asthma J45.909 - Unspecified asthma, uncomplicated (ICD-10) Xiphoid pain R07.89 - Other chest pain (ICD -10) Thyroid nodule E04.1 - Nontoxic single thyroid nodule (ICD-10) Thyroid nodule E04.1 - Nontoxic single thyroid nodule (ICD-10) Xiphoid pain R07.89 - Other chest pain (ICD -10) Other PMH includes wrist fx and 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 Medications Medications Copied from medical chart: Last Reconciled 11/15/23 by Katiana Fernandez RN albuterol sulfate 2.5 mg inhalation Q4H PRN albuterol sulfate 90 mcg/ actuation (Proventil HFA) 2 puffs inhalation Q4-6H PRN cholecalciferol (vitamin D3) 25 mcg PO QDAY cyanocobalamin (vitamin B-12) 500 mcg PO DAILY fluticasone propion-salmeterol 230-21 mcg/actuation (Advair HFA) 2 puffs inhalation BID fluticasone propionate 50 mcg/ actuation (Allergy Relief ( fluticasone)) 1 spray intranasal QDAY gabapentin 200 mg (2 x 100 mg) PO QDAY ipratropium bromide 2 sprays intranasal TID PRN levocetirizine 5 mg PO QDAY magnesium glycinate 2 tabs PO DAILY metformin ER 1,000 mg (2 x 500 mg) PO BID montelukast 10 mg PO QHS multivitamin 1 tab PO QAM omeprazole magnesium (Prilosec OTC) 20 mg PO QDAY pseudoephedrine HCl 30 mg PO . bedtime PRN semaglutide (Ozempic) 0.5 mg ( 0.736 mL) subcut QWEEK Family History Family History of Lymphedema No Current Work Status Current Work Status Retired Subjective Subjective Pt continues to do well, has a new grandson and will be traveling back to [place] soon to see him. Pt has been having some issues with her left shoulder, saw Dr Gale with diagnosis of OA, pt concerned that she has a RCT as it often pops and it is painful. Pt also continues to struggle with her left thumb deformity due to OA, states she's not sure if she wants to go through with surgery, considering it. Living Situation Current Living Situation Home With Spouse Or SO Problem List Problem List Limited Knowledge of Lymphedema Treatment/Condition /Precautions,Limited Knowledge of Skin Care & Infection Precautions,Significant Risk For Infection For Lymphedema Related Complications,Does Not Have a HEP Exercise History Does Patient Exercise Regularly No Pain Pain No ROM/Strength ROM/Strength Comments Full, functional strength and ROM of the LUE, arthritic changes in shoulder, arthritic deformity in thumb due to OA. Compression History Does Patient Currently Wear Compression No During Daytime Does Patient Currently Wear Compression No At Night Current Swelling (Location/Pitting/Texture) Pitting Scale: 0 = No pitting 1+ Tissue returns to normal almost immediately 2+ Tissue returns after 15-30 seconds 3+ Tissue returns after 1-1/2 minutes 4+ Tissue returns after 2-3 minutes N/A Tissue no longer pits due to induration Tissue texture: Soft or indurated Positive Stemmer's Sign No Capillary Refill Brisk Circumferential Measurements Upper Extremity Left Upper Extremity MCP (in cm) 17.4 Palm (in cm) 17.4 Smallest Wrist Measurement (in cm) 14.5 10 cm Above Smallest Wrist Measurement 17.0 20 cm Above Smallest Wrist Measurement 22.7 30 cm Above Smallest Wrist Measurement 27.0 40 cm Above Smallest Wrist Measurement 32.5 Total Girth in cm 148.5 UE Volume C 197.81 UE Volume D 315.70 UE Volume E 492.63 UE Volume F 706.31 Upper Extremity Volume Total in cm 1,712.45 Right Upper Extremity MCP (in cm) 17.5 Palm (in cm) 18.0 Smallest Wrist Measurement (in cm) 14.4 10 cm Above Smallest Wrist Measurement 17.0 20 cm Above Smallest Wrist Measurement 22.5 30 cm Above Smallest Wrist Measurement 26.9 40 cm Above Smallest Wrist Measurement 31.5 Total Girth in cm 147.8 UE Volume C 196.59 UE Volume D 312.40 UE Volume E 486.77 UE Volume F 679.91 Upper Extremity Volume Total in cm 1,675.67 Treatment Self-Care/Home Management Minutes ( 35 minutes) Self-Care/Home Management Comments Provided patient education regarding the lymphatic system , s/s of lymphedema, treatment options for lymphedema, implications of untreated lymphedema, infection and it's correlation to lymphedema as well as implications of untreated infection. Discussed risk reduction practices including skin care and monitoring strategies. Provided demo of PUSH and Comfort Cool splints for support of the LUE CMC joint. Provided size info and trial on pt's hand. Total Occupational Therapy Minutes 35 Assessment Assessment Pt resents for post-op lymphedema surveillance, pt is in good spirits, feels she is doing very well. There are no s/s of lymphedema. Pt has good interest and motivation to continue with the lymphedema surveillance program. Will re-assess in 3 months. Pt was encouraged to contact newspaper writer if she has any concerns prior to our next visit. Patient Goals Patient Goals 1. Pt will demonstrate a general understanding of the lymphatic system, s/s of lymphedema, treatment of lymphedema, implications of untreated lymphedema, s/s of infection and the correlation of infection related to lymphedema. 3 months 2. Pt will be compliant with quarterly assessments for lymphedema surveillance in order to obtain early intervention with best outcomes if needed. 12 months Treatment Plan Treatment Plan Evaluation,Edema Control, Manual Therapy,Wound Care/Scar Management,Therapeutic Exercise,Therapeutic Activities,Self-Care/Home Management,Education Expected Frequency 1-2x Week Occupational Therapy Billing Units Treatment Minutes Timed Treatment Minutes 35 Total Treatment Minutes 35 Certification Statement Certification Statement I Certify That: Therapy Services Provided Recertification Information Recertification Information Initial Certification Date 11/30/23 Recertification Start Date 02/28/24 Recertification Due Date 05/28/24 Reasons to Continue Skilled Therapy Pt is participating in a lymphedema surveillance program and will benefit from continued surveillance to provide early intervention and treatment in the event that she develops lymphedema in order to achieve best outcomes as well as continued pt education on risk reduction practices. Rehabilitation Potential Good Click To Default 'Per treatment plan' Per treatment plan Continued Plan of Care and Interventions Per treatment plan Provider Signature Required Yes Provider Signature Shows Agreement With POC & Medical Necessity Physician NPI Number Write NPI# Here Physician Comment/Change Comment or Changes Physician Signature & Date Requested Please Sign/Date Here
--- NOTE | 2024-08-16 17:47 | OT.OPLDN2 ---
OT Outpatient Lymphedema Daily Note OT Outpatient Lymphedema Daily Note* Start: 11/30/23 07:23 Freq: Status: Active Protocol: Document 08/16/24 12:40 AMB (Rec: 08/16/24 17:42 AMB [id number]) E-signed By Hina Thompson, OTR/L, CLT, [employer]CREW[employer] Type of Note Type of Note Type of Note Daily Note,Recert/Progress Note Visit Number 4 Comments MC cert due 08/28/24 Insurance Information Insurance Information Insurance Information [employer] OT OP Lymphedema Daily/Progress Note Current Condition/Medical Diagnosis Referring Provider Dr Eldridge Date Of Onset 11/02/23 Medical Contraindications DM Medical History Medical History Cancer Treatment/Surgery,DM, Allergies (Latex or Other), Radiation,Asthma/Respiratory Disorder,Arthritis Medical History Comments Oncology Hx / Time line: 09/06/2023 bilateral mammogram , diagnostic left-sided mammogram. Indeterminate new solid nodule in the left breast 7 cm from nipple measuring 6 into 5 in to 7 mm. BI-RADS category 4. 09/09/2023 ultrasound-guided biopsy of the left hypoechoic lobular lesion, number of samples taken 5; clip placement Left breast ultrasound-guided core biopsy consistent with invasive ductal carcinoma, grade 2, ER positive 91-100%, OH positive 21-30%, HER2 equivocal 2+, reflex to fish. FISH negative; Ki-67 8%. 11/02/23: surgery 11/02/2023 Left breast partial mastectomy with margins less min consistent with invasive ductal carcinoma, grade 2 invasive micro papillary features, size 7 mm, all margins negative for invasive carcinoma, more than 10 mm to all margins. All margins negative for DCIS. ER positive 91-100%. OH positive 21-30%. HER2 negative by fish. Ki-67 8%. + atypical lobular hyperplasia . Left axillary sentinel lymph node, 1 lymph node negative for metastatic carcinoma. Pathologic T1b N0 11/05/2023 Genetic testing for 9 gene panel with reflex to multi cancer panel for 70 gene via [place] is negative. 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 Medical History (Updated 10/11 @ 14:05 by Mahamed Kate MD) Otitis media H66.90 - Otitis media, unspecified, unspecified ear ( ICD-10) COVID-19 U07.1 - COVID-19 (ICD-10) Breast cancer C50.919 - Malignant neoplasm of unspecified site of unspecified female breast (ICD -10) Bronchitis J40 - Bronchitis, not specified as acute or chronic (ICD-10) Seasonal allergies J30.2 - Other seasonal allergic rhinitis (ICD-10) Rash R21 - Rash and other nonspecific skin eruption (ICD -10) Hair loss L65.9 - Nonscarring hair loss, unspecified (ICD-10) Breast lump N63.0 - Unspecified lump in unspecified breast (ICD-10) Asthma J45.909 - Unspecified asthma, uncomplicated (ICD-10) Xiphoid pain R07.89 - Other chest pain (ICD -10) Thyroid nodule E04.1 - Nontoxic single thyroid nodule (ICD-10) Thyroid nodule E04.1 - Nontoxic single thyroid nodule (ICD-10) Xiphoid pain R07.89 - Other chest pain (ICD -10) Other PMH includes wrist fx and 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 Medications Medications Copied from medical chart: Last Reconciled 11/15/23 by Katiana Fernandez RN albuterol sulfate 2.5 mg inhalation Q4H PRN albuterol sulfate 90 mcg/ actuation (Proventil HFA) 2 puffs inhalation Q4-6H PRN cholecalciferol (vitamin D3) 25 mcg PO QDAY cyanocobalamin (vitamin B-12) 500 mcg PO DAILY fluticasone propion-salmeterol 230-21 mcg/actuation (Advair HFA) 2 puffs inhalation BID fluticasone propionate 50 mcg/ actuation (Allergy Relief ( fluticasone)) 1 spray intranasal QDAY gabapentin 200 mg (2 x 100 mg) PO QDAY ipratropium bromide 2 sprays intranasal TID PRN levocetirizine 5 mg PO QDAY magnesium glycinate 2 tabs PO DAILY metformin ER 1,000 mg (2 x 500 mg) PO BID montelukast 10 mg PO QHS multivitamin 1 tab PO QAM omeprazole magnesium (Prilosec OTC) 20 mg PO QDAY pseudoephedrine HCl 30 mg PO . bedtime PRN semaglutide (Ozempic) 0.5 mg ( 0.736 mL) subcut QWEEK Family History Family History of Lymphedema No Current Work Status Current Work Status Retired Subjective Subjective Pt states she had an MRI on her left shoulder which indicated she has a RCT and lots of arthritis, offered her a total shoulder but she does not want to pursue this. Pt did have a steroid injection in early July which has helped some. Pt has purchased the Comfort Cool CMC support for her left thumb, feels it is helpful. Ortho offered injection for her thumb, pt holding off on this, considering surgery. Living Situation Current Living Situation Home With Spouse Or SO Problem List Problem List Limited Knowledge of Lymphedema Treatment/Condition /Precautions,Limited Knowledge of Skin Care & Infection Precautions,Significant Risk For Infection For Lymphedema Related Complications,Does Not Have a HEP Exercise History Does Patient Exercise Regularly No Pain Pain No ROM/Strength ROM/Strength Comments Full, functional strength and ROM of the LUE, arthritic changes in shoulder, arthritic deformity in thumb due to OA. Compression History Does Patient Currently Wear Compression No During Daytime Does Patient Currently Wear Compression No At Night Current Swelling (Location/Pitting/Texture) Pitting Scale: 0 = No pitting 1+ Tissue returns to normal almost immediately 2+ Tissue returns after 15-30 seconds 3+ Tissue returns after 1-1/2 minutes 4+ Tissue returns after 2-3 minutes N/A Tissue no longer pits due to induration Tissue texture: Soft or indurated Positive Stemmer's Sign No Capillary Refill Brisk Circumferential Measurements Upper Extremity Left Upper Extremity MCP (in cm) 17.2 Palm (in cm) 17.2 Smallest Wrist Measurement (in cm) 14.2 10 cm Above Smallest Wrist Measurement 17.0 20 cm Above Smallest Wrist Measurement 22.4 30 cm Above Smallest Wrist Measurement 27.0 40 cm Above Smallest Wrist Measurement 32.0 Total Girth in cm 147.0 UE Volume C 194.17 UE Volume D 310.76 UE Volume E 486.89 UE Volume F 694.18 Upper Extremity Volume Total in cm 1,686.00 Right Upper Extremity MCP (in cm) 17.5 Palm (in cm) 18.0 Smallest Wrist Measurement (in cm) 14.4 10 cm Above Smallest Wrist Measurement 17.0 20 cm Above Smallest Wrist Measurement 22.5 30 cm Above Smallest Wrist Measurement 26.9 40 cm Above Smallest Wrist Measurement 31.5 Total Girth in cm 147.8 UE Volume C 196.59 UE Volume D 312.40 UE Volume E 486.77 UE Volume F 679.91 Upper Extremity Volume Total in cm 1,675.67 Treatment Self-Care/Home Management Minutes ( 41 minutes) Self-Care/Home Management Comments Provided review of patient education regarding the lymphatic system, s/s of lymphedema, treatment options for lymphedema, implications of untreated lymphedema, infection and it's correlation to lymphedema as well as implications of untreated infection. Discussed risk reduction practices including skin care and monitoring strategies. Also reviewed information that was discussed at last appointment regarding the [facility] [place], provided pt with written information as well. Pt states the doctor offered steroid injection, she's not sure she wants to do this, may opt for surgery. She has purchased a Comfort Cool splint as recommended at previous visit, feels it is helpful. Total Occupational Therapy Minutes 41 Assessment Assessment Pt resents for post-op lymphedema surveillance, pt feels she is doing very well. She has more concerns regarding her shoulder and her thumb. There are no s/s of lymphedema. Pt has good interest and motivation to continue with the lymphedema surveillance program. Will have her final re-assessment in 3 months. Pt was encouraged to contact contract technical writer if she has any concerns prior to our next visit. Patient Goals Patient Goals 1. Pt will demonstrate a general understanding of the lymphatic system, s/s of lymphedema, treatment of lymphedema, implications of untreated lymphedema, s/s of infection and the correlation of infection related to lymphedema. 3 months 2. Pt will be compliant with quarterly assessments for lymphedema surveillance in order to obtain early intervention with best outcomes if needed. 12 months Treatment Plan Treatment Plan Evaluation,Edema Control, Manual Therapy,Wound Care/Scar Management,Therapeutic Exercise,Therapeutic Activities,Self-Care/Home Management,Education Expected Frequency 1-2x Week Occupational Therapy Billing Units Treatment Minutes Timed Treatment Minutes 41 Total Treatment Minutes 41 Certification Statement Certification Statement I Certify That: Therapy Services Provided Recertification Information Recertification Information Initial Certification Date 11/30/23 Recertification Start Date 05/28/24 Recertification Due Date 08/28/24 Reasons to Continue Skilled Therapy Pt is participating in a lymphedema surveillance program and will benefit from continued surveillance to provide early intervention and treatment in the event that she develops lymphedema in order to achieve best outcomes as well as continued pt education on risk reduction practices. [ End ] Rehabilitation Potential Good Click To Default 'Per treatment plan' Per treatment plan Continued Plan of Care and Interventions Per treatment plan Provider Signature Required Yes Provider Signature Shows Agreement With POC & Medical Necessity Physician NPI Number Write NPI# Here Physician Comment/Change Comment or Changes Physician Signature & Date Requested Please Sign/Date Here
--- NOTE | 2024-11-15 15:59 | OT.OPLDN2 ---
OT Outpatient Lymphedema Daily Note OT Outpatient Lymphedema Daily Note* Start: 11/30/23 07:23 Freq: Status: Active Protocol: Document 11/15/24 12:39 AMB (Rec: 11/15/24 15:58 AMB [id number]) E-signed By Hina Thompson, OTR/L, CLT, [employer] Type of Note Type of Note Type of Note Daily Note,Discharge Note, Recert/Progress Note Visit Number 5 Comments MC cert due 08/28/24 Insurance Information Insurance Information Insurance Information [employer] OT OP Lymphedema Daily/Progress Note Current Condition/Medical Diagnosis Referring Provider Dr Eldridge Date Of Onset 11/02/23 Medical Contraindications DM Medical History Medical History Cancer Treatment/Surgery,DM, Allergies (Latex or Other), Radiation,Asthma/Respiratory Disorder,Arthritis Medical History Comments Oncology Hx / Time line: 09/06/2023 bilateral mammogram , diagnostic left-sided mammogram. Indeterminate new solid nodule in the left breast 7 cm from nipple measuring 6 into 5 in to 7 mm. BI-RADS category 4. 09/09/2023 ultrasound-guided biopsy of the left hypoechoic lobular lesion, number of samples taken 5; clip placement Left breast ultrasound-guided core biopsy consistent with invasive ductal carcinoma, grade 2, ER positive 91-100%, MA positive 21-30%, HER2 equivocal 2+, reflex to fish. FISH negative; Ki-67 8%. 11/02/23: surgery 11/02/2023 Left breast partial mastectomy with margins less min consistent with invasive ductal carcinoma, grade 2 invasive micro papillary features, size 7 mm, all margins negative for invasive carcinoma, more than 10 mm to all margins. All margins negative for DCIS. ER positive 91-100%. MA positive 21-30%. HER2 negative by fish. Ki-67 8%. + atypical lobular hyperplasia . Left axillary sentinel lymph node, 1 lymph node negative for metastatic carcinoma. Pathologic T1b N0 11/05/2023 Genetic testing for 9 gene panel with reflex to multi cancer panel for 70 gene via [facility] is negative. 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 Medical History (Updated 10/11 @ 14:05 by Mahamed Kate MD) Otitis media H66.90 - Otitis media, unspecified, unspecified ear ( ICD-10) COVID-19 U07.1 - COVID-19 (ICD-10) Breast cancer C50.919 - Malignant neoplasm of unspecified site of unspecified female breast (ICD -10) Bronchitis J40 - Bronchitis, not specified as acute or chronic (ICD-10) Seasonal allergies J30.2 - Other seasonal allergic rhinitis (ICD-10) Rash R21 - Rash and other nonspecific skin eruption (ICD -10) Hair loss L65.9 - Nonscarring hair loss, unspecified (ICD-10) Breast lump N63.0 - Unspecified lump in unspecified breast (ICD-10) Asthma J45.909 - Unspecified asthma, uncomplicated (ICD-10) Xiphoid pain R07.89 - Other chest pain (ICD -10) Thyroid nodule E04.1 - Nontoxic single thyroid nodule (ICD-10) Thyroid nodule E04.1 - Nontoxic single thyroid nodule (ICD-10) Xiphoid pain R07.89 - Other chest pain (ICD -10) Other PMH includes wrist fx and 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 Medications Medications Copied from medical chart: Last Reconciled 11/15/23 by Katiana Fernandez RN albuterol sulfate 2.5 mg inhalation Q4H PRN albuterol sulfate 90 mcg/ actuation (Proventil HFA) 2 puffs inhalation Q4-6H PRN cholecalciferol (vitamin D3) 25 mcg PO QDAY cyanocobalamin (vitamin B-12) 500 mcg PO DAILY fluticasone propion-salmeterol 230-21 mcg/actuation (Advair HFA) 2 puffs inhalation BID fluticasone propionate 50 mcg/ actuation (Allergy Relief ( fluticasone)) 1 spray intranasal QDAY gabapentin 200 mg (2 x 100 mg) PO QDAY ipratropium bromide 2 sprays intranasal TID PRN levocetirizine 5 mg PO QDAY magnesium glycinate 2 tabs PO DAILY metformin ER 1,000 mg (2 x 500 mg) PO BID montelukast 10 mg PO QHS multivitamin 1 tab PO QAM omeprazole magnesium (Prilosec OTC) 20 mg PO QDAY pseudoephedrine HCl 30 mg PO . bedtime PRN semaglutide (Ozempic) 0.5 mg ( 0.736 mL) subcut QWEEK Family History Family History of Lymphedema No Current Work Status Current Work Status Retired Subjective Subjective Pt states the cortisone injection has been very helpful for her shoulder, still waiting on the thumb, feels she will eventually need to do something. Pt denies noticing any swelling in her left arm, UB, axilla, or breast. Pt does however complain of weakness in both of her hands and forearms. Pt states she cannot do her PT strengthening exs as they cause increased pain in her shoulders, she is concerned that her hands will continue to get weak, she is having trouble lifting and carrying groceries. Living Situation Current Living Situation Home With Spouse Or SO Problem List Problem List Limited Knowledge of Lymphedema Treatment/Condition /Precautions,Limited Knowledge of Skin Care & Infection Precautions,Significant Risk For Infection For Lymphedema Related Complications,Does Not Have a HEP Exercise History Does Patient Exercise Regularly No Pain Pain No ROM/Strength ROM/Strength Comments Pt demonstrates 3-/5 mmt throughout BUE shoulders, 4-/5 BUE elbows and forearms, 3+ BUE hands. Pt has pain with strength testing BUE shoulders due to RCT. Compression History Does Patient Currently Wear Compression No During Daytime Does Patient Currently Wear Compression No At Night Current Swelling (Location/Pitting/Texture) Pitting Scale: 0 = No pitting 1+ Tissue returns to normal almost immediately 2+ Tissue returns after 15-30 seconds 3+ Tissue returns after 1-1/2 minutes 4+ Tissue returns after 2-3 minutes N/A Tissue no longer pits due to induration Tissue texture: Soft or indurated Positive Stemmer's Sign No Capillary Refill Brisk Circumferential Measurements Upper Extremity Left Upper Extremity MCP (in cm) 17.0 Palm (in cm) 17.0 Smallest Wrist Measurement (in cm) 14.2 10 cm Above Smallest Wrist Measurement 17.0 20 cm Above Smallest Wrist Measurement 22.5 30 cm Above Smallest Wrist Measurement 27.3 40 cm Above Smallest Wrist Measurement 31.7 Total Girth in cm 146.7 Upper Extremity Volume Total in cm 1,686.00 Right Upper Extremity MCP (in cm) 17.5 Palm (in cm) 18.0 Smallest Wrist Measurement (in cm) 14.4 10 cm Above Smallest Wrist Measurement 17.0 20 cm Above Smallest Wrist Measurement 22.5 30 cm Above Smallest Wrist Measurement 26.9 40 cm Above Smallest Wrist Measurement 31.5 Total Girth in cm 147.8 Upper Extremity Volume Total in cm 1,675.67 Treatment Therapeutic Exercise Minutes (minutes) 13 Therapeutic Exercise Comments Provided pt with training and practice in resisted wrist flexion, extension and UD as well as resisted forearm pronation and supination for general elbow and forearm strengthening and resisted gripping with Teal (light) TP to improve general UE strength and endurance with Self-Care/Home Management Minutes ( 21 minutes) Self-Care/Home Management Comments Provided review of patient education regarding the lymphatic system, s/s of lymphedema, treatment options for lymphedema, implications of untreated lymphedema, infection and it's correlation to lymphedema as well as implications of untreated infection. Discussed risk reduction practices including skin care and monitoring strategies. Discussed that she will need to self-monitor for the rest of her lift, pt understands. Total Occupational Therapy Minutes 34 Assessment Assessment Pt continues to have concerns about her shoulders and her left thumb. Pt has no current concerns regarding lymphedema, she feels comfortable with self-surveillance. Pt understands risks and reduction practices. Pt does not demonstrate any s/s of lymphedema in her left upper quadrant at this time, she has completed her lymphedema surveillance and will be discharged from OT today. She will continue with surveillance, she has conventional mortgage underwriter's contact information and will reach out if she has future questions or concerns. Patient Goals Patient Goals 11/15/24 All goals have been met . 1. Pt will demonstrate a general understanding of the lymphatic system, s/s of lymphedema, treatment of lymphedema, implications of untreated lymphedema, s/s of infection and the correlation of infection related to lymphedema. 3 months 2. Pt will be compliant with quarterly assessments for lymphedema surveillance in order to obtain early intervention with best outcomes if needed. 12 months Treatment Plan Treatment Plan Evaluation,Edema Control, Manual Therapy,Wound Care/Scar Management,Therapeutic Exercise,Therapeutic Activities,Self-Care/Home Management,Education Expected Frequency 1-2x Week Occupational Therapy Billing Units Treatment Minutes Timed Treatment Minutes 34 Total Treatment Minutes 34 Certification Statement Certification Statement I Certify That: Therapy Services Provided Recertification Information Recertification Information Initial Certification Date 11/30/23 Recertification Start Date 08/28/24 Recertification Due Date 11/16/24 Reasons to Continue Skilled Therapy Pt is participating in a lymphedema surveillance program and will benefit from continued surveillance to provide early intervention and treatment in the event that she develops lymphedema in order to achieve best outcomes as well as continued pt education on risk reduction practices. [ End ] Rehabilitation Potential Good Click To Default 'Per treatment plan' Per treatment plan Continued Plan of Care and Interventions Per treatment plan Provider Signature Required Yes Provider Signature Shows Agreement With POC & Medical Necessity Physician NPI Number Write NPI# Here Physician Comment/Change Comment or Changes Physician Signature & Date Requested Please Sign/Date Here Discharge Note Discharge Note Discharge Summary Pt was seen for a total of 5 visits from her initial evaluation on 11/30/23. Pt has been compliant with clinic visits and recommendations. Pt understands risks and risk reduction practices. Pt feels comfortable discharging to independent lymphedema surveillance program. Interventions Provided During Treatment Evaluation,Edema Control, Manual Therapy,Wound Care/Scar Management,Therapeutic Exercise,Therapeutic Activities,Self Care/Home Management,Education Recommendations/Reason for Discharge Met All Therapy Goals
== END 2024-11-17 15:38 | disposition home or self-care (01) ==
PROVIDERS: PCP Internal Medicine; Visit Provider Surgery
DX: C50.912 Malignant neoplasm of unspecified site of left female breast (principal); Z51.89 Encounter for other specified aftercare
CPT/HCPCS: 97110; 97162; 97164; 97165; 97535; X5282

== ENCOUNTER 2025-06-15 09:20 | Outpatient (CLI) | payer MEDICARE, SELFPAY | END 2025-06-15 09:21 | disposition home or self-care (01) | LOC: NFLDREF 06-21 03:55 | PROVIDERS: PCP Internal Medicine; Referring Provider Internal Medicine; Visit Provider Internal Medicine | DX: E11.9 Type 2 diabetes mellitus without complications (principal); M85.80 Other specified disorders of bone density and structure, unspecified site; E04.1 Nontoxic single thyroid nodule; Z13.6 Encounter for screening for cardiovascular disorders | CPT/HCPCS: 80053; 80061; 82043; 82306; 82570; 84443 ==

== ENCOUNTER 2025-07-25 10:30 | Outpatient (RCR) | payer MEDICARE, SELFPAY | END 2025-09-17 23:59 | disposition home or self-care (01) | LOC: CCIC 10:30 | PROVIDERS: PCP Internal Medicine; Visit Provider Internal Medicine Hematology & Oncology | DX: C50.912 Malignant neoplasm of unspecified site of left female breast (principal); Z17.0 Estrogen receptor positive status [ER+]; Z79.811 Long term (current) use of aromatase inhibitors; M85.80 Other specified disorders of bone density and structure, unspecified site | CPT/HCPCS: 99214; G0463 ==

== ENCOUNTER 2025-08-30 13:30 | Outpatient (RCR) | payer MEDICARE, SELFPAY | END 2025-08-30 16:16 | disposition home or self-care (01) | PROVIDERS: PCP Internal Medicine; Visit Provider Orthopaedic Surgery | DX: Z48.89 Encounter for other specified surgical aftercare (principal); M25.642 Stiffness of left hand, not elsewhere classified; M25.632 Stiffness of left wrist, not elsewhere classified; R53.1 Weakness; Z98.890 Other specified postprocedural states; Z51.89 Encounter for other specified aftercare | CPT/HCPCS: 97035; 97110; 97140; 97165; 97535; X5282 ==

== ENCOUNTER 2025-09-04 11:15 | Outpatient (RCR) | payer MEDICARE, SELFPAY ==
--- NOTE | 2025-05-29 15:00 | PT.OPEX ---
PT [facility] Outpatient Eval PT [facility] Outpatient Eval Start: 05/29/25 08:37 Freq: Status: Active Protocol: Document 05/29/25 08:37 NLR (Rec: 05/29/25 14:18 NLR [id number]) E-signed By Shannon Ambriz DPT Physical Therapy Outpatient Evaluation Insurance Information Recert Due Date 08/27/25 Insurance Name Medicare B,[employer] Medical Diagnosis M70.61 Trochanteric bursitis R hip Treating Diagnosis M25.551 Right hip pain Referring MD Tania Whtiley, [place] Subjective Preferred Name ERICA Subjective Erica started having right hip pain last Wednesday at 3AM so she did her stretches and they didn't help. She saw Dr. Gloria on Wednesday, he gave her Meloxicam that she took for 2-3 Meloxicam with no relief. She started taking Naproxen yesterday. She has been sitting on her couch (low and soft) over the past multiple weeks because of a L trapeziectomy on 03/28/25. She reports she had a similar thing in her hip but it was more than 7 years ago. Pain Comments 2-3/10 right lateral hip - worse at night (wakes her up ). Pain is sharp and achy, sometimes down to groin and to her knee, sometimes over to low spine. Pain is better during the day. Current Work Status Retired Occupation Patient lives in a two story house with her . She is going to [facility] June 30 and she is concerned about the pain. Precautions Therapy Limitations/ Not Limited Systems Review Objective Other/Pertinent HAND DOM: RHD Objective ROM: Grossly WFL, R hip adduction in flexed position limited by tissue tension STRENGTH: Grossly WFL POSTURE: R LE ER, L>R foot pronation (history of bunion resection 12 years ago), FHON, L shoulder significantly low and retracted (patient has known scoliosis) PALPATION: Patient exhibits tenderness to palpation at R lateral piriformis and obturator SPECIAL TESTS: R + FADDIR, R + Fig 4 FUNCTIONAL: I GAIT: I FLEXIBILITY: Hypoflexibility noted at R piriformis/ obturator FOOTWEAR: Patient arrives wearing a Ryka flat shoe with little to no arch support. She has several pairs of Keens she wears in the house. 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 Patient is an appropriate candidate for skilled physical therapy to target deficits described above. Skilled PT intervention is necessary to achieve goals as stated. D /C plan and criteria is for patient to achieve the goals as outlined or until max rehab potential is met. Patient was agreeable with plan of care and goals established. This evaluation is of low complexity due to the stable nature of the patient?s presentation as well as the low comorbidities and medical factors included in this evaluation. Primary Functional Difficulty sleeping at night due to pain Limitations Plan of Care Rehabilitation Good Potential Rehabilitation Patient is otherwise healthy and motivated to improve Potential Comments in order to return to prior level of function. Physical Therapy 1. Patient will be independent with home exercise Goals program as instructed, modified and progressed by physical therapist in order to be independently and actively participating in their rehabilitation and return to prior level of function. Goal to be achieved by 08/24/2025. 2. Patient will demonstrate ability to walk for 60 minutes(s) without significant increase in pain greater than 2/10 to allow patient to be able to safely and independently return to participation in desired level of function with daily activities such general housekeeping, walking for exercise, participating in desired recreational activities without pain or difficulty. Goal to be achieved by 08/24/2025. 3. Patient will demonstrate improved tolerance for sleeping in a bed in desired sleeping position for 6 hours without significant increase in pain greater than 2/10 to allow patient to be able to achieve adequate sleep for improved health and well-being. Goal to be achieved by 08/24/2025.. Coordination/ Referral Source Communication With Treatment Plan/ Dry Needling,Electrical Stimulation,Gait Training, Direct Interventions Manual Therapy,Neuromuscular Re-ed,Self-Care/Home Management,Therapeutic Exercises Frequency/Duration 1X/week for 4-6 weeks (She is going to [facility] in June and is concerned about ability to walk a lot) Patient Will Be Completion of LTG(s),Skills Plateau,Independent w/HEP, Discharged From Independently Progressing Therapy Discharge Plan DC with HEP Comments Evaluation Billing Untimed Code 15 Treatment Minutes PT Eval No Charge No Complexity Low Certification Information Initial 05/29/25 Certification Date Ending Certification 08/27/25 Date Provider Signature Yes Required Provider Signature POC & Medical Necessity Shows Agreement With Physician NPI Number Write NPI# Here Physician Comment/ : Change Physician Signature Please Sign/Date Here & Date Requested
--- NOTE | 2025-09-04 11:40 | PT.OPDNX ---
PT [facility] Outpatient Daily Note PT [facility] Outpatient Daily Note Start: 05/29/25 08:37 Freq: Status: Active Protocol: Document 09/04/25 11:22 NLR (Rec: 09/04/25 11:38 NLR [id number]) E-signed By Shannon Ambriz DPT PT OP Daily Progress Note Visit Information Note Type Discharge Note,No Charge Visit Number 6 Insurance Information Recert Due Date 08/27/25 Insurance Name Medicare B,[employer] Medical Diagnosis M70.61 Trochanteric bursitis R hip Treating Diagnosis M25.551 Right hip pain Referring MD Tania hWitley PA-C Subjective Preferred Name ERICA Subjective Erica returns for follow up reporting her hip pain is gone. She has not had any pain over the past few weeks , she is sleeping on her bed and if she has a hint of anything she uses the ball and it goes away immediately. She offers no questions regarding her HEP . Pain Comments Date of Last 05/28/25 Physician Visit Home Exercise Home Exercise Reviewed, modified and progressed HEP today. Comments Access Code: [email or web address] URL: [email or web address] Date: 09/04/2025 Prepared by: Shannon Ambriz Exercises - Piriformis Positional Release Position - 1 x daily - 5-7 x weekly - 1-5 minute hold - positional muscle release exercise type - Piriformis Release over Ball - 5-7 x weekly - 1-2 reps - 30 seconds to 3 minutes hold - self mobilization exercise type - Supine Figure 4 Piriformis Stretch - 1-2 x daily - 5 -7 x weekly - 1-2 reps - 30-60 seconds hold - stretch exercise type - Seated Figure 4 Piriformis Stretch - 1-2 x daily - 5 -7 x weekly - 1-2 reps - 30-60 second hold - stretch exercise type Patient Education - What is Dry Needling? - Piriformis Syndrome Objective Other/Pertinent HAND DOM: RHD Objective ROM: Grossly WFL, R hip adduction in flexed position limited by tissue tension STRENGTH: Grossly WFL POSTURE: R LE ER, L>R foot pronation (history of bunion resection 12 years ago), FHON, L shoulder significantly low and retracted (patient has known scoliosis) PALPATION: Patient exhibits tenderness to palpation at R lateral piriformis and obturator SPECIAL TESTS: R + FADDIR, R + Fig 4 FUNCTIONAL: I GAIT: I FLEXIBILITY: Hypoflexibility noted at R piriformis/ obturator FOOTWEAR: Patient arrives wearing a Ryka flat shoe with little to no arch support. She has several pairs of Keens she wears in the house. OTHER PMH: DM2 (not insuling dependent, on Ozempic), h/ o L bunionectomy 12 years ago, known scoliosis Functional Test 05/29/25 HOOS-12 Score: 68.7 / 100 = 68.7 % Performed & Score 09/04/25 HOOS-12 Score: 95.8 / 100 = 95.8 % Patient Instructed Yes in Risks/Benefits Therapeutic Exercise Therapeutic Exercise 5 Minutes (minutes) Therapeutic Exercise Supine figure 4 : To Restore Self-mobilization with tennis ball Functional Status Single leg stance Dry Needling Dry Needle Comments Patient reports pain is gone, not done today. Treatment Minutes Timed Code Treatment 5 Minutes Total Treatment Time 5 Assessment/Impression Assessment/ Erica arrives stating pain is gone. She states if Impression she has a hint of discomfort she will roll on the ball and it alleviates it immediately. She has been walking, was able to go on a large walking trip and states she is pleased she is no longer having any issues. Goals achieved, no further therapy indicated. Will DC from PT. Primary Functional None Limitations Plan of Care Physical Therapy 1. Patient will be independent with home exercise Goals program as instructed, modified and progressed by physical therapist in order to be independently and actively participating in their rehabilitation and return to prior level of function. Goal to be achieved by 08/24/2025. ACHIEVED 2. Patient will demonstrate ability to walk for 60 minutes(s) without significant increase in pain greater than 2/10 to allow patient to be able to safely and independently return to participation in desired level of function with daily activities such general housekeeping, walking for exercise, participating in desired recreational activities without pain or difficulty. Goal to be achieved by 08/24/2025. ACHIEVED 3. Patient will demonstrate improved tolerance for sleeping in a bed in desired sleeping position for 6 hours without significant increase in pain greater than 2/10 to allow patient to be able to achieve adequate sleep for improved health and well-being. Goal to be achieved by 08/24/2025. ACHIEVED Daily Plan of Care Discharge Daily Plan of Care DC with HEP Comments Discharge Note Discharge Summary Erica arrives stating pain is gone. She states if she has a hint of discomfort she will roll on the ball and it alleviates it immediately. She has been walking, was able to go on a large walking trip and states she is pleased she is no longer having any issues. Goals achieved, no further therapy indicated. Will DC from PT. Date of First Visit 05/29/25 for Therapy Date of Last Visit 09/04/25 for Therapy Initial Primary Difficulty sleeping at night due to pain Functional Limitations Initial Pain Level 2-3/10 right lateral hip - worse at night (wakes her up ). Pain is sharp and achy, sometimes down to groin and to her knee, sometimes over to low spine. Pain is better during the day. Pain Level at 0/10 Discharge Interventions Manual Therapy,Neuromuscular Re-Ed,Therapeutic Exercise Provided During Treatment Interventions Dry Needling piriformis and glute min/med Provided During Treatment Comments Recommendations/ Met All Therapy Goals Reason for Discharge Discharge DC with HEP Instructions Thank You For This Thank you for this physical therapy referral. Discharge Referral is attached. Signature not required. Contact us if you have any questions or concerns by phone at or by fax at [phone] attn: Shannon Melendez, PT, DPT.
== END 2025-09-13 11:57 | disposition home or self-care (01) ==
PROVIDERS: PCP Internal Medicine; Visit Provider Physician Assistant Surgical
DX: M70.61 Trochanteric bursitis, right hip (principal); Z51.89 Encounter for other specified aftercare
CPT/HCPCS: 97110; 97112; 97161

== ENCOUNTER 2025-09-25 18:45 | Outpatient (CLI) | payer MEDICARE, SELFPAY ==
--- NOTE | 2025-09-25 19:00 | CRLHL7_ITS ---
For Patients: As a result of the Century Cures Act, medical imaging exams and procedure reports are released immediately into your electronic medical record. You may view this report before your referring provider. If you have questions, please contact your health care provider. INDICATION: BILATERAL SCREENING MAMMOGRAM, ASYMPTOMATIC 80 Y/O FEMALE COMPARISON: 09/11/2024, 09/06/2023, 09/03/2022 TECHNIQUE: Digital mammogram in CC and MLO projections including computer-aided detection (CAD) and tomosynthesis. BREAST COMPOSITION: The breasts are heterogeneously dense, which may obscure small masses. FINDINGS: No suspicious findings. ASSESSMENT: BI-RADS 2 Benign RECOMMENDATION: Annual screening mammogram. A lay language report of this examination will be provided to the patient. Dictated by: Basil Walker MD @ 09/26/2025 09:55:49 (Electronically Signed)
== END 2025-09-25 18:46 | disposition home or self-care (01) ==
LOC: MAMMO 18:45
PROVIDERS: PCP Internal Medicine; Visit Provider Internal Medicine
DX: Z12.31 Encounter for screening mammogram for malignant neoplasm of breast (principal); R92.333 Mammographic heterogeneous density, bilateral breasts
CPT/HCPCS: 77063; 77067

== ENCOUNTER 2025-10-15 10:39 | Outpatient (CLI) | payer MEDICARE, SELFPAY ==
--- NOTE | 2025-10-15 10:45 | CRLHL7_ITS ---
For Patients: As a result of the Century Cures Act, medical imaging exams and procedure reports are released immediately into your electronic medical record. You may view this report before your referring provider. If you have questions, please contact your health care provider. INDICATION: Follow-up thyroid nodules COMPARISON: 05/04/2024 TECHNIQUE: Givens scale and color Doppler images were acquired of the thyroid gland. FINDINGS: Heterogeneous TR 3 nodule left thyroid lobe measures 10 x 7 x 11 millimeters, TR 3. Mostly cystic nodule left thyroid lobe measures 16 x 8 x 10 millimeters, TR 2. Solid and cystic nodule left thyroid lobe measures 9 x 4 x 7 millimeters, TR 3. Heterogeneous solid and cystic nodule right thyroid lobe measures 14 x 8 x 13 millimeters, TR 3. Similar nodule anterior right thyroid lobe measures 7 x 5 x 8 millimeters, TR 3. Solid TR 4 nodule right thyroid lobe measures 2.2 x 1.2 x 1.4 cm. There is some difference in the measuring technique regarding this nodule compared to the prior study. In retrospect, there is no interval change. The right lobe measures 4.6 x 1.9 x 1.9 cm and the left lobe measures 4.9 x 1.7 x 1.5 cm in size. The color Doppler images demonstrate normal vascularity. There is no evidence of cervical lymphadenopathy or parathyroid mass. IMPRESSION: Similar bilateral thyroid nodules. Dictated by Basil Walker MD @ 10/15/2025 12:04:51 PM (Electronically Signed)
== END 2025-10-15 10:40 | disposition home or self-care (01) ==
LOC: US 10:40
PROVIDERS: PCP Internal Medicine; Visit Provider Internal Medicine
DX: E04.1 Nontoxic single thyroid nodule (principal)
CPT/HCPCS: 76536